=== PATIENT | male | born 2000 | race Caucasian/White ===

== ENCOUNTER 2024-07-23 20:25 | Emergency (ER) | payer OTHER, MEDICAID, SELFPAY ==
[2024-07-23 20:26] VITALS: BP 138/79; PULSE 88; RESP 16; TEMP 36.6; O2SAT 99; BMI 27.1
[2024-07-23 20:36] VITALS: BP 138/79; PULSE 88; RESP 16; TEMP 36.7; O2SAT 99
[2024-07-23] MEDS: Ibuprofen 400 MG Tablet 800 MG PO (21:10)
[2024-07-23 21:29] VITALS: BP 120/72; PULSE 63; RESP 16; TEMP 36.7; O2SAT 100
[2024-07-23 21:31] VITALS: BP 120/72; PULSE 71; RESP 16; TEMP 36.7; O2SAT 100
== END 2024-07-23 21:53 | disposition home or self-care (01) ==
LOC: ED 21:06
PROVIDERS: Emergency Provider Emergency Medicine; Visit Provider Emergency Medicine
DX: T22.251A Burn of second degree of right shoulder, initial encounter (principal); Y92.511 Restaurant or cafe as the place of occurrence of the external cause; Y99.0 Civilian activity done for income or pay; T22.211A Burn of second degree of right forearm, initial encounter
CPT/HCPCS: 99282

== ENCOUNTER 2025-04-23 15:21 | Emergency (ER) | payer OTHER, MEDICAID, SELFPAY ==
[2025-04-23 15:22] VITALS: BP 98/75; PULSE 112; RESP 18; TEMP 36; O2SAT 98
--- NOTE | 2025-04-23 15:25 | ED.RN ---
reports to triage nurse panic attacks, some thoughts of self harm but denies suicidal ideation or plan.
[2025-04-23] MEDS: hydrOXYzine PAM 25 MG Capsule 50 MG PO (16:19)
[2025-04-23 16:20] VITALS: BMI 25.0
--- NOTE | 2025-04-23 16:21 | EX.ED.VIS.PS ---
HPI HPI - Psych History of Present Illness Chief Complaint: Anxiety Informant: patient and parent Narrative Narrative: Patient is a 24-year-old male with history of bipolar disorder presenting for evaluation of worsening anxiety. Patient states he is recently been bouncing around on his meds. He states for the past 6 weeks has had worsening anxiety and depression. He had been put on Seroquel 100 mg nightly but went off of it recently because he felt like all he wanted to do his sleep and did not have control of his body. He was switched to lurasidone 60 mg. He states is not been effective and over the past 3 days he has had insomnia and worsening anxiety and panic attacks. Said he had 2 panic attacks today and 3 yesterday over the course of 4 hours. He states he started to have thoughts of self-harm does not have a plan. He just is feeling like he is not around anymore. Denies any auditory visual hallucinations. Denies any history of suicide attempts. Does have a history of suicidal ideations. Denies any HI. Notes that he follows with staff and psychiatrist through [facility]. He has appointment to see him this week. He is also supposed to start an IOP on Friday. He does note that he has constant chest pain associated with his anxiety. He feels that he can sometimes feel his heartbeat in his ears and feels that his chest is going to explode. Does attribute his last job which she recently quit did worsen his anxiety. He lives at home with his parents. States he feels safe there. Does at the bedside who confirms they feel that safe taking him home. There is a gun in the house but is locked up and there is no animal in the house. I did discussed with father making sure that the patient does not know where the hewitt/combination is. No other complaints or concerns at this time [facility] Medical History Burn Anxiety Home Medications ?Medication ?Instructions ?Recorded ?Last Taken ?Type ibuprofen 200 mg tablet (Advil) 200 mg PO DAILY 07/23/24 Unknown History buspirone 10 mg tablet 10 mg PO TID 04/23/25 Unknown History hydroxyzine pamoate 25 mg capsule 25 mg PO TID PRN anxiety #20 caps 04/23/25 Unknown Rx (Vistaril) quetiapine 100 mg tablet 100 mg PO QHS 04/23/25 Unknown History quetiapine 100 mg tablet (Seroquel) 100 mg PO QHS #7 tabs 04/23/25 Unknown Rx Allergy/AdvReac Type Severity Reaction Status Date / Time Penicillins (PCN) Allergy Intermediate Hives Verified 04/23/25 15:22 bacitracin Allergy Mild Rash Verified 04/23/25 15:22 neomycin (From Neosporin Allergy Mild Rash Verified 04/23/25 15:22 ([id number])) polymyxin B (From Neosporin Allergy Mild Rash Verified 04/23/25 15:22 ([id number])) Surgical History History of knee surgery Social History Smoking Status: Never smoker ROS ROS ED Constitutional Constitutional ED: Denies chills or fever(s) Cardiovascular Cardiovascular: Reports chest pain, palpitations and racing heartbeat Respiratory/Chest Respiratory/Chest: Denies cough or dyspnea Gastrointestinal Gastrointestinal: Denies abdominal pain Musculoskeletal Musculoskeletal: Denies arthralgias or myalgias Neurologic Neurologic: Denies weakness Psychiatric Psychiatric: Reports anxiety, depression, suicidal ideation and other Details: Insomnia ; Denies suicidal thoughts EXAM Physical Exam Const Vital Signs: 04/23/25 15:22 Temperature 96.8 F L Temperature Source Temporal Pulse Rate 112 H Respiratory Rate 18 Blood Pressure 98/75 Blood Pressure Mean 82 Pulse Ox 98 Oxygen Delivery Method Room Air Positive well nourished and well developed General Appearance ED: well developed and NAD HEENT Reports moist mucous membranes Neck supple Resp normal respiratory effort and clear to auscultation bilaterally Cardio no murmurs Rate: regular rate Rhythm: regular rhythm GI non-distended Neuro oriented x3 Sensorium / Orientation: alert Motor Exam: muscle tone normal throughout Psych mental status grossly normal, thought process normal, cooperative, affect normal, speech normal, denies hallucinations and denies homicidal ideation Psych Narrative: Does report some thoughts of feel that he be better off but has no plan or intent for suicidal ideation Mood & Affect: depressed Insight: insight good Judgement: judgement good Skin Lesions: no lesions Rashes: no rashes MDM MDM MDM Narrative Medical decision making narrative: Patient evaluated for worsening depression and anxiety. Does report chest discomfort with it however thinks it is from his anxiety. Will obtain screening EKG to ensure he does not have an arrhythmia or conduction abnormality/ischemic changes however I do not think he would require further cardiac workup if this is normal. Patient's med list/fill history was reviewed and it is consistent with his report. Will have patient's stop taking the lurasidone, continue his buspirone and restart him on quetiapine. At this time I do not think patient requires emergent inpatient psychiatric evaluation. Patient is evaluated by social work as well. Patient and father counseled that if this does not help or worsens he will need to return to emergency room at that time might require inpatient psychiatric services. Is given a dose of hydroxyzine and a as needed prescription hydroxyzine as well for symptoms. Given return precautions. Discharged home in stable condition. Patient is quite agreeable with plan of care. EKG shows normal sinus rhythm with no conduction abnormalities. I suspect his chest discomfort is somatic in nature Rhythm Strip Rhythm Strip: Sinus Rhythm Rate: 93 Ectopy: None EKG Initial EKG: Attestation: I personally reviewed and interpreted this EKG as follows: Interpretation: Sinus Rhythm Comments: Normal sinus rhythm rate 93 bpm Normal axis Normal intervals Normal ST segments Management Discussion w/another healthcare provider: workers' compensation claims supervisor/Case management Discharge Plan Triage Chief Complaint: Anxiety ED Provider: Gretchen Galvan Dx/Rx/DC Orders Clinical Impression: Anxiety, Panic attack, Insomnia Instructions: ED Anxiety Reaction, ED Insomnia, ED Panic Attack Prescriptions: New quetiapine [Seroquel] 100 mg tablet 100 mg PO QHS Qty: 7 0RF hydroxyzine pamoate [Vistaril] 25 mg capsule 25 mg PO TID PRN (Reason: anxiety) Qty: 20 0RF Discontinued lurasidone 40 mg tablet 40 mg PO QPM No Action ibuprofen [Advil] 200 mg tablet 200 mg PO DAILY quetiapine 100 mg tablet 100 mg PO QHS buspirone 10 mg tablet 10 mg PO TID Primary Care Provider: Care Physician,No Primary Referrals: Care Physician,No Primary [Primary Care Provider] - Activity Restrictions/Additional Instructions: Please follow-up with psychiatry next week as scheduled. Follow-up with your IOP. If you feel like your symptoms are worsening despite his medication changes please return to the emergency room. If you have worsening suicidal thoughts. Start to think about a plan please immediately return to the emergency room. Do not take the lurasidone tonight and instead take the Seroquel. The hydroxyzine is for as needed for acute anxiety/panic attacks Print Language: Macanese Disposition Disposition: Home, Self Care
--- OUTSIDE RECORDS SUMMARY | 2025-04-23 16:32 | XMS RPT_ITS | CCD ---
Author Organization [facility] Care Team Providers Care Slot Operations Director Name Role Phone Marcy Lugo MD Primary Care Provider STEPHEN SKY Admitting Unavailable SALSTEPHEN MCGEE Attending Unavailable TIFFANYL, MARCY Adame Primary Care Unavailable Marcy Lugo MD Primary Care Provider JENNIFER, MARCY Adame Primary Care Unavailable LISA RANGEL Attending Unavailable SALSTEPHEN MCGEE Referring Unavailable TELLING, REJI Referring Unavailable PLAYL, MARCY M Primary Care Unavailable LISA RANGEL Attending Unavailable PLAYL, MARCY M Primary Care Unavailable JUAN ZAMORA Attending Unavailable SALUANSTEPHEN Referring Unavailable PLAYL, MARCY Deep Primary Care Unavailable JUAN ZAMORA Attending Unavailable SALSTEPHEN MCGEE Referring Unavailable O'JOHNSONALISON Attending Unavailable PLAYL, MARCY M Primary Care Unavailable SALUANSTEPHEN Referring Unavailable O'JOHNSONALISON Attending Unavailable PLAYL, MARCY M Primary Care Unavailable SALUAN, STEPHEN Adame Referring Unavailable PLAYL, MARCY Deep Primary Care Unavailable SALUANSTEPHEN Referring Unavailable PLAYL, MARCY Deep Primary Care Unavailable SALSTEPHEN MCGEE Referring Unavailable JUAN ZAMORA Attending Unavailable PLAYL, MARCY Deep Primary Care Unavailable SALUANSTEPHEN Referring Unavailable JUAN ZAMORA Attending Unavailable PLAYL, MARCY M Primary Care Unavailable SALSTEPHEN MCGEE Referring Unavailable TELLING, REJI Attending Unavailable PLAYL, MARCY M Primary Care Unavailable PLAYL, MARCY M Primary Care Unavailable TELLING, REJI Referring Unavailable PLAYL, MARCY M Primary Care Unavailable JUAN ZAMORA Attending Unavailable STEPHEN SKY Referring Unavailable PLAYL, MARCY M Primary Care Unavailable JUAN ZAMORA Attending Unavailable SALUANSTEPHEN Referring Unavailable SALUANSTEPHEN Referring Unavailable PLAYL, MARCY M Primary Care Unavailable JUAN ZAMORA Attending Unavailable PLAYL, MARCY M Primary Care Unavailable NOAH, JUAN Attending Unavailable STEPHEN SKY Referring Unavailable PLAYL, MARCY M Primary Care Unavailable NOAH, JUAN Attending Unavailable SALSTEPHEN MCGEE Referring Unavailable PLAYL, MARCY M Primary Care Unavailable NOAH, JUAN Attending Unavailable SALUANSTEPHEN Referring Unavailable SALUANSTEPHEN Referring Unavailable PLAYL, MARCY M Primary Care Unavailable NOAH, JUAN Attending Unavailable SALSTEPHEN MCGEE Referring Unavailable PLAYL, MARCY M Primary Care Unavailable NOAH, JUAN Attending Unavailable SALUANSTEPHEN Referring Unavailable PLAYL, MARCY M Primary Care Unavailable NOAH, JUAN Attending Unavailable SALUANSTEPHEN Referring Unavailable PLAYL, MARCY M Primary Care Unavailable NOAH, JUAN Attending Unavailable STEPHEN SKY Referring Unavailable PLAYL, MARCY M Primary Care Unavailable NOAH, JUAN Attending Unavailable O'JOHNSONALISON Attending Unavailable PLAYL, MARCY M Primary Care Unavailable SALSTEPHEN MCGEE Referring Unavailable O'JOHNSONALISON Attending Unavailable PLAYL, MARCY M Primary Care Unavailable STEPHEN SKY Referring Unavailable PLAYL, MARCY M Primary Care Unavailable NOAH, JUAN Attending Unavailable SALUANSTEPHEN Referring Unavailable SALUANSTEPHEN Referring Unavailable PLAYL, MARCY M Primary Care Unavailable NOAH, JUAN Attending Unavailable STEPHEN SKY Referring Unavailable PLAYL, MARCY M Primary Care Unavailable NOAH, JUAN Attending Unavailable PLAYL, MARCY M Primary Care Unavailable NOAH, JUAN Attending Unavailable STEPHEN SKY Referring Unavailable PLAYL, MARCY M Primary Care Unavailable NOAH, JUAN Attending Unavailable STEPHEN SKY Referring Unavailable SALSTEPHEN MCGEE Referring Unavailable PLAYL, MARCY M Primary Care Unavailable NOAH, JUAN Attending Unavailable SURESH DOMINGUEZ Attending Unavailable PLAYL, MARCY M Primary Care Unavailable SALUANSTEPHEN Referring Unavailable PLAYL, MARCY M Primary Care Unavailable REJI VERGARA Referring Unavailable PLAYL, MARCY M Primary Care Unavailable SALSTEPHEN MCGEE Attending Unavailable PLAYL, MARCY M Primary Care Unavailable SALSTEPHEN MCGEE Attending Unavailable PLAYL, MARCY M Primary Care Unavailable CINDY TILLMAN Referring Unavailable DWAIN MENDEZ Attending Unavailable PLAYL, MARCY M Primary Care Unavailable SALSTEPHEN MCGEE Attending Unavailable PLAYL, MARCY M Primary Care Unavailable STEPHEN SKY Referring Unavailable JUAN ZAMORA Attending Unavailable PLAYL, MARCY M Primary Care Unavailable NOAH, JUAN Attending Unavailable STEPHEN SKY Referring Unavailable PLAYL, MARCY M Primary Care Unavailable NOAH, JUAN Attending Unavailable STEPHEN SKY Referring Unavailable PLAYL, MARCY M Primary Care Unavailable NOAH, JUAN Attending Unavailable SALSTEPHEN MCGEE Referring Unavailable PLAYL, MARCY M Primary Care Unavailable NOAH, JUAN Attending Unavailable STEPHEN SKY Referring Unavailable PLAYL, MARCY M Primary Care Unavailable NOAH, JUAN Attending Unavailable SALSTEPHEN MCGEE Referring Unavailable PLAYL, MACRY M Primary Care Unavailable NOAH, JUAN Attending Unavailable SALSTEPHEN MCGEE Referring Unavailable PLAYL, MARCY M Primary Care Unavailable SALEVERARDO, STEPHEN Adame Referring Unavailable NOAH, JUAN Attending Unavailable PLAYL, MARCY M Primary Care Unavailable SALSTEPHEN MCGEE Referring Unavailable NOAH, JUAN Attending Unavailable PLAYL, MARCY M Primary Care Unavailable NOAH, JUAN Attending Unavailable TELLING, REJI Referring Unavailable PLAYL, MARCY M Primary Care Unavailable NOAH, JUAN Attending Unavailable STEPHEN SKY Referring Unavailable PLAYL, MARCY M Primary Care Unavailable LISA RANGEL Attending Unavailable STEPHEN SKY Referring Unavailable O'JOHNSONALISON Attending Unavailable PLAYL, MARCY M Primary Care Unavailable STEPHEN SKY Referring Unavailable PLAYL, MARCY M Primary Care Unavailable TELLING, REJI Referring Unavailable PLAYL, MARCY M Primary Care Unavailable STEPHEN SKY Attending Unavailable PLAYL, MARCY M Primary Care Unavailable NICHOLE, STEPHEN Adame Attending Unavailable STEPHEN SKY Referring Unavailable PLAYL, MARCY M Primary Care Unavailable NOAH, JUAN Attending Unavailable PLAYL, MARCY M Primary Care Unavailable NOAH, JUAN Attending Unavailable STEPHEN SKY Referring Unavailable PLAYL, MARCY M Primary Care Unavailable NOAH, JUAN Attending Unavailable STEPHEN SKY Referring Unavailable O'JOHNSONALISON Attending Unavailable PLAYL, MARCY M Primary Care Unavailable STEPHEN SKY Referring Unavailable SALSTEPHEN MCGEE Referring Unavailable PLAYL, MARCY M Primary Care Unavailable NOAH, JUAN Attending Unavailable STEPHEN SKY Referring Unavailable PLAYL, MARCY M Primary Care Unavailable NOAH, JUAN Attending Unavailable PLAYL, MARCY M Primary Care Unavailable PLAYL, MARCY M Primary Care Unavailable STEPHEN SKY Attending Unavailable PLAYL, MARCY M Primary Care Unavailable NOAH, JUAN Attending Unavailable STEPHEN SKY Referring Unavailable PLAYL, MARCY M Primary Care Unavailable JUAN ZAMORA Attending Unavailable STEPHEN SKY Referring Unavailable JENNIFER MARCY M Primary Care Unavailable JUAN ZAMORA Attending Unavailable STEPHEN SKY Referring Unavailable JENNIFER, MARCY Adame Primary Care Unavailable JUAN ZAMORA Attending Unavailable STEPHEN SKY Referring Unavailable JENNIFER MARCY M Primary Care Unavailable STEPHEN SKY Referring Unavailable JENNIFER, MARCY Deep Primary Care Unavailable STEPHEN SKY Attending Unavailable Marcy Lugo MD Primary Care Provider Care Physician, No Primary Primary Care Unava ilable Jameson Enriquez Attending Unavailable Care Physician, No Primary Referring Unava ilable Care Physician, No Primary Primary Care Unava ilable Jameson Enriquez Attending Unavailable Care Physician, No Primary Referring Unava ilable Care Physician, No Primary Primary Care Unava ilable Davidson Sullivan Attending Unavailable Allergies Allergy Classification Reported Allergen(s) Allergy Type Date of Onset Reaction(s) Facility (7 sources) Penicillins; Translations: [PENICILLINS] Drug Allergy 5 [facility] Work Phone: (20 sources) environmental [Other] Propensity to adverse reactions 9 [facility] (20 sources) Penicillins Drug Allergy 5 [facility] Work Phone: (2 sources) OTHER; Translations: [OTHER] Propensity to adverse reactions (disorder) 9 [facility] Other [facility] (1 source) Bacitracin Drug Allergy 4 [facility] Repository (1 source) Neomycin Drug Allergy 4 [facility] Repository (1 source) Penicillins Drug allergy (disorder) 4 [facility] Repository (1 source) polymyxin B Drug allergy (disorder) 4 [facility] Repository (1 source) Penicillins Drug Allergy 5 [facility] Work Phone: Medications Current Medications Medication Drug Class(es) Dates Sig (Normalized) Sig (Original) finasteride 1 mg oral tablet (20 sources) 5-alpha Reductase Inhibitor take 1 tablet by mouth once daily finasteride (PROPECIA,PROSCAR) 1 mg tablet Take 1 mg by mouth once daily. Active Comment on above: Take 1 mg by mouth o nce daily. Ibuprofen (20 sources) Nonsteroidal Anti-inflammatory Drug ibuprofen (MOTRIN ORAL) Take by mouth. Active ibuprofen (MOTRI N ORAL) Take by mouth. 0 Active Comment on above: Take by mouth. ondansetron 4 mg oral tablet (1 source) Serotonin-3 Receptor Antagonist Start: 2 End: 2 take 1 tablet by mouth every eight hours as needed ondansetron (ZOFRAN) 4 mg tablet Take 1 tablet by mouth every 8 hours as needed for up to 3 days. 9 tablet 0 08/13/2022 08/16/2022 Active Comment on above: Take 1 tablet by swapnil th every 8 hours as needed for up to 3 days. oxyCODONE hydrochloride 5 mg oral tablet (1 source) Opioid Agonist Start: 2 End: 2 take 1 tablet by mouth every six hours as needed for pain oxyCODONE IR (ROXICODONE) 5 mg immediate release tablet Indications: Acute post-operative pain Take 1 tablet by mouth every 6 hours as needed for pain for up to 4 days. for pain. 16 tablet 0 08/13/2022 08/17/2022 Active Comment on above: Take 1 tablet by swapnil th every 6 hours as needed for pain for up to 4 days. for pain. Problems Active Problems Problem Classification Problem Date Documented Date Episodic/Chronic Anxiety disorders (20 sources) Anxiety; Translations: [Anxiety disorder, unspecified] Onset: 10-01-2019 10-01-2019 Chronic Monique (1 source) Burn of second degree of right shoulder, initial encounter; Translations: [Burn of second degree of right shoulder, initial encounter] Onset: 08-30-2024 Episodic Mood disorders (20 sources) Depressive disorder; Translations: [Depression] Onset: 10-01-2019 10-01-2019 Chronic Other bone disease and musculoskeletal deformities (1 source) Osteochondritis dissecans of right knee; Translations: [Osteochondritis dissecans, right knee] Chronic Other bone disease and musculoskeletal deformities (1 source) Osteochondritis dissecans of left knee; Translations: [Osteochondritis dissecans, left knee] Chronic Other bone disease and musculoskeletal deformities (20 sources) Osteochondritis dissecans; Translations: [Osteochondritis dissecans, unspecified knee] Onset: 05-07-2022 Chronic Other bone disease and musculoskeletal deformities (7 sources) Osteochondritis dissecans, unspecified knee; Translations: [Osteochondritis dissecans] Onset: 05-07-2022 05-07-2022 Chronic Other congenital anomalies (20 sources) Congenital pes planus; Translations: [Congenital pes planus, unspecified foot] Onset: 04-27-2009 04-27-2009 Chronic Other nervous system disorders (1 source) Other chronic pain; Translations: [Chronic pain of both knees] Onset: 04-04-2022 Chronic Other nervous system disorders (1 source) Acute postoperative pain; Translations: [Other acute postprocedural pain] Episodic Past or Other Problems Problem Classification Problem Date Documented Date Episodic/Chronic Other acquired deformities (20 sources) Arthropathy of knee joint; Translations: [Other specified acquired deformities of musculoskeletal system] Onset: 09-03-2022 Episodic Other acquired deformities (2 sources) Other specified acquired deformities of musculoskeletal system; Translations: [Osteochondral defect of condyle of femur] Onset: 08-13-2022 Episodic Other aftercare (20 sources) Surgical follow-up; Translations: [Encounter for follow-up examination after completed treatment for conditions other than malignant neoplasm] Onset: 09-03-2022 Episodic Other aftercare (1 source) Encounter for follow-up examination after completed treatment for conditions other than malignant neoplasm; Translations: [S/P orthopedic surgery, follow-up exam] Onset: 09-03-2022 Episodic Other connective tissue disease (6 sources) Pain in limb; Translations: [Pain in unspecified limb] Onset: 04-27-2009 Resolved: 03-13-2018 03-13-2018 Episodic Other non-traumatic joint disorders (6 sources) Pain in right knee; Translations: [Pain in joint, lower leg] Onset: 04-04-2022 Episodic Other non-traumatic joint disorders (1 source) Pain in left knee; Translations: [Chronic pain of both knees] Onset: 04-04-2022 Episodic Other skin disorders (20 sources) Acne; Translations: [Acne, unspecified] Onset: 03-13-2018 03-13-2018 Episodic Residual codes; unclassified (20 sources) Influenza vaccination declined; Translations: [Immunization not carried out because of patient refusal] Onset: 10-01-2019 10-01-2019 Episodic Results Test Name Value Interpretation Reference Range Facility Urgent Care Visit Reporton 1 10-11-2023 Urgent Care Visit Report [facility] [address], [address] [place] [address] OFFICE VISIT Date of Service: 08/10/24 MR#: [id number] Acct: [id number] Name: TUCKER ZAMBRANO Rep #: [id number] : 2000 Provider: BRANDON Sharpe Age/Sex: 24/M Location: [facility] Status: Signed Intake Vital Signs 08/03/24 15:12 08/10/24 14:57 Height 5 ft 10 in Weight: 186 lb BMI 26.6 BP 124/80 H 120/58 L Blood Pressure Location Lt brachial Lt brachial Position Sitting Sitting Respiration 18 16 Pulse 110 H 75 Pulse Source Monitor NIBP Temp 98.5 F 98.4 F Temp Source Oral Oral Pulse Oximetry (%) 98 99 Oxygen Delivery Method room air room air Intake Visit Reasons: 1 W FU/[place] REST Chief Complaint: WC f/u right forearm burn Junior Mechanical Engineer Required: No Allergies Penicillins (PCN) Allergy (Intermediate, Verified 08/10/24 14:58) Hives bacitracin Allergy (Mild, Verified 08/10/24 14:58) Rash neomycin (From Neosporin ([id number])) Allergy (Mild, Verified 08/10/24 14:58) Rash polymyxin B (From Neosporin ([id number])) Allergy (Mild, Verified 08/10/24 14:58) Rash Have you fallen in the past year?: No PFSH Medical History (Updated 08/03/24 @ 15:18 by Kasie Salcido) Burn Anxiety Surgical History (Updated 08/03/24 @ 15:19 by Kasie Salcido) History of knee surgery Social History Smoking Status: Never smoker HPI HPI Chief Complaint: WC f/u right forearm burn Details: TUCKER ZAMBRANO, is a 24 M who presents to the office today for follow-up status post work-related injury suffered on 07/23/2024 patient so states. 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 Today he notes he has yet to return to work as he told his employer because the amount of discomfort he had and he did not want to return to work, though he notes today the symptoms have improved remarkably with blister sites all with appropriate healing without further discharge over last 24 hours and trace to absent discomfort throughout the whole burn site. No complaints of fever, chills, sweats, lightheadedness/dizzin ess. He has been compliant with wound care, applying Silvadene cream as prescribed. No [id number] products taken to assist. No other associated symptoms and no other alleviating/aggravatin g factors. ROS Const Constitutional: No other (As above) Exam Const General: cooperative, healthy appearing and no acute distress Nutritional Appearance: average body habitus Orientation: alert and awake Resp Effort Inspection: normal respiratory effort and able to speak in complete sentences Cardio Rate: tachycardic Pulses: radial pulses present Skin Other: Approximately 20 cm by approximately 10 cm trace erythematous with scaling and resolved blisters Neuro General: patient alert and patient awake Cognition: normal cognition Speech: speech normal Motor: muscle tone normal throughout Sensory Exam: no sensory deficits noted Extrem General: normal to inspection Psych Appearance: grossly normal Mental Status: mental status grossly normal Mood: congruent mood Affect: normal affect Speech and Movement: speech and movement normal Attitude: cooperative Diagnoses Burn of second degree of right forearm, initial encounter T22.211A Assessment and Plan Assessment and Plan (1) Burn of second degree of right forearm, initial encounter: Status: Acute Comment: Right Forearm Plan: Return to work without restrictions as noted on today's [employer], though recommend keeping site covered for additional week. Silvadene cream as prescribed to discontinue. [facility] with [facility] on an as-needed basis only. Patient states acknowledging understanding all the above. Coding Level of Care Code Off vis,est,level 2 Clinical Quality Measures Falls Risk Screening/Assistive Devices Have you fallen in the past year?: No 08/10/24 1533 Date Jameson Yates Signature: Date (if applicable) CC: Normal [facility] Urgent Care Visit Reporton 1 10-03-2023 Urgent Care Visit Report [facility] [address], [address] [place] [address] OFFICE VISIT Date of Service: 08/03/24 MR#: [id number] Acct: [id number] Name: TUCKER ZAMBRANO Rep #: [id number] : 2000 Provider: BRANDON Sharpe Age/Sex: 24/M Location: [facility] Status: Signed Intake Vital Signs 07/23/24 20:26 08/03/24 15:12 Height 5 ft 10 in 5 ft 10 in Weight: 186 lb BMI 26.6 BP 124/80 H Blood Pressure Location Lt brachial Position Sitting Respiration 18 Pulse 110 H Pulse Source Monitor Temp 98.5 F Temp Source Oral Pulse Oximetry (%) 98 Oxygen Delivery Method room air Intake Visit Reasons: ER F/U BURN R FOREARM/ [place] Chief Complaint: ER F/U burn Right Forearm/[place] Junior Mechanical Engineer Required: No Accompanied by: Mother Is patient in pain?: No Allergies Penicillins (PCN) Allergy (Intermediate, Verified 08/03/24 15:14) Hives Medications ???Medication ???Instructions ???Recorded ???Confirmed ???Type finasteride 1 mg tablet 1 mg PO DAILY 07/23/24 08/03/24 History ibuprofen 200 mg tablet (Advil) 200 mg PO DAILY 07/23/24 08/03/24 History doxycycline monohydrate 100 mg 100 mg PO BID #20 caps 08/03/24 08/03/24 Rx capsule silver sulfadiazine 1 % topical 1 applic topical BID #50 grams 08/03/24 08/03/24 Rx cream Nurse's Note: ER F/U burn Right forearm,. WC [place]. 07/23/24 C/O small blister formations accompanied with itchiness on proximal area of burn after using neosporin. Switched to Bacitracin and same reaction occurred. [facility] Medical History (Updated 08/03/24 @ 15:18 by Kasie Salcido) Burn Anxiety Surgical History (Updated 08/03/24 @ 15:19 by Kasie Salcido) History of knee surgery Social History Smoking Status: Never smoker HPI HPI Chief Complaint: ER F/U burn Right Forearm/[place] Details: TUCKER ZAMBRANO, is a 24 M who presents to the office today for follow-up status post work-related injury suffered on 07/23/2024 patient so states. 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 He notes no loss of sensation or strength or function distal to the injury site. Topical Neosporin as well as bacitracin have both been trying to the wound, with him stating his symptoms only worsen causing blistering to the wound site and increased erythema and as a result has stopped using both. He notes no complaints of fever, chills, sweats, constricted/pruritic airway or chest pain/shortness of breath/dyspnea on exertion. No other complaints at this time. ROS Const Constitutional: No other (As above) Exam Const General: cooperative, healthy appearing and no acute distress Nutritional Appearance: average body habitus Orientation: alert and awake Resp Effort Inspection: normal respiratory effort and able to speak in complete sentences Cardio Rate: tachycardic Pulses: radial pulses present Skin Other: Approximately 20 cm by approximately 10 cm erythematous raised open wound with clustered closed blisters to the borders of the same after site examined nonadherent dressing and Coban was applied thereafter which patient tolerated well. Neuro General: patient alert and patient awake Cognition: normal cognition Speech: speech normal Motor: muscle tone normal throughout Sensory Exam: no sensory deficits noted Extrem General: normal to inspection Psych Appearance: grossly normal Mental Status: mental status grossly normal Mood: congruent mood Affect: normal affect Speech and Movement: speech and movement normal Attitude: cooperative Coding Level of Care Code Off vis,new,level 3 Diagnoses Burn of second degree of right forearm, initial encounter T22.211A Assessment and Plan Assessment and Plan (1) Burn of second degree of right forearm, initial encounter: Status: Acute Comment: Right Forearm Plan: Return to work with restrictions as noted on today's [employer]. Silvadene cream as prescribed today. Doxycycline as prescribed today. Supportive measures as instructed today. Follow-up with the [facility] approximately 1 week for reevaluation, sooner should symptoms only worsen or any other concerns develop. Patient and mother both state acknowledging understanding all the above. This note was generated with [employer] dictation software. It may contain incorrect words, spelling, and punctuation that were not noted in checking the note before signing. Medications: New s (more content not included)... Normal [facility] Emergency Department Summary on 07-23-2024 Emergency Department Summary [facility] Medical Records Department [address] [place] [address] Emergency Department Summary 07/23/24 MR#: [id number] Acct: [id number] Name: TUCKER ZAMBRANO Rep #: [id number] : 2000 24 From: Davidson Sullivan MD PCP: Care Physician,No Primary Status:REG ER Location: ED HPI History of Present Illness Chief Complaint: Burn Informant: patient Onset/Context/Timing Onset: Today Mechanism/Context: Burn Location of pain/injuries: Right forearm Current Severity: Moderate Maximum Severity: Moderate Associated Symptoms Associated Symptoms: Negative for Parasthesias, Weakness, Loss of function, Inability to ambulate, Loss of consciousness or Amnesia Narrative Narrative: 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 He was changing the cooking oil when it spilled on his shoulder and radial side of his forearm causing first and second-degree monique. This occurred just prior to arrival. He is right-hand dominant. No other complaints. Prior similar symptoms: No Recent Illness/Hospitalizatio n: No PFSH PFS Medical History Anxiety Home Medications ???Medication ???Instructions ???Recorded ???Last Taken ???Type finasteride 1 mg tablet 1 mg PO DAILY 07/23/24 Unknown History ibuprofen 200 mg tablet (Advil) 200 mg PO DAILY 07/23/24 Unknown History Allergy/AdvReac Type Severity Reaction Status Date / Time Penicillins (PCN) Allergy Intermediate Hives Verified 07/23/24 20:26 Social History Smoking Status: Never smoker ROS ROS ED ROS Narrative Denies recent illness. Constitutional Constitutional ED: Denies chills or fever(s) Eyes Eyes: Denies blurry vision ENT ENT ED: Denies ear pain Cardiovascular Cardiovascular: Denies chest pain Respiratory/Chest Respiratory/Chest: Denies cough or dyspnea Gastrointestinal Gastrointestinal: Denies abdominal pain Genitourinary Genitourinary ED: Denies dysuria or hematuria Musculoskeletal Musculoskeletal: Denies arthralgias Integumentary Denies abscess Neurologic Neurologic: Denies headache(s) Psychiatric Psychiatric: Denies anxiety or depression Endocrine Endocrinology: Denies cold intolerance Hematologic/Lymphatic Hematologic/Lymphatic: Denies easy bleeding or easy bruising Allergic/Immunologic Allergic/Immunologic ED: Denies mouth swelling, tongue swelling or urticaria EXAM Physical Exam Narrative Exam Narrative: 25-year-old male no acute distress vital signs stable afebrile. H EENT exam unremarkable. Neck nontender. Lungs clear to auscultation bilateral. Heart regular rate rhythm rate about 85 no murmur. Chest wall and ribs nontender. Abdomen soft nontender. Moving all 4 extremities. Neurovascularly intact. 5 out of 5 high rigger strength. Normal sensation. Dorsi plantarflexion intact. Right forearm circumferentially from the wrist to the proximal forearm patient has first and second- degree monique with sloughing of skin. Normal radial and ulnar pulse. Normal high rigger strength. Normal sensation. He has normal flexion extension of his wrist and elbow. Const Vital Signs: 07/23/24 20:26 07/23/24 20:36 07/23/24 20:36 Temperature 98 F 98.0 F Temperature Source Oral Oral Pulse Rate 88 88 Respiratory Rate 16 16 Respiratory Effort Normal Non-Labored Respiratory Depth Normal Respiratory Pattern Normal Blood Pressure 138/79 H 138/79 H Blood Pressure Mean 98 98 Pulse Ox 99 99 Oxygen Delivery Method Room Air Room Air Positive well nourished and well developed; Negative for obese, cachectic, contractures or unkempt General Appearance ED: well developed and NAD; Negative for unkempt, cachectic or contractures Nutritional Appearance: Negative for cachectic or obese HEENT atraumatic; Negative for trauma or tenderness Eyes PERRL and EOMs intact bilaterally Neck full ROM General: Negative for tenderness Chest Wall inspection of chest normal and palpation of chest normal Breast/Axilla Inspection: Negative for other Resp normal respiratory effort and clear to auscultation bilaterally Effort and Inspection: Negative for pain with movement Auscultation: Negative for rales, rhonchi, wheezes or diminished lung sounds Cardio regular rhythm, S1 normal heart sound, S2 normal heart sound and no murmurs Palpation: Negative for palpable S3 or palpable S4 Rate: regular rate; Negative for bradycardia or tachycardic Rhythm: Negative for abnormal rhythm GI normal to inspection, nondistended, normoactive bowel sounds, non-distended and no masses Inspection: Negative for abdominal distention Palpation: soft; Negative for tender, guarding or rebound tenderness present Back/Spine normal to inspection and no thoracic nor lumbar ten (more content not included)... [facility] TUCKER ZAMBRANO ([id number]) 1 M Date Time Provider Department 03/31/23 11:00 AM STEPHEN SKY SPPEST During your visit today, we recorded the following information about you: Stephen Sky MD 03/31/2023 12:12 PM Signed March 31, 2023 HPI: Tucker Zambrano is a 22 year old male with the presenting complaint of Post Op of the Left Knee. He was last seen in orthopaedic clinic for his knee on 12/30/2022 with Stephen Sky. Most recent knee imaging was completed on 03/31/2023 (XR KNEE GENERAL 4V AP BOTH/PA BOTH/LAT/MERC LEFT) . Attached is imaging for the order.The last knee-related PT visit was completed on 03/25/2023 (Knee - Left;Knee - Right). Tucker had knee surgery on 08/13/2022 with Stephen Sky. In the past (based on all medication history on file), Tucker has tried the following anti-inflammatory medications (not necessarily for this reason for visit): dexamethasone sodium phosphate, ketorolac tromethamine. Last XR Knee - Impression Only XR KNEE GENERAL 4V AP BOTH/PA BOTH/LAT/MERC LEFT Exam End: 03/31/2023 11:09 AM (In process) Last MRI Knee - Impression Only MRI KNEE WO IVCON RT Exam End: 03/01/2022 2:09 PM (Final result) Impression: IMPRESSION: RIGHT KNEE: LARGE MEDIAL AND LATERAL FEMORAL CONDYLE OSTEOCHONDRAL LESIONS. MULTIPLE IN SITU FRAGMENTS. NO FLUID UNDERMINING OR DISPLACED FRAGMENT. ... PT Visits (up to last 5) Some values may be hidden. Unless noted otherwise, only the newest values recorded on each date are displayed. PT Visits 02/07/23 02/14/23 02/21/23 03/10/23 03/25/23 Pain location Knee - Left Knee - Left Knee - Left Knee - Right Knee - Left;Knee - Right Pain level 0 0 0 3 0 Description Aching;Sore Aching;Sore Aching Frequency Intermittent Intermittent Intermittent Intermittent Intermittent Recent Surgeries this specialty 08/13/2022 (7mo) ALLOGRAFT OSTEOCHONDRAL KNEE OPEN (Left) Stephen Sky MD; Jayson Vega, DO - Posted Doing well in regard to left knee. PAIN EVALUATION No data found in the last 1 encounters. Past Medical History: PAST MEDICAL HISTORY Diagnosis Date Allergic rhinitis, cause unspecified Allergic rhinitis Pain in limb 2008 Family History: FAMILY HISTORY Problem Relation Age of Onset Hypertension Father Social History: Social History Tobacco Use Smoking status: Never Smokeless tobacco: Never Vaping Use Vaping Use: Never used Substance Use Topics Alcohol use: Never Drug use: Never Medications: ibuprofen (MOTRIN ORAL) Take by mouth. finasteride (PROPECIA,PROSCAR) 1 mg tablet Take 1 mg by mouth once daily. Allergies: ALLERGIES Allergen Reactions Penicillins Rash Environmental [Othe* Physical Exam: improved rom of left knee. No p[ain. No effusion. Imaging: Images were reviewed in the office today. Interpretation of the performed imaging is Xrays show good interval placement of grafts. No new issues in regard to left Assessment/Plan: continue with PT progression. Will see in the fututre when he is ready. Diagnosis: Osteochondral defect of condyle of femur (primary encounter diagnosis) Stephen Sky MD Allergies As of Date: 03/31/2023 Noted Allergy Reaction PENICILLINS 06/05/2005 2 - Rash environmental [Other] 04/27/2009 Date Reviewed: 03/31/2023 Reviewed by: Sophia Phoenix MA - Fully Assessed Reason for Visit: Post Op [174] Primary Visit Diagnosis:Osteochondra l defect of condyle of femur [M95.8] Prescriptions as of 03/31/2023 - ibuprofen (MOTRIN ORAL) Take by mouth. - finasteride (PROPECIA,PROSCAR) 1 mg tablet Take 1 mg by mouth once daily. 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 XR KNEE 4V AP/PA BOTH+LAT/ME R LTon 03-31-2023 XR KNEE 4V AP/PA BOTH+LAT/AMARIS LT * * *Final Report* * * DATE OF EXAM: Mar 31 2023 11:09AM STX 5202 - XR KNEE 4V AP/PA BOTH+LAT/AMARIS LT / PROCEDURE REASON: S/P orthopedic surgery, follow-up exam * * * * Physician Interpretation * * * * Left knee radiographs HISTORY: Status post orthopedic surgery TECHNIQUE: 4 views of the left knee COMPARISON: 12/30/2022 FINDINGS: Osteochondral graft surgery at the medial femoral condyle. Slight increased sclerosis with probable healing and bone fusion. No significant displacement or fragmentation. The lateral osteochondral lesion with no bone fusion and no significant fragmentation evident with no displacement. The remainder the osseous structures at the left knee appear intact. No joint effusion. Osteochondral lesions at the contralateral right knee relatively unchanged. IMPRESSION: 1. Healing left medial femoral condyle osteochondral graft 2. Left lateral femoral condyle osteochondral lesion with no bone fusion or interval displacement Remote Medical Coder: [facility] Transcribe Date/Time: Mar 31 2023 1:28P Dictated by : CEDRICK ELLIS MD This examination was interpreted and the report reviewed and electronically signed by: CEDRICK ELLIS MD on Mar 31 2023 1:34PM EST [id number] Normal [facility] XR Knee - left 4 Viewson IMPRESSION: 1. Healing left medial femoral condyle osteochondral graft 2. Left lateral femoral condyle osteochondral lesion with no bone fusion or interval displacement Remote Medical Coder: [facility] Transcribe Date/Time: Mar 31 2023 1:28P Dictated by : CEDRICK ELLIS MD This examination was interpreted and the report reviewed and electronically signed by: CEDRICK ELLIS MD on Mar 31 2023 1:34PM [facility] DIVISION OF RADIOLOGY * * *Final Report* * * DATE OF EXAM: Mar 31 2023 11:09AM STX 5202 - XR KNEE 4V AP/PA BOTH+LAT/AMARIS LT / PROCEDURE REASON: S/P orthopedic surgery, follow-up exam * * * * Physician Interpretation * * * * Left knee radiographs HISTORY: Status post orthopedic surgery TECHNIQUE: 4 views of the left knee COMPARISON: 12/30/2022 FINDINGS: Osteochondral graft surgery at the medial femoral condyle. Slight increased sclerosis with probable healing and bone fusion. No significant displacement or fragmentation. The lateral osteochondral lesion with no bone fusion and no significant fragmentation evident with no displacement. The remainder the osseous structures at the left knee appear intact. No joint effusion. Osteochondral lesions at the contralateral right knee relatively unchanged. DIVISION OF RADIOLOGY Provider, [facility] - 03/31/2023 * * *Final Report* * * DATE OF EXAM: Mar 31 2023 11:09AM STX 5202 - XR KNEE 4V AP/PA BOTH+LAT/AMARIS LT / PROCEDURE REASON: S/P orthopedic surgery, follow-up exam * * * * Physician Interpretation * * * * Left knee radiographs HISTORY: Status post orthopedic surgery TECHNIQUE: 4 views of the left knee COMPARISON: 12/30/2022 FINDINGS: Osteochondral graft surgery at the medial femoral condyle. Slight increased sclerosis with probable healing and bone fusion. No significant displacement or fragmentation. The lateral osteochondral lesion with no bone fusion and no significant fragmentation evident with no displacement. The remainder the osseous structures at the left knee appear intact. No joint effusion. Osteochondral lesions at the contralateral right knee relatively unchanged. IMPRESSION IMPRESSION: 1. Healing left medial femoral condyle osteochondral graft 2. Left lateral femoral condyle osteochondral lesion with no bone fusion or interval displacement Remote Medical Coder: [facility] Transcribe Date/Time: Mar 31 2023 1:28P Dictated by : CEDRICK ELLIS MD This examination was interpreted and the report reviewed and electronically signed by: CEDRICK ELLIS MD on Mar 31 2023 1:34PM [facility] Radiology Study observation (narrative) [facility] XR Knee - left 4 ViewsOrdere d By: [facility] Provider on 03-31-2023 [facility] CNTHERAPYon 03-25-2023 CNTHERAPY OT/PT/Speech Visit (PTWS) TUCKER ZAMBRANO ([id number]) [birth year] M Date Time Provider Department 03/25/23 12:30 PM JUAN ZAMORA PTRYDER Date Time Provider Department Center 03/25/2023 12:30 PM [id number], SEAN PTRYDER Mathur Reason for Visit: PT Discharge [752] Primary Visit Diagnosis:S/P orthopedic surgery, follow-up exam [Z09] Other Visit Diagnosis:Osteochondra l defect of condyle of femur [M95.8] Allergies As of Date: 03/25/2023 Noted Allergy Reaction PENICILLINS 06/05/2005 2 - Rash environmental [Other] 04/27/2009 Date Reviewed: 12/30/2022 Reviewed by: Sophia Phoenix MA - Fully Assessed Prescriptions as of 03/25/2023 - ibuprofen (MOTRIN ORAL) Take by mouth. - finasteride (PROPECIA,PROSCAR) 1 mg tablet Take 1 mg by mouth once daily. Normal [facility] CNTHERAPYon 03-07-2023 CNTHERAPY OT/PT/Speech Visit (PTWS) TUCKER ZAMBRANO ([id number]) 1025/00 M Date Time Provider Department 03/07/23 1:45 PM JUAN ZAMORA Date Time Provider Department [place] 03/07/2023 1:45 PM [id number], SEAN PTRYDER Mathur Reason for Visit: Physical Therapy [503] Primary Visit Diagnosis:S/P orthopedic surgery, follow-up exam [Z09] Other Visit Diagnosis:Osteochondra l defect of condyle of femur [M95.8] Allergies As of Date: 03/07/2023 Noted Allergy Reaction PENICILLINS 06/05/2005 2 - Rash environmental [Other] 04/27/2009 Date Reviewed: 12/30/2022 Reviewed by: Sophia Phoenix MA - Fully Assessed Prescriptions as of 03/10/2023 - ibuprofen (MOTRIN ORAL) Take by mouth. - finasteride (PROPECIA,PROSCAR) 1 mg tablet Take 1 mg by mouth once daily. Normal [facility] CNTHERAPYon 02-21-2023 CNTHERAPY OT/PT/Speech Visit (PTWS) TUCKER ZAMBRANO ([id number]) 00 M Date Time Provider Department 02/21/23 1:00 PM JUAN ZAMORA Date Time Provider Department [place] 02/21/2023 1:00 PM [id number] ZAMORA Reason for Visit: Physical Therapy [503] Primary Visit Diagnosis:S/P orthopedic surgery, follow-up exam [Z09] Other Visit Diagnosis:Osteochondra l defect of condyle of femur [M95.8] Allergies As of Date: 02/21/2023 Noted Allergy Reaction PENICILLINS 06/05/2005 2 - Rash environmental [Other] 04/27/2009 Date Reviewed: 12/30/2022 Reviewed by: Sophia Pohenix MA - Fully Assessed Prescriptions as of 02/21/2023 - ibuprofen (MOTRIN ORAL) Take by mouth. - finasteride (PROPECIA,PROSCAR) 1 mg tablet Take 1 mg by mouth once daily. Normal [facility] CNTHERAPYon 02-14-2023 CNTHERAPY OT/PT/Speech Visit (PTWS) TUCKER ZAMBRANO ([id number]) 00 M Date Time Provider Department 02/14/23 1:00 PM JUAN ZAMORA Date Time Provider Department [place] 02/14/2023 1:00 PM [id number] ZAMORA Topher Kevan Reason for Visit: Physical Therapy [503] Primary Visit Diagnosis:S/P orthopedic surgery, follow-up exam [Z09] Other Visit Diagnosis:Osteochondra l defect of condyle of femur [M95.8] Allergies As of Date: 02/14/2023 Noted Allergy Reaction PENICILLINS 06/05/2005 2 - Rash environmental [Other] 04/27/2009 Date Reviewed: 12/30/2022 Reviewed by: Sophia Phoenix MA - Fully Assessed Prescriptions as of 02/14/2023 - ibuprofen (MOTRIN ORAL) Take by mouth. - finasteride (PROPECIA,PROSCAR) 1 mg tablet Take 1 mg by mouth once daily. Normal [facility] CNTHERAPYon 02-07-2023 CNTHERAPY OT/PT/Speech Visit (PTWS) TUCKER ZAMBRANO ([id number]) 00 M Date Time Provider Department 02/07/23 2:30 PM JUAN ZAMORA Date Time Provider Department Center 02/07/2023 2:30 PM [id number] EGAN Reason for Visit: Physical Therapy [503] Primary Visit Diagnosis:S/P orthopedic surgery, follow-up exam [Z09] Other Visit Diagnosis:Osteochondra l defect of condyle of femur [M95.8] Allergies As of Date: 02/07/2023 Noted Allergy Reaction PENICILLINS 06/05/2005 2 - Rash environmental [Other] 04/27/2009 Date Reviewed: 12/30/2022 Reviewed by: Sophia Phoenix MA - Fully Assessed Prescriptions as of 02/10/2023 - ibuprofen (MOTRIN ORAL) Take by mouth. - finasteride (PROPECIA,PROSCAR) 1 mg tablet Take 1 mg by mouth once daily. Normal [facility] CNTHERAPYon 01-31-2023 CNTHERAPY OT/PT/Speech Visit (PTWS) TUCKER ZAMBRANO ([id number]) 00 M Date Time Provider Department 01/31/23 1:00 PM JUAN ZAMORA Date Time Provider Department Center 01/31/2023 1:00 PM [id number] MAN Reason for Visit: Physical Therapy [503] Primary Visit Diagnosis:S/P orthopedic surgery, follow-up exam [Z09] Other Visit Diagnosis:Osteochondra l defect of condyle of femur [M95.8] Allergies As of Date: 01/31/2023 Noted Allergy Reaction PENICILLINS 06/05/2005 2 - Rash environmental [Other] 04/27/2009 Date Reviewed: 12/30/2022 Reviewed by: Sophia Phoenix MA - Fully Assessed Prescriptions as of 01/31/2023 - ibuprofen (MOTRIN ORAL) Take by mouth. - finasteride (PROPECIA,PROSCAR) 1 mg tablet Take 1 mg by mouth once daily. Normal [facility] CNTHERAPYon 01-22-2023 CNTHERAPY OT/PT/Speech Visit (PTWS) TUCKER ZAMBRANO ([id number]) [birth year]/ M Date Time Provider Department 01/22/23 1:00 PM JUAN ZAMORA Date Time Provider Department [place] 01/22/2023 1:00 PM [id number], SEAN PTRYDER Mathur Reason for Visit: PT Progress Note [1596] Primary Visit Diagnosis:S/P orthopedic surgery, follow-up exam [Z09] Other Visit Diagnosis:Osteochondra l defect of condyle of femur [M95.8] Allergies As of Date: 01/22/2023 Noted Allergy Reaction PENICILLINS 06/05/2005 2 - Rash environmental [Other] 04/27/2009 Date Reviewed: 12/30/2022 Reviewed by: Sophia Phoenix MA - Fully Assessed Prescriptions as of 01/22/2023 - ibuprofen (MOTRIN ORAL) Take by mouth. - finasteride (PROPECIA,PROSCAR) 1 mg tablet Take 1 mg by mouth once daily. Normal [facility] CNTHERAPYon 01-20-2023 CNTHERAPY OT/PT/Speech Visit (PTWS) TUCKER ZAMBRANO ([id number]) 00 M Date Time Provider Department 01/20/23 12:15 PM JUAN ZAMORA PTRYDER Date Time Provider Department Center 01/20/2023 12:15 PM [id number], SEAN PTRYDER [employer] Reason for Visit: Physical Therapy [503] Primary Visit Diagnosis:S/P orthopedic surgery, follow-up exam [Z09] Other Visit Diagnosis:Osteochondra l defect of condyle of femur [M95.8] Allergies As of Date: 01/20/2023 Noted Allergy Reaction PENICILLINS 06/05/2005 2 - Rash environmental [Other] 04/27/2009 Date Reviewed: 12/30/2022 Reviewed by: Sophia Phoenix MA - Fully Assessed Prescriptions as of 01/20/2023 - ibuprofen (MOTRIN ORAL) Take by mouth. - finasteride (PROPECIA,PROSCAR) 1 mg tablet Take 1 mg by mouth once daily. Normal [facility] CNTHERAPYon 01-16-2023 CNTHERAPY OT/PT/Speech Visit (PTWS) VICKYJEROMETUCKER M ([id number]) 00 M Date Time Provider Department 01/16/23 12:30 PM JUAN ZAMORA Date Time Provider Department Center 01/16/2023 12:30 PM [id number] ZAMORA Reason for Visit: Physical Therapy [503] Primary Visit Diagnosis:S/P orthopedic surgery, follow-up exam [Z09] Other Visit Diagnosis:Osteochondra l defect of condyle of femur [M95.8] Allergies As of Date: 01/16/2023 Noted Allergy Reaction PENICILLINS 06/05/2005 2 - Rash environmental [Other] 04/27/2009 Date Reviewed: 12/30/2022 Reviewed by: Sophia Phoenix MA - Fully Assessed Prescriptions as of 01/16/2023 - ibuprofen (MOTRIN ORAL) Take by mouth. - finasteride (PROPECIA,PROSCAR) 1 mg tablet Take 1 mg by mouth once daily. Normal [facility] CNTHERAPYon 01-14-2023 CNTHERAPY OT/PT/Speech Visit (PTWS) TUCKER ZAMBRANO ([id number]) 00 M Date Time Provider Department 01/14/23 12:30 PM JUAN ZAMORA Date Time Provider Department Center 01/14/2023 12:30 PM [id number] MAN Reason for Visit: Physical Therapy [503] Primary Visit Diagnosis:S/P orthopedic surgery, follow-up exam [Z09] Other Visit Diagnosis:Osteochondra l defect of condyle of femur [M95.8] Allergies As of Date: 01/14/2023 Noted Allergy Reaction PENICILLINS 06/05/2005 2 - Rash environmental [Other] 04/27/2009 Date Reviewed: 12/30/2022 Reviewed by: Sophia Phoenix MA - Fully Assessed Prescriptions as of 01/14/2023 - ibuprofen (MOTRIN ORAL) Take by mouth. - finasteride (PROPECIA,PROSCAR) 1 mg tablet Take 1 mg by mouth once daily. Normal [facility] CNTHERAPYon 01-08-2023 CNTHERAPY OT/PT/Speech Visit (PTWS) TUCKER ZAMBRANO ([id number]) 00 M Date Time Provider Department 01/08/23 1:00 PM JUAN ZAMORA Date Time Provider Department Center 01/08/2023 1:00 PM [id number] MAN Reason for Visit: Physical Therapy [503] Primary Visit Diagnosis:S/P orthopedic surgery, follow-up exam [Z09] Other Visit Diagnosis:Osteochondra l defect of condyle of femur [M95.8] Allergies As of Date: 01/08/2023 Noted Allergy Reaction PENICILLINS 06/05/2005 2 - Rash environmental [Other] 04/27/2009 Date Reviewed: 12/30/2022 Reviewed by: Sophia Phoenix MA - Fully Assessed Prescriptions as of 01/08/2023 - ibuprofen (MOTRIN ORAL) Take by mouth. - finasteride (PROPECIA,PROSCAR) 1 mg tablet Take 1 mg by mouth once daily. Normal [facility] CNTHERAPYon 01-06-2023 CNTHERAPY OT/PT/Speech Visit (PTWS) TUCKER ZAMBRANO ([id number]) 10/ M Date Time Provider Department 01/06/23 10:45 AM JUAN ZAMORA Date Time Provider Department Center 01/06/2023 10:45 AM [id number] ZAMORA Reason for Visit: Physical Therapy [503] Primary Visit Diagnosis:S/P orthopedic surgery, follow-up exam [Z09] Other Visit Diagnosis:Osteochondra l defect of condyle of femur [M95.8] Allergies As of Date: 01/06/2023 Noted Allergy Reaction PENICILLINS 06/05/2005 2 - Rash environmental [Other] 04/27/2009 Date Reviewed: 12/30/2022 Reviewed by: Sophia Phoenix MA - Fully Assessed Prescriptions as of 01/06/2023 - ibuprofen (MOTRIN ORAL) Take by mouth. - finasteride (PROPECIA,PROSCAR) 1 mg tablet Take 1 mg by mouth once daily. Normal [facility] CNTHERAPYon 01-02-2023 CNTHERAPY OT/PT/Speech Visit (PTWS) TUCKER ZAMBRANO ([id number]) 00 M Date Time Provider Department 01/02/23 10:45 AM JUAN ZAMORA Date Time Provider Department [place] 01/02/2023 10:45 AM [id number] ZAMORA Reason for Visit: Physical Therapy [503] Primary Visit Diagnosis:S/P orthopedic surgery, follow-up exam [Z09] Other Visit Diagnosis:Osteochondra l defect of condyle of femur [M95.8] Allergies As of Date: 01/02/2023 Noted Allergy Reaction PENICILLINS 06/05/2005 2 - Rash environmental [Other] 04/27/2009 Date Reviewed: 12/30/2022 Reviewed by: Sophia Phoenix MA - Fully Assessed Prescriptions as of 01/02/2023 - ibuprofen (MOTRIN ORAL) Take by mouth. - finasteride (PROPECIA,PROSCAR) 1 mg tablet Take 1 mg by mouth once daily. Normal [facility] CNTHERAPYon 12-31-2022 CNTHERAPY OT/PT/Speech Visit (PTWS) TUCKER ZAMBRANO ([id number]) 00 M Date Time Provider Department 12/31/22 10:45 AM JUAN ZAMORA Date Time Provider Department Center 12/31/2022 10:45 AM [id number] ZAMORA Reason for Visit: Physical Therapy [503] Primary Visit Diagnosis:S/P orthopedic surgery, follow-up exam [Z09] Other Visit Diagnosis:Osteochondra l defect of condyle of femur [M95.8] Allergies As of Date: 12/31/2022 Noted Allergy Reaction PENICILLINS 06/05/2005 2 - Rash environmental [Other] 04/27/2009 Date Reviewed: 12/30/2022 Reviewed by: Sophia Phoenix MA - Fully Assessed Prescriptions as of 12/31/2022 - ibuprofen (MOTRIN ORAL) Take by mouth. - finasteride (PROPECIA,PROSCAR) 1 mg tablet Take 1 mg by mouth once daily. Normal [facility] CNOVon 12-30-2022 CNOV Office Visit (SPPEST ) TUCKER ZAMBRANO ([id number]) 00 M Date Time Provider Department 12/30/22 11:00 AM STEPHEN SKY During your visit today, we recorded the following information about you: Reji Vergara PA-C 12/30/2022 1:00 PM Signed December 30, 2022 12:55 PM HPI: Tucker Zambrano is a 22 year old male who presents today 4 months status post left knee medial femoral condyle bio Uni 25 mm allograft osteochondral transplant. Also underwent 6 mm allograft transplant to osteochondral plugs to lateral femoral condyle. Patient states overall he is doing well. He denies pain and reports significant improvements in his quality of life, and tolerance of activities following surgery. He admits intermittent effusions associated with prolonged activity, and standing. He states overall though he is doing well. Denies take medications for pain. Has been compliant with activity modifications, restrictions and home exercise program as guided by physical therapy. Otherwise well. Has been icing intermittently as needed. Denies falls or trauma since surgery. Diagnosis: S/p orthopedic surgery, follow-up exam (primary encounter diagnosis) Assessment/Plan: At this time we recommend continued activity modifications to avoid deep squat, pivoting and twisting but otherwise patient may slowly progress his activities as able. We would have him follow-up in 3 months in office with repeat x-ray. Possible progression of his activities at that time. Continue to avoid pounding activities to include jogging until cleared. Remain out of work given this requires frequent standing -patient reports he is able to remain out of work at this time. 4V XR at follow up in 3 months in office with Dr. Sky PAIN EVALUATION 12/30/2022 1127 Pain Level: 1 Pain Location: Knee-Right Description: -- stinging Duration Units: Weeks Frequency: Continuous Past Medical History: PAST MEDICAL HISTORY Diagnosis Date Allergic rhinitis, cause unspecified Allergic rhinitis Pain in limb 2009 Family History: FAMILY HISTORY Problem Relation Age of Onset Hypertension Father Social History: Social History Tobacco Use Smoking status: Never Smokeless tobacco: Never Vaping Use Vaping Use: Never used Substance Use Topics Alcohol use: Never Drug use: Never Medications: finasteride (PROPECIA,PROSCAR) 1 mg tablet Take 1 mg by mouth once daily. ibuprofen (MOTRIN ORAL) Take by mouth. Allergies: ALLERGIES Allergen Reactions Penicillins Rash Environmental [Othe* Physical Exam: Examination of the left knee: ROM: full range of motion noted No signs of trauma, erythema, or ecchymoses. Non TTP throughout the knee LFC or MFC. Medial Joint Line: no tenderness to palpation Lateral Joint Line: no tenderness to palpation Barry/Anterior Drawer: no ligamentous laxity noted with firm endpoint Posterior Drawer: no ligamentous laxity noted Valgus Stress Test: no ligamentous laxity noted Varus Stress Test: no ligamentous laxity noted Patellofemoral Examination: normal bilateral patellar examination with no tenderness to palpation. No patellar tethering. HIP Exam: normal Grossly NVI along L4, L5, and S1 Imaging: I personally reviewed and interpreted the most recent imaging of the left knee. Plain Radiographs of the left knee were reviewed and discussed with patient. Review of Systems: Constitutional: Any recent fevers? No Cardiovascular: Any chest pain? No Respiratory: Any shortness or breath? No Gastrointestinal: Any abdominal discomfort? No Integumentary: Any recent skin changes or rashes? No Neurologic: Any numbness or tingling? See Above Endocrine: Any diagnosis of diabetes? No Hematologic: Any recent bleeding episodes? No I spent a total of 30 minutes on the date of the service which included preparing to see the patient, [id number] patient care, completing clinical documentation, obtaining and/or reviewing separately obtained history, performing a medically appropriate examination, counseling and educating the patient/family/caregiv er, ordering medications, tests, or procedures, independently interpreting results (not separately reported), communicating results to the patient/family/caregiv er and care coordination (not separately reported). Reji Vergara PA-C Date: December 30, 2022 Time: 12:55 PM Allergies As of Date: 12/30/2022 Noted Allergy Reaction PENICILLINS 06/05/2005 2 - Rash environmental [Other] 04/27/2009 Date Reviewed: 12/30/2022 Reviewed by: Sophia Phoenix MA - Fully Assessed Reason for Visit: Post Op [174] Primary Visit Diagnosis:S/P orthopedic surgery, follow-up exam [Z09] Order(s):XR KNEE GENERAL 4V AP BOTH/PA BOTH/LAT/MERC LEFT [[id number]] Order #: [id number] FUTURE XR KNEE GENERAL 4V AP BOTH/PA BOTH/LAT/MERC LEFT [[id number]] Order #: [id number] FUTURE (more content not included)... Normal [facility] XR KNEE 4V AP/PA BOTH+LAT/ME R LTon 12-30-2022 XR KNEE 4V AP/PA BOTH+LAT/AMARIS LT * * *Final Report* * * DATE OF EXAM: Dec 30 2022 10:47AM STX 5202 - XR KNEE 4V AP/PA BOTH+LAT/AMARIS LT / PROCEDURE REASON: S/P orthopedic surgery, follow-up exam * * * * Physician Interpretation * * * * Left knee radiographs HISTORY: Status post orthopedic surgery TECHNIQUE: 4 views of the left knee COMPARISON: 11/04/2022 FINDINGS: Medial femoral condyle osteochondral graft surgery. No bone fusion at this time and no displacement. Lateral femoral condyle osteochondral lesion with no displacement. Knee joint spaces are preserved. The patella is in normal position. No joint effusion. Soft tissue swelling anterior to the knee. IMPRESSION: 1. Medial femoral condyle osteochondral graft surgery with no bone fusion at this time. No displacement Remote Medical Coder: PSC[facility] Transcribe Date/Time: Dec 30 2022 1:01P Dictated by : CEDRICK ELLIS MD This examination was interpreted and the report reviewed and electronically signed by: CEDRICK ELLIS MD on Dec 30 2022 1:07PM EST [id number] Normal [facility] XR KNEE GENERAL 4V AP BOTH/P A BOTH/LAT/MERC LEFTon 12-30-2022 [facility] XR Knee - left 4 Viewson IMPRESSION: 1. Medial femoral condyle osteochondral graft surgery with no bone fusion at this time. No displacement Remote Medical Coder: PSCB Transcribe Date/Time: Dec 30 2022 1:01P Dictated by : CEDRICK ELLIS MD This examination was interpreted and the report reviewed and electronically signed by: CEDRICK ELLIS MD on Dec 30 2022 1:07PM EST DIVISION OF RADIOLOGY * * *Final Report* * * DATE OF EXAM: Dec 30 2022 10:47AM STX 5202 - XR KNEE 4V AP/PA BOTH+LAT/AMARIS LT / PROCEDURE REASON: S/P orthopedic surgery, follow-up exam * * * * Physician Interpretation * * * * Left knee radiographs HISTORY: Status post orthopedic surgery TECHNIQUE: 4 views of the left knee COMPARISON: 11/04/2022 FINDINGS: Medial femoral condyle osteochondral graft surgery. No bone fusion at this time and no displacement. Lateral femoral condyle osteochondral lesion with no displacement. Knee joint spaces are preserved. The patella is in normal position. No joint effusion. Soft tissue swelling anterior to the knee. DIVISION OF RADIOLOGY Provider, [facility] - 12/30/2022 * * *Final Report* * * DATE OF EXAM: Dec 30 2022 10:47AM STX 5202 - XR KNEE 4V AP/PA BOTH+LAT/AMARIS LT / PROCEDURE REASON: S/P orthopedic surgery, follow-up exam * * * * Physician Interpretation * * * * Left knee radiographs HISTORY: Status post orthopedic surgery TECHNIQUE: 4 views of the left knee COMPARISON: 11/04/2022 FINDINGS: Medial femoral condyle osteochondral graft surgery. No bone fusion at this time and no displacement. Lateral femoral condyle osteochondral lesion with no displacement. Knee joint spaces are preserved. The patella is in normal position. No joint effusion. Soft tissue swelling anterior to the knee. IMPRESSION IMPRESSION: 1. Medial femoral condyle osteochondral graft surgery with no bone fusion at this time. No displacement Remote Medical Coder: [facility] Transcribe Date/Time: Dec 30 2022 1:01P Dictated by : CEDRICK ELLIS MD This examination was interpreted and the report reviewed and electronically signed by: CEDRICK ELLIS MD on Dec 30 2022 1:07PM EST [facility] Radiology Study observation (narrative) [facility] XR Knee - left 4 ViewsOrdere d By: [facility] Provider on 12-30-2022 [facility] CNTHERAPYon 12-25-2022 CNTHERAPY OT/PT/Speech Visit (PTWS) TUCKER ZAMBRANO ([id number]) 00 M Date Time Provider Department 12/25/22 1:45 PM JUAN ZAMORA Date Time Provider Department Center 12/25/2022 1:45 PM [id number] MAN Reason for Visit: PT Progress Note [1596] Primary Visit Diagnosis:S/P orthopedic surgery, follow-up exam [Z09] Other Visit Diagnosis: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 - finasteride (PROPECIA,PROSCAR) 1 mg tablet Take 1 mg by mouth once daily. Normal 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 - finasteride (PROPECIA,PROSCAR) 1 mg tablet Take 1 mg by mouth once daily. Normal 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 - finasteride (PROPECIA,PROSCAR) 1 mg tablet Take 1 mg by mouth once daily. Normal 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 - finasteride (PROPECIA,PROSCAR) 1 mg tablet Take 1 mg by mouth once daily. Normal 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 - finasteride (PROPECIA,PROSCAR) 1 mg tablet Take 1 mg by mouth once daily. Normal 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 - finasteride (PROPECIA,PROSCAR) 1 mg tablet Take 1 mg by mouth once daily. Normal 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 - finasteride (PROPECIA,PROSCAR) 1 mg tablet Take 1 mg by mouth once daily. Normal 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 - finasteride (PROPECIA,PROSCAR) 1 mg tablet Take 1 mg by mouth once daily. Normal 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 - finasteride (PROPECIA,PROSCAR) 1 mg tablet Take 1 mg by mouth once daily. Normal 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 - finasteride (PROPECIA,PROSCAR) 1 mg tablet Take 1 mg by mouth once daily. Normal 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 - finasteride (PROPECIA,PROSCAR) 1 mg tablet Take 1 mg by mouth once daily. Normal 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 - finasteride (PROPECIA,PROSCAR) 1 mg tablet Take 1 mg by mouth once daily. Normal 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 - finasteride (PROPECIA,PROSCAR) 1 mg tablet Take 1 mg by mouth once daily. Normal 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 - finasteride (PROPECIA,PROSCAR) 1 mg tablet Take 1 mg by mouth once daily. Normal 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 - finasteride (PROPECIA,PROSCAR) 1 mg tablet Take 1 mg by mouth once daily. Normal [facility] CNOVon 11-04-2022 CNOV Office Visit (SPPEST ) TUCKER ZAMBRANO ([id number]) 00 M Date Time Provider Department 11/04/22 11:00 AM STEPHEN SKY During your visit today, we recorded the following information about you: Reji Vergara PA-C 11/04/2022 2:55 PM Signed November 04, 2022 1:10 PM HPI: Tucker Zambrano is a 22 year old male who presents 3 months s/p Left knee arthroscopy, and open BIOUNI 25mm osteochondral allograft reconstruction medial femoral condyle, and allograft transplant 2x 6mm plugs to the lateral femoral condyle. Patient states significantly improved range of motion over the last few weeks. Remains on crutches PWBAT. Denies new acute falls or traumas - had one fall acutely post op but doing well since. Denies mechanical symptoms or instability. Admits continued post operative effusion. Denies numbness or tingling distally. Otherwise well. Diagnosis: S/p orthopedic surgery, follow-up exam (primary encounter diagnosis) Assessment/Plan: Continue PT - progress off crutches to FWB in the next 1-2 weeks. Straight midline motions only. Progress strengthening as able over the next 3 months. No pivoting or twisting until cleared. Radiographs reviewed with interval healing MFC 25mm OC biouni allograft transplant. Follow up in 3 months in person with repeat XR. PAIN EVALUATION No data found in the last 1 encounters. Past Medical History: PAST MEDICAL HISTORY Diagnosis Date Allergic rhinitis, cause unspecified Allergic rhinitis Pain in limb 2008 Family History: FAMILY HISTORY Problem Relation Age of Onset Hypertension Father Social History: Social History Tobacco Use Smoking status: Never Smokeless tobacco: Never Vaping Use Vaping Use: Never used Substance Use Topics Alcohol use: Never Drug use: Never Medications: ibuprofen (MOTRIN ORAL) Take by mouth. finasteride (PROPECIA,PROSCAR) 1 mg tablet Take 1 mg by mouth once daily. Allergies: ALLERGIES Allergen Reactions Penicillins Rash Environmental [Othe* Physical Exam: Examination of the left knee: ROM: full range of motion noted No signs of trauma, erythema, or ecchymoses. Non TTP throughout the knee Medial Joint Line: no tenderness to palpation Lateral Joint Line: no tenderness to palpation Barry/Anterior Drawer: no ligamentous laxity noted with firm endpoint Posterior Drawer: no ligamentous laxity noted Valgus Stress Test: no ligamentous laxity noted Varus Stress Test: no ligamentous laxity noted Patellofemoral Examination: normal bilateral patellar examination with no tenderness to palpation. No patellar tethering. HIP Exam: normal Grossly NVI along L4, L5, and S1 Imaging: I personally reviewed and interpreted the most recent imaging of the left knee. Plain Radiographs of the left knee were reviewed and discussed with patient. Per Radiologist Report - IMPRESSION: 1. Stable appearance of postsurgical changes of the medial femoral condyle and lateral femoral condyle osteochondral lesion Remote Medical Coder: IAM Transcribe Date/Time: Nov 04 2022 2:03P Dictated by : CEDRICK ELLIS MD Review of Systems: Constitutional: Any recent fevers? No Cardiovascular: Any chest pain? No Respiratory: Any shortness or breath? No Gastrointestinal: Any abdominal discomfort? No Integumentary: Any recent skin changes or rashes? No Neurologic: Any numbness or tingling? See Above Endocrine: Any diagnosis of diabetes? No Hematologic: Any recent bleeding episodes? No I spent a total of 30 minutes on the date of the service which included preparing to see the patient, [id number] patient care, completing clinical documentation, obtaining and/or reviewing separately obtained history, performing a medically appropriate examination, counseling and educating the patient/family/caregiv er, ordering medications, tests, or procedures, independently interpreting results (not separately reported), communicating results to the patient/family/caregiv er and care coordination (not separately reported). Reji Vergara PA-C Date: November 04, 2022 Time: 1:10 PM Allergies As of Date: 11/04/2022 Noted Allergy Reaction PENICILLINS 06/05/2005 2 - Rash environmental [Other] 04/27/2009 Date Reviewed: 11/04/2022 Reviewed by: Asia Alanis MA - Fully Assessed Reason for Visit: Established Patient [175] Post Op [174] Primary Visit Diagnosis:S/P orthopedic surgery, follow-up exam [Z09] Order(s):XR KNEE GENERAL 4V AP BOTH/PA BOTH/LAT/MERC LEFT [[id number]] Order #: [id number] FUTURE Prescriptions as of 11/04/2022 - ibuprofen (MOTRIN ORAL) Take by mouth. - finasteride (PROPECIA,PROSCAR) 1 mg tablet Take 1 mg by mouth once daily. Problem List As Of Date 11/04/2022 Noted Resolved Congenital Pes Planus [Q66.50] 04/27/2009 Pain in limb [M79.609] 04/27/2009 03/13/2018 Acne [L70.9] 03/13/2018 Depressio (more content not included)... Normal [facility] XR KNEE 4V AP/PA BOTH+LAT/ME R LTon 11-04-2022 XR KNEE 4V AP/PA BOTH+LAT/AMARIS LT * * *Final Report* * * DATE OF EXAM: Nov 04 2022 12:34PM STX 5202 - XR KNEE 4V AP/PA BOTH+LAT/AMARIS LT / PROCEDURE REASON: S/P orthopedic surgery, follow-up exam * * * * Physician Interpretation * * * * Left knee radiographs HISTORY: Status post orthopedic surgery TECHNIQUE: 4 views of the left knee COMPARISON: 08/26/2022 FINDINGS: Osteochondral lesions of the medial and lateral femoral condyle and orthopedic implant at the medial femoral condyle relatively unchanged since the prior exam. No fragmentation or resorption evident. No complete bone fusion evident. Joint spaces are preserved. Swelling anterior to the knee. IMPRESSION: 1. Stable appearance of postsurgical changes of the medial femoral condyle and lateral femoral condyle osteochondral lesion Remote Medical Coder: [employer] Transcribe Date/Time: Nov 04 2022 2:03P Dictated by : CEDRICK ELLIS MD This examination was interpreted and the report reviewed and electronically signed by: CEDRICK ELLIS MD on Nov 04 2022 2:06PM EST [id number] Normal [facility] XR KNEE GENERAL 4V AP BOTH/P A BOTH/LAT/MERC LEFTon 11-04-2022 [facility] XR Knee - left 4 Viewson IMPRESSION: 1. Stable appearance of postsurgical changes of the medial femoral condyle and lateral femoral condyle osteochondral lesion Remote Medical Coder: [employer] Transcribe Date/Time: Nov 04 2022 2:03P Dictated by : CEDRICK ELLIS MD This examination was interpreted and the report reviewed and electronically signed by: CEDRICK ELLIS MD on Nov 04 2022 2:06PM [facility] DIVISION OF RADIOLOGY * * *Final Report* * * DATE OF EXAM: Nov 04 2022 12:34PM STX 5202 - XR KNEE 4V AP/PA BOTH+LAT/AMARIS LT / PROCEDURE REASON: S/P orthopedic surgery, follow-up exam * * * * Physician Interpretation * * * * Left knee radiographs HISTORY: Status post orthopedic surgery TECHNIQUE: 4 views of the left knee COMPARISON: 08/26/2022 FINDINGS: Osteochondral lesions of the medial and lateral femoral condyle and orthopedic implant at the medial femoral condyle relatively unchanged since the prior exam. No fragmentation or resorption evident. No complete bone fusion evident. Joint spaces are preserved. Swelling anterior to the knee. DIVISION OF RADIOLOGY Provider, [facility] - 11/04/2022 * * *Final Report* * * DATE OF EXAM: Nov 04 2022 12:34PM STX 5202 - XR KNEE 4V AP/PA BOTH+LAT/AMARIS LT / PROCEDURE REASON: S/P orthopedic surgery, follow-up exam * * * * Physician Interpretation * * * * Left knee radiographs HISTORY: Status post orthopedic surgery TECHNIQUE: 4 views of the left knee COMPARISON: 08/26/2022 FINDINGS: Osteochondral lesions of the medial and lateral femoral condyle and orthopedic implant at the medial femoral condyle relatively unchanged since the prior exam. No fragmentation or resorption evident. No complete bone fusion evident. Joint spaces are preserved. Swelling anterior to the knee. IMPRESSION IMPRESSION: 1. Stable appearance of postsurgical changes of the medial femoral condyle and lateral femoral condyle osteochondral lesion Remote Medical Coder: PSCB Transcribe Date/Time: Nov 04 2022 2:03P Dictated by : CEDRICK ELLIS MD This examination was interpreted and the report reviewed and electronically signed by: CEDRICK ELLIS MD on Nov 04 2022 2:06PM [facility] Radiology Study observation (narrative) [facility] XR Knee - left 4 ViewsOrdere d By: Ccf Provider on 11-04-2022 [facility] CNTHERAPYon 10-30-2022 CNTHERAPY OT/PT/Speech Visit (PTWS) TUCKER ZAMBRANO ([id number]) 1 M Date Time Provider Department 10/30/22 1:45 PM JUAN ZAMORA PTRYDER Date Time Provider Department Center 10/30/2022 1:45 PM [id number], SEAN PTRYDER Mathur Reason for Visit: PT Progress Note [1596] Primary Visit Diagnosis:S/P orthopedic surgery, follow-up exam [Z09] Other Visit Diagnosis: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 - finasteride (PROPECIA,PROSCAR) 1 mg tablet Take 1 mg by mouth once daily. Normal 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 - finasteride (PROPECIA,PROSCAR) 1 mg tablet Take 1 mg by mouth once daily. Normal 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 - finasteride (PROPECIA,PROSCAR) 1 mg tablet Take 1 mg by mouth once daily. Normal 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 - finasteride (PROPECIA,PROSCAR) 1 mg tablet Take 1 mg by mouth once daily. Normal 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 - finasteride (PROPECIA,PROSCAR) 1 mg tablet Take 1 mg by mouth once daily. Normal 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 - finasteride (PROPECIA,PROSCAR) 1 mg tablet Take 1 mg by mouth once daily. Normal 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 - finasteride (PROPECIA,PROSCAR) 1 mg tablet Take 1 mg by mouth once daily. Normal 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 - finasteride (PROPECIA,PROSCAR) 1 mg tablet Take 1 mg by mouth once daily. Normal 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 - finasteride (PROPECIA,PROSCAR) 1 mg tablet Take 1 mg by mouth once daily. Normal 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 - finasteride (PROPECIA,PROSCAR) 1 mg tablet Take 1 mg by mouth once daily. Normal 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 - finasteride (PROPECIA,PROSCAR) 1 mg tablet Take 1 mg by mouth once daily. Normal 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 - finasteride (PROPECIA,PROSCAR) 1 mg tablet Take 1 mg by mouth once daily. Normal [facility] [place] 09-23-2022 CNOV Office Visit (SPPEST ) TUCKER ZAMBRANO ([id number]) 00 M Date Time Provider Department 09/23/22 10:20 AM STEPHEN SKY SPPHAJA During your visit today, we recorded the following information about you: Reji Vergara PA-C 09/23/2022 2:13 PM Signed September 23, 2022 10:52 AM HPI: Tucker Zambrano is a 22 year old male who presents for Left knee arthroscopy, and open BIOUNI 25mm osteochondral allograft reconstruction medial femoral condyle, and allograft transplant 2x 6mm plugs to the lateral femoral condyle. Patient states overall he is doing well. He admits compliance with nonweightbearing on bilateral crutches. He admits compliance in his hinged T ROM brace 0-90. Has been undergoing formal physical therapy services and denies any difficulty with this. He admits significant improvements in his ability perform a straight leg raise of the last week. Able to bend his knee 0-70 and improving with time. Otherwise well. Denies acute falls or traumas. Denies mechanical symptoms. Diagnosis: S/p orthopedic surgery, follow-up exam (primary encounter diagnosis) Assessment/Plan: At this time we will have patient progress his weightbearing over the next 2 weeks with physical therapy pending continued improvements in his quad strengthening. Follow-up in 8 weeks with radiographs at that time approximately 3 months postop. Continue focusing on strengthening, and straight midline walking only. No running, jogging, cutting or pivoting until cleared. All questions answered. Patient verbalizes clear standing of all instructions and would like to proceed in this fashion. Discontinue hinged TROM brace in 2 weeks once full weightbearing. PAIN EVALUATION No data found in the last 1 encounters. Past Medical History: PAST MEDICAL HISTORY Diagnosis Date Allergic rhinitis, cause unspecified Allergic rhinitis Pain in limb 2008 Family History: FAMILY HISTORY Problem Relation Age of Onset Hypertension Father Social History: Social History Tobacco Use Smoking status: Never Smokeless tobacco: Never Vaping Use Vaping Use: Never used Substance Use Topics Alcohol use: Never Drug use: Never Medications: ibuprofen (MOTRIN ORAL) Take by mouth. finasteride (PROPECIA,PROSCAR) 1 mg tablet Take 1 mg by mouth once daily. Allergies: ALLERGIES Allergen Reactions Penicillins Rash Environmental [Othe* Physical Exam: Examination of the left knee: ROM: 0-70 Midline incision well-healed and well approximated. C/D/I. Steri-Strips removed today. No clinical signs of infection. No signs of trauma, erythema, or ecchymoses. Non TTP throughout the knee Medial Joint Line: no tenderness to palpation Lateral Joint Line: no tenderness to palpation Barry/Anterior Drawer: no ligamentous laxity noted Posterior Drawer: no ligamentous laxity noted Valgus Stress Test: no ligamentous laxity noted Varus Stress Test: no ligamentous laxity noted Thessaly's test/Radha's: no pain elicited medially or laterally Squat Test: Negative. Patellofemoral Examination: normal bilateral patellar examination with no tenderness to palpation. No patellar tethering. HIP Exam: normal Grossly NVI along L4, L5, and S1 Review of Systems: Constitutional: Any recent fevers? No Cardiovascular: Any chest pain? No Respiratory: Any shortness or breath? No Gastrointestinal: Any abdominal discomfort? No Integumentary: Any recent skin changes or rashes? No Neurologic: Any numbness or tingling? See Above Endocrine: Any diagnosis of diabetes? No Hematologic: Any recent bleeding episodes? No I spent a total of 25 minutes on the date of the service which included preparing to see the patient, [id number] patient care, completing clinical documentation, obtaining and/or reviewing separately obtained history, performing a medically appropriate examination, counseling and educating the patient/family/caregiv er, ordering medications, tests, or procedures, independently interpreting results (not separately reported), communicating results to the patient/family/caregiv er and care coordination (not separately reported). Reji Vergara PA-C Date: September 23, 2022 Time: 10:52 AM Allergies As of Date: 09/23/2022 Noted Allergy Reaction PENICILLINS 06/05/2005 2 - Rash environmental [Other] 04/27/2009 Date Reviewed: 09/23/2022 Reviewed by: Asia Alanis MA - Fully Assessed Reason for Visit: Established Patient [175] Post Op [174] Primary Visit Diagnosis:S/P orthopedic surgery, follow-up exam [Z09] Prescriptions as of 09/23/2022 - ibuprofen (MOTRIN ORAL) Take by mouth. - finasteride (PROPECIA,PROSCAR) 1 mg tablet Take 1 mg by mouth once daily. Problem List As Of Date 09/23/2022 Noted Resolved Congenital Pes Planus [Q66.50] 04/27/2009 Pain in limb [M79.609] 04/27/2009 03/13/2018 Acne [L70.9] (more content not included)... Normal 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 - finasteride (PROPECIA,PROSCAR) 1 mg tablet Take 1 mg by mouth once daily. Normal 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 - finasteride (PROPECIA,PROSCAR) 1 mg tablet Take 1 mg by mouth once daily. Normal 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 - finasteride (PROPECIA,PROSCAR) 1 mg tablet Take 1 mg by mouth once daily. Normal 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 - finasteride (PROPECIA,PROSCAR) 1 mg tablet Take 1 mg by mouth once daily. Normal 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 - finasteride (PROPECIA,PROSCAR) 1 mg tablet Take 1 mg by mouth once daily. Normal [facility] XR Knee - left AP and [facility] 08-27-2022 IMPRESSION: 1. Osteochondral lesions of the medial and lateral femoral condyle with post surgical osteochondral graft at the medial femoral condyle. No displaced osteochondral fragments. Remote Medical Coder: [facility] Transcribe Date/Time: Aug 27 2022 2:44P Dictated by : CEDRICK ELLIS MD This examination was interpreted and the report reviewed and electronically signed by: CEDRICK ELLIS MD on Aug 27 2022 2:49PM [facility] DIVISION OF RADIOLOGY * * *Final Report* * * DATE OF EXAM: Aug 26 2022 11:59AM STX 5206 - XR KNEE 2V AP/LAT LT / PROCEDURE REASON: S/P orthopedic surgery, follow-up exam * * * * Physician Interpretation * * * * Left knee radiographs HISTORY: Status post orthopedic surgery TECHNIQUE: AP and lateral views of the left knee COMPARISON: 02/15/2022 FINDINGS: Osteochondral lesions of the medial and lateral femoral condyle with superimposed osteochondral surgery and implant measuring 2.8 x 2.8 cm at the medial femoral condyle. Knee joint spaces are preserved. No significant joint effusion. Soft tissue swelling anterior to the knee. DIVISION OF RADIOLOGY [facility] * * *Final Report* * * DATE OF EXAM: Aug 26 2022 11:59AM STX 5206 - XR KNEE 2V AP/LAT LT / PROCEDURE REASON: S/P orthopedic surgery, follow-up exam * * * * Physician Interpretation * * * * Left knee radiographs HISTORY: Status post orthopedic surgery TECHNIQUE: AP and lateral views of the left knee COMPARISON: 02/15/2022 FINDINGS: Osteochondral lesions of the medial and lateral femoral condyle with superimposed osteochondral surgery and implant measuring 2.8 x 2.8 cm at the medial femoral condyle. Knee joint spaces are preserved. No significant joint effusion. Soft tissue swelling anterior to the knee. IMPRESSION IMPRESSION: 1. Osteochondral lesions of the medial and lateral femoral condyle with post surgical osteochondral graft at the medial femoral condyle. No displaced osteochondral fragments. Remote Medical Coder: PSCB Transcribe Date/Time: Aug 27 2022 2:44P Dictated by : CEDRICK ELLIS MD This examination was interpreted and the report reviewed and electronically signed by: CEDRICK ELLIS MD on Aug 27 2022 2:49PM EST [facility] XR Knee - left AP and Latera lOrdered By: Ccf Provider on 08-27-2022 [facility] CNOVon 08-26-2022 CNOV Office Visit (SPPEST ) KENYATUCKER Adame ([id number]) 1 M Date Time Provider Department 08/26/22 10:20 AM REJI VERGARA SPPEST During your visit today, we recorded the following information about you: Reji Vergara PA-C 08/26/2022 11:30 AM Signed Tucker Adame Kenya is a 22 year old male who presents to the office today ~10 days s/p Left knee arthroscopy, and open BIOUNI osteochondral allograft reconstruction medial femoral condyle, and allograft transplant 6mm plugs to the lateral femoral condyle. Pain currently mild ache, and patient denies taking anything regularly for pain. Pain is overall well controlled and no longer takes narcotics. Recommended Motrin or tylenol PRN for pain. Continues to do HEP at home. Physical Therapy has been scheduled to start 3 weeks post op. Patient admits WB status as NWB., Admits mild continued swelling of the left knee. Admits compliance in hinged TROM brace and with HEP. Denies fevers chills rashes or lesions at this time. Denies calf pain or tenderness. Denies acute falls or traumas. Denies numbness or tingling distally of the operative LE. Otherwise doing well. Musculoskeletal Exam: Patient is alert comfortable, cooperative, no acute distress, oriented x 3. Sitting comfortably. On exam today the left knee dressings have been removed. Incisions are clean, dry, closed and no clinical signs of infection. No drainage, surrounding erythema, or rashes. There is minimal ecchymosis surrounding incisions. Steri strips remain in place. Monocryl tails clipped at the skin as needed. New steris applied and covered with a 6 HANS. Mild post operative effusion. Calf is soft, non-tender. Ankle with mild edema. Grossly NVI in L4, L5, and S1. Patient ambulates out of office well with crutches or other assistive device Extensor mechanisms are weak but intact. The patient can perform a weak assisted straight leg raise. ROM Flexion: 45 degrees Extension: near full extension Distal Motor and sensory and all intact. All elements of the patient's history gathered for this current visit have been reviewed. Impression: Doing well ~ 10 days s/p Left knee arthroscopy, and open BIOUNI osteochondral allograft reconstruction medial femoral condyle, and allograft transplant 6mm plugs to the lateral femoral condyle Plan: TROM brace set at 0-60 degrees - may advance 10 degrees per week as able starting next Friday. Continue with Hep and continue to work with ROM and quad strengthening at the direction of physical therapy. HEP reviewed with patient and all questions answered. Remain non weight bearing with crutches and brace until cleared. Tylenol and Motrin as needed for pain with plenty of food and water. Continue to Ice and elevate pre and post therapy. As needed otherwise. Operative report and post operative expectations have been reviewed. Follow up in [address] Sky. No new XR at that visit. 2V XR on the way out today Patient will contact the office at [phone] if any problems arise. Reji Vergara PA-C Allergies As of Date: 08/26/2022 Noted Allergy Reaction PENICILLINS 06/05/2005 2 - Rash environmental [Other] 04/27/2009 Date Reviewed: 08/26/2022 Reviewed by: Reji Vergara PA-C - Fully Assessed Reason for Visit: Established Patient [175] Post Op [174] Primary Visit Diagnosis:S/P orthopedic surgery, follow-up exam [Z09] Order(s):XR KNEE LIMITED 2V AP/LAT LEFT [[id number]] Order #: [id number] FUTURE Prescriptions as of 08/26/2022 - ibuprofen (MOTRIN ORAL) Take by mouth. - finasteride (PROPECIA,PROSCAR) 1 mg tablet Take 1 mg by mouth once daily. 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 Follow-up and Disposition History for Encounter Date Provider Department Center 08/26/2022 [id number], TRE[facility] Encounter Status:Closed by REJI VERGARA on 08/26/[address] [facility] XR KNEE 2V AP/LAT LTon 08-26 XR KNEE 2V AP/LAT LT * * *Final Report* * * DATE OF EXAM: Aug 26 2022 11:59AM STX 5206 - XR KNEE 2V AP/LAT LT / PROCEDURE REASON: S/P orthopedic surgery, follow-up exam * * * * Physician Interpretation * * * * Left knee radiographs HISTORY: Status post orthopedic surgery TECHNIQUE: AP and lateral views of the left knee COMPARISON: 02/15/2022 FINDINGS: Osteochondral lesions of the medial and lateral femoral condyle with superimposed osteochondral surgery and implant measuring 2.8 x 2.8 cm at the medial femoral condyle. Knee joint spaces are preserved. No significant joint effusion. Soft tissue swelling anterior to the knee. IMPRESSION: 1. Osteochondral lesions of the medial and lateral femoral condyle with post surgical osteochondral graft at the medial femoral condyle. No displaced osteochondral fragments. Remote Medical Coder: PSCB Transcribe Date/Time: Aug 27 2022 2:44P Dictated by : CEDRICK ELLIS MD This examination was interpreted and the report reviewed and electronically signed by: CEDRICK ELLIS MD on Aug 27 2022 2:49PM EST [id number] Normal [facility] XR Knee - left AP and Latera sarkis 08-26-2022 Radiology Study observation (narrative) [facility] OPERATIVE NOon 08-19-2022 OPERATIVE NO HNO ID: [id number] Author: Stephen Sky MD Service: Orthopaedic Pediatrics Author Type: Physician Type: Operative Report Filed: 08/20/2022 7:39 AM Note Text: [facility] - Operative Report TUCKER ZAMBRANO : 2000 AGE: 22. SEX: M PATIENT TYPE: A HOSP SVC: OROR LOCATION: [facility] ATTENDING PHYSICIAN: Stephen Sky MD CSN NUMBER: [id number] DATE OF SURGERY/PROCEDURE: 08/13/2022 INCISION/PROCEDURE START TIME: 11:59 a.m. INCISION CLOSE/PROCEDURE END TIME: 2:14 PM PREOPERATIVE DIAGNOSIS: Left knee osteoarticular defects, medial femoral condyle, and lateral femoral condyle. POSTOPERATIVE DIAGNOSIS: Left knee osteoarticular defects, medial femoral condyle, and lateral femoral condyle. SURGEON: Stephen Sky MD SCOURING MACHINE TENDER: Reji Vergara PA-C and Ronald Connell MD. The assistants helped with portions of the closure while I was present for the entire critical portions of the case. SURGERY/PROCEDURE: Left knee diagnostic arthroscopy, open medial femoral condyle osteoarticular allograft transplant 25 mm, lateral femoral condyle osteoarticular transplant x2 6 mm plugs each. PRP and DBX applied to both medial femoral condyle and lateral femoral condyle. ANESTHESIA: General DESCRIPTION OF PROCEDURE: Patient was taken to the operating room. After adequate anesthesia was obtained, the left knee was prepped and draped in normal sterile fashion. Standard arthroscopy portals were then made. The knee was sequentially evaluated. It was found to have a significant condylar defect medial femoral condyle 20 mm in length in diameter. Also found to have intact articular cartilage laterally, however, did have some softening of the region throughout the area of the osteoarticular deficiency. Therefore, it was determined at that point we should proceed with open osteoarticular transplant to both areas. The medial femoral condyle was prepared at best fit of a 25 mm round osteoarticular transplant from a size matched cadaver femur. The graft was prepared. The recipient site was prepared. This was 25 mm with a depth of 10 mm. The base of the recipient site was then drilled with multiple small fine needle perforations as well as DBX placed in the base. The osteoarticular transplant was prepared using pulsatile lavage and then subsequently PRP was then applied to the graft in order to allow for better osseous integration. The graft was then press-fit into the medial femoral condyle appropriately and found to be in excellent position. Attention was directed towards the lateral femoral. Once again, the cartilaginous surface of the lateral femoral condyle was found to be intact. Therefore, two 6 mm allograft osteoarticular transplant plugs were prepared in the same fashion with previous plug that was placed medially. These 2 were then placed into the lateral femoral condyle and found to be in excellent position. No further abnormalities were noted. The area was then copiously irrigated and then closed in multiple layers finally with sutures on the skin. INTRAVENOUS FLUIDS: LR. ESTIMATED BLOOD LOSS: Negligible. COMPLICATIONS: No complications. DRAINS: No drains. Stephen Sky MD PS:[id number] /[id number] [facility] ANES POSTPROC EVALon 022 ANES POSTPROC EVAL HNO ID: [id number] Author: Erick Sargent MD Service: Anesthesiology Author Type: Anesthesiologist Type: Anesthesia Postprocedure Evaluation Filed: 08/13/2022 2:34 PM Note Text: POST ANESTHESIA EVALUATION NOTE : 2000 Procedure Summary Date: 08/13/22 Room / Location: [place] [address] / [facility] Anesthesia Start: 1123 Anesthesia Stop: 1421 Procedure: ALLOGRAFT OSTEOCHONDRAL KNEE OPEN (Left: Knee) Diagnosis: Osteochondral defect of condyle of femur (Osteochondral defect of condyle of femur [M95.8]) Surgeons: Stephen Sky MD Responsible Provider: Erick Sargent MD Anesthesia Type: general, regional ASA Status: 1 Anesthesia Type: general, regional Airway Type: LMA Last Vitals Vitals Value Taken Time BP 113/60 08/13/22 1430 Temp 36.7 ?C (98 ?F) 08/13/22 1423 Pulse 104 08/13/22 1434 Resp 23 08/13/22 1434 SpO2 100 % 08/13/22 1434 Vitals shown include unvalidated device data. Post Anesthesia Patient Status Patient Evaluation: PACU. PACU/ICU Patient Condition: stable. Anticipated Disposition: phase 2 then home. Neurological Status: aware and responsive. Pulmonary Status: breathing comfortably on room air Airway Control: returned to baseline unsupported. Cardiovascular Status: stable. Pain Management: clinically adequate - multimodal analgesia pain management approach Postoperative Hydration: acceptable. Intraoperative Events: no significant anesthesia events Recommendation: continue current plan of care. Anesthesia Observations No Documentation SIGNATURE: Erick Sargent MD PATIENT NAME: Tucker Zambrano DATE: August 13, 2022 TIME: 2:34 PM CSN: [id number] [facility] ANES PRE-OPon 08-13-2022 ANES PRE-OP HNO ID: [id number] Author: Erick Sargent MD Service: Anesthesiology Author Type: Anesthesiologist Type: Anesthesia Preprocedure Evaluation Filed: 08/13/2022 10:21 AM Note Text: ANESTHESIOLOGY DAY OF SURGERY NOTE : 2000 Procedure Information Date/Time: 08/13/22 1145 Procedure: ALLOGRAFT OSTEOCHONDRAL KNEE OPEN (Left: Knee) - ROUTED FOR APPROVAL PURPOSES ONLY PENDING GRAFT AVAILABILITY. TENTATIVE DATE *Block LEFT KNEE OPEN OSTEOCHONDRAL ALLOGRAFT TRANSPLANTATION/BIOUNI TO MEDIAL AND LATERAL CONDYLES. POSSIBLE FIXATION OF GRAFT/BIOUNI. Location: [facility] / [facility] Surgeons: Stephen Sky MD Estimated body mass index is 24.49 kg/m? as calculated from the following: Height as of this encounter: 180.3 cm (5' 11). Weight as of this encounter: 79.7 kg (175 lb 9.6 oz). Most recent hematocrit and potassium results: Hematocrit 45.8 10/01/2019 Potassium 4.0 10/01/2019 Relevant Problems No relevant active problems I - PHYSICAL EVALUATION AIRWAY Patient intubated: No. Tracheostomy tube not present Mallampati: I. TM distance: >3 FB. Neck ROM: full ROM without neurological symptoms. Mouth opening: adequate. Short neck: no. Thick neck: no Medley present: no DENTAL Dental findings: teeth intact. Additional exam findings: no II - ANESTHESIA PLAN ASA Score: 1 Anesthetic Plan: general and regional Airway type: LMA NPO Status: adequate Beta Fracisco Monitoring Plan Monitoring plan: Standard ASA. Post Procedure Analgesic Plan Postoperative analgesic plan: parenteral or oral opioids, peripheral nerve block and multimodal analgesia. Patient / Surrogate agrees to blood products: yes DNR status not reviewed with patient and/or family prior to surgery. Significant changes in the patient condition since the History and Physical, not otherwise documented in primary service progress note: no. Potential Anesthesia issues that may suggest increased risk of complications or contraindication to planned procedure: none. Vitals Value Taken Time BP 127/74 08/13/22 1011 Pulse 97 08/13/22 1011 Resp 16 08/13/22 1011 Temp 36.2 ?C (97.2 ?F) 08/13/22 1011 SpO2 100 % 08/13/22 1011 Facility-Administered Medications as of 08/13/2022 Medication Dose Route Frequency - lidocaine 10 mg/mL (1 %) 1-2 mg injection (XYLOCAINE) 0.1-0.2 mL INTRADERMAL PRN - lactated ringers iv infusion 5-30 mL/hr INTRAVENOUS CONTINUOUS - NaCl 0.9% iv flush bag 20 mL INTRAVENOUS PRN - clindamycin iv piggyback 900 mg in D5W 50 mL (CLEOCIN) 900 mg INTRAVENOUS q 8 H Outpatient Medications as of 08/13/2022 Medication Sig - finasteride (PROPECIA,PROSCAR) 1 mg tablet Take 1 mg by mouth once daily. - ibuprofen (MOTRIN ORAL) Take by mouth. I have interviewed and examined the patient. I have reviewed the medical record and/or the pre-anesthesia evaluation, pertinent labs, and test results. This contains updated information obtained within 48 hours of Surgery/Procedure. SIGNATURE: Erick Sargent MD PATIENT NAME: Tucker Zambrano DATE: August 13, 2022 TIME: 10:21 AM CSN: [id number] [facility] NURSING PROGon 08-13-2022 NURSING PROG HNO ID: [id number] Author: Destini Ashton RN Service: Nursing Author Type: Registered Nurse Type: Nursing Progress Note Filed: 08/13/2022 10:12 AM Note Text: PRE OP LEARNING ASSESSMENT PROCEDURE/SURGERY: SURGERY: Left knee READINESS TO LEARN COGNITIVE ABILITY: Alert and oriented MOTIVATION TO LEARN: Interested FAMILY SUPPORT: High - Very involved in pt care PATIENT LEARNS BEST BY: Individual Instruction Verbal Instruction FACTORS AFFECTING LEARNING: None PHYSICAL LIMITATIONS AFFECTING LEARNING: None Electronically Signed By: Destini Ashton RN In Department: [facility] AMBULATORY SURGERY - [facility] Normal [facility] HISTORY PHYSICALon HISTORY PHYSICAL HNO ID: [id number] Author: Tina Oshea APRN.LTAASHA Service: ? Author Type: Nurse Practitioner Type: HANDP Filed: 08/06/2022 11:54 AM Note Text: PREANESTHESIA CONSULT CLINIC This is a virtual visit. It required patient-provider interaction for the medical decision making as documented below. 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 Pt. reports the pain as intermittent ache that becomes sharp with activity and relieved with rest. Pt. has attempted physical therapy.Pt. is recommended for surgery. PAST MEDICAL HISTORY Diagnosis Date Allergic rhinitis, cause unspecified Allergic rhinitis Pain in limb 2009 PAST SURGICAL HISTORY Procedure Laterality Date NONE PAST SURGICAL HISTORY OF wisdom teeth FAMILY HISTORY Problem Relation Age of Onset Hypertension Father Social History: Social History Tobacco Use Smoking status: Never Smokeless tobacco: Never Vaping Use Vaping Use: Never used Substance Use Topics Alcohol use: Never Drug use: Never MEDICATIONS: Current Inpatient Medications Current Outpatient Medications Medication Sig ibuprofen (MOTRIN ORAL) Take by mouth. finasteride (PROPECIA,PROSCAR) 1 mg tablet Take 1 mg by mouth once daily. No current facility-administered medications for this visit. ALLERGIES: ALLERGIES Allergen Reactions Penicillins Rash Environmental [Othe* REVIEW OF SYSTEMS: PAIN ASSESSMENT: Pain Pain Level: 5 Pain Location: (left knee) Description: Aching;Sharp Frequency: Intermittent Intervention/Comfort measure: Other: See comment;Medication Comments: surgery General: No weight loss, malaise or fevers. Neuro: No history of TIA's, stroke, [employer] OFFICER tumor, impaired sensorium, hemiplegia, paraplegia or quadraplegia. No neurological symptoms or problems. Respiratory: No history of current cough or dyspnea, or pneumonia in the past 6 weeks. No history of respiratory/pulmonary symptoms or problems. Cardiovascular: No history of HTN requiring medication, no history of angina, CHF, [place], cardiac surgery or stents. Denies rest pain, gangrene or revascularization/ampu tation for PVD. No history of cardiovascular symptoms or problems. GI: No history of GI symptoms or problems. No history of esophageal varices, recent ascites, or ETOH greater than 2 drinks per day. : No history of dysuria, frequency or incontinence,, stones or chronic kidney disease Endocrine: No history of diabetes. Has not taken steroids within the past 30 days. No history of endocrinological symptoms or problems. Hematology: No history of bleeding or clotting disorder. Pt is not taking anti-coagulation or platelet medications. No history of hematological symptoms or problems. Oncology: No history of CA metastasis, chemo within 30 days, or radiotherapy within 90 days. Has not lost 10% of body wt in 6 months. No history of oncological symptoms or problems. Psych: Anxiety, Depression Musculoskeletal: See HPI Skin: Negative for lesions, rash and itching.finasteride for hair loss prevention PHYSICAL EXAM: VITAL SIGNS: Ht 5' 10[pt. reported[ (1.78m) Wt 180 lb (81.6kg) BMI 25.83 kg/(m2). GENERAL: alert and appropriate, in no distress, well-hydrated, well nourished, and happy, smiling, interactive SKIN: no rash noted HEAD: normocephalic, no abnormality or lesion noted EYES: no injection and visual acuity is grossly normal OROPHARYNX: moist mucus membranes NECK: full ROM, no cervical LNs noted per Pt. palpation RESPIRATORY: breathing non-labored CHEST: equal chest rise with normal respiratory effort HEART: Pt. unable to palpate pulse ABDOMEN: soft and non-tender per Pt. palpation EXTREMITIES: TURNER, left knee detailed deferred to surgeon NEUROLOGIC: no obvious deficit Diagnostic tests reviewed for today's visit: Hemoglobin (g/dL) Date Value 10/01/2019 15.0 Hematocrit (%) Date Value 10/01/2019 45.8 WBC (k/uL) Date Value 10/01/2019 9.88 Lab Value Units Date High Low HB No results within date range. HCT No results within date range. WBC No results within date range. PLT No results within date range. NA No results within date range. K No results within date range. GLUC No results within date range. BUN No results within date range. CREAT No results within date range. PTSEC No results within date range. INR No results within date range. APTT No results within date range. ALT No results within date range. AST No results within date range. TBILI No results wit (more content not included)... Normal [facility] CNOVon 07-15-2022 CNOV Office Visit (SPPEST ) TUCKER ZAMBRANO ([id number]) 1 M Date Time Provider Department 07/15/22 11:00 AM STEPHEN SKY SPPEST During your visit today, we recorded the following information about you: Jayson Vega, 08/14/2022 12:51 PM Signed July 15, 2022 HPI: Tucker Zambrano is a 22 year old male with the presenting complaint of Established Patient and Knee Pain of the Left Knee and Established Patient and Knee Pain of the Right Knee. Tucker reports a current pain level of 2 . He describes the pain as Stabbing. The pain is Intermittent . Interventions tried include Medication, Exercise. He was last seen in orthopaedic clinic for his knee on 05/06/2022 with Stephen Sky. Most recent knee imaging was completed on 03/01/2022 (MRI KNEE WO IVCON RT) . Attached is imaging for the order.The last knee-related PT visit was completed on 06/12/2022 (Knee - Right). 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 Remote Medical Coder: IAM Transcribe Date/Time: Feb 15 2022 12:26P... Last MRI Knee - Impression Only MRI KNEE WO IVCON RT Exam End: 03/01/2022 2:09 PM (Final result) Impression: IMPRESSION: RIGHT KNEE: LARGE MEDIAL AND LATERAL FEMORAL CONDYLE OSTEOCHONDRAL LESIONS. MULTIPLE IN SITU FRAGMENTS. NO FLUID UNDERMINING OR DISPLACED FRAGMENT. ... PT Visits (up to last 5) Some values may be hidden. Unless noted otherwise, only the newest values recorded on each date are displayed. PT Visits 05/16/22 05/22/22 05/28/22 06/05/22 06/12/22 Pain location Knee - Left;Knee - Right Knee - Left;Knee - Right Knee - Left;Knee - Right Knee - Right denies L knee pain today Knee - Right denies L knee pain today Pain level 2 1 2 1 2 Description Aching Aching Aching Unstable, could become more than an ache Aching Patient states that he participated in physical therapy and did see some substantial improvement in his symptoms and he was able to do a full squat and he was able to do some running. He states that unfortunately got COVID and was unable to continue his physical therapy and notes that some of his pain has returned. He works as a yard truck driver and he states that when he does work he has some severe knee pain. He is unsure whether or not he wants to continue nonoperative treatments or if he wants to go entertain surgical interventions. PAIN EVALUATION 07/15/2022 1159 Pain Level: 2 Pain Location: -- bilateral knee Description: Stabbing Duration Units: Months Frequency: Intermittent Intervention/Comfort measure: Medication;Exercise Past Medical History: PAST MEDICAL HISTORY Diagnosis Date Allergic rhinitis, cause unspecified Allergic rhinitis Pain in limb 2009 Family History: FAMILY HISTORY Problem Relation Age of Onset Hypertension Father Social History: Social History Tobacco Use Smoking status: Never Smokeless tobacco: Never Vaping Use Vaping Use: Never used Substance Use Topics Alcohol use: Never Drug use: Never Medications: ibuprofen (MOTRIN ORAL) Take by mouth. finasteride (PROPECIA,PROSCAR) 1 mg tablet Take 1 mg by mouth once daily. Allergies: ALLERGIES Allergen Reactions Penicillins Rash Environmental [Othe* Physical Exam: Right knee with trace joint effusion. Tender to palpation along the medial tibial plateau, medial joint line, medial femoral condyle. No tenderness laterally. Range of motion 0 to 135. Negative Barry, posterior drawer. No pain or laxity with varus/valgus stress. Negative Radha. Diffuse knee pain with single leg squat. Neurovascularly intact in the right foot. Left knee with trace joint effusion. Tender to palpation along the medial tibial plateau, medial joint line, medial femoral condyle. No tenderness laterally. Range of motion 0 to 135. Negative Barry, posterior drawer. No pain or laxity with varus/valgus stress. Negative Radha. Diffuse knee pain with single leg squat. Neurovascularly intact in the left foot. Imaging: Images were reviewed in the office today. Interpretation of the performed imaging is bilateral medial femoral condyle OCD lesions on radiographs. His MRI demonstrates the same as his last visit involving the medial and lateral femoral condyles bilaterally with no loose bodies and no fluid signal. 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 Patient states that he is really only 20% better from the last time we saw him. We discussed operative intervention with him. He states that the left one is little bit more symptomatic and this is a good place to start. We discussed operative intervention which would be a left knee arthroscopy d (more content not included)... Normal [facility] CNTHERAPYon 06-12-2022 CNTHERAPY OT/PT/Speech Visit (PTWS) TUCKER ZAMBRANO ([id number]) 10/ M Date Time Provider Department 06/12/22 12:15 PM ALISON POWELL PTRYDER Date Time Provider Department Center 06/12/2022 12:15 PM [id number]-SALISON POWELL PTRYDER Math[facility] Reason for Visit: PT Discharge [752] Primary Visit Diagnosis:OCD (osteochondritis dissecans) of knee [M93.269] Allergies As of Date: 06/12/2022 Noted Allergy Reaction PENICILLINS 06/05/2005 2 - Rash environmental [Other] 04/27/2009 Date Reviewed: 05/06/2022 Reviewed by: Elizabeth Gallardo MA - Fully Assessed Prescriptions as of 07/23/2022 - ibuprofen (MOTRIN ORAL) Take by mouth. - finasteride (PROPECIA,PROSCAR) 1 mg tablet Take 1 mg by mouth once daily. Normal [facility] CNTHERAPYon 06-05-2022 CNTHERAPY OT/PT/Speech Visit (PTWS) TUCKER ZAMBRANO ([id number]) 1 M Date Time Provider Department 06/05/22 12:15 PM ALISON POWELL Date Time Provider Department [place] 06/05/2022 12:15 PM [id number] POWELL Reason for Visit: Physical Therapy [503] Primary Visit Diagnosis:OCD (osteochondritis dissecans) of knee [M93.269] Allergies As of Date: 06/05/2022 Noted Allergy Reaction PENICILLINS 06/05/2005 2 - Rash environmental [Other] 04/27/2009 Date Reviewed: 05/06/2022 Reviewed by: Elizabeth Gallardo MA - Fully Assessed Prescriptions as of 06/05/2022 - ibuprofen (MOTRIN ORAL) Take by mouth. - finasteride (PROPECIA,PROSCAR) 1 mg tablet Take 1 mg by mouth once daily. Normal [facility] CNTHERAPYon 05-28-2022 CNTHERAPY OT/PT/Speech Visit (PTWS) TUCKER ZAMBRANO ([id number]) 1 M Date Time Provider Department 05/28/22 11:00 AM MANJU WERNER Date Time Provider Department Center 05/28/2022 11:00 AM [id number] WERNER Reason for Visit: Physical Therapy [503] Primary Visit Diagnosis:OCD (osteochondritis dissecans) of knee [M93.269] Allergies As of Date: 05/28/2022 Noted Allergy Reaction PENICILLINS 06/05/2005 2 - Rash environmental [Other] 04/27/2009 Date Reviewed: 05/06/2022 Reviewed by: Elizabeth Gallardo MA - Fully Assessed Prescriptions as of 05/28/2022 - ibuprofen (MOTRIN ORAL) Take by mouth. - finasteride (PROPECIA,PROSCAR) 1 mg tablet Take 1 mg by mouth once daily. Normal 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 - finasteride (PROPECIA,PROSCAR) 1 mg tablet Take 1 mg by mouth once daily. Normal 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 - finasteride (PROPECIA,PROSCAR) 1 mg tablet Take 1 mg by mouth once daily. Normal 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 - finasteride (PROPECIA,PROSCAR) 1 mg tablet Take 1 mg by mouth once daily. Letter Text Normal [facility] CNOVon 05-06-2022 CNOV Office Visit (SPPEST ) TUCKER ZAMBRANO ([id number]) [birth year] M Date Time Provider Department 05/06/22 10:20 AM STEPHEN SKY During your visit today, we recorded the following information about you: Cedrick Naylor MD 06/06/2022 11:41 AM Signed May 06, 2022 HPI: Tucker Zambrano is a 21 year old male with no significant past medical history who presents today for evaluation of chronic left knee pain. Pain started roughly 10+ years ago. No inciting trauma. Has had pain intermittently ever since. Has progressed over the past few years to the point of becoming rather severe. Knees ache constantly. Worse with activity, improve with rest and NSAIDs. Has had virtually no treatment at this point - no injections, no therapy, no surgery. He works in a warehouse operating a fork lift. Outside of work he is rather sedentary due to his knee problems. No history of blood clots in him or immediate family members. Past Medical History: PAST MEDICAL HISTORY Diagnosis Date Allergic rhinitis, cause unspecified Allergic rhinitis Pain in limb 2008 Family History: FAMILY HISTORY Problem Relation Age of Onset Hypertension Father Social History: Social History Tobacco Use Smoking status: Never Smokeless tobacco: Never Vaping Use Vaping Use: Never used Substance Use Topics Alcohol use: Never Drug use: Never Medications: ibuprofen (MOTRIN ORAL) Take by mouth. finasteride (PROPECIA,PROSCAR) 1 mg tablet Take 1 mg by mouth once daily. Allergies: ALLERGIES Allergen Reactions Penicillins Rash Environmental [Othe* Physical Exam: On exam, Ralph stands in neutral alignment. His knees were normal in appearance without swelling or obvious deformity. Right knee with trace joint effusion. Tender to palpation along the medial tibial plateau, medial joint line, medial femoral condyle. No tenderness laterally. Range of motion 0 to 135. Negative Barry, posterior drawer. No pain or laxity with varus/valgus stress. Negative Radha. Diffuse knee pain with single leg squat. Neurovascularly intact in the right foot. Left knee with trace joint effusion. Tender to palpation along the medial tibial plateau, medial joint line, medial femoral condyle. No tenderness laterally. Range of motion 0 to 135. Negative Barry, posterior drawer. No pain or laxity with varus/valgus stress. Negative Radha. Diffuse knee pain with single leg squat. Neurovascularly intact in the left foot. Imaging: Images were reviewed in the office today. Interpretation of the performed imaging is bilateral medial femoral condyle OCD lesions on plain films. MRI of bilateral knees reveals OCD lesions involving medial and lateral femoral condyles bilaterally. No loose bodies. No fluid signal to suggest unstable OCD lesions. Assessment/Plan: Bilateral medial and lateral femoral condyle OCD lesions Long discussion had today with Ralph and his mother regarding the possible etiology for his chronic bilateral knee pain. He has had pain for many years but no formal treatment to this point. He has a complex problem that lacks simple solutions. The size of his OCD lesions makes chondroplasty and microfracture nonviable options. Similarly, his chondral surfaces don't appear healthy which makes retroarticular drilling less attractive. The size alone likely merits bulk osteochondral allograft transplant but having both condyles involved, in both knees, creates a very challenging conundrum. Nonetheless, since he has had no treatment of any kind yet, we will start with physical therapy to improve his strength and range of motion. We will follow him closely with another visit after about 2-3 months of therapy. If he is not improved, we will discuss surgical intervention. Diagnosis: Ocd (osteochondritis dissecans) of knee (primary encounter diagnosis) Cedrick Naylor MD TEACHING PHYSICIAN STATEMENT: I saw and evaluated the patient. I personally obtained the hewitt and critical portions of the history and physical exam. I reviewed the resident's documentation and discussed the patient with the resident physician. I agree with the resident's medical decision-making as documented. I have also personally reviewed the patient's PMHx, PSHx, FHx, SHx, Meds, and Allergies. Dr. 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 Normal [facility] XR LEG FRONTAL HIP TO ANKLE MECHANICAL AXISon 05-06-2022 [facility] X[facility] AX[facility] 05-06-2022 XR LEG FRONTL HIP-ANK[facility] AXIS * * *Final Report* * * DATE OF EXAM: May 06 2022 12:56PM STX 5216 - XR LEG FRONTL HIP-ANKL [facility] AXIS / PROCEDURE REASON: OCD (osteochondritis dissecans) of knee * * * * Physician Interpretation * * * * AP lower extremity radiographs TECHNIQUE: Osteochondritis dissecans of the knee TECHNIQUE: AP view of the lower extremities COMPARISON: None available Results 8mm osteochondral lesions are noted at the medial femoral condyle bilaterally about the knee. The remainder the visualized osseous structures and soft tissues are unremarkable. No length discrepancy evident IMPRESSION: 1. Bilateral medial femoral condyle osteochondral lesions Remote Medical Coder: PSCB Transcribe Date/Time: May 06 2022 1:41P Dictated by : CEDRICK ELLIS MD This examination was interpreted and the report reviewed and electronically signed by: CEDRICK ELLIS MD on May 06 2022 1:42PM EST [id number] Normal [facility] XR Lower extremity - bilater al AP W standingon 05-06-2022 IMPRESSION: 1. Bilateral medial femoral condyle osteochondral lesions Remote Medical Coder: [facility] Transcribe Date/Time: May 06 2022 1:41P Dictated by : CEDRICK ELLIS MD This examination was interpreted and the report reviewed and electronically signed by: CEDRICK ELLIS MD on May 06 2022 1:42PM [facility] DIVISION OF RADIOLOGY * * *Final Report* * * DATE OF EXAM: May 06 2022 12:56PM STX 5216 - XR LEG FRONTL HIP-ANKL [facility] AXIS / PROCEDURE REASON: OCD (osteochondritis dissecans) of knee * * * * Physician Interpretation * * * * AP lower extremity radiographs TECHNIQUE: Osteochondritis dissecans of the knee TECHNIQUE: AP view of the lower extremities COMPARISON: None available Results 8mm osteochondral lesions are noted at the medial femoral condyle bilaterally about the knee. The remainder the visualized osseous structures and soft tissues are unremarkable. No length discrepancy evident DIVISION OF RADIOLOGY Provider, [facility] - 05/06/2022 * * *Final Report* * * DATE OF EXAM: May 06 2022 12:56PM STX 5216 - XR LEG FRONTL HIP-ANKL [facility] AXIS / PROCEDURE REASON: OCD (osteochondritis dissecans) of knee * * * * Physician Interpretation * * * * AP lower extremity radiographs TECHNIQUE: Osteochondritis dissecans of the knee TECHNIQUE: AP view of the lower extremities COMPARISON: None available Results 8mm osteochondral lesions are noted at the medial femoral condyle bilaterally about the knee. The remainder the visualized osseous structures and soft tissues are unremarkable. No length discrepancy evident IMPRESSION IMPRESSION: 1. Bilateral medial femoral condyle osteochondral lesions Remote Medical Coder: IAM Transcribe Date/Time: May 06 2022 1:41P Dictated by : CEDRICK ELLIS MD This examination was interpreted and the report reviewed and electronically signed by: CEDRICK ELLIS MD on May 06 2022 1:42PM EST [facility] Radiology Study observation (narrative) [facility] XR Lower extremity - bilater al AP W standingOrdered By: Ccf Provider on 05-06-2022 [facility] CNOVon 04-04-2022 CNOV Office Visit (ORTHWS ) TUCKER ZAMBRANO ([id number]) 1 M Date Time Provider Department 04/04/22 1:30 PM DWAIN MENDEZ During your visit today, we recorded the following information about you: Dwain Mendez MD 04/04/2022 5:42 PM Signed Patient presents with: Left Knee - New, Pain Right Knee - New, Pain Dwain Mendez MD Department of Orthopaedics Orthopaedics [address] [facility] [address] Dept: [phone] Dept April 04, [address] Quan for an opinion regarding bilateral knee OCD. My final recommendations will be communicated back to the requesting physician by way of shared Medical record or letter to requesting physician via [place] mail. CHIEF COMPLAINT: New and Pain of the Left Knee and New and Pain of the Right Knee HPI This is something has been bothering both knees for many years now. He has constant trouble with both of the knees he also feels locking up of the knees at times and swelling at different stages. Pain can sometimes be only 2 out of 10 but other times 8 out of 10, bilaterally. He denies any specific injury nor trauma. AMB ROOMING INTAKE FLOWSHEET DATA Risk Screening Do you have concerns about personal safety or safety in the home?: No Pt with bilateral knee pain. Pt currently doesn't have any pain but complains of them feeling weak. ASSESSMENT: M93.269 OCD (osteochondritis dissecans) of knee (primary encounter diagnosis) M25.561, M25.562, G89.29 Chronic pain of both knees PLAN: We will get him in with one of our sports surgeons to further evaluate and determine treatment options. FOLLOW UP INSTRUCTIONS: I will reach out to some of my colleagues and we will see if we can facilitate an appointment. Mr. Tucker Zambrano was advised as to contrast therapies and/or to take analgesics/anti-inflam matories as needed and all contraindications were reviewed. OBJECTIVE: Mr. Tucker Zambrano is a pleasant 21 year old in no apparent distress. Gen:There were no vitals taken for this visit. nl development, non obese, no deformities ENT: Normocephalic, normal hearing, moist mucosa CV: Pulses:DP/PT= 2+ and symmetric, capillary refill < 2 secs, no peripheral edema/varicosities Skin: no rash, bruising or lesions. Good turgor. Psych: cooperative and appropriate, alert and oriented x 3, good mood and affect. Musculoskeletal: Scant effusions of both knees. Good range of motion from full extension to 130 degrees or so. He has distal femoral condyle tenderness both medial laterally but greater on the medial sided each knee. IMAGING: IMPRESSION: RIGHT KNEE: LARGE MEDIAL AND LATERAL FEMORAL CONDYLE OSTEOCHONDRAL LESIONS. ?MULTIPLE IN SITU FRAGMENTS. ?NO FLUID UNDERMINING OR DISPLACED FRAGMENT. Remote Medical Coder: IAM ? Transcribe Date/Time: Mar 01 2022 ?3:15P Dictated by : WAN MAURO MD This examination was interpreted and the report reviewed and electronically signed by: CAROLYNN WORKMAN MD on Mar 01 2022 ?4:42PM ?EST Results-Findings * * *Final Report* * * DATE OF EXAM: Mar 01 2022 ?2:09PM ? WRM ? 0213 ?- ?MRI KNEE WO IVCON RT ?/ PROCEDURE REASON: Osteochondral defect of condyle of femur ?? ? * * * * Physician Interpretation * * * * ?EXAMINATION: ?MRI RIGHT KNEE WITHOUT CONTRAST CLINICAL HISTORY: ?Bone lesion Loose body, knee TECHNIQUE: Routine non-contrast MRI of the knee MQ: ?[id number] COMPARISON: ?Radiographs dated 02/15/2022. RESULT: MENISCI: Medial Meniscus: ?Intact. Lateral Meniscus: ?Intact. LIGAMENTS: ACL: ?Intact PCL: ?Intact MCL: ?Intact LCL Complex: ?Intact CARTILAGE: Medial Femoral Condyle: ?Large osteochondral lesion measuring 21 x 19 mm with multiple in situ fragments and cystlike changes at the margins, but no discrete fluid undermining or displaced fragment. ?Mild edema throughout the condyle. Medial Tibial Plateau: ?Normal Lateral Femoral Condyle: ?Large osteochondral lesion measuring 20 x 20 mm with multiple in situ fragments and cystlike changes along the margins but no fluid undermining or displaced fragment. Lateral Tibial Plateau: Normal Patella: Normal Trochlea: Single full-thickness fissure laterally TENDONS: ?The distal quadriceps and patellar tendons are intact. ?The popliteus tendon is intact. BONES AND MARROW: ?No evidence of fracture or bone marrow replacing process. Cystlike changes along the posteromedial tibial plateau adjacent to the PCL and medial meniscal root insertion likely reactive. ?Adjacent small 9 x 3 mm fluid lesion along the posterior joint likely small ganglion. MUSCLES: ?Muscle bulk and signal intensity are normal. JOINT FLUID AND SYNOVIUM: ?No joint effusion. ?No synovitis. No Greco's cyst. OTHER: ?No other significant abnormality identified. Localizer images: No additional findin (more content not included)... Normal [facility] MRI KNEE WO IVCON LTon 03-01 [facility] XR KNEE GENERAL 4V AP BOTH/P A BOTH/LAT/MERC BILATERALon 02-15-2022 [facility] Vital Signs Date Time Vital Sign Value Performing Clinician Faci lity 08-13-2022 16:15-0500 Diastolic blood pressure 72 mm[Hg] Stephen Sky MD Work Phone: [facility] 08-13-2022 16:15-0500 Heart rate 100 /min Stephen Sky MD Work Phone: [facility] 08-13-2022 16:15-0500 Respiratory rate 16 /min Stephen Sky MD Work Phone: [facility] 08-13-2022 16:15-0500 SaO2% (BldA) [Mass fraction] 100 % Stephen Sky MD Work Phone: [facility] 08-13-2022 16:15-0500 Systolic blood pressure 133 mm[Hg] Stephen Sky MD Work Phone: [facility] 08-13-2022 15:30-0500 Body temperature 97.81 [degF] Stephen Sky MD Work Phone: [facility] 08-13-2022 10:11-0500 Body height 180.3 cm Stephen Sky MD Work Phone: [facility] 08-13-2022 10:11-0500 Body weight 79.65 kg Stephen Sky MD Work Phone: [facility] 08-06-2022 11:41-0500 Body height 177.8 cm Pacc 2 Work Phone: [facility] 08-06-2022 11:41-0500 Body weight 81.65 kg Pacc 2 Work Phone: [facility] 02-02-2022 14:18-0400 Body temperature 97.39 [degF] Cindy Tillman [employer]ED OPERATOR[employer]MANAGER [employer] Work Phone: [facility] 02-02-2022 14:18-0400 Body weight 83.73 kg Cindy Primo M[employer]I SKILLED OPERATOR[employer]MANAGER [employer]ANK Work Phone: [facility] 02-02-2022 14:18-0400 Diastolic blood pressure 70 mm[Hg] Cindy Primo MULTI SKILLED OPERATOR.MANAGER [employer]ANK Work Phone: [facility] 02-02-2022 14:18-0400 Heart rate 71 /min Cindy Primo M[employer]I SKILLED OPERATOR[employer]MANAGER [employer]ANK Work Phone: [facility] 02-02-2022 14:18-0400 Respiratory rate 18 /min Cindy Primo M[employer]I SKILLED OPERATOR[employer]MANAGER [employer]ANK Work Phone: [facility] 02-02-2022 14:18-0400 SaO2% (BldA) [Mass fraction] 100 % Cindy Tillman MULTI SKILLED OPERATOR.MANAGER [employer]ANK Work Phone: [facility] 02-02-2022 14:18-0400 Systolic blood pressure 114 mm[Hg] Cindy Tillman MULTI SKILLED OPERATOR.MANAGER [employer]ANK Work Phone: [facility] Encounters Encounter Date Encounter Type Care Provider Facility Start: 04-23-2025 End: 04-23-2025 ambulatory Mallory Butler RN NURSE [employer] Comment on above: Anxiety Start: 08-10-2024 End: 08-10-2024 ambulatory No Primary Care Physician Facility:[facility] Start: 08-03-2024 End: 08-03-2024 ambulatory No Primary Care Physician Facility:[facility] Start: 07-23-2024 End: 07-23-2024 Emergency department patient visit No Primary Care Physician Facility:[facility] Start: 03-31-2023 End: 03-31-2023 ambulatory MARCY M PLAYL Facility:[facility] Start: 03-31-2023 End: 03-31-2023 Subsequent hospital visit by physician Ariel [facility] Work Phone: Radiology Comment on above: S/P orthopedic surge ry, follow-up exam [Z09] Start: 03-25-2023 End: 03-25-2023 ambulatory MARCY M PLAYL Facility:[facility] Start: 03-25-2023 End: 03-25-2023 ambulatory Juan Zamora PT [facility] Start: 03-25-2023 End: 03-25-2023 Follow-up encounter Juan Zamora PT [facility] Physical Therapy Comment on above: S/P orthopedic surge ry, follow-up exam (Primary Dx); Osteochondral defect of condyle of femur Start: 03-07-2023 End: 03-07-2023 ambulatory MARCY M PLAYL Facility:[facility] Start: 03-07-2023 End: 03-07-2023 ambulatory Juan Zamora PT [facility] Start: 03-07-2023 End: 03-07-2023 Follow-up encounter Juan Zamora PT [facility] Physical Therapy Comment on above: S/P orthopedic surge ry, follow-up exam (Primary Dx); Osteochondral defect of condyle of femur Start: 02-21-2023 End: 02-21-2023 ambulatory MARCY M PLAYL Facility:[facility] Start: 02-14-2023 End: 02-14-2023 ambulatory MARCY M PLAYL Facility:[facility] Start: 02-07-2023 End: 02-08-2023 ambulatory MARCY M PLAYL Facility:[facility] Start: 02-07-2023 End: 02-07-2023 ambulatory Juan Zamora PT [facility] Start: 02-07-2023 End: 02-07-2023 Follow-up encounter Juan Zamora PT [facility] Physical Therapy Comment on above: S/P orthopedic surge ry, follow-up exam (Primary Dx); Osteochondral defect of condyle of femur Start: 01-31-2023 End: 01-31-2023 ambulatory MARCY M PLAYL Facility:[facility] Start: 01-22-2023 End: 01-22-2023 ambulatory MARCY M PLAYL Facility:[facility] Start: 01-20-2023 End: 01-20-2023 ambulatory MARCY M PLAYL Facility:[facility] Start: 01-20-2023 End: 01-20-2023 ambulatory Juan Noah SALAZAR [facility] Start: 01-20-2023 End: 01-20-2023 Follow-up encounter Juan Zamora PT [facility] Physical Therapy Comment on above: S/P orthopedic surge ry, follow-up exam (Primary Dx); Osteochondral defect of condyle of femur Start: 01-16-2023 End: 01-16-2023 ambulatory MARCY ALLENL Facility:[facility] Start: 01-16-2023 End: 01-16-2023 ambulatory Juan Noah MARIE [facility] Start: 01-16-2023 End: 01-16-2023 Follow-up encounter Juan Zamora PT [facility] Physical Therapy Comment on above: S/P orthopedic surge ry, follow-up exam (Primary Dx); Osteochondral defect of condyle of femur Start: 01-14-2023 End: 01-14-2023 ambulatory MARCY ALLENL Facility:[facility] Start: 01-14-2023 End: 01-14-2023 ambulatory Juan Noah MARIE [facility] Start: 01-14-2023 End: 01-14-2023 Follow-up encounter Juan Zamora PT [facility] Physical Therapy Comment on above: S/P orthopedic surge ry, follow-up exam (Primary Dx); Osteochondral defect of condyle of femur Start: 01-08-2023 End: 01-08-2023 ambulatory Juan Noah PT [facility] Start: 01-08-2023 End: 01-08-2023 Follow-up encounter Juan Zamora PT [facility] Physical Therapy Comment on above: S/P orthopedic surge ry, follow-up exam (Primary Dx); Osteochondral defect of condyle of femur Start: 01-06-2023 End: 01-06-2023 ambulatory MARCY M TIFFANYL Facility:[facility] Start: 01-06-2023 End: 01-06-2023 ambulatory Juan Zamora PT [facility] Start: 01-06-2023 End: 01-06-2023 Follow-up encounter Juan Zamora MARIE [facility] Physical Therapy Comment on above: S/P orthopedic surge ry, follow-up exam (Primary Dx); Osteochondral defect of condyle of femur Start: 01-02-2023 End: 01-02-2023 [facility] Start: 01-02-2023 End: 01-02-2023 ambulatory Juan Zamora PT [facility] Start: 01-02-2023 End: 01-02-2023 Follow-up encounter Juan Zamora PT [facility] Comment on above: S/P orthopedic surge ry, follow-up exam (Primary Dx); Osteochondral defect of condyle of femur Start: 12-31-2022 End: 12-31-2022 ambulatory MARCY M TIFFANYL Facility:[facility] Start: 12-31-2022 End: 12-31-2022 ambulatory Juan Zamora PT [facility] Start: 12-31-2022 End: 12-31-2022 Follow-up encounter Juan Zaomra PT [facility] Comment on above: S/P orthopedic surge ry, follow-up exam (Primary Dx); Osteochondral defect of condyle of femur Start: 12-30-2022 End: 12-30-2022 ambulatory MARCY M PLAYL Facility:[facility] Start: 12-30-2022 End: 12-30-2022 Patient encounter procedure Stephen Sky MD Work Phone: [facility] Comment on above: S/P orthopedic surge ry, follow-up exam (Primary Dx) Start: 12-30-2022 End: 12-30-2022 Subsequent hospital visit by physician Ariel [facility] Work Phone: Radiology Comment on above: S/P orthopedic surge ry, follow-up exam [Z09] Start: 12-25-2022 End: 12-25-2022 ambulatory MARCY M TIFFANYL Facility:[facility] Start: 12-25-2022 End: 12-25-2022 ambulatory Juan Zamora PT [facility] Start: 12-25-2022 End: 12-25-2022 Follow-up encounter Juan Noah MARIE [facility] Comment on above: S/P orthopedic surge ry, follow-up exam (Primary Dx); Osteochondral defect of condyle of femur Start: 12-23-2022 End: 12-23-2022 ambulatory MARCY ALLENMary Facility:[facility] Start: 12-23-2022 End: 12-23-2022 [facility] Start: 12-23-2022 End: 12-23-2022 Follow-up encounter Juan Noah MARIE [facility] Comment on above: S/P orthopedic surge ry, follow-up exam (Primary Dx); Osteochondral defect of condyle of femur Start: 12-18-2022 End: 12-18-2022 ambulatory Juan MEEK [facility] Start: 12-18-2022 End: 12-18-2022 Follow-up encounter Juan Zamora PT [facility] Comment on above: S/P orthopedic surge ry, follow-up exam (Primary Dx); Osteochondral defect of condyle of femur Start: 12-16-2022 End: 12-16-2022 ambulatory STEPHEN Deep NICHOLE Facility:[facility] Start: 12-16-2022 End: 12-16-2022 [facility] Start: 12-16-2022 End: 12-16-2022 Follow-up encounter Juan Noah MARIE [facility] Comment on above: S/P orthopedic surge ry, follow-up exam (Primary Dx); Osteochondral defect of condyle of femur Start: 12-12-2022 End: 12-12-2022 ambulatory STEPHEN Deep NICHOLE Facility:[facility] Start: 12-12-2022 End: 12-12-2022 [facility] Start: 12-12-2022 End: 12-12-2022 Follow-up encounter Juan Noah MARIE [facility] Comment on above: S/P orthopedic surge ry, follow-up exam (Primary Dx); Osteochondral defect of condyle of femur Start: 12-09-2022 End: 12-09-2022 ambulatory STEPHEN Deep NICHOLE Facility:[facility] Start: 12-09-2022 End: 12-09-2022 ambulatory Juan Zamora PT [facility] Start: 12-09-2022 End: 12-09-2022 [facility] Comment on above: S/P orthopedic surge ry, follow-up exam (Primary Dx); Osteochondral defect of condyle of femur Start: 12-06-2022 End: 12-06-2022 ambulatory [facility] Facility:[facility] Start: 12-06-2022 End: 12-06-2022 ambulatory Juan MEEK [facility] Start: 12-06-2022 End: 12-06-2022 Follow-up encounter Juan Zamora PT [facility] Comment on above: S/P orthopedic surge ry, follow-up exam (Primary Dx); Osteochondral defect of condyle of femur Start: 11-29-2022 End: 11-29-2022 [facility] Deep NICHOLE Facility:[facility] Start: 11-25-2022 End: 11-25-2022 [facility] Facility:[facility] Start: 11-25-2022 End: 11-25-2022 ambulatory Juan Zamora PT [facility] Start: 11-25-2022 End: 11-25-2022 [facility] Comment on above: S/P orthopedic surge ry, follow-up exam (Primary Dx); Osteochondral defect of condyle of femur Start: 11-20-2022 End: 11-20-2022 [facility] Start: 11-20-2022 End: 11-20-2022 Follow-up encounter Juan Zamora PT [facility] Comment on above: S/P orthopedic surge ry, follow-up exam (Primary Dx); Osteochondral defect of condyle of femur Start: 11-18-2022 End: 11-19-2022 [facility] STEPHEN Deep NICHOLE Facility:[facility] Start: 11-15-2022 End: 11-15-2022 [facility] Facility:[facility] Start: 11-15-2022 End: 11-15-2022 [facility] Start: 11-15-2022 End: 11-15-2022 Follow-up encounter Juan Zamora MARIE [facility] Comment on above: S/P orthopedic surge ry, follow-up exam (Primary Dx); Osteochondral defect of condyle of femur Start: 11-11-2022 End: 11-11-2022 ambulatory [facility] Facility:[facility] Start: 11-11-2022 End: 11-11-2022 [facility]ulatory [facility] Start: 11-11-2022 End: 11-11-2022 Follow-up encounter Juan Zamora PT [facility] Comment on above: S/P orthopedic surge ry, follow-up exam (Primary Dx); Osteochondral defect of condyle of femur Start: 11-08-2022 End: 11-08-2022 ambulatory STEPHEN Deep NICHOLE Facility:[facility] Start: 11-08-2022 End: 11-08-2022 ambulatory Juan Zamora PT [facility] Start: 11-08-2022 End: 11-08-2022 Follow-up encounter Juan Zamora PT [facility] Comment on above: S/P orthopedic surge ry, follow-up exam (Primary Dx); Osteochondral defect of condyle of femur Start: 11-06-2022 End: 11-06-2022 ambulatory [facility] Facility:[facility] Start: 11-06-2022 End: 11-06-2022 ambulatory Juan Zamora PT [facility] Start: 11-06-2022 End: 11-06-2022 Follow-up encounter Juan Zamora PT [facility] Comment on above: S/P orthopedic surge ry, follow-up exam (Primary Dx); Osteochondral defect of condyle of femur Start: 11-04-2022 End: 11-04-2022 ambulatory MARCY LUGO Facility:[facility] Start: 11-04-2022 End: 11-04-2022 Subsequent hospital visit by physician Ariel [facility] Work Phone: Radiology Comment on above: S/P orthopedic surge ry, follow-up exam [Z09] Start: 11-04-2022 End: 11-04-2022 Patient encounter procedure Stephen Sky MD Work Phone: [facility] Comment on above: S/P orthopedic surge ry, follow-up exam (Primary Dx) Start: 10-30-2022 End: 10-30-2022 ambulatory MARCY Deep apiOmat Facility:[facility] Start: 10-30-2022 End: 10-30-2022 ambulatory [facility] Start: 10-30-2022 End: 10-30-2022 Follow-up encounter Juan Zamora PT [facility] Comment on above: S/P orthopedic surge ry, follow-up exam (Primary Dx); Osteochondral defect of condyle of femur Start: 10-28-2022 End: 10-28-2022 ambulatory MARCY M apiOmat Facility:[facility] Start: 10-28-2022 End: 10-28-2022 ambulatory Juan Noah [facility]IE [facility] Start: 10-28-2022 End: 10-28-2022 Follow-up encounter Juan Zamora PT [facility] Comment on above: S/P orthopedic surge ry, follow-up exam (Primary Dx); Osteochondral defect of condyle of femur Start: 10-23-2022 End: 10-23-2022 ambulatory MARCY M apiOmat Facility:[facility] Start: 10-23-2022 End: 10-23-2022 ambulatory Juan Noah [facility]IE [facility] Start: 10-23-2022 End: 10-23-2022 Follow-up encounter Juan Zamora PT [facility] Comment on above: S/P orthopedic surge ry, follow-up exam (Primary Dx); Osteochondral defect of condyle of femur Start: 10-21-2022 End: 10-21-2022 ambulatory MARCY M apiOmat Facility:[facility] Start: 10-16-2022 End: 10-16-2022 ambulatory [facility] Start: 10-16-2022 End: 10-16-2022 Follow-up encounter Juan Zamora PT [facility] Comment on above: S/P orthopedic surge ry, follow-up exam (Primary Dx); Osteochondral defect of condyle of femur Start: 10-14-2022 End: 10-14-2022 ambulatory SURESH DOMINGUEZ Facility:[facility] Start: 10-11-2022 End: 10-11-2022 ambulatory MARCY ALLENL Facility:[facility] Start: 10-11-2022 End: 10-11-2022 ambulatory Juan Noah PT [facility] Start: 10-11-2022 End: 10-11-2022 Follow-up encounter Juan Noah MARIE [facility] Comment on above: S/P orthopedic surge ry, follow-up exam (Primary Dx); Osteochondral defect of condyle of femur Start: 10-07-2022 End: 10-07-2022 ambulatory MARCY ALLENL Facility:[facility] Start: 10-07-2022 End: 10-07-2022 ambulatory Juan Zamora PT [facility] Start: 10-07-2022 End: 10-07-2022 Follow-up encounter Juan Noah MARIE [facility] Comment on above: S/P orthopedic surge ry, follow-up exam (Primary Dx); Osteochondral defect of condyle of femur Start: 10-04-2022 End: 10-04-2022 ambulatory [facility] Start: 10-04-2022 End: 10-04-2022 Follow-up encounter Juan Noah MARIE [facility] Comment on above: S/P orthopedic surge ry, follow-up exam (Primary Dx); Osteochondral defect of condyle of femur Start: 10-02-2022 End: 10-02-2022 ambulatory ALISON POWELL Facility:[facility] Start: 10-02-2022 End: 10-02-2022 ambulatory Alison [facility] Start: 10-02-2022 End: 10-02-2022 Follow-up encounter Alison O'Johnson PT [facility] Comment on above: S/P orthopedic surge ry, follow-up exam (Primary Dx); Osteochondral defect of condyle of femur Start: 09-27-2022 End: 09-27-2022 ambulatory MARCY M PLAYL Facility:[facility] Start: 09-27-2022 End: 09-27-2022 ambulatory Juan Zamora PT [facility] Start: 09-27-2022 End: 09-27-2022 Follow-up encounter Juan Zamora PT [facility] Comment on above: S/P orthopedic surge ry, follow-up exam (Primary Dx); Osteochondral defect of condyle of femur Start: 09-24-2022 End: 09-24-2022 ambulatory MARCY ALLENL Facility:[facility] Start: 09-24-2022 End: 09-24-2022 ambulatory Juan Zamora PT [facility] Start: 09-24-2022 End: 09-24-2022 Follow-up encounter Juan Zamora PT [facility] Comment on above: S/P orthopedic surge ry, follow-up exam (Primary Dx); Osteochondral defect of condyle of femur Start: 09-23-2022 End: 09-23-2022 ambulatory MARCY M PLAYL Facility:[facility] Start: 09-20-2022 End: 09-21-2022 ambulatory MARCY M PLAYL Facility:[facility] Start: 09-18-2022 End: 09-18-2022 ambulatory MARCY M PLAYL Facility:[facility] Start: 09-18-2022 End: 09-18-2022 ambulatory Juan Zamora PT [facility] Start: 09-18-2022 End: 09-18-2022 Follow-up encounter Juan Zamora PT [facility] Comment on above: S/P orthopedic surge ry, follow-up exam (Primary Dx); Osteochondral defect of condyle of femur Start: 09-13-2022 End: 09-13-2022 ambulatory REJI WHITEING Facility:[facility] Start: 09-04-2022 End: 09-04-2022 ambulatory Lisa Rangel PT Work Phone: [facility] Start: 09-04-2022 End: 09-04-2022 Follow-up encounter Lisa Rangel PT Work Phone: [facility] Comment on above: S/P orthopedic surge ry, follow-up exam (Primary Dx); Osteochondral defect of condyle of femur Start: 09-03-2022 End: 09-03-2022 ambulatory MARCY LUGO Facility:[facility] Start: 09-03-2022 End: 09-03-2022 ambulatory Juan Carlos PT Work Phone: [facility] Start: 09-03-2022 End: 09-03-2022 Follow-up encounter Lisa Rangel PT Work Phone: [facility] Comment on above: Osteochondral defect of condyle of femur; S/P orthopedic surgery, follow-up exam Start: 08-26-2022 End: 08-26-2022 ambulatory MARCY LUGO Facility:[facility] Start: 08-26-2022 End: 08-26-2022 ambulatory REJI TELLING Facility:[facility] Start: 08-26-2022 End: 08-26-2022 Subsequent hospital visit by physician Ariel [facility] Work Phone: Radiology Comment on above: S/P orthopedic surge ry, follow-up exam [Z09] Start: 08-26-2022 End: 08-26-2022 Patient encounter procedure Reji Tellrajani PA-C Work Phone: [facility] Comment on above: S/P orthopedic surge ry, follow-up exam (Primary Dx) Start: 08-13-2022 ambulatory STEPHEN SKY Facility: [facility] Start: 08-13-2022 End: 08-13-2022 Subsequent hospital visit by physician Stephen Sky MD Work Phone: [facility] Comment on above: Osteochondral defect of condyle of femur [M95.8] Start: 08-06-2022 End: 08-06-2022 ambulatory Tina Oshea APRN.[employer] Work Phone: Pre Anesthesia Comment on above: Preop examination (P rimary Dx) Start: 08-06-2022 E-mail encounter fro m caregiver Tina Oshea APRN.[employer]GER [employer] Work Phone: [place] Start: 08-06-2022 Encounter for other preprocedural examination MARCYGRANT ALLENMary [facility] Start: 08-06-2022 End: 08-06-2022 Admission to establishment [facility] 2 Work Phone: [place] Start: 08-06-2022 End: 08-06-2022 Preprocedural examination done [facility] 2 Work Phone: Pre Anesthesia Start: 08-05-2022 ambulatory Katarina Anthony RN Work Phone: [facility] Comment on above: Preoperative Informa tion Start: 08-05-2022 E-mail encounter fro m caregiver Katarina Anthony RN Work Phone: [facility] [address] Start: 07-20-2022 ambulatory Katarina Anthony RN Work Phone: Orthopedics Start: 07-15-2022 End: 07-15-2022 ambulatory MARCY LUGO Facility:[facility] Start: 07-15-2022 End: 07-15-2022 Patient encounter procedure Stephen Sky MD Work Phone: [facility] Comment on above: OCD (osteochondritis dissecans) of knee (Primary Dx); Chronic pain of both knees Start: 07-08-2022 ambulatory MARCY LUGO Facilit y:[facility] Start: 06-12-2022 End: 06-12-2022 ambulatory ALISON O'JOHNSON Facility:[facility] Start: 06-12-2022 End: 06-12-2022 ambulatory Alison O'Johnson PT [facility] Comment on above: OCD (osteochondritis dissecans) of knee (Primary Dx) Start: 06-05-2022 End: 06-05-2022 ambulatory ALISON O'JOHNSON Facility:[facility] Start: 06-05-2022 End: 06-05-2022 ambulatory Alison O'Johnson PT [facility] Comment on above: OCD (osteochondritis dissecans) of knee (Primary Dx) Start: 05-28-2022 End: 05-28-2022 ambulatory MARCY M PLAYL Facility:[facility] Start: 05-22-2022 End: 05-22-2022 ambulatory Alison O'Johnson PT [facility] Comment on above: OCD (osteochondritis dissecans) of knee (Primary Dx) Start: 05-16-2022 End: 05-16-2022 ambulatory Alison O'Johnson PT [facility] Comment on above: OCD (osteochondritis dissecans) of knee (Primary Dx) Start: 05-07-2022 End: 05-07-2022 ambulatory ALISON O'JOHNSON Facility:[facility] Start: 05-07-2022 End: 05-07-2022 ambulatory Alison O'Johnson PT [facility] Comment on above: OCD (osteochondritis dissecans) of knee (Primary Dx) Start: 05-06-2022 End: 05-06-2022 ambulatory MARCY ALLENL Facility:[facility] Start: 05-06-2022 End: 05-06-2022 Subsequent hospital visit by physician Xr [facility] [place] Work Phone: Radiology Comment on above: OCD (osteochondritis dissecans) of knee [M93.269] Start: 05-06-2022 End: 05-06-2022 ambulatory MARCY ALLENL Facility:[facility] Start: 05-06-2022 End: 05-06-2022 Patient encounter procedure Stephen Sky MD Work Phone: [facility] Comment on above: OCD (osteochondritis dissecans) of knee (Primary Dx) Start: 04-21-2022 ambulatory Dwain Mendez MD Work Phone: [facility] Start: 04-21-2022 Patient encounter procedure Dwain Mendez MD Work Phone: Orthopaedics Comment on above: Knee appointment Start: 04-04-2022 End: 04-04-2022 ambulatory MARCY ALLENL Facility:[facility] Start: 04-04-2022 End: 04-04-2022 Patient encounter procedure Dwain Mendez MD Work Phone: Orthopaedics Comment on above: OCD (osteochondritis dissecans) of knee (Primary Dx); Chronic pain of both knees Start: 03-02-2022 ambulatory Dony Alfaro O Work Phone: [facility] [place] Comment on above: Knee pain getting wo rse. Start: 03-01-2022 End: 03-01-2022 Subsequent hospital visit by physician Mri Radio [facility] (I-Stat/1.5t) Work Phone: Radiology Comment on above: Osteochondral defect of condyle of femur [M95.8] Start: 02-15-2022 End: 02-15-2022 Patient encounter procedure Dony Quan DO Work Phone: [facility] Comment on above: Osteochondral defect of condyle of femur (Primary Dx); Osteochondritis dissecans of right knee; Osteochondritis dissecans of left knee Start: 02-15-2022 End: 02-15-2022 Subsequent hospital visit by physician Xr [facility] Work Phone: Radiology Comment on above: Pain in both knees, unspecified chronicity [M25.561, M25.562] Start: 02-07-2022 Orders Only Dony Alfaro O Work Phone: Orthopaedics Comment on above: Pain in both knees, unspecified chronicity (Primary Dx) Start: 02-02-2022 End: 02-02-2022 Patient encounter procedure Cindy Tillman APRN.CNP Work Phone: [facility] Comment on above: Chronic pain of both knees (Primary Dx) Procedures Date Procedure Procedure Detail Performing Clinician Start: 03-31-2023 Radiologic exam knee complete 4/more views Reji Telling PA-C Work Phone: Start: 12-30-2022 Radiologic exam knee complete 4/more views Reji Telling PA-C Work Phone: Start: 11-04-2022 Radiologic exam knee complete 4/more views Reji Telling PA-C Work Phone: Start: 08-26-2022 Radiologic examinati on knee 1/2 views Reji Telling PA-C Work Phone: Start: 05-06-2022 Bone length studies Prakash Naylor MD Work Phone: Start: 03-01-2022 Mri any jt lower ext rem w/o contrast matrl Dony Kadeem DO Work Phone: Start: 02-15-2022 Radiologic exam knee complete 4/more views Dony Quan DO Work Phone: Start: 10-01-2019 Vaccine refused by patient Vaccine refused by patient Cindy Tillman APRN.CNP Work Phone: Start: 10-01-2019 Adult depression screening assessment Cindy Tillman APRN.CNP Work Phone: Plan of Treatment Date Care Activity Detail Author Start: 05-09-2025 Influenza vaccination Influenza Vacc ine (#1) [facility] Start: 05-09-2024 Covid-19 Vaccine ( season) Covid-19 Vaccine ( season) [facility] Start: 05-09-2024 Covid-19 Vaccine ( season) Covid-19 Vaccine ( season) [facility] Start: 05-09-2024 Influenza vaccination Influenza Vacc ine (#1) [facility] Start: 05-09-2023 Influenza vaccination [facility] Start: 04-22-2023 Urine microalbumin profile [facility] Start: 05-09-2022 Influenza vaccination [facility] Start: 04-12-2022 COVID-19 VACCINE (3 - Booster for Moderna series) COVID-19 VACCINE (3 - Booster for Moderna series) [facility] Start: 01-05-2022 COVID-19 VACCINE (3 - Booster for Moderna series) COVID-19 VACCINE (3 - Booster for Moderna series) [facility] Start: 01-05-2022 COVID-19 VACCINE (3 - Moderna series) COVID-19 VACCINE (3 - Moderna series) [facility] Start: 10-01-2020 Adult depression screening assessment DEPRESSION SCREENING [facility] Start: 2018 HEPATITIS C SCREENING HEPATITIS C [facility] Start: 2018 Hepatitis C screening Hepatitis C [facility] Start: 2018 HIV SCREENING HIV SCREENING [facility] Start: 2018 HIV screening HIV Screening [facility] Start: 2016 Meningococcal B Vacc ine: Consider Based On Risk (1 of 2 - Patient Seeks Protection) Meningococcal B Vaccine: Consider Based On Risk (1 of 2 - Patient Seeks Protection) [facility] Start: 2016 MENINGOCOCCAL B: Consider based on risk (1 of 2 - Patient Seeks Protection) MENINGOCOCCAL B: Consider based on risk (1 of 2 - Patient Seeks Protection) [facility] Start: 2015 HPV Vaccine (1 - Mal e 3-dose series) HPV Vaccine (1 - Male 3-dose series) [facility] Start: 2014 PEDS TO ADULT TRANSI TION ANNUAL ASSESSMENT PEDS TO ADULT TRANSITION ANNUAL ASSESSMENT [facility] Start: 2012 PEDS TO ADULT TRANSI TION INITIAL DISCUSSION PEDS TO ADULT TRANSITION INITIAL DISCUSSION [facility] Start: 2011 HPV VACCINE (1 - Mal e 2-dose series) HPV VACCINE (1 - Male 2-dose series) [facility] Start: 2010 MENINGOCOCCAL B: Consider based on risk (1 of 2 - Risk Bexsero 2-dose series) MENINGOCOCCAL B: Consider based on risk (1 of 2 - Risk Bexsero 2-dose series) [facility] Start: 2009 HPV VACCINE (1 - Mal e 2-dose series) HPV VACCINE (1 - Male 2-dose series) [facility] End: 03-17-2023 Mri any jt lower extrem w/o contrast matrl [facility] Work Phone: Comment on above: 1 Occurrences starti ng 02/15/2022 until 03/17/2023 PT PLAN OF CARE CERTIFICATION PT PLAN OF CARE CERTIFICATION Procedures Routine OCD (osteochondritis dissecans) of knee Ordered: 06/12/2022 [facility] Comment on above: Ordered: 06/12/2022 End: 03-09-2023 XR KNEE GENERAL 4V AP BOTH/PA BOTH/LAT/MERC BILATERAL XR KNEE GENERAL 4V AP BOTH/PA BOTH/LAT/MERC BILATERAL Radiology Routine Pain in both knees, unspecified chronicity 1 Occurrences starting 02/07/2022 until 03/09/2023 [facility] Work Phone: Comment on above: 1 Occurrences starti ng 02/07/2022 until 03/09/2023 End: 01-29-2024 XR KNEE GENERAL 4V AP BOTH/PA BOTH/LAT/MERC LEFT XR KNEE GENERAL 4V AP BOTH/PA BOTH/LAT/MERC LEFT Radiology Routine S/P orthopedic surgery, follow-up exam 1 Occurrences starting 12/30/2022 until 01/29/2024 [facility] Work Phone: Comment on above: 1 Occurrences starti ng 12/30/2022 until 01/29/2024 End: 09-25-2023 XR KNEE LIMITED 2V AP/LAT LEFT XR KNEE LIMITED 2V AP/LAT LEFT Radiology Routine S/P orthopedic surgery, follow-up exam 1 Occurrences starting 08/26/2022 until 09/25/2023 [facility] Work Phone: Comment on above: 1 Occurrences starti ng 08/26/2022 until 09/25/2023 XR KNEE LIMITED 2V AP/LAT LEFT XR KNEE LIMITED 2V AP/LAT LEFT Radiology Routine S/P orthopedic surgery, follow-up exam 08/26/2022 11:59 AM EST [facility] Work Phone: [facility] Immunizations Immunization Date Immunization Notes Care Provider Lourdes michelle 04-19-2017 meningococcal polysaccharide (groups A, C, Y and W-135) diphtheria toxoid conjugate vaccine (MCV4P) Cindy Tillman APRN.CNP Work Phone: [facility] Work Phone: 04-22-2013 Meningococcal, MCV4, unspecified conjugate formulation(groups A, C, Y and W-135) Cindybrayden Tillman APRN.[facility] Work Phone: [facility] Work Phone: 04-22-2013 tetanus toxoid, redu ranold diphtheria toxoid, and acellular pertussis vaccine, adsorbed Cindy King OTN.[facility] Work Phone: [facility] Work Phone: 04-14-2006 diphtheria, tetanus toxoids and acellular pertussis vaccine Cindy King TON.[facility] Work Phone: [facility] Work Phone: 04-14-2006 measles, mumps and rubella virus vaccine Cindy King TON.[facility] Work Phone: [facility] Work Phone: 04-14-2006 poliovirus vaccine, inactivated Cindy Tillman APRN.[facility] Work Phone: [facility] Work Phone: 10-27-2001 diphtheria, tetanus toxoids and acellular pertussis vaccine Cindy King TON.[facility] Work Phone: [facility] Work Phone: 10-27-2001 haemophilus influenz ae type b vaccine, HbOC conjugate Cindy King TON.[facility] Work Phone: [facility] Work Phone: 10-27-2001 hepatitis B vaccine, pediatric or pediatric/adolescent dosage Cindy Tillman APRN.[employer] Work Phone: [facility] Work Phone: 10-27-2001 measles, mumps and rubella virus vaccine Cindy Tillman APRN.[facility] Work Phone: [facility] Work Phone: 03-08-2001 Chicken Pox (disease) Ean Tillman APRN.[employer] Work Phone: [facility] Work Phone: 01-01-2001 diphtheria, tetanus toxoids and acellular pertussis vaccine Cindy Primo MULTI SKILLED OPERATOR.[employer] Work Phone: [facility] Work Phone: 01-01-2001 haemophilus influenz ae type b vaccine, HbOC conjugate Cindy Primo MULTI SKILLED OPERATOR.[employer] Work Phone: [facility] Work Phone: 01-01-2001 poliovirus vaccine, inactivated Cindy Primo MULTI SKILLED OPERATOR.[employer] Work Phone: [facility] Work Phone: 2000 diphtheria, tetanus toxoids and acellular pertussis vaccine Cindy Primo MULTI SKILLED OPERATOR.[employer] Work Phone: [facility] Work Phone: 2000 haemophilus influenz ae type b vaccine, HbOC conjugate Cindy Primo MULTI SKILLED OPERATOR.[employer] Work Phone: [facility] Work Phone: 2000 poliovirus vaccine, inactivated Cindy Primo MULTI SKILLED OPERATOR.[employer] Work Phone: [facility] Work Phone: 2000 diphtheria, tetanus toxoids and acellular pertussis vaccine Cindy Primo MULTI SKILLED OPERATOR.[employer] Work Phone: [facility] Work Phone: 2000 haemophilus influenz ae type b vaccine, HbOC conjugate Cindy Primo MULTI SKILLED OPERATOR.[employer] Work Phone: [facility] Work Phone: 2000 poliovirus vaccine, inactivated Cindy Primo MULTI SKILLED OPERATOR.[employer] Work Phone: [facility] Work Phone: 2000 hepatitis B vaccine, pediatric or pediatric/adolescent dosage Cindy Primo MULTI SKILLED OPERATOR.[employer] Work Phone: [facility] Work Phone: 2000 hepatitis B vaccine, pediatric or pediatric/adolescent dosage Cindy Primo MULTI SKILLED OPERATOR.[employer] Work Phone: [facility] Work Phone: Payers Date Payer Category Payer Unknown [id number] 2024 Self-pay 2024 Unknown [id number] 2021 Unknown [employer]ON CARRINGTON PPO [id number] 2021-Present [phone] [address] [place] [address] PPO [id number] 2021 Unknown [id number] 2021 Unknown [id number] Unknown [id number] Unknown [id number] Unknown [id number] Social History Date Type Detail Facility Start: 03-13-2018 End: 08-06-2022 Tobacco smoking status NHIS Never smoked tobacco [facility] Start: 02-02-2022 End: 08-06-2022 Alcohol intake Lifetime non-drinker (finding) [facility] Start: 02-02-2022 History SDOH Alcohol Frequency 1 [facility] Start: 2000 Sex Assigned At Not on file C [facility] Start: 01-23-2022 End: 08-06-2022 Exposure to SARS-CoV-2 (event) Not sure [facility] Work Phone: Start: 2000 Sex Assigned At Male C [facility] Start: 02-22-2022 End: 03-04-2022 Exposure to SARS-CoV-2 (event) Unable to assess [facility] Work Phone: Start: 03-13-2018 End: 08-06-2022 Tobacco use and exposure Smokeless tobacco non-user [facility] Work Phone: Start: 08-06-2022 End: 01-08-2023 History of Social function [facility] Start: 08-06-2022 End: 01-08-2023 Tobacco use panel [facility] Start: 08-09-2012 National Score (1-10 0), lower number is lower risk 36 [facility] Start: 02-27-2022 Gender identity Identifies as male gender (finding) [facility] Start: 02-27-2022 Sexual orientation Bisexual (finding ) [facility] Medical Equipment Procedure Code Equipment Code Equipment Origin al Text Equipment Identifier Dates Osteosparx C Demineralized Bone Matrix Paste [id number] Start: 08-13-2022 Asc-Gb-B-Kind Im plant - [id number] Start: 08-13-2022 Comment on above: Description: Whole F emoral Condyle Left [id number] Clinical Notes 04-27-2009 to 04-23-2025 Telephone Encounter - Mallory Butler RN - 04/23/2025 12:09 PM EDTTelephone Encounter - Mallory Butler RN - 04/23/2025 12:[address] - 03/31/2023 10:30 AM EDTPatient Instructions Note Date & Type Note Facility 04-23-2025 Telephone encounter Note Reason for Conversation: Anxiety Background Patient complains of worsening anxiety, difficulty sleeping, difficulty breathing and shortness of breath described as severe a few minutes ago, moderate now, and he is struggling to take a deep breath. Outcome: patient confirmed he will call 911 now. Disposition Call EMS 911 Now Reason for Disposition SEVERE difficulty breathing (e.g., struggling for each breath, speaks in single words) No Initial Assessment on file. No Additional Information on file. Protocols Used Anxiety and Panic Fivfco-[id number]-TQ [facility] 04-23-2025 Miscellaneous Notes Reason for Conversation: Anxiety Background Patient complains of worsening anxiety, difficulty sleeping, difficulty breathing and shortness of breath described as severe a few minutes ago, moderate now, and he is struggling to take a deep breath. Outcome: patient confirmed he will call 911 now. Disposition Call EMS 911 Now Reason for Disposition SEVERE difficulty breathing (e.g., struggling for each breath, speaks in single words) No Initial Assessment on file. No Additional Information on file. Protocols Used Anxiety and Panic [id number] documented in this encounter [facility] 03-31-2023 Note HNO ID: [id number] Author: Stephen Sky MD Service: ? Author Type: Physician Type: Progress Notes Filed: 03/31/2023 12:12 PM Note Text: March 31, 2023 HPI: Tucker Zambrano is a 22 year old male with the presenting complaint of Post Op of the Left Knee. He was last seen in orthopaedic clinic for his knee on 12/30/2022 with Stephen Sky. Most recent knee imaging was completed on 03/31/2023 (XR KNEE GENERAL 4V AP BOTH/PA BOTH/LAT/MERC LEFT) . Attached is imaging for the order.The last knee-related PT visit was completed on 03/25/2023 (Knee - Left;Knee - Right). Tucker had knee surgery on 08/13/2022 with Stephen Sky. In the past (based on all medication history on file), Tucker has tried the following anti-inflammatory medications (not necessarily for this reason for visit): dexamethasone sodium phosphate, ketorolac tromethamine. Last XR Knee - Impression Only XR KNEE GENERAL 4V AP BOTH/PA BOTH/LAT/MERC LEFT Exam End: 03/31/2023 11:09 AM (In process) Last MRI Knee - Impression Only MRI KNEE WO IVCON RT Exam End: 03/01/2022 2:09 PM (Final result) Impression: IMPRESSION: RIGHT KNEE: LARGE MEDIAL AND LATERAL FEMORAL CONDYLE OSTEOCHONDRAL LESIONS. MULTIPLE IN SITU FRAGMENTS. NO FLUID UNDERMINING OR DISPLACED FRAGMENT. ... PT Visits (up to last 5) Some values may be hidden. Unless noted otherwise, only the newest values recorded on each date are displayed. PT Visits 02/07/23 02/14/23 02/21/23 03/10/23 03/25/23 Pain location Knee - Left Knee - Left Knee - Left Knee - Right Knee - Left;Knee - Right Pain level 0 0 0 3 0 Description Aching;Sore Aching;Sore Aching Frequency Intermittent Intermittent Intermittent Intermittent Intermittent Recent Surgeries this specialty 08/13/2022 (7mo) ALLOGRAFT OSTEOCHONDRAL KNEE OPEN (Left) Stephen Sky MD; Jayson eVga, DO - Posted Doing well in regard to left knee. PAIN EVALUATION No data found in the last 1 encounters. Past Medical History: PAST MEDICAL HISTORY Diagnosis Date Allergic rhinitis, cause unspecified Allergic rhinitis Pain in limb 2009 Family History: FAMILY HISTORY Problem Relation Age of Onset Hypertension Father Social History: Social History Tobacco Use Smoking status: Never Smokeless tobacco: Never Vaping Use Vaping Use: Never used Substance Use Topics Alcohol use: Never Drug use: Never Medications: ibuprofen (MOTRIN ORAL) Take by mouth. finasteride (PROPECIA,PROSCAR) 1 mg tablet Take 1 mg by mouth once daily. Allergies: ALLERGIES Allergen Reactions Penicillins Rash Environmental [Othe* Physical Exam: improved rom of left knee. No p[ain. No effusion. Imaging: Images were reviewed in the office today. Interpretation of the performed imaging is Xrays show good interval placement of grafts. No new issues in regard to left Assessment/Plan: continue with PT progression. Will see in the fututre when he is ready. Diagnosis: Osteochondral defect of condyle of femur (primary encounter diagnosis) Stephen Sky MD [facility] 03-31-2023 Note HNO ID: [id number] Author: Billie Drew CT Service: Radiology Author Type: Technologist Type: Progress Notes Filed: 03/31/2023 11:10 AM Note Text: Radiology Service Progress Note PATIENT NAME: Tucker Zambrano DATE OF SERVICE: March 31, 2023 TIME: 11:10 AM PATIENT IDENTITY VERIFICATION COMPLETED USING TWO (2) IDENTIFIERS: Name and Date of confirmed by patient verbally. FALL SCREENING: Has the patient had 2 falls in the last year or 1 fall with injury or currently using an Ambulatory Assistive Device (Walker, Cane, Wheelchair, Crutches, etc.)? No PATIENT GENDER DATA: Male PATIENT RELEVANT IMPLANT DATA REVIEWED: Not Applicable RADIOLOGY DEPARTMENT: General X-ray: Exam(s) Completed: Lower Extremity X-Ray(s): Knee, AP / Lat / Tunne / Merchant Left and Wt. Bearing PERIPHERAL IV DATA: Not applicable SIGNED BY: MURIEL Munroe March 31, 2023 11:[address] [facility] 03-31-2023 History of Presen t illness Narrative Radiology Service Progress Note PATIENT NAME: Tucker Zambrano DATE OF SERVICE: March 31, 2023 TIME: 11:10 AM PATIENT IDENTITY VERIFICATION COMPLETED USING TWO (2) IDENTIFIERS: Name and Date of confirmed by patient verbally. FALL SCREENING: Has the patient had 2 falls in the last year or 1 fall with injury or currently using an Ambulatory Assistive Device (Walker, Cane, Wheelchair, Crutches, etc.)? No PATIENT GENDER DATA: Male PATIENT RELEVANT IMPLANT DATA REVIEWED: Not Applicable RADIOLOGY DEPARTMENT: General X-ray: Exam(s) Completed: Lower Extremity X-Ray(s): Knee, AP / Lat / Tunne / Merchant Left and Wt. Bearing PERIPHERAL IV DATA: Not applicable SIGNED BY: MURIEL Munroe March 31, 2023 11:10 AM documented in this encounter [facility] 03-25-2023 Note HNO ID: [id number] Author: Juan Zamora PT Service: ? Author Type: Physical Therapist Type: Progress Notes Filed: 03/25/2023 2:10 PM Note Text: Episode Visit Count: 46 Therapist That Will Accept/Oversee The Plan Of Care: Juan Zamora Start of Care Date: 09/03/22 Onset Date: 08/13/22 Plan of Care Certification Date: 06/12/22 Next Certification Due Date: 07/17/22 REHABIL[facility]ATION AND SPORTS THERAPY PHYSICAL THERAPY DISCONTINUANCE OF CARE PLAN OF CARE UPDATE: Assessment: Tucker Zambrano is discontinued from Physical Therapy services due to goal achievement.. Patient was seen for 46 visits from Start of Care Date: 09/03/22 to 03/25/2023 and treatment included: Therapeutic exercise, Manual therapy, Self-residential management, and Gait training. Pt has seen strength, range of motion,a nd functional normalize since starting therapy. Due to meeting all goals, pt is appropriate to discharge and continue exercises on his own. Pt encouraged to contact me with any questions, concerns, or regression in pain or function. Goals updated on 03/25/2023. Goals for Episode of Care: created on 09/03/22 through 04/03/23 [place] in home exercise program. Met Patient will increase active ROM of left knee to 0-140 degrees to allow pt to to improve performance of ADLs. Met Patient will demonstrate increase in quad strength to 5/5 during manual muscle testing in order to improve function for prior functional tasks. Met Perform exercise program without pain. Met Normal gait. Met Reciprocal stair negotiation. Met Patient Goals: Return to full function SUBJECTIVE: Patient Reason for Visit: Pt with no resitrictions or limitations. L knee feels a little swollen at times but not bad or limiting, Sleeping is much better, even sleeping on the L side now. R knee has started to calm as well. Functional Limitations: nothing Pain: Pain Pain Level: 0 Pain Location: Knee - Left, Knee - Right Frequency: Intermittent PROMIS Scales Higher is Better 02/13/2023 01/17/2023 12/22/2022 Phys Func - Score 42 (mild dysfunction) 42 (mild dysfunction) 41 (mild dysfunction) Phys Func - Percentile 21 % 21 % 18 % Self-Eff Symptom - Score 51 (Average) 55 (Average) 57 (Average) Self-Eff Symptom - Percentile 54 % 69 % 76 % T-scores: mean of general population = 50. 5 points is clinically meaningfully difference Percentiles provide an indication of how the patient's score ranks in relation to the general population. Higher percentile rankings indicate better function/quality of life. 50th percentile is the average of the general population and indicates half of respondents had a worse score. OBJECTIVE MEASURES WITH LEVEL OF FUNCTION: LE AROM L Knee Extension: 2 Degrees L Knee Flexion: 141 Degrees Dynamometer Strength Right Quadriceps Strength (lbs): 61.1 Left Quadriceps Strength (lbs): 81.3 Quad Strength Limb Symmetry Index (%): 133.06 Right Hamstring Strength (lbs): 82.4 Left Hamstring Strength (lbs): 78.5 Hamstring Strength Limb Symmetry Index(%): 95.27 TREATMENT: Therapeutic Exercise: 2: Recumbent bike setting 0 working on knee flexion ROM x5 min 3: Squatting to tolerated depth x12 4: Objective measures obtained 5: Answered all pt questions about exercises and overall function Skilled Intervention: Patient was educated in proper exercise technique and purpose for exercises. Skilled judgment was provided in selection of appropriate interventions. Patient education as noted. Billing Therapeutic Exercise Treatment Minutes: 25 Total Treatment Time Minutes (timed/untimed): 25 Juan Zamora, PT [facility] 03-25-2023 History of Presen t illness Narrative Episode Visit Count: 46 Therapist That Will Accept/Oversee The Plan Of Care: Juan Zamora Start of Care Date: 09/03/22 Onset Date: 08/13/22 Plan of Care Certification Date: 06/12/22 Next Certification Due Date: 07/17/22 REHABILITATION AND SPORTS THERAPY PHYSICAL THERAPY DISCONTINUANCE OF CARE PLAN OF CARE UPDATE: Assessment: Tucker Jeffersonjerome is discontinued from Physical Therapy services due to goal achievement.. Patient was seen for 46 visits from Start of Care Date: 09/03/22 to 03/25/2023 and treatment included: Therapeutic exercise, Manual therapy, Self-residential management, and Gait training. Pt has seen strength, range of motion,a nd functional normalize since starting therapy. Due to meeting all goals, pt is appropriate to discharge and continue exercises on his own. Pt encouraged to contact me with any questions, concerns, or regression in pain or function. Goals updated on 03/25/2023. Goals for Episode of Care: created on 09/03/22 through 04/03/23 [place] in home exercise program. Met Patient will increase active ROM of left knee to 0-140 degrees to allow pt to to improve performance of ADLs. Met Patient will demonstrate increase in quad strength to 5/5 during manual muscle testing in order to improve function for prior functional tasks. Met Perform exercise program without pain. Met Normal gait. Met Reciprocal stair negotiation. Met Patient Goals: Return to full function SUBJECTIVE: Patient Reason for Visit: Pt with no resitrictions or limitations. L knee feels a little swollen at times but not bad or limiting, Sleeping is much better, even sleeping on the L side now. R knee has started to calm as well. Functional Limitations: nothing Pain: Pain Pain Level: 0 Pain Location: Knee - Left, Knee - Right Frequency: Intermittent PROMIS Scales Higher is Better 02/13/2023 01/17/2023 12/22/2022 Phys Func - Score 42 (mild dysfunction) 42 (mild dysfunction) 41 (mild dysfunction) Phys Func - Percentile 21 % 21 % 18 % Self-Eff Symptom - Score 51 (Average) 55 (Average) 57 (Average) Self-Eff Symptom - Percentile 54 % 69 % 76 % T-scores: mean of general population = 50. 5 points is clinically meaningfully difference Percentiles provide an indication of how the patient's score ranks in relation to the general population. Higher percentile rankings indicate better function/quality of life. 50th percentile is the average of the general population and indicates half of respondents had a worse score. OBJECTIVE MEASURES WITH LEVEL OF FUNCTION: LE AROM L Knee Extension: 2 Degrees L Knee Flexion: 141 Degrees Dynamometer Strength Right Quadriceps Strength (lbs): 61.1 Left Quadriceps Strength (lbs): 81.3 Quad Strength Limb Symmetry Index (%): 133.06 Right Hamstring Strength (lbs): 82.4 Left Hamstring Strength (lbs): 78.5 Hamstring Strength Limb Symmetry Index(%): 95.27 TREATMENT: Therapeutic Exercise: 2: Recumbent bike setting 0 working on knee flexion ROM x5 min 3: Squatting to tolerated depth x12 4: Objective measures obtained 5: Answered all pt questions about exercises and overall function Skilled Intervention: Patient was educated in proper exercise technique and purpose for exercises. Skilled judgment was provided in selection of appropriate interventions. Patient education as noted. Billing Therapeutic Exercise Treatment Minutes: 25 Total Treatment Time Minutes (timed/untimed): 25 Juan Zamora PT documented in this encounter [facility] 03-10-2023 Note HNO ID: [id number] Author: Juan Zamora PT Service: ? Author Type: Physical Therapist Type: Progress Notes Filed: 03/10/2023 9:39 AM Note Text: Episode Visit Count: 45 Therapist That Will Accept/Oversee The Plan Of Care: Juan Zamora Start of Care Date: 09/03/22 Onset Date: 08/13/22 Plan of Care Certification Date: 06/12/22 Next Certification Due Date: 07/17/22 REHABILITATION AND SPORTS THERAPY PHYSICAL THERAPY TREATMENT NOTE ASSESSMENT: Tucker Zambrano tolerated the session with fatigue and no issues. He demonstrated improvements in LLE strength and function, as well as tolerance for deeper squatting. The patient will continue to benefit from ongoing skilled physical therapy to progress toward set goals, for reassessment by supervising therapist, and to continue with post-operative protocol. PLAN FOR NEXT VISIT: [place] SUBJECTIVE: Patient Reason for Visit: Pt's right leg continues to feel worse. Left doing great and is able to compensate for the right now Pain: Pain Pain Level: 3 Pain Location: Knee - Right Description: Aching Frequency: Intermittent OBJECTIVE MEASURES WITH LEVEL OF FUNCTION: TREATMENT: Therapeutic Exercise: 2: Recumbent bike setting 0 working on knee flexion ROM x5 min (reviewed HEP and pt's current function the last 2 weeks) 3: Multihip abduction 90# 3x10/side 4: Multihip extension 150# 3x10 5: HS curls 100# 3x10 6: Leg press 112# 3x10 7: Squatting to tolerated depth x10 Skilled Intervention: Patient was educated in proper exercise technique and purpose for exercises. Skilled judgment was provided in selection of appropriate interventions. Provided written instruction for home exercise program to facilitate proper performance and compliance. Correct performance of therapeutic exercises was facilitated with verbal, visual, and tactile cuing. Billing Therapeutic Exercise Treatment Minutes: 40 Total Treatment Time Minutes (timed/untimed): 40 Juan Zamora, PT [facility] 03-10-2023 History of Presen t illness Narrative Episode Visit Count: 45 Therapist That Will Accept/Oversee The Plan Of Care: Juan Zamora Start of Care Date: 09/03/22 Onset Date: 08/13/22 Plan of Care Certification Date: 06/12/22 Next Certification Due Date: 07/17/22 REHABILITATION AND SPORTS THERAPY PHYSICAL THERAPY TREATMENT NOTE ASSESSMENT: Tucker Jeffersonjerome tolerated the session with fatigue and no issues. He demonstrated improvements in LLE strength and function, as well as tolerance for deeper squatting. The patient will continue to benefit from ongoing skilled physical therapy to progress toward set goals, for reassessment by supervising therapist, and to continue with post-operative protocol. PLAN FOR NEXT VISIT: [place] SUBJECTIVE: Patient Reason for Visit: Pt's right leg continues to feel worse. Left doing great and is able to compensate for the right now Pain: Pain Pain Level: 3 Pain Location: Knee - Right Description: Aching Frequency: Intermittent OBJECTIVE MEASURES WITH LEVEL OF FUNCTION: TREATMENT: Therapeutic Exercise: 2: Recumbent bike setting 0 working on knee flexion ROM x5 min (reviewed HEP and pt's current function the last 2 weeks) 3: Multihip abduction 90# 3x10/side 4: Multihip extension 150# 3x10 5: HS curls 100# 3x10 6: Leg press 112# 3x10 7: Squatting to tolerated depth x10 Skilled Intervention: Patient was educated in proper exercise technique and purpose for exercises. Skilled judgment was provided in selection of appropriate interventions. Provided written instruction for home exercise program to facilitate proper performance and compliance. Correct performance of therapeutic exercises was facilitated with verbal, visual, and tactile cuing. Billing Therapeutic Exercise Treatment Minutes: 40 Total Treatment Time Minutes (timed/untimed): 40 Juan Zamora PT documented in this encounter [facility] 02-21-2023 Note HNO ID: [id number] Author: Juan Zamora PT Service: ? Author Type: Physical Therapist Type: Progress Notes Filed: 02/21/2023 2:27 PM Note Text: Episode Visit Count: 44 Therapist That Will Accept/Oversee The Plan Of Care: Juan Zamora Start of Care Date: 09/03/22 Onset Date: 08/13/22 Plan of Care Certification Date: 06/12/22 Next Certification Due Date: 07/17/22 REHABILITATION AND SPORTS THERAPY PHYSICAL THERAPY PROGRESS REPORT PLAN OF CARE UPDATE: Assessment: Tucker Zambrano demonstrates significant improvement in rising from a chair, standing, walking, stair negotiation, bending, heavy exertion, and sleeping . He has progressed toward goals. Patient continues to present with impairments in overall function and strength that interfere with heavy exertion, recreational activities, running, jumping, squatting . Current prognosis is Excellent due to: current objective clinical presentation, good overall health status, positive past response to therapy, within-session changes, good support system/ coping skills . He will benefit from continued skilled therapy services to meet the updated goals for this plan of care as noted below. Goals updated on 02/21/2023. Goals for Episode of Care: created on 09/03/22 through 04/03/23 [place] in home exercise program. Met Patient will increase active ROM of left knee to 0-140 degrees to allow pt to to improve performance of ADLs. Met, goal to maintain Patient will demonstrate increase in quad strength to 5/5 during manual muscle testing in order to improve function for prior functional tasks. Partially met Perform exercise program without pain. Met Normal gait. Met Reciprocal stair negotiation. Met Patient Goals: Return to full function Planned Interventions, Frequency, and Duration: 1x every other week, 4 weeks Total Number of Visits Planned: 2 Patient to be seen for Therapeutic exercise (60571), Neuromuscular re-education (99315), Manual therapy (54420), Therapeutic activities (44708), Self-residential management (77024), Patient/Family/Caregiver Education, Body Mechanics Training PLAN FOR NEXT VISIT: Continue strengthening and progressing HEP SUBJECTIVE: Patient Reason for Visit: Pt doing well today. L leg is now stronger and less painful than the right. Stairs are better and no issues. A little tightness in the L from time to time, but pain is gone. Functional Limitations: heavy exertion, recreational activities, running, jumping, squatting Pain: Pain Pain Level: 0 Pain Location: Knee - Left Description: Aching, Sore Frequency: Intermittent PROMIS Scales Higher is Better 02/13/2023 01/17/2023 12/22/2022 Phys Func - Score 42 (mild dysfunction) 42 (mild dysfunction) 41 (mild dysfunction) Phys Func - Percentile 21 % 21 % 18 % Self-Eff Symptom - Score 51 (Average) 55 (Average) 57 (Average) Self-Eff Symptom - Percentile 54 % 69 % 76 % T-scores: mean of general population = 50. 5 points is clinically meaningfully difference Percentiles provide an indication of how the patient's score ranks in relation to the general population. Higher percentile rankings indicate better function/quality of life. 50th percentile is the average of the general population and indicates half of respondents had a worse score. OBJECTIVE MEASURES WITH LEVEL OF FUNCTION: LE AROM L Knee Extension: 2 Degrees L Knee Flexion: 138 Degrees Dynamometer Strength Right Quadriceps Strength (lbs): 60.6 Left Quadriceps Strength (lbs): 72.2 Quad Strength Limb Symmetry Index (%): 119.14 Right Hamstring Strength (lbs): 81 Left Hamstring Strength (lbs): 64.5 Hamstring Strength Limb Symmetry Index(%): 79.63 TREATMENT: Therapeutic Exercise: 2: Recumbent bike setting 0 working on knee flexion ROM x5 min (subjective taken at this time and addressed goals for therapy) 3: Multihip abduction 90# 3x10/side 4: Multihip extension 140# 3x10 5: HS curls 100# 3x10 6: Leg press 112# 3x10 7: Objective measures obtained Skilled Intervention: Patient was educated in proper exercise technique and purpose for exercises. Skilled judgment was provided in selection of appropriate interventions. Provided written instruction for home exercise program to facilitate proper performance and compliance. Correct performance of therapeutic exercises was facilitated with verbal, visual, and tactile cuing. Billing Therapeutic Exercise Treatment Minutes: 42 Total Treatment Time Minutes (timed/untimed): 42 Juna Zamora PT [facility] 02-14-2023 Note HNO ID: [id number] Author: Juan Zamora PT Service: ? Author Type: Physical Therapist Type: Progress Notes Filed: 02/14/2023 3:11 PM Note Text: Episode Visit Count: 43 Therapist That Will Accept/Oversee The Plan Of Care: Juan Zamora Start of Care Date: 09/03/22 Onset Date: 08/13/22 Plan of Care Certification Date: 06/12/22 Next Certification Due Date: 07/17/22 [facility] PHYSICAL THERAPY TREATMENT NOTE ASSESSMENT: Tucker Zambrano tolerated the session with fatigue and no issues. He demonstrated improvements in stairs and overall function. The patient will continue to benefit from ongoing skilled physical therapy to progress toward set goals. PLAN FOR NEXT VISIT: [place] SUBJECTIVE: Patient Reason for Visit: Pt states no pain with descending stairs now. Pain: Pain Pain Level: 0 Pain Location: Knee - Left Frequency: Intermittent OBJECTIVE MEASURES WITH LEVEL OF FUNCTION: Form observed throughout TREATMENT: Therapeutic Exercise: 2: Recumbent bike setting 0 working on knee flexion ROM x5 min 3: Multihip abduction 90# 3x10/side 4: Multihip extension 140# 3x10 5: HS curls 100# 3x10 6: Leg press 112# 3x10 Skilled Intervention: Patient was educated in proper exercise technique and purpose for exercises. Skilled judgment was provided in selection of appropriate interventions. Correct performance of therapeutic exercises was facilitated with verbal cuing. Billing Therapeutic Exercise Treatment Minutes: 39 Total Treatment Time Minutes (timed/untimed): 39 Juan Zamora PT [facility] 02-10-2023 Note HNO ID: [id number] Author: Juan Zamora PT Service: ? Author Type: Physical Therapist Type: Progress Notes Filed: 02/10/2023 1:22 PM Note Text: Episode Visit Count: 42 Therapist That Will Accept/Oversee The Plan Of Care: Juan Zamora Start of Care Date: 09/03/22 Onset Date: 08/13/22 Plan of Care Certification Date: 06/12/22 Next Certification Due Date: 07/17/22 REHABILITATION AND SPORTS THERAPY PHYSICAL THERAPY TREATMENT NOTE ASSESSMENT: Tucker Zambrano tolerated the session with fatigue and no issues. He demonstrated improvements in exercise tolerance, taking less breaks today. The patient will continue to benefit from ongoing skilled physical therapy to progress toward set goals. PLAN FOR NEXT VISIT: Continue strengthening per tolerance SUBJECTIVE: Patient Reason for Visit: Descending stairs has gotten better lately with rarely any pain, but does still shake Pain: Pain Pain Level: 0 Pain Location: Knee - Left Description: Aching, Sore Frequency: Intermittent OBJECTIVE MEASURES WITH LEVEL OF FUNCTION: May try heel taps TREATMENT: Therapeutic Exercise: 2: Recumbent bike setting 0 working on knee flexion ROM x5 min 3: Multihip abduction 80# 3x10/side 4: Multihip extension 130# 3x10 5: HS curls 100# 3x10 6: Leg press 112# 3x10 Skilled Intervention: Patient was educated in proper exercise technique and purpose for exercises. Skilled judgment was provided in selection of appropriate interventions. Correct performance of therapeutic exercises was facilitated with verbal and visual cuing. Billing Therapeutic Exercise Treatment Minutes: 32 Total Treatment Time Minutes (timed/untimed): 32 Juan Zamora, PT [facility] 02-10-2023 History of Presen t illness Narrative Episode Visit Count: 42 Therapist That Will Accept/Oversee The Plan Of Care: Juan Zamora Start of Care Date: 09/03/22 Onset Date: 08/13/22 Plan of Care Certification Date: 06/12/22 Next Certification Due Date: 07/17/22 REHABILITATION AND SPORTS THERAPY PHYSICAL THERAPY TREATMENT NOTE ASSESSMENT: Tucker Zambrano tolerated the session with fatigue and no issues. He demonstrated improvements in exercise tolerance, taking less breaks today. The patient will continue to benefit from ongoing skilled physical therapy to progress toward set goals. PLAN FOR NEXT VISIT: Continue strengthening per tolerance SUBJECTIVE: Patient Reason for Visit: Descending stairs has gotten better lately with rarely any pain, but does still shake Pain: Pain Pain Level: 0 Pain Location: Knee - Left Description: Aching, Sore Frequency: Intermittent OBJECTIVE MEASURES WITH LEVEL OF FUNCTION: May try heel taps TREATMENT: Therapeutic Exercise: 2: Recumbent bike setting 0 working on knee flexion ROM x5 min 3: Multihip abduction 80# 3x10/side 4: Multihip extension 130# 3x10 5: HS curls 100# 3x10 6: Leg press 112# 3x10 Skilled Intervention: Patient was educated in proper exercise technique and purpose for exercises. Skilled judgment was provided in selection of appropriate interventions. Correct performance of therapeutic exercises was facilitated with verbal and visual cuing. Billing Therapeutic Exercise Treatment Minutes: 32 Total Treatment Time Minutes (timed/untimed): 32 Juan Zamora PT documented in this encounter [facility] 01-31-2023 Note HNO ID: [id number] Author: Juan Zamora PT Service: ? Author Type: Physical Therapist Type: Progress Notes Filed: 01/31/2023 2:23 PM Note Text: Episode Visit Count: 41 Therapist That Will Accept/Oversee The Plan Of Care: Juan Zamora Start of Care Date: 09/03/22 Onset Date: 08/13/22 Plan of Care Certification Date: 06/12/22 Next Certification Due Date: 07/17/22 REHABILITATION AND SPORTS THERAPY PHYSICAL THERAPY TREATMENT NOTE ASSESSMENT: Tucker Zambrano tolerated the session with fatigue and no issues. He demonstrated difficulty with stairs. The patient will continue to benefit from ongoing skilled physical therapy to progress toward set goals. PLAN FOR NEXT VISIT: Continue strength progression SUBJECTIVE: Patient Reason for Visit: Pt had some issues with L sided medial knee pain with stairs. Pain: Pain Pain Level: 2 Pain Location: Knee - Left Description: Aching, Sore Frequency: Intermittent OBJECTIVE MEASURES WITH LEVEL OF FUNCTION: TREATMENT: Therapeutic Exercise: 2: Recumbent bike setting 0 working on knee flexion ROM x5 min (subjective taken at this time) 3: Multihip abduction 80# 3x10/side 4: Multihip extension 130# 3x10 5: HS curls 90# 3x10 6: Leg press 112# 3x10 Skilled Intervention: Patient was educated in proper exercise technique and purpose for exercises. Skilled judgment was provided in selection of appropriate interventions. Correct performance of therapeutic exercises was facilitated with verbal, visual, and tactile cuing. Billing Therapeutic Exercise Treatment Minutes: 39 Total Treatment Time Minutes (timed/untimed): 39 Juan Zamora PT [facility] 01-22-2023 Note HNO ID: [id number] Author: Juan Zamora PT Service: ? Author Type: Physical Therapist Type: Progress Notes Filed: 01/22/2023 1:41 PM Note Text: Episode Visit Count: 40 Therapist That Will Accept/Oversee The Plan Of Care: Juan Zamora Start of Care Date: 09/03/22 Onset Date: 08/13/22 Plan of Care Certification Date: 06/12/22 Next Certification Due Date: 07/17/22 REHABILITATION AND SPORTS THERAPY PHYSICAL THERAPY PROGRESS REPORT PLAN OF CARE UPDATE: Assessment: Tucker Zambrano demonstrates significant improvement in walking, stair negotiation, bending, lifting, and physical activities . He has progressed toward goals. Patient continues to present with impairments in overall function, range of motion, and strength that interfere with stair negotiation, heavy exertion, lifting, recreational activities, physical activities, squatting . Current prognosis is Excellent due to: current objective clinical presentation, good overall health status, positive past response to therapy, within-session changes, good support system/ coping skills . He will benefit from continued skilled therapy services to meet the updated goals for this plan of care as noted below. Goals updated on 01/22/2023. Goals for Episode of Care: created on 09/03/22 through 01/02/23 [place] in home exercise program. Met Patient will increase active ROM of left knee to 0-140 degrees to allow pt to to improve performance of ADLs. Met Patient will demonstrate increase in quad strength to 5/5 during manual muscle testing in order to improve function for prior functional tasks. Progressing towards Perform exercise program without pain. Met Normal gait. Mostly met Reciprocal stair negotiation. Met ascending, not met descending Patient Goals: Return to full function Planned Interventions, Frequency, and Duration: 1x/week, 8 weeks Total Number of Visits Planned: 8 Patient to be seen for Therapeutic exercise (27514), Neuromuscular re-education (56519), Manual therapy (37621), Therapeutic activities (13339), Self-residential management (98169), Patient/Family/Caregiver Education, Body Mechanics Training PLAN FOR NEXT VISIT: Done with BFR, continue strengthening SUBJECTIVE: Patient Reason for Visit: Pt doing MUCH better today. No pain, tightness, or other symptoms in either leg. Walking, standing, stairs all getting better.. Functional Limitations: stair negotiation, heavy exertion, lifting, recreational activities, physical activities, squatting Pain: Pain Pain Level: 0 Pain Location: Knee - Left, Knee - Right Description: Tightness Frequency: Intermittent PROMIS Scales Higher is Better 01/17/2023 12/22/2022 11/22/2022 Phys Func - Score 42 (mild dysfunction) 41 (mild dysfunction) 34 (moderate dysfunction) Phys Func - Percentile 21 % 18 % 5 % Self-Eff Symptom - Score 55 (Average) 57 (Average) 51 (Average) Self-Eff Symptom - Percentile 69 % 76 % 54 % T-scores: mean of general population = 50. 5 points is clinically meaningfully difference Percentiles provide an indication of how the patient's score ranks in relation to the general population. Higher percentile rankings indicate better function/quality of life. 50th percentile is the average of the general population and indicates half of respondents had a worse score. OBJECTIVE MEASURES WITH LEVEL OF FUNCTION: LE AROM L Knee Extension: 3 Degrees L Knee Flexion: 141 Degrees LE PROM L Knee Flexion: 145 Degrees Dynamometer Strength Right Quadriceps Strength (lbs): 70 Left Quadriceps Strength (lbs): 69 Quad Strength Limb Symmetry Index (%): 98.57 Right Hamstring Strength (lbs): 75.5 Left Hamstring Strength (lbs): 57.9 Hamstring Strength Limb Symmetry Index(%): 76.69 TREATMENT: Therapeutic Exercise: 2: Recumbent bike setting 0 working on knee flexion ROM x5 min 3: *BTB HS curls in prone 3x10 4: *HS curls on Green PB 5: *Step ups 3x12/side 6: *Squats in tolerable range 3x8 7: *Hip thrusts or SL hip thrusts 3x10 8: BFR HS curls 60# x30, 15, 15, 15 (Large cuff, 144 mmHg, 30 sec rest between sets, 1 min between exercises) 9: BFR leg press 88# x30, 15, 15, 15 (Large cuff, 144 mmHg, 30 sec rest between sets, 1 min between exercises) Skilled Intervention: Patient was educated in proper exercise technique and purpose for exercises. Skilled judgment was provided in selection of appropriate interventions. Provided written instruction for home exercise program to facilitate proper performance and compliance. Correct performance of therapeutic exercises was facilitated with verbal, visual, and tactile cuing. Billing Therapeutic Exercise Treatment Minutes: 40 Total Treatment Time Minutes (timed/untimed): 40 Juan Zamora PT [facility] 01-20-2023 Note HNO ID: [id number] Author: Juan Zamora PT Service: ? Author Type: Physical Therapist Type: Progress Notes Filed: 01/20/2023 1:51 PM Note Text: Episode Visit Count: 39 Therapist That Will Accept/Oversee The Plan Of Care: Juan Zamora Start of Care Date: 09/03/22 Onset Date: 08/13/22 Plan of Care Certification Date: 06/12/22 Next Certification Due Date: 07/17/22 REHABILITATION AND SPORTS THERAPY PHYSICAL THERAPY TREATMENT NOTE ASSESSMENT: Tucker Zambrano tolerated the session with fatigue, expected muscle soreness, and no issues. He demonstrated increased fatigue today from a busy weekend. The patient will continue to benefit from ongoing skilled physical therapy to progress toward set goals and for reassessment by supervising therapist. PLAN FOR NEXT VISIT: [place] SUBJECTIVE: Patient Reason for Visit: Pt had a lot of heavy lifting over the weekend, much harder work than he has done so far. Feeling ok today, but he did have some flashes of pain carrying heavy things down stairs and all the driving he had to do Pain: Pain Pain Level: 1 Pain Location: Knee - Left Description: Tightness Frequency: Intermittent OBJECTIVE MEASURES WITH LEVEL OF FUNCTION: Lowered weight today on 2 exercises due to fagitue TREATMENT: Therapeutic Exercise: 2: Recumbent bike setting 0 working on knee flexion ROM x5 min 4: BFR hip thrusts with 20# x30, 15, 15, 15 (144 mmHg, B large cuff, 30 sec rest between sets, 1 min between exercises. 15# for last 2 sets of 15) 5: BFR leg press 64# x30, 15, 15, 15 (144 mmHg, B large cuff, 30 sec rest between sets, 1 min between exercises) 6: BFR HS curls 60# x30, 15, 15, 15 (144 mmHg, B large cuff, 30 sec rest between sets, 1 min between exercises) Skilled Intervention: Patient was educated in proper exercise technique and purpose for exercises. Skilled judgment was provided in selection of appropriate interventions. Correct performance of therapeutic exercises was facilitated with verbal, visual, and tactile cuing. Billing Therapeutic Exercise Treatment Minutes: 39 Total Treatment Time Minutes (timed/untimed): 39 Juan Zamora, PT [facility] 01-20-2023 History of Presen t illness Narrative Episode Visit Count: 39 Therapist That Will Accept/Oversee The Plan Of Care: Juan Zamora Start of Care Date: 09/03/22 Onset Date: 08/13/22 Plan of Care Certification Date: 06/12/22 Next Certification Due Date: 07/17/22 REHABILITATION AND SPORTS THERAPY PHYSICAL THERAPY TREATMENT NOTE ASSESSMENT: Tucker Zambrano tolerated the session with fatigue, expected muscle soreness, and no issues. He demonstrated increased fatigue today from a busy weekend. The patient will continue to benefit from ongoing skilled physical therapy to progress toward set goals and for reassessment by supervising therapist. PLAN FOR NEXT VISIT: [place] SUBJECTIVE: Patient Reason for Visit: Pt had a lot of heavy lifting over the weekend, much harder work than he has done so far. Feeling ok today, but he did have some flashes of pain carrying heavy things down stairs and all the driving he had to do Pain: Pain Pain Level: 1 Pain Location: Knee - Left Description: Tightness Frequency: Intermittent OBJECTIVE MEASURES WITH LEVEL OF FUNCTION: Lowered weight today on 2 exercises due to fagitue TREATMENT: Therapeutic Exercise: 2: Recumbent bike setting 0 working on knee flexion ROM x5 min 4: BFR hip thrusts with 20# x30, 15, 15, 15 (144 mmHg, B large cuff, 30 sec rest between sets, 1 min between exercises. 15# for last 2 sets of 15) 5: BFR leg press 64# x30, 15, 15, 15 (144 mmHg, B large cuff, 30 sec rest between sets, 1 min between exercises) 6: BFR HS curls 60# x30, 15, 15, 15 (144 mmHg, B large cuff, 30 sec rest between sets, 1 min between exercises) Skilled Intervention: Patient was educated in proper exercise technique and purpose for exercises. Skilled judgment was provided in selection of appropriate interventions. Correct performance of therapeutic exercises was facilitated with verbal, visual, and tactile cuing. Billing Therapeutic Exercise Treatment Minutes: 39 Total Treatment Time Minutes (timed/untimed): 39 Juan Zamora PT documented in this encounter [facility] 01-16-2023 Note HNO ID: [id number] Author: Juan Zamora PT Service: ? Author Type: Physical Therapist Type: Progress Notes Filed: 01/16/2023 1:17 PM Note Text: Episode Visit Count: 38 Therapist That Will Accept/Oversee The Plan Of Care: Juan Zamora Start of Care Date: 09/03/22 Onset Date: 08/13/22 Plan of Care Certification Date: 06/12/22 Next Certification Due Date: 07/17/22 REHABILITATION AND SPORTS THERAPY PHYSICAL THERAPY TREATMENT NOTE ASSESSMENT: Tucker Zambrano tolerated the session with fatigue, expected muscle soreness, and no issues. He demonstrated good tolerance to BFR today. The patient will continue to benefit from ongoing skilled physical therapy to progress toward set goals and for reassessment by supervising therapist. PLAN FOR NEXT VISIT: [place] SUBJECTIVE: Patient Reason for Visit: Pt doing well today. No issues, wants to do BFR with both legs today as the right is having no joint pain Pain: Pain Pain Level: 1 Pain Location: Knee - Left Description: Tightness Frequency: Intermittent OBJECTIVE MEASURES WITH LEVEL OF FUNCTION: 144 mmHg BFR TREATMENT: Therapeutic Exercise: 2: Recumbent bike setting 0 working on knee flexion ROM x5 min 3: Heel slides x10 each with and without strap 4: BFR hip thrusts with 20# x30, 15, 15, 15 (Large cuffs, 144 mmHg, 30 sec rest between sets, 1 min between exercises) 5: BFR leg press 88# x30, 15, 15, 15 (Large cuffs, 144 mmHg, 30 sec rest between sets, 1 min between exercises) 6: BFR HS curls 60# x30, 15, 15, 15 (Large cuffs, 144 mmHg, 30 sec rest between sets, 1 min between exercises) Skilled Intervention: Patient was educated in proper exercise technique and purpose for exercises. Skilled judgment was provided in selection of appropriate interventions. Correct performance of therapeutic exercises was facilitated with verbal, visual, and tactile cuing. Billing Therapeutic Exercise Treatment Minutes: 40 Total Treatment Time Minutes (timed/untimed): 40 Juan Zamora PT [facility] 01-16-2023 History of Presen t illness Narrative Episode Visit Count: 38 Therapist That Will Accept/Oversee The Plan Of Care: Juan Zamora Start of Care Date: 09/03/22 Onset Date: 08/13/22 Plan of Care Certification Date: 06/12/22 Next Certification Due Date: 07/17/22 REHABILITATION AND SPORTS THERAPY PHYSICAL THERAPY TREATMENT NOTE ASSESSMENT: Tucker Zambrano tolerated the session with fatigue, expected muscle soreness, and no issues. He demonstrated good tolerance to BFR today. The patient will continue to benefit from ongoing skilled physical therapy to progress toward set goals and for reassessment by supervising therapist. PLAN FOR NEXT VISIT: [place] SUBJECTIVE: Patient Reason for Visit: Pt doing well today. No issues, wants to do BFR with both legs today as the right is having no joint pain Pain: Pain Pain Level: 1 Pain Location: Knee - Left Description: Tightness Frequency: Intermittent OBJECTIVE MEASURES WITH LEVEL OF FUNCTION: 144 mmHg BFR TREATMENT: Therapeutic Exercise: 2: Recumbent bike setting 0 working on knee flexion ROM x5 min 3: Heel slides x10 each with and without strap 4: BFR hip thrusts with 20# x30, 15, 15, 15 (Large cuffs, 144 mmHg, 30 sec rest between sets, 1 min between exercises) 5: BFR leg press 88# x30, 15, 15, 15 (Large cuffs, 144 mmHg, 30 sec rest between sets, 1 min between exercises) 6: BFR HS curls 60# x30, 15, 15, 15 (Large cuffs, 144 mmHg, 30 sec rest between sets, 1 min between exercises) Skilled Intervention: Patient was educated in proper exercise technique and purpose for exercises. Skilled judgment was provided in selection of appropriate interventions. Correct performance of therapeutic exercises was facilitated with verbal, visual, and tactile cuing. Billing Therapeutic Exercise Treatment Minutes: 40 Total Treatment Time Minutes (timed/untimed): 40 Juan Zamora PT documented in this encounter [facility] 01-14-2023 Note HNO ID: [id number] Author: Juan Zamora PT Service: ? Author Type: Physical Therapist Type: Progress Notes Filed: 01/14/2023 3:00 PM Note Text: Episode Visit Count: 37 Therapist That Will Accept/Oversee The Plan Of Care: Juan Zamora Start of Care Date: 09/03/22 Onset Date: 08/13/22 Plan of Care Certification Date: 06/12/22 Next Certification Due Date: 07/17/22 REHABILITATION AND SPORTS THERAPY PHYSICAL THERAPY TREATMENT NOTE ASSESSMENT: Tucker Zambrano tolerated the session with fatigue and no issues. He demonstrated improvements in tolerance for exercises. The patient will continue to benefit from ongoing skilled physical therapy to progress toward set goals and to continue with post-operative protocol. PLAN FOR NEXT VISIT: Continue strengthening per tolerance SUBJECTIVE: Patient Reason for Visit: Pt just got out of the car after driving for an hour and a half. A little stiff but not bad. Notes he has been walking more and started doing some light yard work at home picking up sticks but not squatting to do so. Pain: Pain Pain Level: 1 Pain Location: Knee - Left Description: Tightness Frequency: Intermittent OBJECTIVE MEASURES WITH LEVEL OF FUNCTION: LE AROM L Knee Flexion: 137 Degrees LE PROM L Knee Flexion: 141 Degrees TREATMENT: Therapeutic Exercise: 2: Recumbent bike setting 0 working on knee flexion ROM x5 min 3: Heel slides x10 each with and without strap 4: BFR hip thrusts with 20# x30, 15, 15, 15 (Large cuff, 144 mmHg, 30 sec rest between sets, 1 min between BFR exercises) 5: BFR leg press 88# x30, 15, 15, 15 (Large cuff, 144 mmHg, 30 sec rest between sets, 1 min between BFR exercises) 6: BFR HS curls 60# x30, 15, 15, 15 (Large cuff, 144 mmHg, 30 sec rest between sets, 1 min between BFR exercises) Skilled Intervention: Patient was educated in proper exercise technique and purpose for exercises. Skilled judgment was provided in selection of appropriate interventions. Correct performance of therapeutic exercises was facilitated with verbal and visual cuing. Billing Therapeutic Exercise Treatment Minutes: 39 Total Treatment Time Minutes (timed/untimed): 39 Juan Zamora, PT [facility] 01-14-2023 History of Presen t illness Narrative Episode Visit Count: 37 Therapist That Will Accept/Oversee The Plan Of Care: Juan Zamora Start of Care Date: 09/03/22 Onset Date: 08/13/22 Plan of Care Certification Date: 06/12/22 Next Certification Due Date: 07/17/22 REHABILITATION AND SPORTS THERAPY PHYSICAL THERAPY TREATMENT NOTE ASSESSMENT: Tucker Zambrano tolerated the session with fatigue and no issues. He demonstrated improvements in tolerance for exercises. The patient will continue to benefit from ongoing skilled physical therapy to progress toward set goals and to continue with post-operative protocol. PLAN FOR NEXT VISIT: Continue strengthening per tolerance SUBJECTIVE: Patient Reason for Visit: Pt just got out of the car after driving for an hour and a half. A little stiff but not bad. Notes he has been walking more and started doing some light yard work at home picking up sticks but not squatting to do so. Pain: Pain Pain Level: 1 Pain Location: Knee - Left Description: Tightness Frequency: Intermittent OBJECTIVE MEASURES WITH LEVEL OF FUNCTION: LE AROM L Knee Flexion: 137 Degrees LE PROM L Knee Flexion: 141 Degrees TREATMENT: Therapeutic Exercise: 2: Recumbent bike setting 0 working on knee flexion ROM x5 min 3: Heel slides x10 each with and without strap 4: BFR hip thrusts with 20# x30, 15, 15, 15 (Large cuff, 144 mmHg, 30 sec rest between sets, 1 min between BFR exercises) 5: BFR leg press 88# x30, 15, 15, 15 (Large cuff, 144 mmHg, 30 sec rest between sets, 1 min between BFR exercises) 6: BFR HS curls 60# x30, 15, 15, 15 (Large cuff, 144 mmHg, 30 sec rest between sets, 1 min between BFR exercises) Skilled Intervention: Patient was educated in proper exercise technique and purpose for exercises. Skilled judgment was provided in selection of appropriate interventions. Correct performance of therapeutic exercises was facilitated with verbal and visual cuing. Billing Therapeutic Exercise Treatment Minutes: 39 Total Treatment Time Minutes (timed/untimed): 39 Juan Zamora PT documented in this encounter [facility] 01-08-2023 Note HNO ID: [id number] Author: Juan Zamora PT Service: ? Author Type: Physical Therapist Type: Progress Notes Filed: 01/08/2023 1:56 PM Note Text: Episode Visit Count: 36 Therapist That Will Accept/Oversee The Plan Of Care: Juan Zamora Start of Care Date: 09/03/22 Onset Date: 08/13/22 Plan of Care Certification Date: 06/12/22 Next Certification Due Date: 07/17/22 REHABILITATION AND SPORTS THERAPY PHYSICAL THERAPY TREATMENT NOTE ASSESSMENT: Tucker Zambrano tolerated the session with fatigue and expected muscle soreness. He demonstrated improvements in exercise tolerance. The patient will continue to benefit from ongoing skilled physical therapy to progress toward set goals. PLAN FOR NEXT VISIT: Continue LLE BFR, add in RLE strengthening per tolerance SUBJECTIVE: Patient Reason for Visit: L knee felt warm at night again. No other s/s to note. Denies redness, physical warmth to touch, or swelling. Goes away once he stretches out some Pain: Pain Pain Level: 1 Pain Location: Knee - Left Description: Burning Frequency: Intermittent OBJECTIVE MEASURES WITH LEVEL OF FUNCTION: LE AROM L Knee Flexion: 136 Degrees LE PROM L Knee Flexion: 140 Degrees TREATMENT: Therapeutic Exercise: 2: Recumbent bike setting 0 working on knee flexion ROM x5 min 3: Heel slides x10 each with and without strap 4: BFR hip thrusts with 20# x30, 15, 15, 15 (large cuff, 144 mmHg, 30 sec rest between sets, 1 min between exercises) 5: Multihip hip extension 80# x30, 15, 15, 15 (large cuff, 144 mmHg, 30 sec rest between sets, 1 min between exercises) 6: BFR SL leg press 40# x30, 15, 15, 15 (large cuff, 144 mmHg, 30 sec rest between sets, 1 min between exercises) 7: Air squats x10 Skilled Intervention: Patient was educated in proper exercise technique and purpose for exercises. Skilled judgment was provided in selection of appropriate interventions. Correct performance of therapeutic exercises was facilitated with verbal, visual, and tactile cuing. Billing Therapeutic Exercise Treatment Minutes: 42 Total Treatment Time Minutes (timed/untimed): 42 Juan Zamora, PT [facility] 01-08-2023 History of Presen t illness Narrative Episode Visit Count: 36 Therapist That Will Accept/Oversee The Plan Of Care: Juan Zamora Start of Care Date: 09/03/22 Onset Date: 08/13/22 Plan of Care Certification Date: 06/12/22 Next Certification Due Date: 07/17/22 REHABILITATION AND SPORTS THERAPY PHYSICAL THERAPY TREATMENT NOTE ASSESSMENT: Tucker Zambrano tolerated the session with fatigue and expected muscle soreness. He demonstrated improvements in exercise tolerance. The patient will continue to benefit from ongoing skilled physical therapy to progress toward set goals. PLAN FOR NEXT VISIT: Continue LLE BFR, add in RLE strengthening per tolerance SUBJECTIVE: Patient Reason for Visit: L knee felt warm at night again. No other s/s to note. Denies redness, physical warmth to touch, or swelling. Goes away once he stretches out some Pain: Pain Pain Level: 1 Pain Location: Knee - Left Description: Burning Frequency: Intermittent OBJECTIVE MEASURES WITH LEVEL OF FUNCTION: LE AROM L Knee Flexion: 136 Degrees LE PROM L Knee Flexion: 140 Degrees TREATMENT: Therapeutic Exercise: 2: Recumbent bike setting 0 working on knee flexion ROM x5 min 3: Heel slides x10 each with and without strap 4: BFR hip thrusts with 20# x30, 15, 15, 15 (large cuff, 144 mmHg, 30 sec rest between sets, 1 min between exercises) 5: Multihip hip extension 80# x30, 15, 15, 15 (large cuff, 144 mmHg, 30 sec rest between sets, 1 min between exercises) 6: BFR SL leg press 40# x30, 15, 15, 15 (large cuff, 144 mmHg, 30 sec rest between sets, 1 min between exercises) 7: Air squats x10 Skilled Intervention: Patient was educated in proper exercise technique and purpose for exercises. Skilled judgment was provided in selection of appropriate interventions. Correct performance of therapeutic exercises was facilitated with verbal, visual, and tactile cuing. Billing Therapeutic Exercise Treatment Minutes: 42 Total Treatment Time Minutes (timed/untimed): 42 Juan Zamora PT documented in this encounter [facility] 01-06-2023 Note HNO ID: [id number] Author: Juan Zamora PT Service: ? Author Type: Physical Therapist Type: Progress Notes Filed: 01/06/2023 11:45 AM Note Text: Episode Visit Count: 35 Therapist That Will Accept/Oversee The Plan Of Care: Juan Zamora Start of Care Date: 09/03/22 Onset Date: 08/13/22 Plan of Care Certification Date: 06/12/22 Next Certification Due Date: 07/17/22 REHABILITATION AND SPORTS THERAPY PHYSICAL THERAPY TREATMENT NOTE ASSESSMENT: Tucker Zambrano tolerated the session with decreased symptoms and no issues. He demonstrated improvements in exercise tolerance today swapping seated HS curls for hip extensions. The patient will continue to benefit from ongoing skilled physical therapy to progress toward set goals. PLAN FOR NEXT VISIT: Continue exercise progression per tolerance SUBJECTIVE: Patient Reason for Visit: L knee felt warm falling asleep the other night, pt was concerned. No other symptoms to report along with that and it did not last Pain: Pain Pain Level: 1 Pain Location: Knee - Left Description: Stiffness Frequency: Intermittent OBJECTIVE MEASURES WITH LEVEL OF FUNCTION: Form observed throughout session TREATMENT: Therapeutic Exercise: 2: Recumbent bike setting 0 working on knee flexion ROM x5 min 3: BFR hip thrusts with 20# x30, 15, 15, 15 (144 mmHg, large cuff, 30 sec rest between sets, 1 min between exercises) 4: Multihip hip extension 80# x30, 15, 15, 15 (144 mmHg, large cuff, 30 sec rest between sets, 1 min between exercises) 5: BFR SL leg press 40# x30, 15, 15, 15 (144 mmHg, large cuff, 30 sec rest between sets, 1 min between exercises) Skilled Intervention: Patient was educated in proper exercise technique and purpose for exercises. Skilled judgment was provided in selection of appropriate interventions. Correct performance of therapeutic exercises was facilitated with verbal and visual cuing. Billing Therapeutic Exercise Treatment Minutes: 41 Total Treatment Time Minutes (timed/untimed): 41 Juan Zamora, PT [facility] 01-06-2023 History of Presen t illness Narrative Episode Visit Count: 35 Therapist That Will Accept/Oversee The Plan Of Care: Juan Zamora Start of Care Date: 09/03/22 Onset Date: 08/13/22 Plan of Care Certification Date: 06/12/22 Next Certification Due Date: 07/17/22 REHABILITATION AND SPORTS THERAPY PHYSICAL THERAPY TREATMENT NOTE ASSESSMENT: Tucker Zambrano tolerated the session with decreased symptoms and no issues. He demonstrated improvements in exercise tolerance today swapping seated HS curls for hip extensions. The patient will continue to benefit from ongoing skilled physical therapy to progress toward set goals. PLAN FOR NEXT VISIT: Continue exercise progression per tolerance SUBJECTIVE: Patient Reason for Visit: L knee felt warm falling asleep the other night, pt was concerned. No other symptoms to report along with that and it did not last Pain: Pain Pain Level: 1 Pain Location: Knee - Left Description: Stiffness Frequency: Intermittent OBJECTIVE MEASURES WITH LEVEL OF FUNCTION: Form observed throughout session TREATMENT: Therapeutic Exercise: 2: Recumbent bike setting 0 working on knee flexion ROM x5 min 3: BFR hip thrusts with 20# x30, 15, 15, 15 (144 mmHg, large cuff, 30 sec rest between sets, 1 min between exercises) 4: Multihip hip extension 80# x30, 15, 15, 15 (144 mmHg, large cuff, 30 sec rest between sets, 1 min between exercises) 5: BFR SL leg press 40# x30, 15, 15, 15 (144 mmHg, large cuff, 30 sec rest between sets, 1 min between exercises) Skilled Intervention: Patient was educated in proper exercise technique and purpose for exercises. Skilled judgment was provided in selection of appropriate interventions. Correct performance of therapeutic exercises was facilitated with verbal and visual cuing. Billing Therapeutic Exercise Treatment Minutes: 41 Total Treatment Time Minutes (timed/untimed): 41 Juan Zamora PT documented in this encounter [facility] 01-02-2023 Note HNO ID: [id number] Author: Juan Zamora PT Service: ? Author Type: Physical Therapist Type: Progress Notes Filed: 01/02/2023 12:23 PM Note Text: Episode Visit Count: 34 Therapist That Will Accept/Oversee The Plan Of Care: Juan Zamora Start of Care Date: 09/03/22 Onset Date: 08/13/22 Plan of Care Certification Date: 06/12/22 Next Certification Due Date: 07/17/22 REHABILITATION AND SPORTS THERAPY PHYSICAL THERAPY TREATMENT NOTE ASSESSMENT: Tucker Zambrano tolerated the session with fatigue, expected muscle soreness, and no issues. He demonstrated good tolerance to LLE strengthening. The patient will continue to benefit from ongoing skilled physical therapy to progress toward set goals. PLAN FOR NEXT VISIT: Continue BFR SUBJECTIVE: Patient Reason for Visit: R knee is hurting today, but L is feeling good Pain: Pain Pain Level: 1 Pain Location: Knee - Left Description: Dull, Stiffness Frequency: Intermittent OBJECTIVE MEASURES WITH LEVEL OF FUNCTION: TREATMENT: Therapeutic Exercise: 2: Recumbent bike setting 0 working on knee flexion ROM x5 min 3: BFR hip thrusts with 20# x30, 15, 15, 15 (Large cuff, 144 mmHg, 30 sec rest between sets, 1 min between exercises) 4: BFR seated HS curls 60# x30, 15, 15, 15 (Large cuff, 144 mmHg, 30 sec rest between sets, 1 min between exercises) 5: BFR step ups x30, 15, 15, 15 (144 mmHg, large cuff, 30 sec rest between sets) Skilled Intervention: Patient was educated in proper exercise technique and purpose for exercises. Skilled judgment was provided in selection of appropriate interventions. Correct performance of therapeutic exercises was facilitated with verbal and visual cuing. Billing Therapeutic Exercise Treatment Minutes: 39 Total Treatment Time Minutes (timed/untimed): 39 Juan Zamora, PT [facility] 01-02-2023 History of Presen t illness Narrative Episode Visit Count: 34 Therapist That Will Accept/Oversee The Plan Of Care: Juan Zamora Start of Care Date: 09/03/22 Onset Date: 08/13/22 Plan of Care Certification Date: 06/12/22 Next Certification Due Date: 07/17/22 REHABILITATION AND SPORTS THERAPY PHYSICAL THERAPY TREATMENT NOTE ASSESSMENT: Tucker Zambrano tolerated the session with fatigue, expected muscle soreness, and no issues. He demonstrated good tolerance to LLE strengthening. The patient will continue to benefit from ongoing skilled physical therapy to progress toward set goals. PLAN FOR NEXT VISIT: Continue BFR SUBJECTIVE: Patient Reason for Visit: R knee is hurting today, but L is feeling good Pain: Pain Pain Level: 1 Pain Location: Knee - Left Description: Dull, Stiffness Frequency: Intermittent OBJECTIVE MEASURES WITH LEVEL OF FUNCTION: TREATMENT: Therapeutic Exercise: 2: Recumbent bike setting 0 working on knee flexion ROM x5 min 3: BFR hip thrusts with 20# x30, 15, 15, 15 (Large cuff, 144 mmHg, 30 sec rest between sets, 1 min between exercises) 4: BFR seated HS curls 60# x30, 15, 15, 15 (Large cuff, 144 mmHg, 30 sec rest between sets, 1 min between exercises) 5: BFR step ups x30, 15, 15, 15 (144 mmHg, large cuff, 30 sec rest between sets) Skilled Intervention: Patient was educated in proper exercise technique and purpose for exercises. Skilled judgment was provided in selection of appropriate interventions. Correct performance of therapeutic exercises was facilitated with verbal and visual cuing. Billing Therapeutic Exercise Treatment Minutes: 39 Total Treatment Time Minutes (timed/untimed): 39 Juan Zamora PT documented in this encounter [facility] 01-01-2023 Note HNO ID: [id number] Author: Juan Zamora PT Service: ? Author Type: Physical Therapist Type: Progress Notes Filed: 12/31/2022 11:04 PM Note Text: Episode Visit Count: 33 Therapist That Will Accept/Oversee The Plan Of Care: Juan Zamora Start of Care Date: 09/03/22 Onset Date: 08/13/22 Plan of Care Certification Date: 06/12/22 Next Certification Due Date: 07/17/22 REHABILITATION AND SPORTS THERAPY PHYSICAL THERAPY TREATMENT NOTE ASSESSMENT: Tucker Zambrano tolerated the session with fatigue, expected muscle soreness, and no issues. He demonstrated difficulty with addition of RLE with BFR. The patient will continue to benefit from ongoing skilled physical therapy to progress toward set goals and to continue with post-operative protocol. PLAN FOR NEXT VISIT: Assess addition of BFR to RLE SUBJECTIVE: Patient Reason for Visit: Pt doing well today. Off work for 3 more months per the surgeon Pain: Pain Pain Level: 1 Pain Location: Knee - Left Description: Stiffness Frequency: Intermittent OBJECTIVE MEASURES WITH LEVEL OF FUNCTION: 144 mmHg BFR for BLE TREATMENT: Therapeutic Exercise: 2: Recumbent bike setting 0 working on knee flexion ROM x5 min 3: BFR hip thrusts with 20# x30, 15, 15, 15 (Large cuff on both legs, 144 mmHg, 30 sec rest between sets, 1 min between exercises) 4: BFR leg press x30, 15, 15, 15 (Large cuff B, 144 mmHg, 30 sec rest between sets, 1 min between exercises) 5: BFR seated HS curls 60# x30, 15, 15, 15 Skilled Intervention: Patient was educated in proper exercise technique and purpose for exercises. Skilled judgment was provided in selection of appropriate interventions. Correct performance of therapeutic exercises was facilitated with verbal and visual cuing. Billing Therapeutic Exercise Treatment Minutes: 43 Total Treatment Time Minutes (timed/untimed): 43 Juan Zamora PT [facility] 12-31-2022 History of Presen t illness Narrative Episode Visit Count: 33 Therapist That Will Accept/Oversee The Plan Of Care: Juan Zamora Start of Care Date: 09/03/22 Onset Date: 08/13/22 Plan of Care Certification Date: 06/12/22 Next Certification Due Date: 07/17/22 REHABILITATION AND SPORTS THERAPY PHYSICAL THERAPY TREATMENT NOTE ASSESSMENT: Tucker Zambrano tolerated the session with fatigue, expected muscle soreness, and no issues. He demonstrated difficulty with addition of RLE with BFR. The patient will continue to benefit from ongoing skilled physical therapy to progress toward set goals and to continue with post-operative protocol. PLAN FOR NEXT VISIT: Assess addition of BFR to RLE SUBJECTIVE: Patient Reason for Visit: Pt doing well today. Off work for 3 more months per the surgeon Pain: Pain Pain Level: 1 Pain Location: Knee - Left Description: Stiffness Frequency: Intermittent OBJECTIVE MEASURES WITH LEVEL OF FUNCTION: 144 mmHg BFR for BLE TREATMENT: Therapeutic Exercise: 2: Recumbent bike setting 0 working on knee flexion ROM x5 min 3: BFR hip thrusts with 20# x30, 15, 15, 15 (Large cuff on both legs, 144 mmHg, 30 sec rest between sets, 1 min between exercises) 4: BFR leg press x30, 15, 15, 15 (Large cuff B, 144 mmHg, 30 sec rest between sets, 1 min between exercises) 5: BFR seated HS curls 60# x30, 15, 15, 15 Skilled Intervention: Patient was educated in proper exercise technique and purpose for exercises. Skilled judgment was provided in selection of appropriate interventions. Correct performance of therapeutic exercises was facilitated with verbal and visual cuing. Billing Therapeutic Exercise Treatment Minutes: 43 Total Treatment Time Minutes (timed/untimed): 43 Juan Zamora PT documented in this encounter [facility] 12-30-2022 Note HNO ID: [id number] Author: Reji Telling, PA-C Service: ? 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 Also underwent 6 mm allograft transplant to osteochondral plugs to lateral femoral condyle. Patient states overall he is doing well. He denies pain and reports significant improvements in his quality of life, and tolerance of activities following surgery. He admits intermittent effusions associated with prolonged activity, and standing. He states overall though he is doing well. Denies take medications for pain. Has been compliant with activity modifications, restrictions and home exercise program as guided by physical therapy. Otherwise well. Has been icing intermittently as needed. Denies falls or trauma since surgery. Diagnosis: S/p orthopedic surgery, follow-up exam (primary encounter diagnosis) Assessment/Plan: At this time we recommend continued activity modifications to avoid deep squat, pivoting and twisting but otherwise patient may slowly progress his activities as able. We would have him follow-up in 3 months in office with repeat x-ray. Possible progression of his activities at that time. Continue to avoid pounding activities to include jogging until cleared. Remain out of work given this requires frequent standing -patient reports he is able to remain out of work at this time. 4V XR at follow up in 3 months in office with Dr. Sky PAIN EVALUATION 12/30/2022 1127 Pain Level: 1 Pain Location: Knee-Right Description: -- stinging Duration Units: Weeks Frequency: Continuous Past Medical History: PAST MEDICAL HISTORY Diagnosis Date Allergic rhinitis, cause unspecified Allergic rhinitis Pain in limb 2008 Family History: FAMILY HISTORY Problem Relation Age of Onset Hypertension Father Social History: Social History Tobacco Use Smoking status: Never Smokeless tobacco: Never Vaping Use Vaping Use: Never used Substance Use Topics Alcohol use: Never Drug use: Never Medications: finasteride (PROPECIA,PROSCAR) 1 mg tablet Take 1 mg by mouth once daily. ibuprofen (MOTRIN ORAL) Take by mouth. Allergies: ALLERGIES Allergen Reactions Penicillins Rash Environmental [Othe* Physical Exam: Examination of the left knee: ROM: full range of motion noted No signs of trauma, erythema, or ecchymoses. Non TTP throughout the knee LFC or MFC. Medial Joint Line: no tenderness to palpation Lateral Joint Line: no tenderness to palpation Barry/Anterior Drawer: no ligamentous laxity noted with firm endpoint Posterior Drawer: no ligamentous laxity noted Valgus Stress Test: no ligamentous laxity noted Varus Stress Test: no ligamentous laxity noted Patellofemoral Examination: normal bilateral patellar examination with no tenderness to palpation. No patellar tethering. HIP Exam: normal Grossly NVI along L4, L5, and S1 Imaging: I personally reviewed and interpreted the most recent imaging of the left knee. Plain Radiographs of the left knee were reviewed and discussed with patient. Review of Systems: Constitutional: Any recent fevers? No Cardiovascular: Any chest pain? No Respiratory: Any shortness or breath? No Gastrointestinal: Any abdominal discomfort? No Integumentary: Any recent skin changes or rashes? No Neurologic: Any numbness or tingling? See Above Endocrine: Any diagnosis of diabetes? No Hematologic: Any recent bleeding episodes? No I spent a total of 30 minutes on the date of the service which included preparing to see the patient, [id number] patient care, completing clinical documentation, obtaining and/or reviewing separately obtained history, performing a medically appropriate examination, counseling and educating the patient/family/caregiver, ordering medications, tests, or procedures, independently interpreting results (not separately reported), communicating results to the patient/family/caregiver and care coordination (not separately reported). Reji Vergara PA-C Date: December 30, 2022 Time: 12:[address] [facility] 12-30-2022 History of Presen t illness Narrative Images from the original note were not included. 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 Also underwent 6 mm allograft transplant to osteochondral plugs to lateral femoral condyle. Patient states overall he is doing well. He denies pain and reports significant improvements in his quality of life, and tolerance of activities following surgery. He admits intermittent effusions associated with prolonged activity, and standing. He states overall though he is doing well. Denies take medications for pain. Has been compliant with activity modifications, restrictions and home exercise program as guided by physical therapy. Otherwise well. Has been icing intermittently as needed. Denies falls or trauma since surgery. Diagnosis: S/p orthopedic surgery, follow-up exam (primary encounter diagnosis) Assessment/Plan: At this time we recommend continued activity modifications to avoid deep squat, pivoting and twisting but otherwise patient may slowly progress his activities as able. We would have him follow-up in 3 months in office with repeat x-ray. Possible progression of his activities at that time. Continue to avoid pounding activities to include jogging until cleared. Remain out of work given this requires frequent standing -patient reports he is able to remain out of work at this time. 4V XR at follow up in 3 months in office with Dr. Sky PAIN EVALUATION 12/30/2022 1127 Pain Level: 1 Pain Location: Knee-Right Description: -- stinging Duration Units: Weeks Frequency: Continuous Past Medical History: PAST MEDICAL HISTORY Diagnosis Date Allergic rhinitis, cause unspecified Allergic rhinitis Pain in limb 2009 Family History: FAMILY HISTORY Problem Relation Age of Onset Hypertension Father Social History: Social History Tobacco Use Smoking status: Never Smokeless tobacco: Never Vaping Use Vaping Use: Never used Substance Use Topics Alcohol use: Never Drug use: Never Medications: finasteride (PROPECIA,PROSCAR) 1 mg tablet Take 1 mg by mouth once daily. ibuprofen (MOTRIN ORAL) Take by mouth. Allergies: ALLERGIES Allergen Reactions Penicillins Rash Environmental [Othe* Physical Exam: Examination of the left knee: ROM: full range of motion noted No signs of trauma, erythema, or ecchymoses. Non TTP throughout the knee LFC or MFC. Medial Joint Line: no tenderness to palpation Lateral Joint Line: no tenderness to palpation Barry/Anterior Drawer: no ligamentous laxity noted with firm endpoint Posterior Drawer: no ligamentous laxity noted Valgus Stress Test: no ligamentous laxity noted Varus Stress Test: no ligamentous laxity noted Patellofemoral Examination: normal bilateral patellar examination with no tenderness to palpation. No patellar tethering. HIP Exam: normal Grossly NVI along L4, L5, and S1 Imaging: I personally reviewed and interpreted the most recent imaging of the left knee. Plain Radiographs of the left knee were reviewed and discussed with patient. Review of Systems: Constitutional: Any recent fevers? No Cardiovascular: Any chest pain? No Respiratory: Any shortness or breath? No Gastrointestinal: Any abdominal discomfort? No Integumentary: Any recent skin changes or rashes? No Neurologic: Any numbness or tingling? See Above Endocrine: Any diagnosis of diabetes? No Hematologic: Any recent bleeding episodes? No I spent a total of 30 minutes on the date of the service which included preparing to see the patient, [id number] patient care, completing clinical documentation, obtaining and/or reviewing separately obtained history, performing a medically appropriate examination, counseling and educating the patient/family/caregiver, ordering medications, tests, or procedures, independently interpreting results (not separately reported), communicating results to the patient/family/caregiver and care coordination (not separately reported). Reji Vergara PA-C Date: December 30, 2022 Time: 12:55 PM documented in this encounter [facility] 12-30-2022 Note HNO ID: [id number] Author: Juan Zamora PT Service: ? Author Type: Physical Therapist Type: Progress Notes Filed: 12/30/2022 10:24 PM Note Text: Episode Visit Count: 32 Therapist That Will Accept/Oversee The Plan Of Care: Juan Zamora Start of Care Date: 09/03/22 Onset Date: 08/13/22 Plan of Care Certification Date: 06/12/22 Next Certification Due Date: 07/17/22 REHABILITATION AND SPORTS THERAPY PHYSICAL THERAPY PROGRESS REPORT PLAN OF CARE UPDATE: Assessment: Tucker Zambrano demonstrates significant improvement in standing, walking, stair negotiation, bending, physical activities, and squatting . He has progressed toward goals. Patient continues to present with impairments in overall function, range of motion, strength, and symptom management that interfere with bending, heavy exertion, lifting, physical activities, recreational activities, kneeling, squatting, working . Current prognosis is Excellent due to: current objective clinical presentation, good overall health status, positive past response to therapy, within-session changes, good support system/ coping skills . He will benefit from continued skilled therapy services to meet the updated goals for this plan of care as noted below. Goals updated on 12/25/2022. Goals for Episode of Care: created on 09/03/22 through 01/02/23 [place] in home exercise program. Met Patient will increase active ROM of left knee to 0-140 degrees to allow pt to to improve performance of ADLs. Progressing towards Patient will demonstrate increase in quad strength to 5/5 during manual muscle testing in order to improve function for prior functional tasks. Progressing towards Perform exercise program without pain. Met Normal gait. Progressing towards Reciprocal stair negotiation. Met ascending, not met descending Patient Goals: Return to full function Planned Interventions, Frequency, and Duration: 2x/week, 4 weeks Total Number of Visits Planned: 8 Patient to be seen for Therapeutic exercise (72945), Neuromuscular re-education (61368), Manual therapy (69648), Therapeutic activities (82039), Self-residential management (49112), Gait Training (42417), Patient/Family/Caregiver Education, Body Mechanics Training PLAN FOR NEXT VISIT: Continue BFR, strengthening per tolerance SUBJECTIVE: Patient Reason for Visit: Overall pt very much improved, but still held back in some ways. Ascending stairs is good, descending is still weak and shaky. Mini squatting motions are good, butto 90 or deeper is painful and weak. Standing, walking, being active for long periods still bothersome and limited. Walking more normalized, but still gets peg leg once in awhile when swollen and painful. The right leg is starting to hurt worse, and has been gradually building over the last month. 1-1.5 hours of straight standing causes increased swelling and pain/weakness to the point where he is out of commission for at least 30 minutes to recoup. Functional Limitations: bending, heavy exertion, lifting, physical activities, recreational activities, kneeling, squatting, working Pain: Pain Pain Level: 1 Pain Location: Knee - Left Description: Stiffness Frequency: Intermittent PROMIS Scales Higher is Better 12/22/2022 11/22/2022 10/28/2022 Phys Func - Score 41 (mild dysfunction) 34 (moderate dysfunction) 32 (moderate dysfunction) Phys Func - Percentile 18 % 5 % 4 % Self-Eff Symptom - Score 57 (Average) 51 (Average) 46 (Average) Self-Eff Symptom - Percentile 76 % 54 % 34 % T-scores: mean of general population = 50. 5 points is clinically meaningfully difference Percentiles provide an indication of how the patient's score ranks in relation to the general population. Higher percentile rankings indicate better function/quality of life. 50th percentile is the average of the general population and indicates half of respondents had a worse score. OBJECTIVE MEASURES WITH LEVEL OF FUNCTION: LE AROM R Knee Extension: 2 Degrees R Knee Flexion: 147 Degrees L Knee Extension: 2 Degrees L Knee Flexion: 132 Degrees LE PROM L Knee Flexion: 138 Degrees Dynamometer Strength Right Quadriceps Strength (lbs): 69.6 Left Quadriceps Strength (lbs): 68.9 Quad Strength Limb Symmetry Index (%): 98.99 Right Hamstring Strength (lbs): 74.5 Left Hamstring Strength (lbs): 54.7 Hamstring Strength Limb Symmetry Index(%): 73.42 TREATMENT: Therapeutic Exercise: 2: Recumbent bike setting 0 working on knee flexion ROM x5 min 3: Heel slides x10 with and without strap assist 4: BFR hip thrusts with 20# x30, 15, 15, 15 (Large cuff, 144 mmHg, 30 sec rest between sets, 1 kin between exercises) 6: BFR seated HS curls 40# x30, 15, 15, 15 (Large cuff, 144 mmHg, 3 sec rest between sets) Skilled Intervention: Patient was educated in proper exercise technique and purpose for exercises. Skilled judgment was provided in selection of appropriate interventions (more content not included)... [facility] 12-30-2022 Note HNO ID: [id number] Author: RT Milagros([place]) Service: Radiology Author Type: Technologist Type: Progress Notes Filed: 12/30/2022 10:48 AM Note Text: Radiology Service Progress Note PATIENT NAME: Tucker Zambrano DATE OF SERVICE: December 30, 2022 TIME: 10:48 AM PATIENT IDENTITY VERIFICATION COMPLETED USING TWO (2) IDENTIFIERS: Name and Date of confirmed by patient verbally. FALL SCREENING: Has the patient had 2 falls in the last year or 1 fall with injury or currently using an Ambulatory Assistive Device (Walker, Cane, Wheelchair, Crutches, etc.)? No PATIENT GENDER DATA: Male PATIENT RELEVANT IMPLANT DATA REVIEWED: Not Applicable RADIOLOGY DEPARTMENT: General X-ray: Exam(s) Completed: Lower Extremity X-Ray(s): Knee, AP / Lat / Tunne / Merchant Left and Wt. Bearing PERIPHERAL IV DATA: Not applicable SIGNED BY: RT Milagros(R) December 30, 2022 10:[address] [facility] 12-30-2022 History of Presen t illness Narrative Episode Visit Count: 32 Therapist That Will Accept/Oversee The Plan Of Care: Juan Zamora Start of Care Date: 09/03/22 Onset Date: 08/13/22 Plan of Care Certification Date: 06/12/22 Next Certification Due Date: 07/17/22 REHABILITATION AND SPORTS THERAPY PHYSICAL THERAPY PROGRESS REPORT PLAN OF CARE UPDATE: Assessment: Tucker Zambrano demonstrates significant improvement in standing, walking, stair negotiation, bending, physical activities, and squatting . He has progressed toward goals. Patient continues to present with impairments in overall function, range of motion, strength, and symptom management that interfere with bending, heavy exertion, lifting, physical activities, recreational activities, kneeling, squatting, working . Current prognosis is Excellent due to: current objective clinical presentation, good overall health status, positive past response to therapy, within-session changes, good support system/ coping skills . He will benefit from continued skilled therapy services to meet the updated goals for this plan of care as noted below. Goals updated on 12/25/2022. Goals for Episode of Care: created on 09/03/22 through 01/02/23 [place] in home exercise program. Met Patient will increase active ROM of left knee to 0-140 degrees to allow pt to to improve performance of ADLs. Progressing towards Patient will demonstrate increase in quad strength to 5/5 during manual muscle testing in order to improve function for prior functional tasks. Progressing towards Perform exercise program without pain. Met Normal gait. Progressing towards Reciprocal stair negotiation. Met ascending, not met descending Patient Goals: Return to full function Planned Interventions, Frequency, and Duration: 2x/week, 4 weeks Total Number of Visits Planned: 8 Patient to be seen for Therapeutic exercise (61409), Neuromuscular re-education (63079), Manual therapy (35695), Therapeutic activities (42682), Self-residential management (05099), Gait Training (27531), Patient/Family/Caregiver Education, Body Mechanics Training PLAN FOR NEXT VISIT: Continue BFR, strengthening per tolerance SUBJECTIVE: Patient Reason for Visit: Overall pt very much improved, but still held back in some ways. Ascending stairs is good, descending is still weak and shaky. Mini squatting motions are good, butto 90 or deeper is painful and weak. Standing, walking, being active for long periods still bothersome and limited. Walking more normalized, but still gets peg leg once in awhile when swollen and painful. The right leg is starting to hurt worse, and has been gradually building over the last month. 1-1.5 hours of straight standing causes increased swelling and pain/weakness to the point where he is out of commission for at least 30 minutes to recoup. Functional Limitations: bending, heavy exertion, lifting, physical activities, recreational activities, kneeling, squatting, working Pain: Pain Pain Level: 1 Pain Location: Knee - Left Description: Stiffness Frequency: Intermittent PROMIS Scales Higher is Better 12/22/2022 11/22/2022 10/28/2022 Phys Func - Score 41 (mild dysfunction) 34 (moderate dysfunction) 32 (moderate dysfunction) Phys Func - Percentile 18 % 5 % 4 % Self-Eff Symptom - Score 57 (Average) 51 (Average) 46 (Average) Self-Eff Symptom - Percentile 76 % 54 % 34 % T-scores: mean of general population = 50. 5 points is clinically meaningfully difference Percentiles provide an indication of how the patient's score ranks in relation to the general population. Higher percentile rankings indicate better function/quality of life. 50th percentile is the average of the general population and indicates half of respondents had a worse score. OBJECTIVE MEASURES WITH LEVEL OF FUNCTION: LE AROM R Knee Extension: 2 Degrees R Knee Flexion: 147 Degrees L Knee Extension: 2 Degrees L Knee Flexion: 132 Degrees LE PROM L Knee Flexion: 138 Degrees Dynamometer Strength Right Quadriceps Strength (lbs): 69.6 Left Quadriceps Strength (lbs): 68.9 Quad Strength Limb Symmetry Index (%): 98.99 Right Hamstring Strength (lbs): 74.5 Left Hamstring Strength (lbs): 54.7 Hamstring Strength Limb Symmetry Index(%): 73.42 TREATMENT: Therapeutic Exercise: 2: Recumbent bike setting 0 working on knee flexion ROM x5 min 3: Heel slides x10 with and without strap assist 4: BFR hip thrusts with 20# x30, 15, 15, 15 (Large cuff, 144 mmHg, 30 sec rest between sets, 1 kin between exercises) 6: BFR seated HS curls 40# x30, 15, 15, 15 (Large cuff, 144 mmHg, 3 sec rest between sets) Skilled Intervention: Patient was educated in proper exercise technique and purpose for exercises. Skilled judgment was provided in selection of appropriate interventions. Correct performance of therapeutic exercises was facilitated with verbal and visual cuing. Billing Therapeutic Exercise Treatment Minutes: 42 Total Treatment Time Minutes (timed/untimed): 42 Juan Zamora PT documented in this encounter [facility] 12-30-2022 History of Presen t illness Narrative Radiology Service Progress Note PATIENT NAME: Tucker Zambrano DATE OF SERVICE: December 30, 2022 TIME: 10:48 AM PATIENT IDENTITY VERIFICATION COMPLETED USING TWO (2) IDENTIFIERS: Name and Date of confirmed by patient verbally. FALL SCREENING: Has the patient had 2 falls in the last year or 1 fall with injury or currently using an Ambulatory Assistive Device (Walker, Cane, Wheelchair, Crutches, etc.)? No PATIENT GENDER DATA: Male PATIENT RELEVANT IMPLANT DATA REVIEWED: Not Applicable RADIOLOGY DEPARTMENT: General X-ray: Exam(s) Completed: Lower Extremity X-Ray(s): Knee, AP / Lat / Tunne / Merchant Left and Wt. Bearing PERIPHERAL IV DATA: Not applicable SIGNED BY: RT Milagros(R) December 30, 2022 10:48 AM documented in this encounter [facility] 12-23-2022 Note HNO ID: [id number] Author: Juan Zamora PT Service: ? Author Type: Physical Therapist Type: Progress Notes Filed: 12/23/2022 1:47 PM Note Text: Episode Visit Count: 31 Therapist That Will Accept/Oversee The Plan Of Care: Juan Zamora Start of Care Date: 09/03/22 Onset Date: 08/13/22 Plan of Care Certification Date: 06/12/22 Next Certification Due Date: 07/17/22 REHABILITATION AND SPORTS THERAPY PHYSICAL THERAPY TREATMENT NOTE ASSESSMENT: Tucker Zambrano tolerated the session with fatigue and expected muscle soreness. He demonstrated improvements in stairs and exercise tolerance. The patient will continue to benefit from ongoing skilled physical therapy for reassessment by supervising therapist. PLAN FOR NEXT VISIT: [place] SUBJECTIVE: Patient Reason for Visit: Pt had a good weekend with no issues. Has started going up and down stairs much better lately with less difficulty Pain: Pain Pain Level: 1 Pain Location: Knee - Left Description: Stiffness Frequency: Intermittent OBJECTIVE MEASURES WITH LEVEL OF FUNCTION: LE AROM L Knee Flexion: 131 Degrees LE PROM L Knee Flexion: 135 Degrees TREATMENT: Therapeutic Exercise: 2: Recumbent bike setting 0 working on knee flexion ROM x5 min 3: Heel slides x10 with and without strap assist 4: BFR hip thrusts with 20# x30, 15, 15, 15 (Large cuff, 144 mmHg, 30 sec rest between sets, 1 min between all exercises) 5: BFR step ups x30, 15, 15, 15 (Large cuff, 186 mmHg) 6: BFR seated HS curls 40# x30, 15, 15, 15 (large cuff, 144 mmHg) Skilled Intervention: Patient was educated in proper exercise technique and purpose for exercises. Skilled judgment was provided in selection of appropriate interventions. Correct performance of therapeutic exercises was facilitated with verbal, visual, and tactile cuing. Billing Therapeutic Exercise Treatment Minutes: 44 Total Treatment Time Minutes (timed/untimed): 44 Juan Zamora, PT [facility] 12-23-2022 History of Presen t illness Narrative Episode Visit Count: 31 Therapist That Will Accept/Oversee The Plan Of Care: Juan Zamora Start of Care Date: 09/03/22 Onset Date: 08/13/22 Plan of Care Certification Date: 06/12/22 Next Certification Due Date: 07/17/22 REHABILITATION AND SPORTS THERAPY PHYSICAL THERAPY TREATMENT NOTE ASSESSMENT: Tucker Zambrano tolerated the session with fatigue and expected muscle soreness. He demonstrated improvements in stairs and exercise tolerance. The patient will continue to benefit from ongoing skilled physical therapy for reassessment by supervising therapist. PLAN FOR NEXT VISIT: [place] SUBJECTIVE: Patient Reason for Visit: Pt had a good weekend with no issues. Has started going up and down stairs much better lately with less difficulty Pain: Pain Pain Level: 1 Pain Location: Knee - Left Description: Stiffness Frequency: Intermittent OBJECTIVE MEASURES WITH LEVEL OF FUNCTION: LE AROM L Knee Flexion: 131 Degrees LE PROM L Knee Flexion: 135 Degrees TREATMENT: Therapeutic Exercise: 2: Recumbent bike setting 0 working on knee flexion ROM x5 min 3: Heel slides x10 with and without strap assist 4: BFR hip thrusts with 20# x30, 15, 15, 15 (Large cuff, 144 mmHg, 30 sec rest between sets, 1 min between all exercises) 5: BFR step ups x30, 15, 15, 15 (Large cuff, 186 mmHg) 6: BFR seated HS curls 40# x30, 15, 15, 15 (large cuff, 144 mmHg) Skilled Intervention: Patient was educated in proper exercise technique and purpose for exercises. Skilled judgment was provided in selection of appropriate interventions. Correct performance of therapeutic exercises was facilitated with verbal, visual, and tactile cuing. Billing Therapeutic Exercise Treatment Minutes: 44 Total Treatment Time Minutes (timed/untimed): 44 Juan Zamora PT documented in this encounter [facility] 12-18-2022 Note HNO ID: [id number] Author: Juan Zamora PT Service: ? Author Type: Physical Therapist Type: Progress Notes Filed: 12/18/2022 1:41 PM Note Text: Episode Visit Count: 30 Therapist That Will Accept/Oversee The Plan Of Care: Juan Zamora Start of Care Date: 09/03/22 Onset Date: 08/13/22 Plan of Care Certification Date: 06/12/22 Next Certification Due Date: 07/17/22 REHABILITATION AND SPORTS THERAPY PHYSICAL THERAPY TREATMENT NOTE ASSESSMENT: Tucker Zambrano tolerated the session with fatigue and expected muscle soreness. He demonstrated difficulty with HS strengthening today. The patient will continue to benefit from ongoing skilled physical therapy to progress toward set goals and to continue with post-operative protocol. PLAN FOR NEXT VISIT: Continue with BFR next week SUBJECTIVE: Patient Reason for Visit: Knee doing better, feels the swelling has gone down some Pain: Pain Pain Level: 1 Pain Location: Knee - Left Description: Stiffness Frequency: Intermittent OBJECTIVE MEASURES WITH LEVEL OF FUNCTION: LE AROM L Knee Flexion: 128.5 Degrees LE PROM L Knee Flexion: 131 Degrees TREATMENT: Therapeutic Exercise: 2: Recumbent bike setting 0 working on knee flexion ROM x5 min 3: Heel slides x10 with and without strap assist 4: Hip thrusts with 20# 3x15 5: Multihip abduction 80# 3x15 6: Multihip extension 130# 3x15 7: Step ups onto 1 blue step 2x15 on L Skilled Intervention: Patient was educated in proper exercise technique and purpose for exercises. Skilled judgment was provided in selection of appropriate interventions. Provided written instruction for home exercise program to facilitate proper performance and compliance. Correct performance of therapeutic exercises was facilitated with verbal, visual, and tactile cuing. Billing Therapeutic Exercise Treatment Minutes: 39 Total Treatment Time Minutes (timed/untimed): 39 Juan Zamora PT [facility] 12-18-2022 History of Presen t illness Narrative Episode Visit Count: 30 Therapist That Will Accept/Oversee The Plan Of Care: Juan Zamora Start of Care Date: 09/03/22 Onset Date: 08/13/22 Plan of Care Certification Date: 06/12/22 Next Certification Due Date: 07/17/22 REHABILITATION AND SPORTS THERAPY PHYSICAL THERAPY TREATMENT NOTE ASSESSMENT: Tucker Zambrano tolerated the session with fatigue and expected muscle soreness. He demonstrated difficulty with HS strengthening today. The patient will continue to benefit from ongoing skilled physical therapy to progress toward set goals and to continue with post-operative protocol. PLAN FOR NEXT VISIT: Continue with BFR next week SUBJECTIVE: Patient Reason for Visit: Knee doing better, feels the swelling has gone down some Pain: Pain Pain Level: 1 Pain Location: Knee - Left Description: Stiffness Frequency: Intermittent OBJECTIVE MEASURES WITH LEVEL OF FUNCTION: LE AROM L Knee Flexion: 128.5 Degrees LE PROM L Knee Flexion: 131 Degrees TREATMENT: Therapeutic Exercise: 2: Recumbent bike setting 0 working on knee flexion ROM x5 min 3: Heel slides x10 with and without strap assist 4: Hip thrusts with 20# 3x15 5: Multihip abduction 80# 3x15 6: Multihip extension 130# 3x15 7: Step ups onto 1 blue step 2x15 on L Skilled Intervention: Patient was educated in proper exercise technique and purpose for exercises. Skilled judgment was provided in selection of appropriate interventions. Provided written instruction for home exercise program to facilitate proper performance and compliance. Correct performance of therapeutic exercises was facilitated with verbal, visual, and tactile cuing. Billing Therapeutic Exercise Treatment Minutes: 39 Total Treatment Time Minutes (timed/untimed): 39 Juan Zamora PT documented in this encounter [facility] 12-17-2022 Note HNO ID: [id number] Author: Juan Zamora PT Service: ? Author Type: Physical Therapist Type: Progress Notes Filed: 12/17/2022 3:01 PM Note Text: Episode Visit Count: 29 Therapist That Will Accept/Oversee The Plan Of Care: Juan Zamora Start of Care Date: 09/03/22 Onset Date: 08/13/22 Plan of Care Certification Date: 06/12/22 Next Certification Due Date: 07/17/22 REHABILITATION AND SPORTS THERAPY PHYSICAL THERAPY TREATMENT NOTE ASSESSMENT: Tucker Zambrano tolerated the session with fatigue, expected muscle soreness, and no issues. He demonstrated improvements in exercise tolerance and knee range of motion. The patient will continue to benefit from ongoing skilled physical therapy to progress toward set goals and to continue with post-operative protocol. PLAN FOR NEXT VISIT: Continue strengthening per tolerance, may return to BFR as swelling improves SUBJECTIVE: Patient Reason for Visit: Pt has bene driving a lot, feels stiff after doing this. Besides that feeling pretty good overall. Walking better, getting used to doing more on his feet Pain: Pain Pain Level: 2 Pain Location: Knee - Left Description: Stiffness Frequency: Intermittent OBJECTIVE MEASURES WITH LEVEL OF FUNCTION: LE AROM L Knee Extension: 2 Degrees L Knee Flexion: 128 Degrees LE PROM L Knee Flexion: 130 Degrees TREATMENT: Therapeutic Exercise: 2: Recumbent bike setting 2 to 0 working on knee flexion ROM x5 min 3: Heel slides x10 with and without strap assist 4: Single leg hip thrusts 3x10/side 5: Seated HS curls 50# 3x15 6: Multihip abduction 80# 3x15 7: Multihip extension 130# 3x15 9: Step ups onto 1 blue step 2x10 on L 10: Step downs from 1 green step 2x10 Skilled Intervention: Patient was educated in proper exercise technique and purpose for exercises. Skilled judgment was provided in selection of appropriate interventions. Provided written instruction for home exercise program to facilitate proper performance and compliance. Correct performance of therapeutic exercises was facilitated with verbal, visual, and tactile cuing. Billing Therapeutic Exercise Treatment Minutes: 40 Total Treatment Time Minutes (timed/untimed): 40 Juan Zamora PT [facility] 12-17-2022 History of Presen t illness Narrative Episode Visit Count: 29 Therapist That Will Accept/Oversee The Plan Of Care: Juan Zamora Start of Care Date: 09/03/22 Onset Date: 08/13/22 Plan of Care Certification Date: 06/12/22 Next Certification Due Date: 07/17/22 REHABILITATION AND SPORTS THERAPY PHYSICAL THERAPY TREATMENT NOTE ASSESSMENT: Tucker Zambrano tolerated the session with fatigue, expected muscle soreness, and no issues. He demonstrated improvements in exercise tolerance and knee range of motion. The patient will continue to benefit from ongoing skilled physical therapy to progress toward set goals and to continue with post-operative protocol. PLAN FOR NEXT VISIT: Continue strengthening per tolerance, may return to BFR as swelling improves SUBJECTIVE: Patient Reason for Visit: Pt has bene driving a lot, feels stiff after doing this. Besides that feeling pretty good overall. Walking better, getting used to doing more on his feet Pain: Pain Pain Level: 2 Pain Location: Knee - Left Description: Stiffness Frequency: Intermittent OBJECTIVE MEASURES WITH LEVEL OF FUNCTION: LE AROM L Knee Extension: 2 Degrees L Knee Flexion: 128 Degrees LE PROM L Knee Flexion: 130 Degrees TREATMENT: Therapeutic Exercise: 2: Recumbent bike setting 2 to 0 working on knee flexion ROM x5 min 3: Heel slides x10 with and without strap assist 4: Single leg hip thrusts 3x10/side 5: Seated HS curls 50# 3x15 6: Multihip abduction 80# 3x15 7: Multihip extension 130# 3x15 9: Step ups onto 1 blue step 2x10 on L 10: Step downs from 1 green step 2x10 Skilled Intervention: Patient was educated in proper exercise technique and purpose for exercises. Skilled judgment was provided in selection of appropriate interventions. Provided written instruction for home exercise program to facilitate proper performance and compliance. Correct performance of therapeutic exercises was facilitated with verbal, visual, and tactile cuing. Billing Therapeutic Exercise Treatment Minutes: 40 Total Treatment Time Minutes (timed/untimed): 40 Juan Zamora PT documented in this encounter [facility] 12-12-2022 Note HNO ID: [id number] Author: Juan Zamora PT Service: ? Author Type: Physical Therapist Type: Progress Notes Filed: 12/12/2022 2:21 PM Note Text: Episode Visit Count: 28 Therapist That Will Accept/Oversee The Plan Of Care: Juan Zamora Start of Care Date: 09/03/22 Onset Date: 08/13/22 Plan of Care Certification Date: 06/12/22 Next Certification Due Date: 07/17/22 REHABILITATION AND SPORTS THERAPY PHYSICAL THERAPY TREATMENT NOTE ASSESSMENT: Tucker Zambrano tolerated the session with fatigue. He demonstrated improvements in knee range of motion. The patient will continue to benefit from ongoing skilled physical therapy to progress toward set goals. PLAN FOR NEXT VISIT: May return to [facility] depending on patient's symptoms SUBJECTIVE: Patient Reason for Visit: Pt doing better today, swelling is down and knee feeling much looser Pain: Pain Pain Level: 1 Pain Location: Knee - Left Description: Tightness Frequency: Intermittent OBJECTIVE MEASURES WITH LEVEL OF FUNCTION: LE AROM L Knee Flexion: 126 Degrees LE PROM L Knee Flexion: 129 Degrees TREATMENT: Therapeutic Exercise: 2: Recumbent bike setting 2 to 0 working on knee flexion ROM x5 min (used to improve knee flexion ROM today) 3: Heel slides x10 with and without strap assist 4: Hip thrusts 3x15 5: Seated HS curls 50# 3x15 6: Multihip abduction 80# 3x15 7: Multihip extension 130# 3x15 8: Seated calf raises with body weight leaning on knees 3x20 9: Step ups onto 1 blue step 2x10 on L 10: Step downs from 1 green step 2x10 Skilled Intervention: Patient was educated in proper exercise technique and purpose for exercises. Skilled judgment was provided in selection of appropriate interventions. Correct performance of therapeutic exercises was facilitated with verbal and visual cuing. Gait Trainin: Pt cued for knee flexion at toe off and swing phase of gait vs circumduction Skilled Intervention: Facilitated proper gait cycle with the use of verbal and visual cues for correction of gait deviations identified in the objective section above. Billing Therapeutic Exercise Treatment Minutes: 41 Gait Training Treatment Minutes: 3 Total Treatment Time Minutes (timed/untimed): 44 Juan Zamora, PT [facility] 12-12-2022 History of Presen t illness Narrative Episode Visit Count: 28 Therapist That Will Accept/Oversee The Plan Of Care: Juan Zamora Start of Care Date: 09/03/22 Onset Date: 08/13/22 Plan of Care Certification Date: 06/12/22 Next Certification Due Date: 07/17/22 REHABILITATION AND SPORTS THERAPY PHYSICAL THERAPY TREATMENT NOTE ASSESSMENT: Tucker Zambrano tolerated the session with fatigue. He demonstrated improvements in knee range of motion. The patient will continue to benefit from ongoing skilled physical therapy to progress toward set goals. PLAN FOR NEXT VISIT: May return to [facility] depending on patient's symptoms SUBJECTIVE: Patient Reason for Visit: Pt doing better today, swelling is down and knee feeling much looser Pain: Pain Pain Level: 1 Pain Location: Knee - Left Description: Tightness Frequency: Intermittent OBJECTIVE MEASURES WITH LEVEL OF FUNCTION: LE AROM L Knee Flexion: 126 Degrees LE PROM L Knee Flexion: 129 Degrees TREATMENT: Therapeutic Exercise: 2: Recumbent bike setting 2 to 0 working on knee flexion ROM x5 min (used to improve knee flexion ROM today) 3: Heel slides x10 with and without strap assist 4: Hip thrusts 3x15 5: Seated HS curls 50# 3x15 6: Multihip abduction 80# 3x15 7: Multihip extension 130# 3x15 8: Seated calf raises with body weight leaning on knees 3x20 9: Step ups onto 1 blue step 2x10 on L 10: Step downs from 1 green step 2x10 Skilled Intervention: Patient was educated in proper exercise technique and purpose for exercises. Skilled judgment was provided in selection of appropriate interventions. Correct performance of therapeutic exercises was facilitated with verbal and visual cuing. Gait Trainin: Pt cued for knee flexion at toe off and swing phase of gait vs circumduction Skilled Intervention: Facilitated proper gait cycle with the use of verbal and visual cues for correction of gait deviations identified in the objective section above. Billing Therapeutic Exercise Treatment Minutes: 41 Gait Training Treatment Minutes: 3 Total Treatment Time Minutes (timed/untimed): 44 Juan Zamora PT documented in this encounter [facility] 12-09-2022 Note HNO ID: [id number] Author: Juan Zamora PT Service: ? Author Type: Physical Therapist Type: Progress Notes Filed: 12/09/2022 9:48 PM Note Text: Episode Visit Count: 27 Therapist That Will Accept/Oversee The Plan Of Care: Juan Zamora Start of Care Date: 09/03/22 Onset Date: 08/13/22 Plan of Care Certification Date: 06/12/22 Next Certification Due Date: 07/17/22 REHABILITATION AND SPORTS THERAPY PHYSICAL THERAPY TREATMENT NOTE ASSESSMENT: Tucker Zambrano tolerated the session with decreased symptoms and no issues. He demonstrated good tolerance to today's session with no increase in symptoms. The patient will continue to benefit from ongoing skilled physical therapy to progress toward set goals and to continue with post-operative protocol. PLAN FOR NEXT VISIT: SUBJECTIVE: Patient Reason for Visit: Pt a little more swollen today, not sure why. But he can feel the knee is tighter and a little pressure. Pain: Pain Pain Level: 2 Pain Location: Knee - Left Description: Tightness, Pressure Frequency: Continuous OBJECTIVE MEASURES WITH LEVEL OF FUNCTION: LE AROM L Knee Flexion: 120 Degrees LE PROM L Knee Flexion: 124 Degrees TREATMENT: Therapeutic Exercise: 2: Recumbent bike setting 2 to 0 working on knee flexion ROM x5 min 3: Hip thrusts 3x15 4: Multihip abduction 80# 3x15 5: Multihip extension 130# 3x15 6: Seated HS curls 40# 3x15 7: Seated calf raises with body weight leaning on knees 3x20 Skilled Intervention: Patient was educated in proper exercise technique and purpose for exercises. Skilled judgment was provided in selection of appropriate interventions. Correct performance of therapeutic exercises was facilitated with verbal and visual cuing. Billing Therapeutic Exercise Treatment Minutes: 42 Total Treatment Time Minutes (timed/untimed): 42 Juan Zamora, PT [facility] 12-09-2022 History of Presen t illness Narrative Episode Visit Count: 27 Therapist That Will Accept/Oversee The Plan Of Care: Juan Zamora Start of Care Date: 09/03/22 Onset Date: 08/13/22 Plan of Care Certification Date: 06/12/22 Next Certification Due Date: 07/17/22 REHABILITATION AND SPORTS THERAPY PHYSICAL THERAPY TREATMENT NOTE ASSESSMENT: Tucker Zambrano tolerated the session with decreased symptoms and no issues. He demonstrated good tolerance to today's session with no increase in symptoms. The patient will continue to benefit from ongoing skilled physical therapy to progress toward set goals and to continue with post-operative protocol. PLAN FOR NEXT VISIT: SUBJECTIVE: Patient Reason for Visit: Pt a little more swollen today, not sure why. But he can feel the knee is tighter and a little pressure. Pain: Pain Pain Level: 2 Pain Location: Knee - Left Description: Tightness, Pressure Frequency: Continuous OBJECTIVE MEASURES WITH LEVEL OF FUNCTION: LE AROM L Knee Flexion: 120 Degrees LE PROM L Knee Flexion: 124 Degrees TREATMENT: Therapeutic Exercise: 2: Recumbent bike setting 2 to 0 working on knee flexion ROM x5 min 3: Hip thrusts 3x15 4: Multihip abduction 80# 3x15 5: Multihip extension 130# 3x15 6: Seated HS curls 40# 3x15 7: Seated calf raises with body weight leaning on knees 3x20 Skilled Intervention: Patient was educated in proper exercise technique and purpose for exercises. Skilled judgment was provided in selection of appropriate interventions. Correct performance of therapeutic exercises was facilitated with verbal and visual cuing. Billing Therapeutic Exercise Treatment Minutes: 42 Total Treatment Time Minutes (timed/untimed): 42 Juan Zamora PT documented in this encounter [facility] 12-06-2022 Note HNO ID: [id number] Author: Juan Zamora PT Service: ? Author Type: Physical Therapist Type: Progress Notes Filed: 12/06/2022 3:03 PM Note Text: Episode Visit Count: 26 Therapist That Will Accept/Oversee The Plan Of Care: Juan Zamora Start of Care Date: 09/03/22 Onset Date: 08/13/22 Plan of Care Certification Date: 06/12/22 Next Certification Due Date: 07/17/22 REHABILITATION AND SPORTS THERAPY PHYSICAL THERAPY PROGRESS REPORT PLAN OF CARE UPDATE: Assessment: Tucker Zambrano demonstrates moderate improvement in standing, walking, stair negotiation, bending, heavy exertion, and squatting. He has progressed toward goals. Patient continues to present with impairments in ADL's, gait, range of motion, strength, and symptom management that interfere with walking in the community, stair negotiation, bending, heavy exertion, physical activities, lifting, squatting, working . Current prognosis is Good due to: current objective clinical presentation, good overall health status, positive past response to therapy, within-session changes, good support system/ coping skills . He will benefit from continued skilled therapy services to meet the updated goals for this plan of care as noted below. Goals updated on 12/06/2022. Goals for Episode of Care: created on 09/03/22 through 01/02/23 [place] in home exercise program. Met Patient will increase active ROM of left knee to 0-140 degrees to allow pt to to improve performance of ADLs. Progressing towards Patient will demonstrate increase in quad strength to 5/5 during manual muscle testing in order to improve function for prior functional tasks. Perform exercise program without pain. Met Normal gait. Progressing towards Reciprocal stair negotiation. Met ascending, not met descending Patient Goals: Return to full function Planned Interventions, Frequency, and Duration: 2x/week, 4 weeks Total Number of Visits Planned: 8 Patient to be seen for Therapeutic exercise (80378), Neuromuscular re-education (30654), Manual therapy (98989), Therapeutic activities (52662), Self-residential management (59126), Gait Training ([id number]), Patient/Family/Caregiver Education, Body Mechanics Training PLAN FOR NEXT VISIT: BFR, may add 15# weight to hip thrusts SUBJECTIVE: Patient Reason for Visit: Pt doing well today. Has officially ditched the crutch for good with no issues. Endurance is still not where he'd like it, but no functional deficits. Still has weakness descending stairs, but not ascending. Functional Limitations: walking in the community, stair negotiation, bending, heavy exertion, physical activities, lifting, squatting, working Pain: Pain Pain Level: 1 Pain Location: Knee - Left Description: Tightness Frequency: Continuous PROMIS Scales Higher is Better 11/22/2022 10/28/2022 10/02/2022 Phys Func - Score 34 (moderate dysfunction) 32 (moderate dysfunction) 27 (severe dysfunction) Phys Func - Percentile 5 % 4 % 1 % Self-Eff Symptom - Score 51 (Average) 46 (Average) 43 (Average) Self-Eff Symptom - Percentile 54 % 34 % 24 % T-scores: mean of general population = 50. 5 points is clinically meaningfully difference Percentiles provide an indication of how the patient's score ranks in relation to the general population. Higher percentile rankings indicate better function/quality of life. 50th percentile is the average of the general population and indicates half of respondents had a worse score. OBJECTIVE MEASURES WITH LEVEL OF FUNCTION: LE AROM L Knee Extension: 0 Degrees L Knee Flexion: 122 Degrees LE PROM L Knee Extension: 2 Degrees L Knee Flexion: 126 Degrees Dynamometer Strength Right Quadriceps Strength (lbs): 68.6 Left Quadriceps Strength (lbs): 53.6 Quad Strength Limb Symmetry Index (%): 78.13 Right Hamstring Strength (lbs): 72 Left Hamstring Strength (lbs): 44.5 Hamstring Strength Limb Symmetry Index(%): 61.81 TREATMENT: Therapeutic Exercise: 3: BFR acquisition (144 mmHg in supine, 184 mmHg in standing) 4: BFR Hip thrusts 10# DB in lap x30, 15, 15, 15 (LArge cuff, 144 mmHg, 30 sec rest between sets, 1 minute between exercises for all BFR today) 5: BFR seated HS curls 20# x30, 15, 15, 15 (large cuff, 144 mmHg) 6: BFR TRX squats x30, 15, 15, 15 (large cuff, 186 mmHg) 7: Objective measures Skilled Intervention: Patient was educated in proper exercise technique and purpose for exercises. Skilled judgment was provided in selection of appropriate interventions. Provided written instruction for home exercise program to facilitate proper performance and compliance. Correct performance of therapeutic exercises was facilitated with verbal, visual, and tactile cuing. Billing Therapeutic Exercise Treatment Minutes: 60 Total Treatment Time Minutes (timed/untimed): 60 Juan Zamora, PT [facility] 12-06-2022 History of Presen t illness Narrative Episode Visit Count: 26 Therapist That Will Accept/Oversee The Plan Of Care: Juan Zamora Start of Care Date: 09/03/22 Onset Date: 08/13/22 Plan of Care Certification Date: 06/12/22 Next Certification Due Date: 07/17/22 REHABILITATION AND SPORTS THERAPY PHYSICAL THERAPY PROGRESS REPORT PLAN OF CARE UPDATE: Assessment: Tucker Zambrano demonstrates moderate improvement in standing, walking, stair negotiation, bending, heavy exertion, and squatting. He has progressed toward goals. Patient continues to present with impairments in ADL's, gait, range of motion, strength, and symptom management that interfere with walking in the community, stair negotiation, bending, heavy exertion, physical activities, lifting, squatting, working . Current prognosis is Good due to: current objective clinical presentation, good overall health status, positive past response to therapy, within-session changes, good support system/ coping skills . He will benefit from continued skilled therapy services to meet the updated goals for this plan of care as noted below. Goals updated on 12/06/2022. Goals for Episode of Care: created on 09/03/22 through 01/02/23 [place] in home exercise program. Met Patient will increase active ROM of left knee to 0-140 degrees to allow pt to to improve performance of ADLs. Progressing towards Patient will demonstrate increase in quad strength to 5/5 during manual muscle testing in order to improve function for prior functional tasks. Perform exercise program without pain. Met Normal gait. Progressing towards Reciprocal stair negotiation. Met ascending, not met descending Patient Goals: Return to full function Planned Interventions, Frequency, and Duration: 2x/week, 4 weeks Total Number of Visits Planned: 8 Patient to be seen for Therapeutic exercise (79178), Neuromuscular re-education (30830), Manual therapy (11941), Therapeutic activities (17926), Self-residential management (89672), Gait Training (26432), Patient/Family/Caregiver Education, Body Mechanics Training PLAN FOR NEXT VISIT: BFR, may add 15# weight to hip thrusts SUBJECTIVE: Patient Reason for Visit: Pt doing well today. Has officially ditched the crutch for good with no issues. Endurance is still not where he'd like it, but no functional deficits. Still has weakness descending stairs, but not ascending. Functional Limitations: walking in the community, stair negotiation, bending, heavy exertion, physical activities, lifting, squatting, working Pain: Pain Pain Level: 1 Pain Location: Knee - Left Description: Tightness Frequency: Continuous PROMIS Scales Higher is Better 11/22/2022 10/28/2022 10/02/2022 Phys Func - Score 34 (moderate dysfunction) 32 (moderate dysfunction) 27 (severe dysfunction) Phys Func - Percentile 5 % 4 % 1 % Self-Eff Symptom - Score 51 (Average) 46 (Average) 43 (Average) Self-Eff Symptom - Percentile 54 % 34 % 24 % T-scores: mean of general population = 50. 5 points is clinically meaningfully difference Percentiles provide an indication of how the patient's score ranks in relation to the general population. Higher percentile rankings indicate better function/quality of life. 50th percentile is the average of the general population and indicates half of respondents had a worse score. OBJECTIVE MEASURES WITH LEVEL OF FUNCTION: LE AROM L Knee Extension: 0 Degrees L Knee Flexion: 122 Degrees LE PROM L Knee Extension: 2 Degrees L Knee Flexion: 126 Degrees Dynamometer Strength Right Quadriceps Strength (lbs): 68.6 Left Quadriceps Strength (lbs): 53.6 Quad Strength Limb Symmetry Index (%): 78.13 Right Hamstring Strength (lbs): 72 Left Hamstring Strength (lbs): 44.5 Hamstring Strength Limb Symmetry Index(%): 61.81 TREATMENT: Therapeutic Exercise: 3: BFR acquisition (144 mmHg in supine, 184 mmHg in standing) 4: BFR Hip thrusts 10# DB in lap x30, 15, 15, 15 (LArge cuff, 144 mmHg, 30 sec rest between sets, 1 minute between exercises for all BFR today) 5: BFR seated HS curls 20# x30, 15, 15, 15 (large cuff, 144 mmHg) 6: BFR TRX squats x30, 15, 15, 15 (large cuff, 186 mmHg) 7: Objective measures Skilled Intervention: Patient was educated in proper exercise technique and purpose for exercises. Skilled judgment was provided in selection of appropriate interventions. Provided written instruction for home exercise program to facilitate proper performance and compliance. Correct performance of therapeutic exercises was facilitated with verbal, visual, and tactile cuing. Billing Therapeutic Exercise Treatment Minutes: 60 Total Treatment Time Minutes (timed/untimed): 60 Juan Zamora PT documented in this encounter [facility] 12-02-2022 Note HNO ID: [id number] Author: Juan Zamora PT Service: ? Author Type: Physical Therapist Type: Progress Notes Filed: 12/02/2022 8:50 AM Note Text: Episode Visit Count: 25 Therapist That Will Accept/Oversee The Plan Of Care: Juan Zamora Start of Care Date: 09/03/22 Onset Date: 08/13/22 Plan of Care Certification Date: 06/12/22 Next Certification Due Date: 07/17/22 REHABILITATION AND SPORTS THERAPY PHYSICAL THERAPY TREATMENT NOTE ASSESSMENT: Tucker Zambrano tolerated the session with fatigue, expected muscle soreness, and no issues. He demonstrated improvements in exercise tolerance and continued to show knee flexion range of motion improvements. The patient will continue to benefit from ongoing skilled physical therapy to progress toward set goals and to continue with post-operative protocol. PLAN FOR NEXT VISIT: May try progressing to HS strengthening SUBJECTIVE: Patient Reason for Visit: Pt was sore for a few days after last session, but just mm soreness that is gone today. Pain: Pain Pain Level: 1 Pain Location: Knee - Left Description: Tightness Frequency: Continuous OBJECTIVE MEASURES WITH LEVEL OF FUNCTION: LE AROM L Knee Flexion: 118.5 Degrees LE PROM L Knee Flexion: 122 Degrees TREATMENT: Therapeutic Exercise: 1: Recumbent bike seat 4 down to 1, x8.5 min (subjective taken and seat lowered to improve knee flexion ROM) 2: Heel slides x10 with and without strap assist 3: Step ups onto 1 blue step x15 4: BFR Hip thruss 10# DB in lap x30, 15, 15, 15 (Medium cuff, 144 mmHg, 30 rest between sets, 1 min between exercises) 5: BFR calf raises x30, 15, 15, 15 6: BFR TRX squats x30, 15, 15, 15 Skilled Intervention: Patient was educated in proper exercise technique and purpose for exercises. Skilled judgment was provided in selection of appropriate interventions. Provided written instruction for home exercise program to facilitate proper performance and compliance. Correct performance of therapeutic exercises was facilitated with verbal, visual, and tactile cuing. Billing Therapeutic Exercise Treatment Minutes: 56 Total Treatment Time Minutes (timed/untimed): 56 Juan Zamora PT [facility] 11-25-2022 Note HNO ID: [id number] Author: Juan Zamora PT Service: ? Author Type: Physical Therapist Type: Progress Notes Filed: 11/25/2022 1:47 PM Note Text: Episode Visit Count: 24 Therapist That Will Accept/Oversee The Plan Of Care: Juan Zamora Start of Care Date: 09/03/22 Onset Date: 08/13/22 Plan of Care Certification Date: 06/12/22 Next Certification Due Date: 07/17/22 REHABILITATION AND SPORTS THERAPY PHYSICAL THERAPY TREATMENT NOTE ASSESSMENT: Tucker Zambrano tolerated the session with fatigue, expected muscle soreness, and no issues. He demonstrated improvements in knee range of motion and tolerance for strengthening exercises today. The patient will continue to benefit from ongoing skilled physical therapy to progress toward set goals. PLAN FOR NEXT VISIT: Assess addition of TRX BFR squats. May switch to step ups if too much muscle soreness noted SUBJECTIVE: Patient Reason for Visit: Pt doing well today. Has stretched quite a bit before coming and and feels pretty loose Pain: Pain Pain Level: 1 Pain Location: Knee - Left Description: Tightness Frequency: Continuous OBJECTIVE MEASURES WITH LEVEL OF FUNCTION: LE AROM L Knee Flexion: 114.5 Degrees LE PROM L Knee Flexion: 118 Degrees TREATMENT: Therapeutic Exercise: 1: Recumbent bike seat 6 down to 4, x8.5 min 2: Heel slides x10 with and without strap assist 3: Step ups onto 1 Green step 2x10 4: BFR Hip thrust x30, 15, 15, 15 (large cuff, 144 mmHg, 30 sec rest between sets, 1 min between exercises) 5: BFR calf raises x30, 15, 15, 15 (large cuff, 176 mmHg, 30 sec rest between sets, 1 min between exercises) 6: BFR TRX squats x30, 15, 15, 15 (large cuff, 176 mmHg, 30 sec rest between sets, 1 min between exercises) Skilled Intervention: Patient was educated in proper exercise technique and purpose for exercises. Skilled judgment was provided in selection of appropriate interventions. Correct performance of therapeutic exercises was facilitated with verbal, visual, and tactile cuing. Billing Therapeutic Exercise Treatment Minutes: 45 Total Treatment Time Minutes (timed/untimed): 45 Juan Zmaora, PT [facility] 11-25-2022 History of Presen t illness Narrative Episode Visit Count: 24 Therapist That Will Accept/Oversee The Plan Of Care: Juan Zamora Start of Care Date: 09/03/22 Onset Date: 08/13/22 Plan of Care Certification Date: 06/12/22 Next Certification Due Date: 07/17/22 REHABILITATION AND SPORTS THERAPY PHYSICAL THERAPY TREATMENT NOTE ASSESSMENT: Tucker Zambrano tolerated the session with fatigue, expected muscle soreness, and no issues. He demonstrated improvements in knee range of motion and tolerance for strengthening exercises today. The patient will continue to benefit from ongoing skilled physical therapy to progress toward set goals. PLAN FOR NEXT VISIT: Assess addition of TRX BFR squats. May switch to step ups if too much muscle soreness noted SUBJECTIVE: Patient Reason for Visit: Pt doing well today. Has stretched quite a bit before coming and and feels pretty loose Pain: Pain Pain Level: 1 Pain Location: Knee - Left Description: Tightness Frequency: Continuous OBJECTIVE MEASURES WITH LEVEL OF FUNCTION: LE AROM L Knee Flexion: 114.5 Degrees LE PROM L Knee Flexion: 118 Degrees TREATMENT: Therapeutic Exercise: 1: Recumbent bike seat 6 down to 4, x8.5 min 2: Heel slides x10 with and without strap assist 3: Step ups onto 1 Green step 2x10 4: BFR Hip thrust x30, 15, 15, 15 (large cuff, 144 mmHg, 30 sec rest between sets, 1 min between exercises) 5: BFR calf raises x30, 15, 15, 15 (large cuff, 176 mmHg, 30 sec rest between sets, 1 min between exercises) 6: BFR TRX squats x30, 15, 15, 15 (large cuff, 176 mmHg, 30 sec rest between sets, 1 min between exercises) Skilled Intervention: Patient was educated in proper exercise technique and purpose for exercises. Skilled judgment was provided in selection of appropriate interventions. Correct performance of therapeutic exercises was facilitated with verbal, visual, and tactile cuing. Billing Therapeutic Exercise Treatment Minutes: 45 Total Treatment Time Minutes (timed/untimed): 45 Juan Zamora PT documented in this encounter [facility] 11-20-2022 Note HNO ID: [id number] Author: Juan Zamora PT Service: ? Author Type: Physical Therapist Type: Progress Notes Filed: 11/20/2022 2:00 PM Note Text: Episode Visit Count: 23 Therapist That Will Accept/Oversee The Plan Of Care: Juan Zamora Start of Care Date: 09/03/22 Onset Date: 08/13/22 Plan of Care Certification Date: 06/12/22 Next Certification Due Date: 07/17/22 RE[facility]ATION [facility]TS [facility]ERAPY PHYSICAL THERAPY TREATMENT NOTE ASSESSMENT: Tucker Zambrano tolerated the session with fatigue, expected muscle soreness, and no issues. He demonstrated improvements in knee range of motion and tolerance for strengthening. The patient will continue to benefit from ongoing skilled physical therapy to progress toward set goals and to continue with post-operative protocol. PLAN FOR NEXT VISIT: Continue squat and step up progressions SUBJECTIVE: Patient Reason for Visit: Pt feeling good today, no issues. Did a lot of stretching the last 2 days Pain: Pain Pain Level: 1 Pain Location: Knee - Left Description: Tightness Frequency: Continuous OBJECTIVE MEASURES WITH LEVEL OF FUNCTION: LE AROM L Knee Flexion: 113 Degrees LE PROM L Knee Flexion: 116 Degrees TREATMENT: Therapeutic Exercise: 1: Recumbent bike seat 6 down to 4, x8.5 min 2: Heel slides x10 with and without strap assist 3: TRX squats to chair 3x10 4: Step ups onto 1 Green step 2x10 5: BFR Hip thrust x30, 15, 15, 15 (large cuff, 144 mmHg, 30 sec rest between sets, 1 min between exercises) 6: BFR calf raises x30, 15, 15, 15 (large cuff, 176 mmHg, 30 sec rest between sets, 1 min between exercises) 7: BFR SLR 3# x30, 15, 15, 15 (large cuff, 144 mmHg, 30 sec rest between sets, 1 min between exercises) Skilled Intervention: Patient was educated in proper exercise technique and purpose for exercises. Skilled judgment was provided in selection of appropriate interventions. Provided written instruction for home exercise program to facilitate proper performance and compliance. Correct performance of therapeutic exercises was facilitated with verbal, visual, and tactile cuing. Billing Therapeutic Exercise Treatment Minutes: 55 Total Treatment Time Minutes (timed/untimed): 55 Juan Zamora, PT [facility] 11-20-2022 History of Presen t illness Narrative Episode Visit Count: 23 Therapist That Will Accept/Oversee The Plan Of Care: Juan Zamora Start of Care Date: 09/03/22 Onset Date: 08/13/22 Plan of Care Certification Date: 06/12/22 Next Certification Due Date: 07/17/22 REHABILITATION AND SPORTS THERAPY PHYSICAL THERAPY TREATMENT NOTE ASSESSMENT: Tucker Zambrano tolerated the session with fatigue, expected muscle soreness, and no issues. He demonstrated improvements in knee range of motion and tolerance for strengthening. The patient will continue to benefit from ongoing skilled physical therapy to progress toward set goals and to continue with post-operative protocol. PLAN FOR NEXT VISIT: Continue squat and step up progressions SUBJECTIVE: Patient Reason for Visit: Pt feeling good today, no issues. Did a lot of stretching the last 2 days Pain: Pain Pain Level: 1 Pain Location: Knee - Left Description: Tightness Frequency: Continuous OBJECTIVE MEASURES WITH LEVEL OF FUNCTION: LE AROM L Knee Flexion: 113 Degrees LE PROM L Knee Flexion: 116 Degrees TREATMENT: Therapeutic Exercise: 1: Recumbent bike seat 6 down to 4, x8.5 min 2: Heel slides x10 with and without strap assist 3: TRX squats to chair 3x10 4: Step ups onto 1 Green step 2x10 5: BFR Hip thrust x30, 15, 15, 15 (large cuff, 144 mmHg, 30 sec rest between sets, 1 min between exercises) 6: BFR calf raises x30, 15, 15, 15 (large cuff, 176 mmHg, 30 sec rest between sets, 1 min between exercises) 7: BFR SLR 3# x30, 15, 15, 15 (large cuff, 144 mmHg, 30 sec rest between sets, 1 min between exercises) Skilled Intervention: Patient was educated in proper exercise technique and purpose for exercises. Skilled judgment was provided in selection of appropriate interventions. Provided written instruction for home exercise program to facilitate proper performance and compliance. Correct performance of therapeutic exercises was facilitated with verbal, visual, and tactile cuing. Billing Therapeutic Exercise Treatment Minutes: 55 Total Treatment Time Minutes (timed/untimed): 55 Juan Zamora PT documented in this encounter [facility] 11-19-2022 Note HNO ID: [id number] Author: Juan Zamora PT Service: ? Author Type: Physical Therapist Type: Progress Notes Filed: 11/19/2022 1:01 PM Note Text: Episode Visit Count: 22 Therapist That Will Accept/Oversee The Plan Of Care: Juan Zamora Start of Care Date: 09/03/22 Onset Date: 08/13/22 Plan of Care Certification Date: 06/12/22 Next Certification Due Date: 07/17/22 REHABILITATION AND SPORTS THERAPY PHYSICAL THERAPY TREATMENT NOTE ASSESSMENT: Tucker Zambrano tolerated the session with fatigue, expected muscle soreness, and no issues. He demonstrated improvements in exercise tolerance and knee range of motion with manual to L gastroc. The patient will continue to benefit from ongoing skilled physical therapy to progress toward set goals. PLAN FOR NEXT VISIT: May do some treadmill walking, progress exercises per tolerance SUBJECTIVE: Patient Reason for Visit: Pt a little stiff today, but no issues Pain: Pain Pain Level: 1 Pain Location: Knee - Left Description: Tightness Frequency: Continuous OBJECTIVE MEASURES WITH LEVEL OF FUNCTION: LE AROM L Knee Flexion: 112 Degrees LE PROM L Knee Flexion: 115 Degrees TREATMENT: Therapeutic Exercise: 1: Recumbent bike seat 6 down to 4, x8.5 min (used to improve knee flexion ROM) 2: Heel slides x10 with and without strap assist 3: TRX squats to chair 2x10 4: BFR Hip thrust x30, 15, 15, 15 5: BFR calf raises x30, 15, 15, 15 Skilled Intervention: Patient was educated in proper exercise technique and purpose for exercises. Skilled judgment was provided in selection of appropriate interventions. Provided written instruction for home exercise program to facilitate proper performance and compliance. Correct performance of therapeutic exercises was facilitated with verbal, visual, and tactile cuing. Manual Therapy: 1: IASTM to L gastroc with much to tolerance x10 min Skilled Intervention: Manual skills to improve joint mobility, ROM, and decrease pain. Utilized anatomy knowledge of the therapist, and assessment of patient's response to intervention. Billing Therapeutic Exercise Treatment Minutes: 44 Manual TherapyTreatment Minutes: 10 Total Treatment Time Minutes (timed/untimed): 54 Juan Zamora PT [facility] 11-15-2022 Note HNO ID: [id number] Author: Juan Zamora PT Service: ? Author Type: Physical Therapist Type: Progress Notes Filed: 11/15/2022 2:42 PM Note Text: Episode Visit Count: 21 Therapist That Will Accept/Oversee The Plan Of Care: Juan Zamora Start of Care Date: 09/03/22 Onset Date: 08/13/22 Plan of Care Certification Date: 06/12/22 Next Certification Due Date: 07/17/22 REHABILITATION AND SPORTS THERAPY PHYSICAL THERAPY TREATMENT NOTE ASSESSMENT: Tucker Zambrano tolerated the session with fatigue, expected muscle soreness, and no issues. He demonstrated improvements in knee range of motion and tolerance for strengthening exercises. The patient will continue to benefit from ongoing skilled physical therapy to progress toward set goals. PLAN FOR NEXT VISIT: May try step ups with or without BFR SUBJECTIVE: Patient Reason for Visit: Pt doing well today, really worked on loosening up his calf a lot before coming in today Pain: OBJECTIVE MEASURES WITH LEVEL OF FUNCTION: LE AROM L Knee Flexion: 109 Degrees LE PROM L Knee Flexion: 115 Degrees TREATMENT: Therapeutic Exercise: 1: Recumbent bike seat 6 down to 4, x10 min (used to increased L knee ROM today) 2: Heel slides x10 with and without strap assist 4: BFR SLR 3# x30, 15, 15, 15 (Large cuff, 144 mmHg, 30 sec rest between sets, 1 min between exercises) 5: BFR Hip thrust x30, 15, 15, 15 (Large cuff, 144 mmHg, 30 sec rest between sets, 1 min between exercises) 6: BFR calf raises x30, 15, 15, 15 (Large cuff, 176 mmHg, 30 sec rest between sets, 1 min between exercises) Skilled Intervention: Patient was educated in proper exercise technique and purpose for exercises. Skilled judgment was provided in selection of appropriate interventions. Correct performance of therapeutic exercises was facilitated with verbal and visual cuing. Billing Therapeutic Exercise Treatment Minutes: 54 Total Treatment Time Minutes (timed/untimed): 54 Juan Zamora, PT [facility] 11-15-2022 History of Presen t illness Narrative Episode Visit Count: 21 Therapist That Will Accept/Oversee The Plan Of Care: Juan Zamora Start of Care Date: 09/03/22 Onset Date: 08/13/22 Plan of Care Certification Date: 06/12/22 Next Certification Due Date: 07/17/22 REHABILITATION AND SPORTS THERAPY PHYSICAL THERAPY TREATMENT NOTE ASSESSMENT: Tucker Zambrano tolerated the session with fatigue, expected muscle soreness, and no issues. He demonstrated improvements in knee range of motion and tolerance for strengthening exercises. The patient will continue to benefit from ongoing skilled physical therapy to progress toward set goals. PLAN FOR NEXT VISIT: May try step ups with or without BFR SUBJECTIVE: Patient Reason for Visit: Pt doing well today, really worked on loosening up his calf a lot before coming in today Pain: OBJECTIVE MEASURES WITH LEVEL OF FUNCTION: LE AROM L Knee Flexion: 109 Degrees LE PROM L Knee Flexion: 115 Degrees TREATMENT: Therapeutic Exercise: 1: Recumbent bike seat 6 down to 4, x10 min (used to increased L knee ROM today) 2: Heel slides x10 with and without strap assist 4: BFR SLR 3# x30, 15, 15, 15 (Large cuff, 144 mmHg, 30 sec rest between sets, 1 min between exercises) 5: BFR Hip thrust x30, 15, 15, 15 (Large cuff, 144 mmHg, 30 sec rest between sets, 1 min between exercises) 6: BFR calf raises x30, 15, 15, 15 (Large cuff, 176 mmHg, 30 sec rest between sets, 1 min between exercises) Skilled Intervention: Patient was educated in proper exercise technique and purpose for exercises. Skilled judgment was provided in selection of appropriate interventions. Correct performance of therapeutic exercises was facilitated with verbal and visual cuing. Billing Therapeutic Exercise Treatment Minutes: 54 Total Treatment Time Minutes (timed/untimed): 54 Juan Zamora PT documented in this encounter [facility] 11-11-2022 Note HNO ID: [id number] Author: Juan Zamora PT Service: ? Author Type: Physical Therapist Type: Progress Notes Filed: 11/11/2022 3:09 PM Note Text: Episode Visit Count: 20 Therapist That Will Accept/Oversee The Plan Of Care: Juan Zamora Start of Care Date: 09/03/22 Onset Date: 08/13/22 Plan of Care Certification Date: 06/12/22 Next Certification Due Date: 07/17/22 REHABILITATION AND SPORTS THERAPY PHYSICAL THERAPY TREATMENT NOTE ASSESSMENT: Tucker Zambrano tolerated the session with fatigue, expected muscle soreness, and no issues. He demonstrated improvements in exercise tolerance and ambulation crutch free. The patient will continue to benefit from ongoing skilled physical therapy to progress toward set goals and to continue with post-operative protocol. PLAN FOR NEXT VISIT: Continue progressing strength, knee flexion ROM SUBJECTIVE: Patient Reason for Visit: Pt doing better today. Has been walking more without the crutches. The leg in general feels stronger, but the calf tightens up the more he walks. Pain: Pain Pain Level: 1 Pain Location: Knee - Left Description: Tightness Frequency: Continuous OBJECTIVE MEASURES WITH LEVEL OF FUNCTION: TREATMENT: Therapeutic Exercise: 1: [employer] StepOne recumbent stepper seat #7 to #5 in pain-free range x7.5 minutes 2: Recumbent bike seat 7, x3 min forward and back 3: Heel slides x10 with and without strap assist 4: BFR SLR 2# x30, 15, 15, 15 (Large cuff, 144 mmHg, 30 sec rest between sets, 1 min between exercises) 5: BFR Hip thrust x30, 15, 15, 15 (large cuff, 144 mmHg, 30 sec rest between sets, 1 min between exercises) 6: BFR calf raises x30, 15, 15, 15 (large cuff, 176 mmHg, 30 sec rest between sets) 7: BFR aquisition in sitting (180 mmHg LOP, 144 mmHg =80%) Skilled Intervention: Patient was educated in proper exercise technique and purpose for exercises. Skilled judgment was provided in selection of appropriate interventions. Provided written instruction for home exercise program to facilitate proper performance and compliance. Correct performance of therapeutic exercises was facilitated with verbal, visual, and tactile cuing. Billing Therapeutic Exercise Treatment Minutes: 40 Total Treatment Time Minutes (timed/untimed): 40 Juan Zamora, PT [facility] 11-11-2022 History of Presen t illness Narrative Episode Visit Count: 20 Therapist That Will Accept/Oversee The Plan Of Care: Juan Zamora Start of Care Date: 09/03/22 Onset Date: 08/13/22 Plan of Care Certification Date: 06/12/22 Next Certification Due Date: 07/17/22 REHABILITATION AND SPORTS THERAPY PHYSICAL THERAPY TREATMENT NOTE ASSESSMENT: Tucker Zambrano tolerated the session with fatigue, expected muscle soreness, and no issues. He demonstrated improvements in exercise tolerance and ambulation crutch free. The patient will continue to benefit from ongoing skilled physical therapy to progress toward set goals and to continue with post-operative protocol. PLAN FOR NEXT VISIT: Continue progressing strength, knee flexion ROM SUBJECTIVE: Patient Reason for Visit: Pt doing better today. Has been walking more without the crutches. The leg in general feels stronger, but the calf tightens up the more he walks. Pain: Pain Pain Level: 1 Pain Location: Knee - Left Description: Tightness Frequency: Continuous OBJECTIVE MEASURES WITH LEVEL OF FUNCTION: TREATMENT: Therapeutic Exercise: 1: SciFit StepOne recumbent stepper seat #7 to #5 in pain-free range x7.5 minutes 2: Recumbent bike seat 7, x3 min forward and back 3: Heel slides x10 with and without strap assist 4: BFR SLR 2# x30, 15, 15, 15 (Large cuff, 144 mmHg, 30 sec rest between sets, 1 min between exercises) 5: BFR Hip thrust x30, 15, 15, 15 (large cuff, 144 mmHg, 30 sec rest between sets, 1 min between exercises) 6: BFR calf raises x30, 15, 15, 15 (large cuff, 176 mmHg, 30 sec rest between sets) 7: BFR aquisition in sitting (180 mmHg LOP, 144 mmHg =80%) Skilled Intervention: Patient was educated in proper exercise technique and purpose for exercises. Skilled judgment was provided in selection of appropriate interventions. Provided written instruction for home exercise program to facilitate proper performance and compliance. Correct performance of therapeutic exercises was facilitated with verbal, visual, and tactile cuing. Billing Therapeutic Exercise Treatment Minutes: 40 Total Treatment Time Minutes (timed/untimed): 40 Juan Zamora PT documented in this encounter [facility] 11-11-2022 Note HNO ID: [id number] Author: Juan Zamora PT Service: ? Author Type: Physical Therapist Type: Progress Notes Filed: 11/11/2022 10:00 AM Note Text: Episode Visit Count: 19 Therapist That Will Accept/Oversee The Plan Of Care: Juan Zamora Start of Care Date: 09/03/22 Onset Date: 08/13/22 Plan of Care Certification Date: 06/12/22 Next Certification Due Date: 07/17/22 REHABILITATION AND SPORTS THERAPY PHYSICAL THERAPY TREATMENT NOTE ASSESSMENT: Tucker Zambrano tolerated the session with decreased symptoms. He demonstrated improvements in knee range of motion today as well as decreased pain with walking. The patient will continue to benefit from ongoing skilled physical therapy to progress toward set goals. PLAN FOR NEXT VISIT: Back to [facility], manual as needed SUBJECTIVE: Patient Reason for Visit: Pt a little stiff today. It was tough walking in his driveway with how muddy it was with all the rain today, and he feels the knee and calf tightened up bc of this Pain: Pain Pain Level: 2 Pain Location: Knee - Left Description: Tightness Frequency: Continuous OBJECTIVE MEASURES WITH LEVEL OF FUNCTION: LE PROM L Knee Flexion: 111 Degrees TREATMENT: Therapeutic Exercise: 1: SciFit StepOne recumbent stepper seat #8 to #6 in pain-free range x7.5 minutes (subjective taken at this time, and SciFit used to improve L knee flexion ROM) 2: Supine L heel slides with assist from strap 2x10 3: L gastroc and soleus stretch in long sitting 3x30 sec each Skilled Intervention: Patient was educated in proper exercise technique and purpose for exercises. Skilled judgment was provided in selection of appropriate interventions. Correct performance of therapeutic exercises was facilitated with verbal and visual cuing. Manual Therapy: 1: IASTM to L gastroc with push to tolerance 2: STM and CFM to L rectus femoris with push to tolerance Skilled Intervention: Manual skills to improve joint mobility, ROM, and decrease pain. Utilized anatomy knowledge of the therapist, and assessment of patient's response to intervention. Gait Trainin: Cued for proper heel to toe ambulation 3x around gym equipment today and verbal and visual cuing for proper form Skilled Intervention: Facilitated proper gait cycle with the use of verbal and visual cues for correction of gait deviations identified in the objective section above. Billing Therapeutic Exercise Treatment Minutes: 15 Manual TherapyTreatment Minutes: 25 Gait Training Treatment Minutes: 5 Total Treatment Time Minutes (timed/untimed): 45 Juan Zamora, PT [facility] 11-11-2022 History of Presen t illness Narrative Episode Visit Count: 19 Therapist That Will Accept/Oversee The Plan Of Care: Juan Zamora Start of Care Date: 09/03/22 Onset Date: 08/13/22 Plan of Care Certification Date: 06/12/22 Next Certification Due Date: 07/17/22 REHABILITATION AND SPORTS THERAPY PHYSICAL THERAPY TREATMENT NOTE ASSESSMENT: Tucker Zambrano tolerated the session with decreased symptoms. He demonstrated improvements in knee range of motion today as well as decreased pain with walking. The patient will continue to benefit from ongoing skilled physical therapy to progress toward set goals. PLAN FOR NEXT VISIT: Back to [facility], manual as needed SUBJECTIVE: Patient Reason for Visit: Pt a little stiff today. It was tough walking in his driveway with how muddy it was with all the rain today, and he feels the knee and calf tightened up bc of this Pain: Pain Pain Level: 2 Pain Location: Knee - Left Description: Tightness Frequency: Continuous OBJECTIVE MEASURES WITH LEVEL OF FUNCTION: LE PROM L Knee Flexion: 111 Degrees TREATMENT: Therapeutic Exercise: 1: SciFit StepOne recumbent stepper seat #8 to #6 in pain-free range x7.5 minutes (subjective taken at this time, and SciFit used to improve L knee flexion ROM) 2: Supine L heel slides with assist from strap 2x10 3: L gastroc and soleus stretch in long sitting 3x30 sec each Skilled Intervention: Patient was educated in proper exercise technique and purpose for exercises. Skilled judgment was provided in selection of appropriate interventions. Correct performance of therapeutic exercises was facilitated with verbal and visual cuing. Manual Therapy: 1: IASTM to L gastroc with push to tolerance 2: STM and CFM to L rectus femoris with push to tolerance Skilled Intervention: Manual skills to improve joint mobility, ROM, and decrease pain. Utilized anatomy knowledge of the therapist, and assessment of patient's response to intervention. Gait Trainin: Cued for proper heel to toe ambulation 3x around gym equipment today and verbal and visual cuing for proper form Skilled Intervention: Facilitated proper gait cycle with the use of verbal and visual cues for correction of gait deviations identified in the objective section above. Billing Therapeutic Exercise Treatment Minutes: 15 Manual TherapyTreatment Minutes: 25 Gait Training Treatment Minutes: 5 Total Treatment Time Minutes (timed/untimed): 45 Juan Zamora PT documented in this encounter [facility] 11-07-2022 Note HNO ID: [id number] Author: Juan Zamora PT Service: ? Author Type: Physical Therapist Type: Progress Notes Filed: 11/07/2022 10:40 AM Note Text: Episode Visit Count: 18 Therapist That Will Accept/Oversee The Plan Of Care: Juan Zamora Start of Care Date: 09/03/22 Onset Date: 08/13/22 Plan of Care Certification Date: 06/12/22 Next Certification Due Date: 07/17/22 REHABILITATION AND SPORTS THERAPY PHYSICAL THERAPY TREATMENT NOTE ASSESSMENT: Tucker Zambrano tolerated the session with fatigue and expected muscle soreness. He demonstrated improvements in exercise tolerance and gait today. The patient will continue to benefit from ongoing skilled physical therapy to progress toward set goals. PLAN FOR NEXT VISIT: Continue BFR, may work more manually on gastroc next session SUBJECTIVE: Patient Reason for Visit: Pt had good follow up with surgeon. To wean off crutches next 2 weeks. No pivoting or twisting on knee until cleared. Off work for 9 more weeks. Pain: Pain Pain Level: 0 Pain Location: Knee - Left Description: Tightness Frequency: Intermittent OBJECTIVE MEASURES WITH LEVEL OF FUNCTION: LE AROM L Knee Flexion: 105 Degrees LE PROM L Knee Flexion: 108 Degrees TREATMENT: Therapeutic Exercise: 1: SciFit StepOne recumbent stepper seat #9 to #7 in pain-free range x7.5 minutes 2: Supine L heel slides with assist from strap 2x10 3: BFR SLR x30, 15, 15, 15 (Large cuff, 144mmHg, 30 sec rest between sets, 1 min between exercises) 4: BFR glute bridging x30, 15, 15, 15 (Large cuff, 144mmHg, 30 sec rest between sets, 1 min between exercises) 5: BFR SL hip abduction x30, 15, 15, 15 (Large cuff, 144mmHg, 30 sec rest between sets, 1 min between exercises) 6: BFR calf raises x30, 15, 15, 15 (Large cuff, 176 mmHg, 30 sec rest between sets, 1 min between exercises) 7: BFR aquisition in standing, 80% pressure noted in calf raises Skilled Intervention: Patient was educated in proper exercise technique and purpose for exercises. Skilled judgment was provided in selection of appropriate interventions. Provided written instruction for home exercise program to facilitate proper performance and compliance. Correct performance of therapeutic exercises was facilitated with verbal, visual, and tactile cuing. Billing Therapeutic Exercise Treatment Minutes: 53 Total Treatment Time Minutes (timed/untimed): 53 Juan Zamora, PT [facility] 11-07-2022 History of Presen t illness Narrative Episode Visit Count: 18 Therapist That Will Accept/Oversee The Plan Of Care: Juan Zamora Start of Care Date: 09/03/22 Onset Date: 08/13/22 Plan of Care Certification Date: 06/12/22 Next Certification Due Date: 07/17/22 REHABILITATION AND SPORTS THERAPY PHYSICAL THERAPY TREATMENT NOTE ASSESSMENT: Tucker Zambrano tolerated the session with fatigue and expected muscle soreness. He demonstrated improvements in exercise tolerance and gait today. The patient will continue to benefit from ongoing skilled physical therapy to progress toward set goals. PLAN FOR NEXT VISIT: Continue BFR, may work more manually on gastroc next session SUBJECTIVE: Patient Reason for Visit: Pt had good follow up with surgeon. To wean off crutches next 2 weeks. No pivoting or twisting on knee until cleared. Off work for 9 more weeks. Pain: Pain Pain Level: 0 Pain Location: Knee - Left Description: Tightness Frequency: Intermittent OBJECTIVE MEASURES WITH LEVEL OF FUNCTION: LE AROM L Knee Flexion: 105 Degrees LE PROM L Knee Flexion: 108 Degrees TREATMENT: Therapeutic Exercise: 1: Exavio StepOne recumbent stepper seat #9 to #7 in pain-free range x7.5 minutes 2: Supine L heel slides with assist from strap 2x10 3: BFR SLR x30, 15, 15, 15 (Large cuff, 144mmHg, 30 sec rest between sets, 1 min between exercises) 4: BFR glute bridging x30, 15, 15, 15 (Large cuff, 144mmHg, 30 sec rest between sets, 1 min between exercises) 5: BFR SL hip abduction x30, 15, 15, 15 (Large cuff, 144mmHg, 30 sec rest between sets, 1 min between exercises) 6: BFR calf raises x30, 15, 15, 15 (Large cuff, 176 mmHg, 30 sec rest between sets, 1 min between exercises) 7: BFR aquisition in standing, 80% pressure noted in calf raises Skilled Intervention: Patient was educated in proper exercise technique and purpose for exercises. Skilled judgment was provided in selection of appropriate interventions. Provided written instruction for home exercise program to facilitate proper performance and compliance. Correct performance of therapeutic exercises was facilitated with verbal, visual, and tactile cuing. Billing Therapeutic Exercise Treatment Minutes: 53 Total Treatment Time Minutes (timed/untimed): 53 Juan Zamora PT documented in this encounter [facility] 11-04-2022 Note HNO ID: [id number] Author: Reji Vergara PA-C Service: ? Author Type: Physician Card Punching Machine Operator Type: Progress Notes Filed: 11/04/2022 2:55 PM Note Text: November 04, 2022 1:10 PM HPI: Tucker Zambrano is a 22 year old male who presents 3 months s/p Left knee arthroscopy, and open BIOUNI 25mm osteochondral allograft reconstruction medial femoral condyle, and allograft transplant 2x 6mm plugs to the lateral femoral condyle. Patient states significantly improved range of motion over the last few weeks. Remains on crutches PWBAT. Denies new acute falls or traumas - had one fall acutely post op but doing well since. Denies mechanical symptoms or instability. Admits continued post operative effusion. Denies numbness or tingling distally. Otherwise well. Diagnosis: S/p orthopedic surgery, follow-up exam (primary encounter diagnosis) Assessment/Plan: Continue PT - progress off crutches to FWB in the next 1-2 weeks. Straight midline motions only. Progress strengthening as able over the next 3 months. No pivoting or twisting until cleared. Radiographs reviewed with interval healing [facility] [place] 25mm OC biouni allograft transplant. Follow up in 3 months in person with repeat XR. PAIN EVALUATION No data found in the last 1 encounters. Past Medical History: PAST MEDICAL HISTORY Diagnosis Date Allergic rhinitis, cause unspecified Allergic rhinitis Pain in limb 2009 Family History: FAMILY HISTORY Problem Relation Age of Onset Hypertension Father Social History: Social History Tobacco Use Smoking status: Never Smokeless tobacco: Never Vaping Use Vaping Use: Never used Substance Use Topics Alcohol use: Never Drug use: Never Medications: ibuprofen (MOTRIN ORAL) Take by mouth. finasteride (PROPECIA,PROSCAR) 1 mg tablet Take 1 mg by mouth once daily. Allergies: ALLERGIES Allergen Reactions Penicillins Rash Environmental [Othe* Physical Exam: Examination of the left knee: ROM: full range of motion noted No signs of trauma, erythema, or ecchymoses. Non TTP throughout the knee Medial Joint Line: no tenderness to palpation Lateral Joint Line: no tenderness to palpation Barry/Anterior Drawer: no ligamentous laxity noted with firm endpoint Posterior Drawer: no ligamentous laxity noted Valgus Stress Test: no ligamentous laxity noted Varus Stress Test: no ligamentous laxity noted Patellofemoral Examination: normal bilateral patellar examination with no tenderness to palpation. No patellar tethering. HIP Exam: normal Grossly NVI along L4, L5, and S1 Imaging: I personally reviewed and interpreted the most recent imaging of the left knee. Plain Radiographs of the left knee were reviewed and discussed with patient. Per Radiologist Report - IMPRESSION: 1. Stable appearance of postsurgical changes of the medial femoral condyle and lateral femoral condyle osteochondral lesion Remote Medical Coder: IAM Transcribe Date/Time: Nov 04 2022 2:03P Dictated by : CEDRICK ELLIS MD Review of Systems: Constitutional: Any recent fevers? No Cardiovascular: Any chest pain? No Respiratory: Any shortness or breath? No Gastrointestinal: Any abdominal discomfort? No Integumentary: Any recent skin changes or rashes? No Neurologic: Any numbness or tingling? See Above Endocrine: Any diagnosis of diabetes? No Hematologic: Any recent bleeding episodes? No I spent a total of 30 minutes on the date of the service which included preparing to see the patient, [id number] patient care, completing clinical documentation, obtaining and/or reviewing separately obtained history, performing a medically appropriate examination, counseling and educating the patient/family/caregiver, ordering medications, tests, or procedures, independently interpreting results (not separately reported), communicating results to the patient/family/caregiver and care coordination (not separately reported). Reji Vergara PA-C Date: November 04, 2022 Time: 1:[address] [facility] 11-04-2022 Note HNO ID: [id number] Author: RT Mel(R) Service: ? Author Type: Jackscrew Worker Type: Progress Notes Filed: 11/04/2022 12:35 PM Note Text: Radiology Service Progress Note PATIENT NAME: Tucker Zambrano DATE OF SERVICE: November 04, 2022 TIME: 12:35 PM PATIENT IDENTITY VERIFICATION COMPLETED USING TWO (2) IDENTIFIERS: Name and Date of confirmed by patient verbally. FALL SCREENING: Has the patient had 2 falls in the last year or 1 fall with injury or currently using an Ambulatory Assistive Device (Walker, Cane, Wheelchair, Crutches, etc.)? No PATIENT GENDER DATA: Male PATIENT RELEVANT IMPLANT DATA REVIEWED: Not Applicable RADIOLOGY DEPARTMENT: General X-ray: Exam(s) Completed: Lower Extremity X-Ray(s): Knee, AP / Lat / Tunne / Merchant Left PERIPHERAL IV DATA: Not applicable SIGNED BY: RT MEL(R) November 04, 2022 12:[address] [facility] 11-04-2022 History of Presen t illness Narrative November 04, 2022 1:10 PM HPI: Tucker Zambrano is a 22 year old male who presents 3 months s/p Left knee arthroscopy, and open BIOUNI 25mm osteochondral allograft reconstruction medial femoral condyle, and allograft transplant 2x 6mm plugs to the lateral femoral condyle. Patient states significantly improved range of motion over the last few weeks. Remains on crutches PWBAT. Denies new acute falls or traumas - had one fall acutely post op but doing well since. Denies mechanical symptoms or instability. Admits continued post operative effusion. Denies numbness or tingling distally. Otherwise well. Diagnosis: S/p orthopedic surgery, follow-up exam (primary encounter diagnosis) Assessment/Plan: Continue PT - progress off crutches to FWB in the next 1-2 weeks. Straight midline motions only. Progress strengthening as able over the next 3 months. No pivoting or twisting until cleared. Radiographs reviewed with interval healing [facility] 25mm OC biouni allograft transplant. Follow up in 3 months in person with repeat XR. PAIN EVALUATION No data found in the last 1 encounters. Past Medical History: PAST MEDICAL HISTORY Diagnosis Date Allergic rhinitis, cause unspecified Allergic rhinitis Pain in limb 2009 Family History: FAMILY HISTORY Problem Relation Age of Onset Hypertension Father Social History: Social History Tobacco Use Smoking status: Never Smokeless tobacco: Never Vaping Use Vaping Use: Never used Substance Use Topics Alcohol use: Never Drug use: Never Medications: ibuprofen (MOTRIN ORAL) Take by mouth. finasteride (PROPECIA,PROSCAR) 1 mg tablet Take 1 mg by mouth once daily. Allergies: ALLERGIES Allergen Reactions Penicillins Rash Environmental [Othe* Physical Exam: Examination of the left knee: ROM: full range of motion noted No signs of trauma, erythema, or ecchymoses. Non TTP throughout the knee Medial Joint Line: no tenderness to palpation Lateral Joint Line: no tenderness to palpation Barry/Anterior Drawer: no ligamentous laxity noted with firm endpoint Posterior Drawer: no ligamentous laxity noted Valgus Stress Test: no ligamentous laxity noted Varus Stress Test: no ligamentous laxity noted Patellofemoral Examination: normal bilateral patellar examination with no tenderness to palpation. No patellar tethering. HIP Exam: normal Grossly NVI along L4, L5, and S1 Imaging: I personally reviewed and interpreted the most recent imaging of the left knee. Plain Radiographs of the left knee were reviewed and discussed with patient. Per Radiologist Report - IMPRESSION: 1. Stable appearance of postsurgical changes of the medial femoral condyle and lateral femoral condyle osteochondral lesion Remote Medical Coder: IAM Transcribe Date/Time: Nov 04 2022 2:03P Dictated by : CEDRICK ELLIS MD Review of Systems: Constitutional: Any recent fevers? No Cardiovascular: Any chest pain? No Respiratory: Any shortness or breath? No Gastrointestinal: Any abdominal discomfort? No Integumentary: Any recent skin changes or rashes? No Neurologic: Any numbness or tingling? See Above Endocrine: Any diagnosis of diabetes? No Hematologic: Any recent bleeding episodes? No I spent a total of 30 minutes on the date of the service which included preparing to see the patient, [id number] patient care, completing clinical documentation, obtaining and/or reviewing separately obtained history, performing a medically appropriate examination, counseling and educating the patient/family/caregiver, ordering medications, tests, or procedures, independently interpreting results (not separately reported), communicating results to the patient/family/caregiver and care coordination (not separately reported). Reji Vergara PA-C Date: November 04, 2022 Time: 1:10 PM documented in this encounter [facility] 11-04-2022 History of Presen t illness Narrative Radiology Service Progress Note PATIENT NAME: Tucker Zambrano DATE OF SERVICE: November 04, 2022 TIME: 12:35 PM PATIENT IDENTITY VERIFICATION COMPLETED USING TWO (2) IDENTIFIERS: Name and Date of confirmed by patient verbally. FALL SCREENING: Has the patient had 2 falls in the last year or 1 fall with injury or currently using an Ambulatory Assistive Device (Walker, Cane, Wheelchair, Crutches, etc.)? No PATIENT GENDER DATA: Male PATIENT RELEVANT IMPLANT DATA REVIEWED: Not Applicable RADIOLOGY DEPARTMENT: General X-ray: Exam(s) Completed: Lower Extremity X-Ray(s): Knee, AP / Lat / Tunne / Merchant Left PERIPHERAL IV DATA: Not applicable SIGNED BY: RT MEL(R) November 04, 2022 12:35 PM documented in this encounter [facility] 10-31-2022 Note HNO ID: [id number] Author: Juan Zamora PT Service: ? Author Type: Physical Therapist Type: Progress Notes Filed: 10/31/2022 10:45 AM Note Text: Episode Visit Count: 17 Therapist That Will Accept/Oversee The Plan Of Care: Juan Zamora Start of Care Date: 09/03/22 Onset Date: 08/13/22 Plan of Care Certification Date: 06/12/22 Next Certification Due Date: 07/17/22 REHABILITATION AND SPORTS THERAPY PHYSICAL THERAPY PROGRESS REPORT PLAN OF CARE UPDATE: Assessment: Tucker Zambrano demonstrates moderate improvement in rising from a chair, standing, walking, and bending. He has progressed toward goals. Patient continues to present with impairments in ADL's, gait, overall function, range of motion, strength, symptom management, and tissue tenderness that interfere with . Current prognosis is Good due to: current objective clinical presentation, good overall health status, positive past response to therapy, within-session changes, good support system/ coping skills . He will benefit from continued skilled therapy services to meet the updated goals for this plan of care as noted below. Goals updated on 10/30/2022. Goals for Episode of Care: created on 09/03/22 through 11/26/22 [place] in home exercise program. Met Patient will increase active ROM of left knee to 0-135-140 degrees to allow pt to to improve performance of ADLs. as allowed by physician Protocol. Partially met Patient will demonstrate increase in quad strength to 5/5 during manual muscle testing in order to improve function for prior functional tasks. Perform exercise program without pain. Not met Normal gait. Not met Reciprocal stair negotiation. Not met Patient Goals: Return to full function Planned Interventions, Frequency, and Duration: 2x/week, 8 weeks Total Number of Visits Planned: 16 Patient to be seen for Therapeutic exercise ([id number]), Neuromuscular re-education (62842), Manual therapy (35245), Therapeutic activities (39153), Self-residential management (12174), Gait Training ([id number]), Patient/Family/Caregiver Education, Body Mechanics Training PLAN FOR NEXT VISIT: Continue BFR and per protocol SUBJECTIVE: Patient Reason for Visit: Overall pt doing much better. Notes he is walking more without the crutches and notes less sensation of knee wanting to give out. Calf is feeling tighter with more walking, but not painful. Knee swelling seems to be subsiding. Pain: Pain Pain Level: 0 Pain Location: Knee - Left Description: Stiffness, Tightness Frequency: Intermittent PROMIS Scales Higher is Better 10/02/2022 10/25/2022 10/28/2022 Phys Func - Score 27 (severe dysfunction) - 32 (moderate dysfunction) Phys Func - Percentile 1 % - 4 % GH Physical - Score - 39.8 (Fair) - GH Physical - Percentile - 15 % - GH Mental - Score - 33.8 (Fair) - GH Mental - Percentile - 5 % - Self-Eff Symptom - Score 43 (Average) - 46 (Average) Self-Eff Symptom - Percentile 24 % - 34 % T-scores: mean of general population = 50. 5 points is clinically meaningfully difference Percentiles provide an indication of how the patient's score ranks in relation to the general population. Higher percentile rankings indicate better function/quality of life. 50th percentile is the average of the general population and indicates half of respondents had a worse score. T-scores: mean of general population = 50. 5 points is clinically meaningfully difference Percentiles provide an indication of how the patient's score ranks in relation to the general population. Higher percentile rankings indicate better function/quality of life. 50th percentile is the average of the general population and indicates half of respondents had a worse score. OBJECTIVE MEASURES WITH LEVEL OF FUNCTION: LE AROM L Knee Extension: 3 Degrees L Knee Flexion: 105 Degrees LE PROM L Knee Flexion: 109 Degrees LE Strength Lower Extremity Dynamometer Testing : Yes Dynamometer Strength Right Quadriceps Strength (lbs): 56.2 Left Quadriceps Strength (lbs): 32.9 Quad Strength Limb Symmetry Index (%): 58.54 Right Hamstring Strength (lbs): 63.8 Left Hamstring Strength (lbs): 26.4 Hamstring Strength Limb Symmetry Index(%): 41.38 Gait Weight Bearing Status: WBAT Gait Device: Crutches Gait Observation: Trendelenburg with no crutches and pt reluctant to flex knee, and toe off at push off- peg leg walking TREATMENT: Therapeutic Exercise: 1: SciFit StepOne recumbent stepper seat #9 to #7 in pain-free range x7.5 minutes (subjectice taken at this time and goals for therapy reviewed. Moved seat up to promote greater knee flexion) 2: Supine L heel slides with assist from strap 2x10 3: Prone quad stretch 3x30 sec 4: Quad sets x10 5: SLR x20 (no lag noted today) Skilled Intervention: Patient was educated in proper exercise technique and purpose for exercises. Skilled judgment was provided in selection of appropriate interventions. Prov (more content not included)... [facility] 10-31-2022 History of Presen t illness Narrative Episode Visit Count: 17 Therapist That Will Accept/Oversee The Plan Of Care: Juan Zamora Start of Care Date: 09/03/22 Onset Date: 08/13/22 Plan of Care Certification Date: 06/12/22 Next Certification Due Date: 07/17/22 REHABILITATION AND SPORTS THERAPY PHYSICAL THERAPY PROGRESS REPORT PLAN OF CARE UPDATE: Assessment: Tucker Zambrano demonstrates moderate improvement in rising from a chair, standing, walking, and bending. He has progressed toward goals. Patient continues to present with impairments in ADL's, gait, overall function, range of motion, strength, symptom management, and tissue tenderness that interfere with . Current prognosis is Good due to: current objective clinical presentation, good overall health status, positive past response to therapy, within-session changes, good support system/ coping skills . He will benefit from continued skilled therapy services to meet the updated goals for this plan of care as noted below. Goals updated on 10/30/2022. Goals for Episode of Care: created on 09/03/22 through 11/26/22 [place] in home exercise program. Met Patient will increase active ROM of left knee to 0-135-140 degrees to allow pt to to improve performance of ADLs. as allowed by physician Protocol. Partially met Patient will demonstrate increase in quad strength to 5/5 during manual muscle testing in order to improve function for prior functional tasks. Perform exercise program without pain. Not met Normal gait. Not met Reciprocal stair negotiation. Not met Patient Goals: Return to full function Planned Interventions, Frequency, and Duration: 2x/week, 8 weeks Total Number of Visits Planned: 16 Patient to be seen for Therapeutic exercise ([id number]), Neuromuscular re-education (96301), Manual therapy (15514), Therapeutic activities (61904), Self-residential management (63789), Gait Training (25625), Patient/Family/Caregiver Education, Body Mechanics Training PLAN FOR NEXT VISIT: Continue BFR and per protocol SUBJECTIVE: Patient Reason for Visit: Overall pt doing much better. Notes he is walking more without the crutches and notes less sensation of knee wanting to give out. Calf is feeling tighter with more walking, but not painful. Knee swelling seems to be subsiding. Pain: Pain Pain Level: 0 Pain Location: Knee - Left Description: Stiffness, Tightness Frequency: Intermittent PROMIS Scales Higher is Better 10/02/2022 10/25/2022 10/28/2022 Phys Func - Score 27 (severe dysfunction) - 32 (moderate dysfunction) Phys Func - Percentile 1 % - 4 % GH Physical - Score - 39.8 (Fair) - GH Physical - Percentile - 15 % - GH Mental - Score - 33.8 (Fair) - GH Mental - Percentile - 5 % - Self-Eff Symptom - Score 43 (Average) - 46 (Average) Self-Eff Symptom - Percentile 24 % - 34 % T-scores: mean of general population = 50. 5 points is clinically meaningfully difference Percentiles provide an indication of how the patient's score ranks in relation to the general population. Higher percentile rankings indicate better function/quality of life. 50th percentile is the average of the general population and indicates half of respondents had a worse score. T-scores: mean of general population = 50. 5 points is clinically meaningfully difference Percentiles provide an indication of how the patient's score ranks in relation to the general population. Higher percentile rankings indicate better function/quality of life. 50th percentile is the average of the general population and indicates half of respondents had a worse score. OBJECTIVE MEASURES WITH LEVEL OF FUNCTION: LE AROM L Knee Extension: 3 Degrees L Knee Flexion: 105 Degrees LE PROM L Knee Flexion: 109 Degrees LE Strength Lower Extremity Dynamometer Testing : Yes Dynamometer Strength Right Quadriceps Strength (lbs): 56.2 Left Quadriceps Strength (lbs): 32.9 Quad Strength Limb Symmetry Index (%): 58.54 Right Hamstring Strength (lbs): 63.8 Left Hamstring Strength (lbs): 26.4 Hamstring Strength Limb Symmetry Index(%): 41.38 Gait Weight Bearing Status: WBAT Gait Device: Crutches Gait Observation: Trendelenburg with no crutches and pt reluctant to flex knee, and toe off at push off- peg leg walking TREATMENT: Therapeutic Exercise: 1: SciFit StepOne recumbent stepper seat #9 to #7 in pain-free range x7.5 minutes (subjectice taken at this time and goals for therapy reviewed. Moved seat up to promote greater knee flexion) 2: Supine L heel slides with assist from strap 2x10 3: Prone quad stretch 3x30 sec 4: Quad sets x10 5: SLR x20 (no lag noted today) Skilled Intervention: Patient was educated in proper exercise technique and purpose for exercises. Skilled judgment was provided in selection of appropriate interventions. Provided written instruction for home exercise program to facilitate proper performance and compliance. Correct performance of therapeutic exercises was facilitated with verbal, visual, and tactile cuing. Manual Therapy: 1: STM and Active release of L gastroc with push to tolerance Skilled Intervention: Manual skills to improve joint mobility, ROM, and decrease pain. Utilized anatomy knowledge of the therapist, and assessment of patient's response to intervention. Billing Therapeutic Exercise Treatment Minutes: 25 Manual TherapyTreatment Minutes: 15 Total Treatment Time Minutes (timed/untimed): 40 Juan Zamora PT documented in this encounter [facility] 10-28-2022 Note HNO ID: [id number] Author: Juan Zamora PT Service: ? Author Type: Physical Therapist Type: Progress Notes Filed: 10/28/2022 4:22 PM Note Text: Episode Visit Count: 16 Therapist That Will Accept/Oversee The Plan Of Care: Juan Zamora PT Start of Care Date: 09/03/22 Onset Date: 08/13/22 Plan of Care Certification Date: 06/12/22 Next Certification Due Date: 07/17/22 REHABILITATION AND SPORTS THERAPY PHYSICAL THERAPY TREATMENT NOTE ASSESSMENT: Tucker Zambrano tolerated the session with fatigue, expected muscle soreness, and no issues. He demonstrated improvements in knee flexion range of motion and tolerance for strengthening. The patient will continue to benefit from ongoing skilled physical therapy to progress toward set goals. PLAN FOR NEXT VISIT: [place] SUBJECTIVE: Patient Reason for Visit: Pt a little stiff coming in today, no pain or issues though Pain: Pain Pain Level: 0 Pain Location: Knee - Left Description: Stiffness, Tightness Frequency: Intermittent OBJECTIVE MEASURES WITH LEVEL OF FUNCTION: LE AROM L Knee Flexion: 104 Degrees (After IASTM to gastroc) LE PROM L Knee Flexion: 104 Degrees TREATMENT: Therapeutic Exercise: 1: SciFit StepOne recumbent stepper seat #13 to #11 in pain-free range x7 minutes 2: Supine L heel slides with assist from strap 2x10 3: Prone quad stretch 3x30 sec 4: Quad sets x10 5: BFR SLR 1# x30, 15, 15, 15 (Large cuff, 144 mmHg, 30 sec rest between sets, 1 min between exercises) 6: BFR glute bridges x30, 15, 15, 15 (Large cuff, 144 mmHg, 30 sec rest between sets) Skilled Intervention: Patient was educated in proper exercise technique and purpose for exercises. Skilled judgment was provided in selection of appropriate interventions. Correct performance of therapeutic exercises was facilitated with verbal, visual, and tactile cuing. Manual Therapy: 1: IASTM to L gastroc with push to tolerance Skilled Intervention: Manual skills to improve joint mobility, ROM, and decrease pain. Utilized anatomy knowledge of the therapist, and assessment of patient's response to intervention. Billing Therapeutic Exercise Treatment Minutes: 33 Manual TherapyTreatment Minutes: 10 Total Treatment Time Minutes (timed/untimed): 43 Juan Zamora, PT [facility] 10-28-2022 History of Presen t illness Narrative Episode Visit Count: 16 Therapist That Will Accept/Oversee The Plan Of Care: Juan Zamora PT Start of Care Date: 09/03/22 Onset Date: 08/13/22 Plan of Care Certification Date: 06/12/22 Next Certification Due Date: 07/17/22 REHABILITATION AND SPORTS THERAPY PHYSICAL THERAPY TREATMENT NOTE ASSESSMENT: Tucker Zambrano tolerated the session with fatigue, expected muscle soreness, and no issues. He demonstrated improvements in knee flexion range of motion and tolerance for strengthening. The patient will continue to benefit from ongoing skilled physical therapy to progress toward set goals. PLAN FOR NEXT VISIT: [place] SUBJECTIVE: Patient Reason for Visit: Pt a little stiff coming in today, no pain or issues though Pain: Pain Pain Level: 0 Pain Location: Knee - Left Description: Stiffness, Tightness Frequency: Intermittent OBJECTIVE MEASURES WITH LEVEL OF FUNCTION: LE AROM L Knee Flexion: 104 Degrees (After IASTM to gastroc) LE PROM L Knee Flexion: 104 Degrees TREATMENT: Therapeutic Exercise: 1: SciFit StepOne recumbent stepper seat #13 to #11 in pain-free range x7 minutes 2: Supine L heel slides with assist from strap 2x10 3: Prone quad stretch 3x30 sec 4: Quad sets x10 5: BFR SLR 1# x30, 15, 15, 15 (Large cuff, 144 mmHg, 30 sec rest between sets, 1 min between exercises) 6: BFR glute bridges x30, 15, 15, 15 (Large cuff, 144 mmHg, 30 sec rest between sets) Skilled Intervention: Patient was educated in proper exercise technique and purpose for exercises. Skilled judgment was provided in selection of appropriate interventions. Correct performance of therapeutic exercises was facilitated with verbal, visual, and tactile cuing. Manual Therapy: 1: IASTM to L gastroc with push to tolerance Skilled Intervention: Manual skills to improve joint mobility, ROM, and decrease pain. Utilized anatomy knowledge of the therapist, and assessment of patient's response to intervention. Billing Therapeutic Exercise Treatment Minutes: 33 Manual TherapyTreatment Minutes: 10 Total Treatment Time Minutes (timed/untimed): 43 Juan Zamora PT documented in this encounter [facility] 10-24-2022 Note HNO ID: [id number] Author: Juan Zamora PT Service: ? Author Type: Physical Therapist Type: Progress Notes Filed: 10/24/2022 3:35 PM Note Text: Episode Visit Count: 15 Therapist That Will Accept/Oversee The Plan Of Care: Juan Zamora PT Start of Care Date: 09/03/22 Onset Date: 08/13/22 Plan of Care Certification Date: 06/12/22 Next Certification Due Date: 07/17/22 REHABILITATION AND SPORTS THERAPY PHYSICAL THERAPY TREATMENT NOTE ASSESSMENT: Tucker Zambrano tolerated the session with fatigue, expected muscle soreness, and no issues. He demonstrated improvements in exercise tolerance and slow, but continued improvements in knee flexion range of motion. The patient will continue to benefit from ongoing skilled physical therapy to progress toward set goals. PLAN FOR NEXT VISIT: Needling vs BFR SUBJECTIVE: Patient Reason for Visit: Pt doing well today, a little stiff but feels like he was able to loosen up well prior to therapy today Pain: Pain Pain Level: 0 Pain Location: Knee - Left Description: Stiffness, Tightness Frequency: Intermittent OBJECTIVE MEASURES WITH LEVEL OF FUNCTION: LE AROM L Knee Flexion: 95 Degrees LE PROM L Knee Flexion: 100 Degrees (with strap assist) TREATMENT: Therapeutic Exercise: 1: SciFit StepOne recumbent stepper seat #13 to #11 in pain-free range x7 minutes (Used for improved knee ROM- 98 degrees flexion today) 2: Supine L heel slides with assist from strap 2x10 3: Prone quad stretch 3x30 sec 4: Quad sets x10 5: BFR SAQ x30, 15, 15, 15 (Large cuff, 144 mmHg, 30 sec rest between sets and 1 min between exercises) 6: BFR SLR x30, 15, 15, 15 (Large cuff, 144 mmHg, 30 sec rest between sets and 1 min between exercises) 7: BFR glute bridges x30, 15, 15, 15 (Large cuff, 144 mmHg, 30 sec rest between sets and 1 min between exercises) Skilled Intervention: Patient was educated in proper exercise technique and purpose for exercises. Skilled judgment was provided in selection of appropriate interventions. Correct performance of therapeutic exercises was facilitated with verbal, visual, and tactile cuing. Billing Therapeutic Exercise Treatment Minutes: 44 Total Treatment Time Minutes (timed/untimed): 44 Juan Zamora, PT [facility] 10-24-2022 History of Presen t illness Narrative Episode Visit Count: 15 Therapist That Will Accept/Oversee The Plan Of Care: Juan Zamora PT Start of Care Date: 09/03/22 Onset Date: 08/13/22 Plan of Care Certification Date: 06/12/22 Next Certification Due Date: 07/17/22 REHABILITATION AND SPORTS THERAPY PHYSICAL THERAPY TREATMENT NOTE ASSESSMENT: Tucker Zambrano tolerated the session with fatigue, expected muscle soreness, and no issues. He demonstrated improvements in exercise tolerance and slow, but continued improvements in knee flexion range of motion. The patient will continue to benefit from ongoing skilled physical therapy to progress toward set goals. PLAN FOR NEXT VISIT: Needling vs BFR SUBJECTIVE: Patient Reason for Visit: Pt doing well today, a little stiff but feels like he was able to loosen up well prior to therapy today Pain: Pain Pain Level: 0 Pain Location: Knee - Left Description: Stiffness, Tightness Frequency: Intermittent OBJECTIVE MEASURES WITH LEVEL OF FUNCTION: LE AROM L Knee Flexion: 95 Degrees LE PROM L Knee Flexion: 100 Degrees (with strap assist) TREATMENT: Therapeutic Exercise: 1: SciFit StepOne recumbent stepper seat #13 to #11 in pain-free range x7 minutes (Used for improved knee ROM- 98 degrees flexion today) 2: Supine L heel slides with assist from strap 2x10 3: Prone quad stretch 3x30 sec 4: Quad sets x10 5: BFR SAQ x30, 15, 15, 15 (Large cuff, 144 mmHg, 30 sec rest between sets and 1 min between exercises) 6: BFR SLR x30, 15, 15, 15 (Large cuff, 144 mmHg, 30 sec rest between sets and 1 min between exercises) 7: BFR glute bridges x30, 15, 15, 15 (Large cuff, 144 mmHg, 30 sec rest between sets and 1 min between exercises) Skilled Intervention: Patient was educated in proper exercise technique and purpose for exercises. Skilled judgment was provided in selection of appropriate interventions. Correct performance of therapeutic exercises was facilitated with verbal, visual, and tactile cuing. Billing Therapeutic Exercise Treatment Minutes: 44 Total Treatment Time Minutes (timed/untimed): 44 Juan Zamora PT documented in this encounter [facility] 10-22-2022 Note HNO ID: [id number] Author: Juan Zamora PT Service: ? Author Type: Physical Therapist Type: Progress Notes Filed: 10/22/2022 12:21 PM Note Text: Episode Visit Count: 14 Therapist That Will Accept/Oversee The Plan Of Care: Juan Zamora PT Start of Care Date: 09/03/22 Onset Date: 08/13/22 Plan of Care Certification Date: 06/12/22 Next Certification Due Date: 07/17/22 REHABILITATION AND SPORTS THERAPY PHYSICAL THERAPY TREATMENT NOTE ASSESSMENT: Tucker Zambrano tolerated the session with no issues. He demonstrated difficulty with knee flexion, but did have best flexion range of motion today following manual techniques. The patient will continue to benefit from ongoing skilled physical therapy to progress toward set goals. PLAN FOR NEXT VISIT: Either BFR or continue focus on knee flexion range of motion SUBJECTIVE: Patient Reason for Visit: Pt a little stiff today but doing better he feels. Pain: Pain Pain Level: 0 Pain Location: Knee - Left Description: Stiffness, Tightness Frequency: Intermittent OBJECTIVE MEASURES WITH LEVEL OF FUNCTION: LE AROM L Knee Flexion: 91 Degrees LE PROM L Knee Flexion: 97 Degrees (strap assist) TREATMENT: Therapeutic Exercise: 1: SciFit StepOne recumbent stepper seat #13 to #11 in pain-free range x8 minutes (used for L knee flexion ROM improvements today) 2: supine L heel slides with assist from strap 2x10 3: Prone quad stretch 3x30 sec Skilled Intervention: Patient was educated in proper exercise technique and purpose for exercises. Skilled judgment was provided in selection of appropriate interventions. Correct performance of therapeutic exercises was facilitated with verbal and visual cuing. Manual Therapy: 1: STM and CFM to L rectus femoris with push to tolerance Dry Needling: (1) 50 mm needle to L rectus femoris with pistoning and fanning Skilled Intervention: Manual skills to improve joint mobility, ROM, and decrease pain. Utilized anatomy knowledge of the therapist, and assessment of patient's response to intervention. Billing Therapeutic Exercise Treatment Minutes: 14 Manual TherapyTreatment Minutes: 30 Total Treatment Time Minutes (timed/untimed): 44 Juan Zamora PT [facility] 10-17-2022 Note HNO ID: [id number] Author: Juan Zamora PT Service: ? Author Type: Physical Therapist Type: Progress Notes Filed: 10/17/2022 4:22 PM Note Text: Episode Visit Count: 13 Therapist That Will Accept/Oversee The Plan Of Care: Juan Zamora PT Start of Care Date: 09/03/22 Onset Date: 08/13/22 Plan of Care Certification Date: 06/12/22 Next Certification Due Date: 07/17/22 REHABILITATION AND SPORTS THERAPY PHYSICAL THERAPY TREATMENT NOTE ASSESSMENT: Tucker Zambrano tolerated the session with fatigue, expected muscle soreness, and no issues. He demonstrated improvements in quad firing and decreased extension lag. The patient will continue to benefit from ongoing skilled physical therapy to progress toward set goals. PLAN FOR NEXT VISIT: Continue BFR, needling as needed SUBJECTIVE: Patient Reason for Visit: Pt doing well today. Feels like he is walking a touch better. Notes less knee shaking as he ambulates now Pain: Pain Pain Level: 0 Pain Location: Knee - Left Description: Stiffness, Tightness Frequency: Intermittent OBJECTIVE MEASURES WITH LEVEL OF FUNCTION: LE PROM L Knee Flexion: 92 Degrees TREATMENT: Therapeutic Exercise: 1: NavidogFit StepOne recumbent stepper seat #14 to #12 in pain-free range x10 minutes (used to improve knee flexion ROM today) 2: supine L heel slides with assist from strap 2x10 3: BFR SAQ x30, 15, 15, 15 (large cuff, 144 mmHg for all exercises today; 30 sec between sets, 1 min between exercises) 4: BFR glute bridging x30, 15, 15, 15 5: BFR SLR x30, 15, 15, 15 Skilled Intervention: Patient was educated in proper exercise technique and purpose for exercises. Skilled judgment was provided in selection of appropriate interventions. Provided written instruction for home exercise program to facilitate proper performance and compliance. Correct performance of therapeutic exercises was facilitated with verbal, visual, and tactile cuing. Billing Therapeutic Exercise Treatment Minutes: 40 Total Treatment Time Minutes (timed/untimed): 40 Juan Zamora PT [facility] 10-17-2022 History of Presen t illness Narrative Episode Visit Count: 13 Therapist That Will Accept/Oversee The Plan Of Care: Juan Zamora PT Start of Care Date: 09/03/22 Onset Date: 08/13/22 Plan of Care Certification Date: 06/12/22 Next Certification Due Date: 07/17/22 REHABILITATION AND SPORTS THERAPY PHYSICAL THERAPY TREATMENT NOTE ASSESSMENT: Tucker Zambrano tolerated the session with fatigue, expected muscle soreness, and no issues. He demonstrated improvements in quad firing and decreased extension lag. The patient will continue to benefit from ongoing skilled physical therapy to progress toward set goals. PLAN FOR NEXT VISIT: Continue BFR, needling as needed SUBJECTIVE: Patient Reason for Visit: Pt doing well today. Feels like he is walking a touch better. Notes less knee shaking as he ambulates now Pain: Pain Pain Level: 0 Pain Location: Knee - Left Description: Stiffness, Tightness Frequency: Intermittent OBJECTIVE MEASURES WITH LEVEL OF FUNCTION: LE PROM L Knee Flexion: 92 Degrees TREATMENT: Therapeutic Exercise: 1: SciFit StepOne recumbent stepper seat #14 to #12 in pain-free range x10 minutes (used to improve knee flexion ROM today) 2: supine L heel slides with assist from strap 2x10 3: BFR SAQ x30, 15, 15, 15 (large cuff, 144 mmHg for all exercises today; 30 sec between sets, 1 min between exercises) 4: BFR glute bridging x30, 15, 15, 15 5: BFR SLR x30, 15, 15, 15 Skilled Intervention: Patient was educated in proper exercise technique and purpose for exercises. Skilled judgment was provided in selection of appropriate interventions. Provided written instruction for home exercise program to facilitate proper performance and compliance. Correct performance of therapeutic exercises was facilitated with verbal, visual, and tactile cuing. Billing Therapeutic Exercise Treatment Minutes: 40 Total Treatment Time Minutes (timed/untimed): 40 Juan Zamora PT documented in this encounter [facility] 10-14-2022 Note HNO ID: [id number] Author: Suresh Dominguez PT Service: ? Author Type: Physical Therapist Type: Progress Notes Filed: 10/14/2022 9:11 PM Note Text: Episode Visit Count: 12 Therapist That Will Accept/Oversee The Plan Of Care: Juan Zamora PT Start of Care Date: 09/03/22 Onset Date: 08/13/22 Plan of Care Certification Date: 06/12/22 Next Certification Due Date: 07/17/22 Patient Identified by Name and Date of : Yes REHABILITATION AND SPORTS THERAPY PHYSICAL THERAPY TREATMENT NOTE ASSESSMENT: Tucker Zambrano tolerated the session with fatigue, expected muscle soreness, and no issues. He demonstrated improvements in gait and exercise tolerance. The patient will continue to benefit from ongoing skilled physical therapy to progress toward set goals and to continue with post-operative protocol . PLAN FOR NEXT VISIT: Continue per plan from referring provider, progressing to tolerance. SUBJECTIVE: Patient Reason for Visit: Pt reports that overall he is doing well and making progress with strength and pain but that he is frustrated with the lack of flexion ROM. He reports improved ability to maneuver his L LE for bed mobility and transfers. He denies any pain at the start of session, just stiffness and tight feeling with bending. He reports compliance with HEP 3x day. Pain: Pain Pain Level: 0 Pain Location: Knee - Left Description: Stiffness, Tightness Frequency: Intermittent Post Treatment Pain Post Treatment Pain Level: No Change Post Treatment Symptoms: After session, pt reported fatigue but he denied any increase in pain. OBJECTIVE MEASURES WITH LEVEL OF FUNCTION: LE AROM L LE AROM: supine L Knee Flexion: 85 Degrees Gait Weight Bearing Status: PWB Gait: Modified Independent Gait Device: Crutches Gait Observation: Pt is reluctant to bear weight on L LE and relies heavily on crutches as well as lateral lean to right. He denied pain with gait but he was much more confident wtih two crutches. His crutches were several inches too short. Brace/Orthotics: none TREATMENT: Therapeutic Exercise: 1: SciFit StepOne recumbent stepper seat #14 in pain-free range x5 minutes (Pt provided an update on his condition) 2: supine L heel slides with assist from strap 2x10 3: supine heel slides x10 without strap assist. 4: BFR ankle pumps x30 reps, 15 reps x3 for four total sets. (144 mmHg = 80% LOP. LOP = 180 mmHg 30 second rest between sets and 1 minute rest between exercises) 5: BFR L SAQ x30 reps, 15 reps x3 for four total sets. (144 mmHg = 80% LOP. LOP = 180 mmHg 30 second rest between sets and 1 minute rest between exercises) 6: BFR bridging x30 reps, 15 reps x3 for four total sets. (144 mmHg = 80% LOP. LOP = 180 mmHg 30 second rest between sets and 1 minute rest between exercises) Skilled Intervention: Patient was educated in proper exercise technique and purpose for exercises. Skilled judgment was provided in selection of appropriate interventions. Correct performance of therapeutic exercises was facilitated with verbal, visual, and tactile cuing. Patient education as noted. Gait Trainin: Crutch heights adjusted up and handles adjusted. Pt was educated on proper use of both B crutches and R UE crutch only. He was encouraged to increase WBing on L LE to tolerance but to always use pain as his guide at all times. Mirror was used for visual feedback. Proper use explained and demonstrated. He practiced and therapist provided verbal cues. He was advised to practice increasing WBing on L LE with B crutches but that he should not attempt single crutch until his strength in L LE and confidence increases. Skilled Intervention: Facilitated proper gait cycle with the use of verbal and visual cues for correction of gait deviations identified in the objective section above. Skilled judgment used to assess proper sizing and proper use of assistive device. Billing Therapeutic Exercise Treatment Minutes: 30 Gait Training Treatment Minutes: 15 Total Treatment Time Minutes (timed/untimed): 45 Suresh Dominguez PT [facility] 10-11-2022 Note HNO ID: [id number] Author: Juan Zamora PT Service: ? Author Type: Physical Therapist Type: Progress Notes Filed: 10/11/2022 12:30 PM Note Text: Episode Visit Count: 11 Therapist That Will Accept/Oversee The Plan Of Care: Juan Zamora PT Start of Care Date: 09/03/22 Onset Date: 08/13/22 Plan of Care Certification Date: 06/12/22 Next Certification Due Date: 07/17/22 REHABILITATION AND SPORTS THERAPY PHYSICAL THERAPY TREATMENT NOTE ASSESSMENT: Tucker Zambrano tolerated the session with fatigue, decreased symptoms, and expected muscle soreness. He demonstrated improvements in knee range of motion and tolerance for exercises with manual today. The patient will continue to benefit from ongoing skilled physical therapy to progress toward set goals and to continue with post-operative protocol . PLAN FOR NEXT VISIT: Return to BFR. Perform stretching for flexion first (could even try SciFit), then do BFR ankle pumps, SAQ, Glute bridging if he can tolerate it. Rep scheme is as follows: 30 reps, 30 sec break 15 reps, 30 sec break 15 reps, 30 sec break 15 reps 1 min break Repeat for next exercise SUBJECTIVE: Patient Reason for Visit: Pt doing well today. feels like he is bending a little further now. Even though the needling was intense, he felt it was beneficial and open to more as needed. Pain: Pain Pain Level: 0 Pain Location: Knee - Left Description: Dull Frequency: Intermittent OBJECTIVE MEASURES WITH LEVEL OF FUNCTION: LE AROM L Knee Extension: 0 Degrees L Knee Flexion: 90 Degrees LE PROM L Knee Flexion: 95 Degrees (after dry needling and prolonged stretches today) TREATMENT: Therapeutic Exercise: 1: Strap assisted knee flexion HS 5x10, 5 sec holds 2: *Prone quad stretch 3x30 sec (also instructed in LLLD stretch at home. Starting at 1 min and increasing by 30 sec as tolerated) 3: SLR 2x20 4: *Glute bridges 3x10 5: Knee extension LLLD 10# x5 min (heel propped with half foam roller) Skilled Intervention: Patient was educated in proper exercise technique and purpose for exercises. Skilled judgment was provided in selection of appropriate interventions. Provided written instruction for home exercise program to facilitate proper performance and compliance. Correct performance of therapeutic exercises was facilitated with verbal, visual, and tactile cuing. Manual Therapy: 1: STM and CFM to L rectus femoris with push to tolerance using both foam roller and hands Dry Needling: (1) 50 mm needle to L distal rectus femoris with pistoning and fanning Skilled Intervention: Manual skills to improve joint mobility, ROM, and decrease pain. Utilized anatomy knowledge of the therapist, and assessment of patient's response to intervention. Gait Trainin: Ambulation x100 feet cuing heel to toe ambulation, WBAT 2: Instructed not to increase WB until giving out sensation subsides, never push through this sensation Skilled Intervention: Patient was provided independence during pre-gait/gait training to prevent falls and insure safety. Facilitated proper gait cycle with the use of verbal and visual cues for correction of gait deviations identified in the objective section above. Billing Therapeutic Exercise Treatment Minutes: 22 Manual TherapyTreatment Minutes: 30 Gait Training Treatment Minutes: 5 Total Treatment Time Minutes (timed/untimed): 57 Juan Zamora, PT [facility] 10-11-2022 History of Presen t illness Narrative Episode Visit Count: 11 Therapist That Will Accept/Oversee The Plan Of Care: Juan Zamora PT Start of Care Date: 09/03/22 Onset Date: 08/13/22 Plan of Care Certification Date: 06/12/22 Next Certification Due Date: 07/17/22 REHABILITATION AND SPORTS THERAPY PHYSICAL THERAPY TREATMENT NOTE ASSESSMENT: Tucker Zambrano tolerated the session with fatigue, decreased symptoms, and expected muscle soreness. He demonstrated improvements in knee range of motion and tolerance for exercises with manual today. The patient will continue to benefit from ongoing skilled physical therapy to progress toward set goals and to continue with post-operative protocol . PLAN FOR NEXT VISIT: Return to BFR. Perform stretching for flexion first (could even try SciFit), then do BFR ankle pumps, SAQ, Glute bridging if he can tolerate it. Rep scheme is as follows: 30 reps, 30 sec break 15 reps, 30 sec break 15 reps, 30 sec break 15 reps 1 min break Repeat for next exercise SUBJECTIVE: Patient Reason for Visit: Pt doing well today. feels like he is bending a little further now. Even though the needling was intense, he felt it was beneficial and open to more as needed. Pain: Pain Pain Level: 0 Pain Location: Knee - Left Description: Dull Frequency: Intermittent OBJECTIVE MEASURES WITH LEVEL OF FUNCTION: LE AROM L Knee Extension: 0 Degrees L Knee Flexion: 90 Degrees LE PROM L Knee Flexion: 95 Degrees (after dry needling and prolonged stretches today) TREATMENT: Therapeutic Exercise: 1: Strap assisted knee flexion HS 5x10, 5 sec holds 2: *Prone quad stretch 3x30 sec (also instructed in LLLD stretch at home. Starting at 1 min and increasing by 30 sec as tolerated) 3: SLR 2x20 4: *Glute bridges 3x10 5: Knee extension LLLD 10# x5 min (heel propped with half foam roller) Skilled Intervention: Patient was educated in proper exercise technique and purpose for exercises. Skilled judgment was provided in selection of appropriate interventions. Provided written instruction for home exercise program to facilitate proper performance and compliance. Correct performance of therapeutic exercises was facilitated with verbal, visual, and tactile cuing. Manual Therapy: 1: STM and CFM to L rectus femoris with push to tolerance using both foam roller and hands Dry Needling: (1) 50 mm needle to L distal rectus femoris with pistoning and fanning Skilled Intervention: Manual skills to improve joint mobility, ROM, and decrease pain. Utilized anatomy knowledge of the therapist, and assessment of patient's response to intervention. Gait Trainin: Ambulation x100 feet cuing heel to toe ambulation, WBAT 2: Instructed not to increase WB until giving out sensation subsides, never push through this sensation Skilled Intervention: Patient was provided independence during pre-gait/gait training to prevent falls and insure safety. Facilitated proper gait cycle with the use of verbal and visual cues for correction of gait deviations identified in the objective section above. Billing Therapeutic Exercise Treatment Minutes: 22 Manual TherapyTreatment Minutes: 30 Gait Training Treatment Minutes: 5 Total Treatment Time Minutes (timed/untimed): 57 Juan Zamora PT documented in this encounter [facility] 10-07-2022 Note HNO ID: [id number] Author: Juan Zamora PT Service: ? Author Type: Physical Therapist Type: Progress Notes Filed: 10/07/2022 2:28 PM Note Text: Episode Visit Count: 10 Therapist That Will Accept/Oversee The Plan Of Care: Juan Zamora PT Start of Care Date: 09/03/22 Onset Date: 08/13/22 Plan of Care Certification Date: 06/12/22 Next Certification Due Date: 07/17/22 REHABILITATION AND SPORTS THERAPY PHYSICAL THERAPY TREATMENT NOTE ASSESSMENT: Tucker Zambrano tolerated the session with decreased symptoms. He demonstrated improvements in knee range of motion following dry needling intervention. The patient will continue to benefit from ongoing skilled physical therapy to progress toward set goals. PLAN FOR NEXT VISIT: Needle distal quad SUBJECTIVE: Patient Reason for Visit: Pt interested in the dry needling today Pain: Pain Pain Level: 1 Pain Location: Knee - Left OBJECTIVE MEASURES WITH LEVEL OF FUNCTION: LE PROM L Knee Flexion: 88 Degrees (after stretching and dry needling) TREATMENT: Therapeutic Exercise: 1: Strap assisted knee flexion HS 5x10, 5 sec holds 2: *Prone quad stretching 3x30 sec 3: SLR 3x10 Skilled Intervention: Patient was educated in proper exercise technique and purpose for exercises. Skilled judgment was provided in selection of appropriate interventions. Provided written instruction for home exercise program to facilitate proper performance and compliance. Correct performance of therapeutic exercises was facilitated with verbal, visual, and tactile cuing. Manual Therapy: 1: STM and CFM to L rectus femoris with push to tolerance Dry Needling: (1) 60 mm needle to L rectus femoris with pistoning and fanning Skilled Intervention: Manual skills to improve joint mobility, ROM, and decrease pain. Utilized anatomy knowledge of the therapist, and assessment of patient's response to intervention. Dry needling to following Trigger points: L rectus femoris Needle length: 60mm 2.5 in. [place] used 1, needles removed 1. Dry needling technique used: Pistoning, Fanning, and Deep needling. Patient education on purpose, precautions, safety, risks, and other treatment options regarding dry needling. Verbal consent received. Billing Therapeutic Exercise Treatment Minutes: 10 Manual TherapyTreatment Minutes: 33 Total Treatment Time Minutes (timed/untimed): 43 Juan Zamora, PT [facility] 10-07-2022 History of Presen t illness Narrative Episode Visit Count: 10 Therapist That Will Accept/Oversee The Plan Of Care: Juan Zamora PT Start of Care Date: 09/03/22 Onset Date: 08/13/22 Plan of Care Certification Date: 06/12/22 Next Certification Due Date: 07/17/22 REHABILITATION AND SPORTS THERAPY PHYSICAL THERAPY TREATMENT NOTE ASSESSMENT: Tucker Jeffersonjerome tolerated the session with decreased symptoms. He demonstrated improvements in knee range of motion following dry needling intervention. The patient will continue to benefit from ongoing skilled physical therapy to progress toward set goals. PLAN FOR NEXT VISIT: Needle distal quad SUBJECTIVE: Patient Reason for Visit: Pt interested in the dry needling today Pain: Pain Pain Level: 1 Pain Location: Knee - Left OBJECTIVE MEASURES WITH LEVEL OF FUNCTION: LE PROM L Knee Flexion: 88 Degrees (after stretching and dry needling) TREATMENT: Therapeutic Exercise: 1: Strap assisted knee flexion HS 5x10, 5 sec holds 2: *Prone quad stretching 3x30 sec 3: SLR 3x10 Skilled Intervention: Patient was educated in proper exercise technique and purpose for exercises. Skilled judgment was provided in selection of appropriate interventions. Provided written instruction for home exercise program to facilitate proper performance and compliance. Correct performance of therapeutic exercises was facilitated with verbal, visual, and tactile cuing. Manual Therapy: 1: STM and CFM to L rectus femoris with push to tolerance Dry Needling: (1) 60 mm needle to L rectus femoris with pistoning and fanning Skilled Intervention: Manual skills to improve joint mobility, ROM, and decrease pain. Utilized anatomy knowledge of the therapist, and assessment of patient's response to intervention. Dry needling to following Trigger points: L rectus femoris Needle length: 60mm 2.5 in. [place] used 1, needles removed 1. Dry needling technique used: Pistoning, Fanning, and Deep needling. Patient education on purpose, precautions, safety, risks, and other treatment options regarding dry needling. Verbal consent received. Billing Therapeutic Exercise Treatment Minutes: 10 Manual TherapyTreatment Minutes: 33 Total Treatment Time Minutes (timed/untimed): 43 Juan Zamora PT documented in this encounter [facility] 10-05-2022 Note HNO ID: [id number] Author: Juan Zamora PT Service: ? Author Type: Physical Therapist Type: Progress Notes Filed: 10/04/2022 10:59 PM Note Text: Episode Visit Count: 9 Therapist That Will Accept/Oversee The Plan Of Care: Juan Zamora PT Start of Care Date: 09/03/22 Onset Date: 08/13/22 Plan of Care Certification Date: 06/12/22 Next Certification Due Date: 07/17/22 REHABILITATION AND SPORTS THERAPY PHYSICAL THERAPY TREATMENT NOTE ASSESSMENT: Tucker Zambrano tolerated the session with fatigue and no issues. He demonstrated improvements in gait PWB and knee/hip strengthening. The patient will continue to benefit from ongoing skilled physical therapy to progress toward set goals and to continue with post-operative protocol . PLAN FOR NEXT VISIT: May try SLR BFR SUBJECTIVE: Patient Reason for Visit: Pt doing well today, last session was challenging but not painful Pain: Pain Pain Level: 1 Pain Location: Knee - Left OBJECTIVE MEASURES WITH LEVEL OF FUNCTION: Gait observed throughout session TREATMENT: Therapeutic Exercise: 1: BFR ankle pumps x30, 15, 15, 15 (Large cuff 144 mmHg, 30 sec rest between sets, 1 min between all exercises today) 2: BFR SAQ x30, 15, 15, 15 3: BFR SL hip abduction x30, 15, 15, 15 4: Seated knee flexion off mat table with table elevated above hip height x10 Skilled Intervention: Patient was educated in proper exercise technique and purpose for exercises. Skilled judgment was provided in selection of appropriate interventions. Provided written instruction for home exercise program to facilitate proper performance and compliance. Correct performance of therapeutic exercises was facilitated with verbal, visual, and tactile cuing. Gait Trainin: *Weight shifting onto LLE per tolerance 3x20 2: Cued in ambulation with 25% WB with crutches per tolerance Skilled Intervention: Facilitated proper gait cycle with the use of verbal and visual cues for correction of gait deviations identified in the objective section above. Billing Therapeutic Exercise Treatment Minutes: 35 Gait Training Treatment Minutes: 10 Total Treatment Time Minutes (timed/untimed): 45 Juan Zamora, PT [facility] 10-04-2022 History of Presen t illness Narrative Episode Visit Count: 9 Therapist That Will Accept/Oversee The Plan Of Care: Juan Zamora PT Start of Care Date: 09/03/22 Onset Date: 08/13/22 Plan of Care Certification Date: 06/12/22 Next Certification Due Date: 07/17/22 REHABILITATION AND SPORTS THERAPY PHYSICAL THERAPY TREATMENT NOTE ASSESSMENT: Tucker Zambrano tolerated the session with fatigue and no issues. He demonstrated improvements in gait PWB and knee/hip strengthening. The patient will continue to benefit from ongoing skilled physical therapy to progress toward set goals and to continue with post-operative protocol . PLAN FOR NEXT VISIT: May try SLR BFR SUBJECTIVE: Patient Reason for Visit: Pt doing well today, last session was challenging but not painful Pain: Pain Pain Level: 1 Pain Location: Knee - Left OBJECTIVE MEASURES WITH LEVEL OF FUNCTION: Gait observed throughout session TREATMENT: Therapeutic Exercise: 1: BFR ankle pumps x30, 15, 15, 15 (Large cuff 144 mmHg, 30 sec rest between sets, 1 min between all exercises today) 2: BFR SAQ x30, 15, 15, 15 3: BFR SL hip abduction x30, 15, 15, 15 4: Seated knee flexion off mat table with table elevated above hip height x10 Skilled Intervention: Patient was educated in proper exercise technique and purpose for exercises. Skilled judgment was provided in selection of appropriate interventions. Provided written instruction for home exercise program to facilitate proper performance and compliance. Correct performance of therapeutic exercises was facilitated with verbal, visual, and tactile cuing. Gait Trainin: *Weight shifting onto LLE per tolerance 3x20 2: Cued in ambulation with 25% WB with crutches per tolerance Skilled Intervention: Facilitated proper gait cycle with the use of verbal and visual cues for correction of gait deviations identified in the objective section above. Billing Therapeutic Exercise Treatment Minutes: 35 Gait Training Treatment Minutes: 10 Total Treatment Time Minutes (timed/untimed): 45 Juan Zamora PT documented in this encounter [facility] 10-02-2022 Note HNO ID: [id number] Author: Alison Powell PT Service: ? Author Type: Physical Therapist Type: Progress Notes Filed: 10/02/2022 6:06 PM Note Text: Episode Visit Count: 8 Therapist That Will Accept/Oversee The Plan Of Care: Juan Zamora PT Start of Care Date: 09/03/22 Onset Date: 08/13/22 Plan of Care Certification Date: 06/12/22 Next Certification Due Date: 07/17/22 REHABILITATION AND SPORTS THERAPY PHYSICAL THERAPY TREATMENT NOTE ASSESSMENT: Tucker Zambrano tolerated the session with fatigue and expected muscle soreness. He demonstrated difficulty with BFR short arc quads exercise sets but was able to complete each rep without quad lag until the fourth set. The patient will continue to benefit from ongoing skilled physical therapy to progress toward set goals. PLAN FOR NEXT VISIT: SUBJECTIVE: Patient Reason for Visit: Denies knee pain. He has been elevating and applying ice to manage symptoms. Presents with B crutches. Pain: Pain Pain Level: 0 Pain Location: Knee - Left Post Treatment Pain Post Treatment Pain Level: 0 Post Treatment Pain Location: Knee - Left OBJECTIVE MEASURES WITH LEVEL OF FUNCTION: LE PROM L Knee Flexion: 80 Degrees (supine AAROM with strap assist) TREATMENT: Therapeutic Exercise: 1: BFR LLE cellular swell with isometric quad sets 10 sec on, 10 sec off (144 mmHg, 80% LOP 2 rounds of 5 min on, 3 min rest between sets. Large cuff) 2: L Heel slides AROM 2 x10 between 3 min rest period between 5 min BFR quad sets 3: L Heel slides with strap assist 2x10, 5 sec hold (measurement taken) 4: Quad sets x20 5: BFR LLE ankle pumps, long sitting with back support at wall 30/15/15/15 30 sec rest between each set (144 mmHg, 80% LOP) 6: 3 min rest between BFR ankle pumps and SAQ, cuff deflated 7: BFR LLE SAQ long sitting with back support at wall 30/15/15/15 30 sec rest between each set Skilled Intervention: Patient was educated in proper exercise technique and purpose for exercises. Reviewed and educated patient on additions/changes for home exercise program as above (*). Skilled judgment was provided in selection of appropriate interventions. Correct performance of therapeutic exercises was facilitated with verbal, visual, and tactile cuing. Educated patient on rationale for performing exercises in regards to decreasing fatigue , increase ease of ADL, and ROM and function . Billing Therapeutic Exercise Treatment Minutes: 40 Manual TherapyTreatment Minutes: 5 Total Treatment Time Minutes (timed/untimed): 45 Alison Powell, PT [facility] 10-02-2022 History of Presen t illness Narrative Episode Visit Count: 8 Therapist That Will Accept/Oversee The Plan Of Care: Juan Zamora PT Start of Care Date: 09/03/22 Onset Date: 08/13/22 Plan of Care Certification Date: 06/12/22 Next Certification Due Date: 07/17/22 REHABILITATION AND SPORTS THERAPY PHYSICAL THERAPY TREATMENT NOTE ASSESSMENT: Tucker Zambrano tolerated the session with fatigue and expected muscle soreness. He demonstrated difficulty with BFR short arc quads exercise sets but was able to complete each rep without quad lag until the fourth set. The patient will continue to benefit from ongoing skilled physical therapy to progress toward set goals. PLAN FOR NEXT VISIT: SUBJECTIVE: Patient Reason for Visit: Denies knee pain. He has been elevating and applying ice to manage symptoms. Presents with B crutches. Pain: Pain Pain Level: 0 Pain Location: Knee - Left Post Treatment Pain Post Treatment Pain Level: 0 Post Treatment Pain Location: Knee - Left OBJECTIVE MEASURES WITH LEVEL OF FUNCTION: LE PROM L Knee Flexion: 80 Degrees (supine AAROM with strap assist) TREATMENT: Therapeutic Exercise: 1: BFR LLE cellular swell with isometric quad sets 10 sec on, 10 sec off (144 mmHg, 80% LOP 2 rounds of 5 min on, 3 min rest between sets. Large cuff) 2: L Heel slides AROM 2 x10 between 3 min rest period between 5 min BFR quad sets 3: L Heel slides with strap assist 2x10, 5 sec hold (measurement taken) 4: Quad sets x20 5: BFR LLE ankle pumps, long sitting with back support at wall 30/15/15/15 30 sec rest between each set (144 mmHg, 80% LOP) 6: 3 min rest between BFR ankle pumps and SAQ, cuff deflated 7: BFR LLE SAQ long sitting with back support at wall 30/15/15/15 30 sec rest between each set Skilled Intervention: Patient was educated in proper exercise technique and purpose for exercises. Reviewed and educated patient on additions/changes for home exercise program as above (*). Skilled judgment was provided in selection of appropriate interventions. Correct performance of therapeutic exercises was facilitated with verbal, visual, and tactile cuing. Educated patient on rationale for performing exercises in regards to decreasing fatigue , increase ease of ADL, and ROM and function . Billing Therapeutic Exercise Treatment Minutes: 40 Manual TherapyTreatment Minutes: 5 Total Treatment Time Minutes (timed/untimed): 45 Alison Powell PT documented in this encounter [facility] 09-27-2022 Note HNO ID: [id number] Author: Juan Zamora PT Service: ? Author Type: Physical Therapist Type: Progress Notes Filed: 09/27/2022 1:00 PM Note Text: Episode Visit Count: 7 Therapist That Will Accept/Oversee The Plan Of Care: Juan Zamora PT Start of Care Date: 09/03/22 Onset Date: 08/13/22 Plan of Care Certification Date: 06/12/22 Next Certification Due Date: 07/17/22 REHABILITATION AND SPORTS THERAPY PHYSICAL THERAPY TREATMENT NOTE ASSESSMENT: Tucker Zambrano tolerated the session with decreased symptoms and no issues. He demonstrated improvements in knee range of motion and tolerance for strengthening. The patient will continue to benefit from ongoing skilled physical therapy to progress toward set goals and to continue with post-operative protocol . PLAN FOR NEXT VISIT: Manual prn, exercises per tolerance SUBJECTIVE: Patient Reason for Visit: Pt a little swollen today, felt a few zingers in the knee as well Pain: Pain Pain Level: 0 Pain Location: Knee - Left Description: Aching Frequency: Intermittent OBJECTIVE MEASURES WITH LEVEL OF FUNCTION: LE AROM L Knee Extension: 0 Degrees L Knee Flexion: 75 Degrees TREATMENT: Therapeutic Exercise: 1: SLR x20 2: *SL hip abduction 3x10 3: *SL hip abduction progression x10 4: Quad sets x20 5: Heel slides x10 6: Heel slides with strap assist 3x10 Skilled Intervention: Patient was educated in proper exercise technique and purpose for exercises. Skilled judgment was provided in selection of appropriate interventions. Provided written instruction for home exercise program to facilitate proper performance and compliance. Correct performance of therapeutic exercises was facilitated with verbal, visual, and tactile cuing. Manual Therapy: 1: Superficial effleurage with legs elevated on 2 bolsters x10 min 2: STM with foam roller to L rectus femoris Skilled Intervention: Manual skills to improve joint mobility, ROM, and decrease pain. Utilized anatomy knowledge of the therapist, and assessment of patient's response to intervention. Billing Therapeutic Exercise Treatment Minutes: 23 Manual TherapyTreatment Minutes: 20 Total Treatment Time Minutes (timed/untimed): 43 Juan Zamora, PT [facility] 09-27-2022 History of Presen t illness Narrative Episode Visit Count: 7 Therapist That Will Accept/Oversee The Plan Of Care: Juan Zamora PT Start of Care Date: 09/03/22 Onset Date: 08/13/22 Plan of Care Certification Date: 06/12/22 Next Certification Due Date: 07/17/22 REHABILITATION AND SPORTS THERAPY PHYSICAL THERAPY TREATMENT NOTE ASSESSMENT: Tucker Zambrano tolerated the session with decreased symptoms and no issues. He demonstrated improvements in knee range of motion and tolerance for strengthening. The patient will continue to benefit from ongoing skilled physical therapy to progress toward set goals and to continue with post-operative protocol . PLAN FOR NEXT VISIT: Manual prn, exercises per tolerance SUBJECTIVE: Patient Reason for Visit: Pt a little swollen today, felt a few zingers in the knee as well Pain: Pain Pain Level: 0 Pain Location: Knee - Left Description: Aching Frequency: Intermittent OBJECTIVE MEASURES WITH LEVEL OF FUNCTION: LE AROM L Knee Extension: 0 Degrees L Knee Flexion: 75 Degrees TREATMENT: Therapeutic Exercise: 1: SLR x20 2: *SL hip abduction 3x10 3: *SL hip abduction progression x10 4: Quad sets x20 5: Heel slides x10 6: Heel slides with strap assist 3x10 Skilled Intervention: Patient was educated in proper exercise technique and purpose for exercises. Skilled judgment was provided in selection of appropriate interventions. Provided written instruction for home exercise program to facilitate proper performance and compliance. Correct performance of therapeutic exercises was facilitated with verbal, visual, and tactile cuing. Manual Therapy: 1: Superficial effleurage with legs elevated on 2 bolsters x10 min 2: STM with foam roller to L rectus femoris Skilled Intervention: Manual skills to improve joint mobility, ROM, and decrease pain. Utilized anatomy knowledge of the therapist, and assessment of patient's response to intervention. Billing Therapeutic Exercise Treatment Minutes: 23 Manual TherapyTreatment Minutes: 20 Total Treatment Time Minutes (timed/untimed): 43 Juan Zamora PT documented in this encounter [facility] 09-25-2022 Note HNO ID: [id number] Author: Juan Zamora PT Service: ? Author Type: Physical Therapist Type: Progress Notes Filed: 09/25/2022 12:30 PM Note Text: Episode Visit Count: 6 Therapist That Will Accept/Oversee The Plan Of Care: Juan Zamora PT Start of Care Date: 09/03/22 Onset Date: 08/13/22 Plan of Care Certification Date: 06/12/22 Next Certification Due Date: 07/17/22 REHABILITATION AND SPORTS THERAPY PHYSICAL THERAPY TREATMENT NOTE ASSESSMENT: Tucker Zambrano tolerated the session with fatigue and no issues. He demonstrated improvements in L quad strength and tolerance for BFR. The patient will continue to benefit from ongoing skilled physical therapy to progress toward set goals. PLAN FOR NEXT VISIT: BFR isotonics SUBJECTIVE: Patient Reason for Visit: Pt doing well, out of brace now and he is to slowly begin progressive Wb over the next few weeks as quad strength comes back Pain: Pain Pain Level: 0 OBJECTIVE MEASURES WITH LEVEL OF FUNCTION: LE AROM L Knee Extension: 2 Degrees L Knee Flexion: 71 Degrees TREATMENT: Therapeutic Exercise: 1: BFR cellular swell with isometric quad sets 10 sec on, 10 sec off (144 mmHg, 5 rounds of 5 min on, 3 min rest between sets. Large cuff) 2: Heel slides x10 3: Heel slides with strap assist x10 4: Quad sets x20 5: SLR x10 Skilled Intervention: Patient was educated in proper exercise technique and purpose for exercises. Skilled judgment was provided in selection of appropriate interventions. Correct performance of therapeutic exercises was facilitated with verbal, visual, and tactile cuing. Billing Therapeutic Exercise Treatment Minutes: 54 Total Treatment Time Minutes (timed/untimed): 54 Juan Zamora, PT [facility] 09-25-2022 History of Presen t illness Narrative Episode Visit Count: 6 Therapist That Will Accept/Oversee The Plan Of Care: Juan Zamora PT Start of Care Date: 09/03/22 Onset Date: 08/13/22 Plan of Care Certification Date: 06/12/22 Next Certification Due Date: 07/17/22 REHABILITATION AND SPORTS THERAPY PHYSICAL THERAPY TREATMENT NOTE ASSESSMENT: Tucker Zambrano tolerated the session with fatigue and no issues. He demonstrated improvements in L quad strength and tolerance for BFR. The patient will continue to benefit from ongoing skilled physical therapy to progress toward set goals. PLAN FOR NEXT VISIT: BFR isotonics SUBJECTIVE: Patient Reason for Visit: Pt doing well, out of brace now and he is to slowly begin progressive Wb over the next few weeks as quad strength comes back Pain: Pain Pain Level: 0 OBJECTIVE MEASURES WITH LEVEL OF FUNCTION: LE AROM L Knee Extension: 2 Degrees L Knee Flexion: 71 Degrees TREATMENT: Therapeutic Exercise: 1: BFR cellular swell with isometric quad sets 10 sec on, 10 sec off (144 mmHg, 5 rounds of 5 min on, 3 min rest between sets. Large cuff) 2: Heel slides x10 3: Heel slides with strap assist x10 4: Quad sets x20 5: SLR x10 Skilled Intervention: Patient was educated in proper exercise technique and purpose for exercises. Skilled judgment was provided in selection of appropriate interventions. Correct performance of therapeutic exercises was facilitated with verbal, visual, and tactile cuing. Billing Therapeutic Exercise Treatment Minutes: 54 Total Treatment Time Minutes (timed/untimed): 54 Juan Zamora PT documented in this encounter [facility] 09-23-2022 Note HNO ID: [id number] Author: Reji Vergara PA-C Service: ? Author Type: Physician Card Punching Machine Operator Type: Progress Notes Filed: 09/23/2022 2:13 PM Note Text: September 23, 2022 10:52 AM HPI: Tucker Zambrano is a 22 year old male who presents for Left knee arthroscopy, and open BIOUNI 25mm osteochondral allograft reconstruction medial femoral condyle, and allograft transplant 2x 6mm plugs to the lateral femoral condyle. Patient states overall he is doing well. He admits compliance with nonweightbearing on bilateral crutches. He admits compliance in his hinged T ROM brace 0-90. Has been undergoing formal physical therapy services and denies any difficulty with this. He admits significant improvements in his ability perform a straight leg raise of the last week. Able to bend his knee 0-70 and improving with time. Otherwise well. Denies acute falls or traumas. Denies mechanical symptoms. Diagnosis: S/p orthopedic surgery, follow-up exam (primary encounter diagnosis) Assessment/Plan: At this time we will have patient progress his weightbearing over the next 2 weeks with physical therapy pending continued improvements in his quad strengthening. Follow-up in 8 weeks with radiographs at that time approximately 3 months postop. Continue focusing on strengthening, and straight midline walking only. No running, jogging, cutting or pivoting until cleared. All questions answered. Patient verbalizes clear standing of all instructions and would like to proceed in this fashion. Discontinue hinged TROM brace in 2 weeks once full weightbearing. PAIN EVALUATION No data found in the last 1 encounters. Past Medical History: PAST MEDICAL HISTORY Diagnosis Date Allergic rhinitis, cause unspecified Allergic rhinitis Pain in limb 2009 Family History: FAMILY HISTORY Problem Relation Age of Onset Hypertension Father Social History: Social History Tobacco Use Smoking status: Never Smokeless tobacco: Never Vaping Use Vaping Use: Never used Substance Use Topics Alcohol use: Never Drug use: Never Medications: ibuprofen (MOTRIN ORAL) Take by mouth. finasteride (PROPECIA,PROSCAR) 1 mg tablet Take 1 mg by mouth once daily. Allergies: ALLERGIES Allergen Reactions Penicillins Rash Environmental [Othe* Physical Exam: Examination of the left knee: ROM: 0-70 Midline incision well-healed and well approximated. C/D/I. Steri-Strips removed today. No clinical signs of infection. No signs of trauma, erythema, or ecchymoses. Non TTP throughout the knee Medial Joint Line: no tenderness to palpation Lateral Joint Line: no tenderness to palpation Barry/Anterior Drawer: no ligamentous laxity noted Posterior Drawer: no ligamentous laxity noted Valgus Stress Test: no ligamentous laxity noted Varus Stress Test: no ligamentous laxity noted Thessaly's test/Radha's: no pain elicited medially or laterally Squat Test: Negative. Patellofemoral Examination: normal bilateral patellar examination with no tenderness to palpation. No patellar tethering. HIP Exam: normal Grossly NVI along L4, L5, and S1 Review of Systems: Constitutional: Any recent fevers? No Cardiovascular: Any chest pain? No Respiratory: Any shortness or breath? No Gastrointestinal: Any abdominal discomfort? No Integumentary: Any recent skin changes or rashes? No Neurologic: Any numbness or tingling? See Above Endocrine: Any diagnosis of diabetes? No Hematologic: Any recent bleeding episodes? No I spent a total of 25 minutes on the date of the service which included preparing to see the patient, [id number] patient care, completing clinical documentation, obtaining and/or reviewing separately obtained history, performing a medically appropriate examination, counseling and educating the patient/family/caregiver, ordering medications, tests, or procedures, independently interpreting results (not separately reported), communicating results to the patient/family/caregiver and care coordination (not separately reported). Reji Vergara PA-C Date: September 23, 2022 Time: 10:[address] [facility] 09-20-2022 Note HNO ID: [id number] Author: Juan Zamora PT Service: ? Author Type: Physical Therapist Type: Progress Notes Filed: 09/20/2022 12:36 PM Note Text: Episode Visit Count: 5 Therapist That Will Accept/Oversee The Plan Of Care: Juan Zamora PT Start of Care Date: 09/03/22 Onset Date: 08/13/22 Plan of Care Certification Date: 06/12/22 Next Certification Due Date: 07/17/22 REHABILITATION AND SPORTS THERAPY PHYSICAL THERAPY TREATMENT NOTE ASSESSMENT: Tucker Zambrano tolerated the session with fatigue, expected muscle soreness, and no issues. He demonstrated improvements in quad firing and knee range of motion today. Patient was able to perform an eccentric SAQ at end of session today. The patient will continue to benefit from ongoing skilled physical therapy to progress toward set goals and to continue with post-operative protocol . PLAN FOR NEXT VISIT: UE band exercises for pt to do in bed SUBJECTIVE: Patient Reason for Visit: Pt has been elevating his leg, and finds less resistance with bending. Pain: Pain Pain Level: 0 OBJECTIVE MEASURES WITH LEVEL OF FUNCTION: LE AROM L Knee Extension: 2.5 Degrees L Knee Flexion: 73 Degrees TREATMENT: Therapeutic Exercise: 1: BFR cellular swell protocol x5 min on, 3 min off (5 rounds, 144 mmHg, large cuff distal thigh on L) 2: Heel slides x10 3: Heel slides with strap assist x10 4: Quad sets x20 5: *Eccentric SAQ x5 6: Attempted SLR post session, unable Skilled Intervention: Patient was educated in proper exercise technique and purpose for exercises. Skilled judgment was provided in selection of appropriate interventions. Provided written instruction for home exercise program to facilitate proper performance and compliance. Correct performance of therapeutic exercises was facilitated with verbal, visual, and tactile cuing. Patient education as noted. Billing Therapeutic Exercise Treatment Minutes: 56 Total Treatment Time Minutes (timed/untimed): 56 Juan Zamora PT [facility] 09-19-2022 Note HNO ID: [id number] Author: Juan Zamora PT Service: ? Author Type: Physical Therapist Type: Progress Notes Filed: 09/19/2022 2:24 PM Note Text: Episode Visit Count: 4 Therapist That Will Accept/Oversee The Plan Of Care: Juan Zamora PT Start of Care Date: 09/03/22 Onset Date: 08/13/22 Plan of Care Certification Date: 06/12/22 Next Certification Due Date: 07/17/22 REHABILITATION AND SPORTS THERAPY PHYSICAL THERAPY TREATMENT NOTE ASSESSMENT: Tucker Zambrano tolerated the session with fatigue and no issues. He demonstrated improvements in knee flexion and quad firing. The patient will continue to benefit from ongoing skilled physical therapy to progress toward set goals. PLAN FOR NEXT VISIT: BFR cellular swell protocol plus estim SUBJECTIVE: Patient Reason for Visit: Pt doing well today, feels he is starting to get some firing back in the quad. Admits he has not done as much bending of the knee as he should have, mostly bc it hurts and it takes so much effort Pain: Pain Pain Level: 0 Pain Location: Knee - Left Description: Aching Frequency: Intermittent OBJECTIVE MEASURES WITH LEVEL OF FUNCTION: LE AROM L Knee Extension: 2 Degrees L Knee Flexion: 70 Degrees (with strap assist) TREATMENT: Therapeutic Exercise: 1: BFR cellular swell protocol (x5 min on, 3 min off, 1 round today. 144 mmHg = 80% LOP. LOP = 180 mmHg) 2: Quad sets 2x20 3: *LLLD knee extension stretch x3 min 4: Heel slides x10 5: Heel slides with strap assist x10 6: Discussed various ways at home to achieve a LLLD knee flexion stretch that may be more tolerable to pt 7: Adjusted brace to 90 degrees flexion Skilled Intervention: Patient was educated in proper exercise technique and purpose for exercises. Skilled judgment was provided in selection of appropriate interventions. Provided written instruction for home exercise program to facilitate proper performance and compliance. Billing Therapeutic Exercise Treatment Minutes: 40 Total Treatment Time Minutes (timed/untimed): 40 Juan Zamora, PT [facility] 09-19-2022 History of Presen t illness Narrative Episode Visit Count: 4 Therapist That Will Accept/Oversee The Plan Of Care: Juan Zamora PT Start of Care Date: 09/03/22 Onset Date: 08/13/22 Plan of Care Certification Date: 06/12/22 Next Certification Due Date: 07/17/22 REHABILITATION AND SPORTS THERAPY PHYSICAL THERAPY TREATMENT NOTE ASSESSMENT: Tucker Zambrano tolerated the session with fatigue and no issues. He demonstrated improvements in knee flexion and quad firing. The patient will continue to benefit from ongoing skilled physical therapy to progress toward set goals. PLAN FOR NEXT VISIT: BFR cellular swell protocol plus estim SUBJECTIVE: Patient Reason for Visit: Pt doing well today, feels he is starting to get some firing back in the quad. Admits he has not done as much bending of the knee as he should have, mostly bc it hurts and it takes so much effort Pain: Pain Pain Level: 0 Pain Location: Knee - Left Description: Aching Frequency: Intermittent OBJECTIVE MEASURES WITH LEVEL OF FUNCTION: LE AROM L Knee Extension: 2 Degrees L Knee Flexion: 70 Degrees (with strap assist) TREATMENT: Therapeutic Exercise: 1: BFR cellular swell protocol (x5 min on, 3 min off, 1 round today. 144 mmHg = 80% LOP. LOP = 180 mmHg) 2: Quad sets 2x20 3: *LLLD knee extension stretch x3 min 4: Heel slides x10 5: Heel slides with strap assist x10 6: Discussed various ways at home to achieve a LLLD knee flexion stretch that may be more tolerable to pt 7: Adjusted brace to 90 degrees flexion Skilled Intervention: Patient was educated in proper exercise technique and purpose for exercises. Skilled judgment was provided in selection of appropriate interventions. Provided written instruction for home exercise program to facilitate proper performance and compliance. Billing Therapeutic Exercise Treatment Minutes: 40 Total Treatment Time Minutes (timed/untimed): 40 Juan Zamora PT documented in this encounter [facility] 09-13-2022 Note HNO ID: [id number] Author: Lisa Rangel PT Service: ? Author Type: Physical Therapist Type: Progress Notes Filed: 09/13/2022 10:43 AM Note Text: Episode Visit Count: 3 Therapist That Will Accept/Oversee The Plan Of Care: Juan Zamora PT Start of Care Date: 09/03/22 Onset Date: 08/13/22 Plan of Care Certification Date: 06/12/22 Next Certification Due Date: 07/17/22 Patient Identified by Name and Date of : Yes REHABILITATION AND SPORTS THERAPY PHYSICAL THERAPY TREATMENT NOTE ASSESSMENT: Tucker Zambrano tolerated the session with no issues. He demonstrated improvements in performance of exs and ROM. Still trouble with SLR and quad activation . The patient will continue to benefit from ongoing skilled physical therapy to progress toward set goals. PLAN FOR NEXT VISIT: will add stim and BFR to treatment to facilitate quad activation Transfer of Care Due To: Specialty Service Patient transferring care to: Juan Zamora for BFR SUBJECTIVE: Patient Reason for Visit: Pt reports that he has been doing exs about 4 times per day. Feels that he has progressed with leg lifts but ROM is about the same. Notes a sharper pain with fleixon in the medial aspect of the knee Pain: Pain Pain Level: 0 Pain Location: Knee - Left Description: Aching Frequency: Intermittent OBJECTIVE MEASURES WITH LEVEL OF FUNCTION: LE AROM L Knee Extension: 0 Degrees L Knee Flexion: 65 Degrees TREATMENT: Therapeutic Exercise: 1: quad sets 2x20 cues for form used right leg as well for feedback and visual cues 2: heel slides without strap 1x6, with strap assist 1x10, 3: Assisted supine SLR 2x10 1x5 still much effort and assist required 4: ankle pumps and ankle circles 1x10 each 5: stanidng leg lifts left front, side and back 2x20 at parallel bars 6: patellar mobilization 2x20 medial lateral and proximal distal 2x20 7: heel prop for extension with rolled towel x2 min. 8: adjusted brace to 0-80 per physician office instruction Skilled Intervention: Patient was educated in proper exercise technique and purpose for exercises. Skilled judgment was provided in selection of appropriate interventions. Correct performance of therapeutic exercises was facilitated with verbal and visual cuing. Patient education as noted. Billing Therapeutic Exercise Treatment Minutes: 45 Total Treatment Time Minutes (timed/untimed): 45 Lisa Rangel PT [facility] 09-04-2022 Note HNO ID: [id number] Author: Lisa Rangel PT Service: ? Author Type: Physical Therapist Type: Progress Notes Filed: 09/04/2022 3:11 PM Note Text: Episode Visit Count: 2 Therapist That Will Accept/Oversee The Plan Of Care: Lisa Rangel PT Start of Care Date: 09/03/22 Onset Date: 08/13/22 Plan of Care Certification Date: 06/12/22 Next Certification Due Date: 07/17/22 Patient Identified by Name and Date of : Yes REHABILITATION AND SPORTS THERAPY PHYSICAL THERAPY TREATMENT NOTE ASSESSMENT: Tucker Zambrano tolerated the session with expected muscle soreness. He demonstrated improvements in quad sets, extension ROM and assisted SLR. . The patient will continue to benefit from ongoing skilled physical therapy to progress toward set goals. PLAN FOR NEXT VISIT: Continue to faciliate ROM and quad strengthening. Advance brace 10 degrees as tolerated SUBJECTIVE: Patient Reason for Visit: Pt reports that his knee felt more stiffness with ROM today then he did yesterday. Did ok with standing leg lifts Pain: Pain Pain Level: 2 Pain Location: Knee - Left Description: Aching Frequency: Intermittent Post Treatment Pain Post Treatment Pain Level: Worse Post Treatment Pain Location: Knee - Left Post Treatment Pain Description: Sore Post Treatment Symptoms: tired OBJECTIVE MEASURES WITH LEVEL OF FUNCTION: Knee Observations L Incision: dry steri strips intact , minimal ecchymosis LE AROM L Knee Extension: -1 Degrees L Knee Flexion: 51 Degrees Gait Weight Bearing Status: NWB TREATMENT: Therapeutic Exercise: 1: quad sets 2x10 cues for form used right leg as well for feedback and visual cues 2: heel slides with strap assist 1x10, trial of seated heel slides, pt did not like there, felt heavy uncomfortable so discontinued 3: Assisted supine SLR 1x10 1x5 with signficant assist and effort 4: ankle pumps and ankle circles 1x10 each 5: stanidng leg lifts left front, side and back 2x10 at parallel bars 6: patellar mobilization 2x10 medial lateral and proximal distal 2x10 7: heel prop for extension with rolled towel x2 min. Skilled Intervention: Patient was educated in proper exercise technique and purpose for exercises. Skilled judgment was provided in selection of appropriate interventions. Correct performance of therapeutic exercises was facilitated with verbal and visual cuing. Patient education as noted. Home Exercise Program Assigned: 1: add assisted SLR , family member to help 2: add patellar mobilization 3: perform heel slides without ice pack and hans wrap on knee to increase freedom of movement. Billing Therapeutic Exercise Treatment Minutes: 45 Total Treatment Time Minutes (timed/untimed): 45 Lisa Rangel, PT [facility] 09-04-2022 History of Presen t illness Narrative Episode Visit Count: 2 Therapist That Will Accept/Oversee The Plan Of Care: Lisa Rangel PT Start of Care Date: 09/03/22 Onset Date: 08/13/22 Plan of Care Certification Date: 06/12/22 Next Certification Due Date: 07/17/22 Patient Identified by Name and Date of : Yes REHABILITATION AND SPORTS THERAPY PHYSICAL THERAPY TREATMENT NOTE ASSESSMENT: Tucker Zambrano tolerated the session with expected muscle soreness. He demonstrated improvements in quad sets, extension ROM and assisted SLR. . The patient will continue to benefit from ongoing skilled physical therapy to progress toward set goals. PLAN FOR NEXT VISIT: Continue to faciliate ROM and quad strengthening. Advance brace 10 degrees as tolerated SUBJECTIVE: Patient Reason for Visit: Pt reports that his knee felt more stiffness with ROM today then he did yesterday. Did ok with standing leg lifts Pain: Pain Pain Level: 2 Pain Location: Knee - Left Description: Aching Frequency: Intermittent Post Treatment Pain Post Treatment Pain Level: Worse Post Treatment Pain Location: Knee - Left Post Treatment Pain Description: Sore Post Treatment Symptoms: tired OBJECTIVE MEASURES WITH LEVEL OF FUNCTION: Knee Observations L Incision: dry steri strips intact , minimal ecchymosis LE AROM L Knee Extension: -1 Degrees L Knee Flexion: 51 Degrees Gait Weight Bearing Status: NWB TREATMENT: Therapeutic Exercise: 1: quad sets 2x10 cues for form used right leg as well for feedback and visual cues 2: heel slides with strap assist 1x10, trial of seated heel slides, pt did not like there, felt heavy uncomfortable so discontinued 3: Assisted supine SLR 1x10 1x5 with signficant assist and effort 4: ankle pumps and ankle circles 1x10 each 5: stanidng leg lifts left front, side and back 2x10 at parallel bars 6: patellar mobilization 2x10 medial lateral and proximal distal 2x10 7: heel prop for extension with rolled towel x2 min. Skilled Intervention: Patient was educated in proper exercise technique and purpose for exercises. Skilled judgment was provided in selection of appropriate interventions. Correct performance of therapeutic exercises was facilitated with verbal and visual cuing. Patient education as noted. Home Exercise Program Assigned: 1: add assisted SLR , family member to help 2: add patellar mobilization 3: perform heel slides without ice pack and hans wrap on knee to increase freedom of movement. Billing Therapeutic Exercise Treatment Minutes: 45 Total Treatment Time Minutes (timed/untimed): 45 Lisa Rangel PT documented in this encounter [facility] 09-03-2022 Note HNO ID: [id number] Author: Lisa Rangel PT Service: ? Author Type: Physical Therapist Type: Progress Notes Filed: 09/03/2022 3:47 PM Note Text: Episode Visit Count: 1 Therapist That Will Accept/Oversee The Plan Of Care: Lisa Rangel PT Start of Care Date: 09/03/22 Onset Date: 08/13/22 Plan of Care Certification Date: 06/12/22 Next Certification Due Date: 07/17/22 REHABILITATION AND SPORTS THERAPY PHYSICAL THERAPY EVALUATION PLAN OF CARE: Assessment: Tucker Zambrano presents with diagnosis of s/p left knee surgery of arthroscopy and open BIOuni allograft reconstruction of medial femoral condyle and allograft transplant with 6 mm plugs to lateral femoral condyle of that interferes with walking;standing;stair negotiation;recreational activities;physical activities . He presents with impairments in ADL's, gait, independence in exercise, joint mobility, overall function, range of motion, soft tissue healing, strength , and tissue tenderness. PROMIS? (Patient-Reported Outcomes Measurement Information System) scores were reviewed and all domains identified as a rehabilitation concern. Prognosis for therapy is Good due to: current objective clinical presentation . He will benefit from skilled therapy services to meet the goals established for this plan of care as noted below. Goals for Episode of Care: created on 09/03/22 through 11/26/22 [place] in home exercise program. Patient will increase active ROM of left knee to 0-135-140 degrees to allow pt to to improve performance of ADLs. as allowed by physician protocol Patient will demonstrate increase in quad strength to 5/5 during manual muscle testing in order to improve function for prior functional tasks. Perform exercise program without pain. Normal gait. Reciprocal stair negotiation. Patient Goals: Return to full function Planned Interventions, Frequency, and Duration: Current Frequency: 1x/week Duration: 12 weeks Total Number of Visits Planned: 12 Planned Treatment Interventions: Therapeutic exercise (01536);Neuromuscular re-education (63668);Manual therapy (69968);Self-residential management (03137);Gait Training (75798);Patient/Family/Caregiver Education PLAN FOR NEXT VISIT: Will remove dressing to assess incision, patellar mobilization , increased reps of exs. Continue with ROM Patient demonstrates good understanding of plan of care and treatment. The above goals and plan of care were discussed and agreed upon by patient/family. SUBJECTIVE: Tucker Zambrano is a 22 year old male seen today for Pt notes surgery and has been NWB since that time with crutches. . Pt notes pain is getting better and has had less pain gradually. 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 Exs 3-4 times per day.) Pain: Pain Pain Level: 1 Pain Location: Knee - Left Description: Aching Frequency: Intermittent Post Treatment Pain Post Treatment Pain Level: Worse (more sore, not quantifed) Post Treatment Pain Location: Knee - Left Post Treatment Pain Description: Aching PROMIS Scales Higher is Better 05/28/2022 06/03/2022 08/05/2022 Phys Func - Score - 40 (mild dysfunction) - Phys Func - Percentile - 16 % - GH Physical - Score 37.4 (Fair) - 39.8 (Fair) GH Physical - Percentile 10 % - 15 % GH Mental - Score 25.1 (Poor) - 33.8 (Fair) GH Mental - Percentile 1 % - 5 % Self-Eff Symptom - Score - 38 (Low) - Self-Eff Symptom - Percentile - 12 % - T-scores: mean of general population = 50. 5 points is clinically meaningfully difference Percentiles provide an indication of how the patient's score ranks in relation to the general population. Higher percentile rankings indicate better function/quality of life. 50th percentile is the average of the general population and indicates half of respondents had a worse score. T-scores: mean of general population = 50. 5 points is clinically meaningfully difference Percentiles provide an indication of how the patient's score ranks in relation to the general population. Higher percentile rankings indicate better function/quality of life. 50th percentile is the average of the general population and indicates half of respondents had a worse score. OBJECTIVE MEASURES WITH LEVEL OF FUNCT (more content not included)... [facility] 09-03-2022 History of Presen t illness Narrative Episode Visit Count: 1 Therapist That Will Accept/Oversee The Plan Of Care: Lisa Rangel PT Start of Care Date: 09/03/22 Onset Date: 08/13/22 Plan of Care Certification Date: 06/12/22 Next Certification Due Date: 07/17/22 REHABILITATION AND SPORTS THERAPY PHYSICAL THERAPY EVALUATION PLAN OF CARE: Assessment: Tucker Zambrano presents with diagnosis of s/p left knee surgery of arthroscopy and open BIOuni allograft reconstruction of medial femoral condyle and allograft transplant with 6 mm plugs to lateral femoral condyle of that interferes with walking;standing;stair negotiation;recreational activities;physical activities . He presents with impairments in ADL's, gait, independence in exercise, joint mobility, overall function, range of motion, soft tissue healing, strength , and tissue tenderness. PROMIS (Patient-Reported Outcomes Measurement Information System) scores were reviewed and all domains identified as a rehabilitation concern. Prognosis for therapy is Good due to: current objective clinical presentation . He will benefit from skilled therapy services to meet the goals established for this plan of care as noted below. Goals for Episode of Care: created on 09/03/22 through 11/26/22 [place] in home exercise program. Patient will increase active ROM of left knee to 0-135-140 degrees to allow pt to to improve performance of ADLs. as allowed by physician protocol Patient will demonstrate increase in quad strength to 5/5 during manual muscle testing in order to improve function for prior functional tasks. Perform exercise program without pain. Normal gait. Reciprocal stair negotiation. Patient Goals: Return to full function Planned Interventions, Frequency, and Duration: Current Frequency: 1x/week Duration: 12 weeks Total Number of Visits Planned: 12 Planned Treatment Interventions: Therapeutic exercise (43176);Neuromuscular re-education ([id number]);Manual therapy (16145);Self-residential management ([id number]);Gait Training ([id number]);Patient/Family/Caregiver Education PLAN FOR NEXT VISIT: Will remove dressing to assess incision, patellar mobilization , increased reps of exs. Continue with ROM Patient demonstrates good understanding of plan of care and treatment. The above goals and plan of care were discussed and agreed upon by patient/family. SUBJECTIVE: Tucker Zambrano is a 22 year old male seen today for Pt notes surgery and has been NWB since that time with crutches. . Pt notes pain is getting better and has had less pain gradually. 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 Exs 3-4 times per day.) Pain: Pain Pain Level: 1 Pain Location: Knee - Left Description: Aching Frequency: Intermittent Post Treatment Pain Post Treatment Pain Level: Worse (more sore, not quantifed) Post Treatment Pain Location: Knee - Left Post Treatment Pain Description: Aching PROMIS Scales Higher is Better 05/28/2022 06/03/2022 08/05/2022 Phys Func - Score - 40 (mild dysfunction) - Phys Func - Percentile - 16 % - GH Physical - Score 37.4 (Fair) - 39.8 (Fair) GH Physical - Percentile 10 % - 15 % GH Mental - Score 25.1 (Poor) - 33.8 (Fair) GH Mental - Percentile 1 % - 5 % Self-Eff Symptom - Score - 38 (Low) - Self-Eff Symptom - Percentile - 12 % - T-scores: mean of general population = 50. 5 points is clinically meaningfully difference Percentiles provide an indication of how the patient's score ranks in relation to the general population. Higher percentile rankings indicate better function/quality of life. 50th percentile is the average of the general population and indicates half of respondents had a worse score. T-scores: mean of general population = 50. 5 points is clinically meaningfully difference Percentiles provide an indication of how the patient's score ranks in relation to the general population. Higher percentile rankings indicate better function/quality of life. 50th percentile is the average of the general population and indicates half of respondents had a worse score. OBJECTIVE MEASURES WITH LEVEL OF FUNCTION: Posture / Alignment Posture: (Pt props leg to elevated position.) Knee Observations L Knee Presents with: Incision Knee Brace: Post-op brace (Locked) (locked for ambulation , unlocked for sitting) LE AROM R Knee Extension: 0 Degrees R Knee Flexion: 138 Degrees L Knee Extension: -5 Degrees L Knee Flexion: 48 Degrees LE Joint Mobility L Patellar Mobility: (not checked today) LE Strength L LE Strength: no tested d/t post surgical status R Knee Extension (L3): (fair quad contraction noted , unable to do leg lift moderate plus assist needed) Gait Weight Bearing Status: NWB Gait: Independent Gait Device: Crutches Gait Observation: too wide stance with crutches which decreases effective height of crutches Education: Education Learning Preferences: Demonstration;Explanation;Perfor lida Barriers: None Learning/educational needs: Home exercise program;Plan of Care Education Provided: Yes, see treatment interventions for education provided Education Provided To: Patient Education Mode/Type: Demonstration;Explanation/Discus john;Performance Response to Education/Teach Back: States/Identifies;Return Demonstration TREATMENT: PT Treatment Interventions: Therapeutic Exercise;Gait Training Evaluation Therapeutic Exercise: 1: quad sets with brace unlocked 1x10 cues for form 2: heel slides with strap assist 1x8 3: Assisted supine SLR 1x3 with signficant assist and effort 4: ankle pumps and ankle circles 1x10 each 5: stanidng leg lifts left front, side and back 1x10 at parallel bars 6: adjusted brace to 70 degrees per PA note, 10degrees increase per week as able 7: heel prop for extension with rolled towel x2 min. Skilled Intervention: Patient was educated in proper exercise technique and purpose for exercises. Reviewed and educated patient on additions/changes for home exercise program . Skilled judgment was provided in selection of appropriate interventions. Correct performance of therapeutic exercises was facilitated with verbal and visual cuing. Patient education as noted. Gait Trainin: adjustment to crutches for proper height and instruction for positioning of crutches for better support( not as wide of stance with crutches ) NWB with brace locked in extension Skilled Intervention: Patient was provided supervision during pre-gait/gait training to prevent falls and insure safety. Skilled judgment used to assess proper sizing and proper use of assistive device. Home Exercise Program Assigned: 1: add heel prop 2: add leg lifts front, side and back standing Billing * Evaluation Low Complexity: 1 Unit Therapeutic Exercise Treatment Minutes: 25 Gait Training Treatment Minutes: 10 Total Treatment Time Minutes (timed/untimed): 55 Lisa Rangel PT documented in this encounter [facility] 08-26-2022 Note HNO ID: [id number] Author: Reji Vergara PA-C Service: ? Author Type: Physician Card Punching Machine Operator Type: Progress Notes Filed: 08/26/2022 11:30 AM Note Text: Tucker Zambrano is a 22 year old male who presents to the office today ~10 days s/p Left knee arthroscopy, and open BIOUNI osteochondral allograft reconstruction medial femoral condyle, and allograft transplant 6mm plugs to the lateral femoral condyle. Pain currently mild ache, and patient denies taking anything regularly for pain. Pain is overall well controlled and no longer takes narcotics. Recommended Motrin or tylenol PRN for pain. Continues to do HEP at home. Physical Therapy has been scheduled to start 3 weeks post op. Patient admits WB status as NWB., Admits mild continued swelling of the left knee. Admits compliance in hinged TROM brace and with HEP. Denies fevers chills rashes or lesions at this time. Denies calf pain or tenderness. Denies acute falls or traumas. Denies numbness or tingling distally of the operative LE. Otherwise doing well. Musculoskeletal Exam: Patient is alert comfortable, cooperative, no acute distress, oriented x 3. Sitting comfortably. On exam today the left knee dressings have been removed. Incisions are clean, dry, closed and no clinical signs of infection. No drainage, surrounding erythema, or rashes. There is minimal ecchymosis surrounding incisions. Steri strips remain in place. Monocryl tails clipped at the skin as needed. New steris applied and covered with a 6 HANS. Mild post operative effusion. Calf is soft, non-tender. Ankle with mild edema. Grossly NVI in L4, L5, and S1. Patient ambulates out of office well with crutches or other assistive device Extensor mechanisms are weak but intact. The patient can perform a weak assisted straight leg raise. ROM Flexion: 45 degrees Extension: near full extension Distal Motor and sensory and all intact. All elements of the patient's history gathered for this current visit have been reviewed. Impression: Doing well ~ 10 days s/p Left knee arthroscopy, and open BIOUNI osteochondral allograft reconstruction medial femoral condyle, and allograft transplant 6mm plugs to the lateral femoral condyle Plan: TROM brace set at 0-60 degrees - may advance 10 degrees per week as able starting next Friday. Continue with Hep and continue to work with ROM and quad strengthening at the direction of physical therapy. HEP reviewed with patient and all questions answered. Remain non weight bearing with crutches and brace until cleared. Tylenol and Motrin as needed for pain with plenty of food and water. Continue to Ice and elevate pre and post therapy. As needed otherwise. Operative report and post operative expectations have been reviewed. Follow up in [address] Sky. No new XR at that visit. 2V XR on the way out today Patient will contact the office at [phone] if any problems arise. Reji Vergara PA-C [facility] 08-26-2022 History of Presen t illness Narrative Tucker Zambrano is a 22 year old male who presents to the office today ~10 days s/p Left knee arthroscopy, and open BIOUNI osteochondral allograft reconstruction medial femoral condyle, and allograft transplant 6mm plugs to the lateral femoral condyle. Pain currently mild ache, and patient denies taking anything regularly for pain. Pain is overall well controlled and no longer takes narcotics. Recommended Motrin or tylenol PRN for pain. Continues to do HEP at home. Physical Therapy has been scheduled to start 3 weeks post op. Patient admits WB status as NWB., Admits mild continued swelling of the left knee. Admits compliance in hinged TROM brace and with HEP. Denies fevers chills rashes or lesions at this time. Denies calf pain or tenderness. Denies acute falls or traumas. Denies numbness or tingling distally of the operative LE. Otherwise doing well. Musculoskeletal Exam: Patient is alert comfortable, cooperative, no acute distress, oriented x 3. Sitting comfortably. On exam today the left knee dressings have been removed. Incisions are clean, dry, closed and no clinical signs of infection. No drainage, surrounding erythema, or rashes. There is minimal ecchymosis surrounding incisions. Steri strips remain in place. Monocryl tails clipped at the skin as needed. New steris applied and covered with a 6 HANS. Mild post operative effusion. Calf is soft, non-tender. Ankle with mild edema. Grossly NVI in L4, L5, and S1. Patient ambulates out of office well with crutches or other assistive device Extensor mechanisms are weak but intact. The patient can perform a weak assisted straight leg raise. ROM Flexion: 45 degrees Extension: near full extension Distal Motor and sensory and all intact. All elements of the patient's history gathered for this current visit have been reviewed. Impression: Doing well ~ 10 days s/p Left knee arthroscopy, and open BIOUNI osteochondral allograft reconstruction medial femoral condyle, and allograft transplant 6mm plugs to the lateral femoral condyle Plan: TROM brace set at 0-60 degrees - may advance 10 degrees per week as able starting next Friday. Continue with Hep and continue to work with ROM and quad strengthening at the direction of physical therapy. HEP reviewed with patient and all questions answered. Remain non weight bearing with crutches and brace until cleared. Tylenol and Motrin as needed for pain with plenty of food and water. Continue to Ice and elevate pre and post therapy. As needed otherwise. Operative report and post operative expectations have been reviewed. Follow up in [address] Sky. No new XR at that visit. 2V XR on the way out today Patient will contact the office at [phone] if any problems arise. Reji Vergara PA-C documented in this encounter [facility] 08-13-2022 Note HNO ID: [id number] Author: Breanne Ceja APRN.CRNA Service: Anesthesiology Author Type: Nurse Sound Engineer Type: Anesthesia Procedure Notes Filed: 08/13/2022 11:56 AM Note Text: ANESTHESIOLOGY PROCEDURE NOTE Airway General Information Procedure Start Time/Medication Administration: 08/13/2022 11:29 AM Patient location during procedure: OR Staffing Performed by: FREIGHT RECEIVER Indications and Patient Condition Indications for airway management: anesthesia Preoxygenated: yes anesthesia circuit Method: sleep Difficult Mask: No Final Airway Details Final airway type: supraglottic airway Number of attempts at approach: 1 Final Supraglottic Airway: i-gel Size 5 Seal Adequate: yes Airway not difficult SIGNATURE: Breanne Ceja APRN.CRNA PATIENT NAME: Tucker Zambrano DATE: August 13, 2022 TIME: 11:55 AM CSN: [id number] [facility] 08-13-2022 Note HNO ID: [id number] Author: Erick Sargent MD Service: Anesthesiology Author Type: Anesthesiologist Type: Anesthesia Procedure Notes Filed: 08/13/2022 11:01 AM Note Text: ANESTHESIOLOGY PROCEDURE NOTE Peripheral Nerve Block General Information Procedure Start Time/Medication Administration: 08/13/2022 10:47 AM Procedure End time: 08/13/2022 10:56 AM Patient location during procedure: pre-op Timeout Performed Pre-procedure: timeout performed Consent Obtained: Yes (via Surgical Consent) Patient identity confirmed: patient, arm band and family Reason for block: post-op pain management/at surgeon's request Staffing Anesthesiologist: Erick Sargent MD Performed by: anesthesiologist Preparation Sterility Preparation: hand hygiene performed prior to procedure, sterile gloves, drapes, and procedure tray, surgical cap used, mask used, sterile drape used during line insertion, skin prep agent completely dried prior to procedure Site Prep: Chloraprep Pre-Procedure Neuro Exam Location: LLE Sensory: intact Motor: intact Procedure Details Patient Position: supine Monitoring: Pulse OX, EKG and NIBP Block Type Lower Extremity: femoral Laterality: left Injection Technique: single-shot Ultrasound Guided: Yes Image in Chart: yes Local Infiltration: Yes Needle Needle Type: echogenic and stimulating (Pajunk) Needle Gauge: 21 G Needle Length: 100 mm Needle Localization: anatomical landmarks, nerve stimulator and ultrasound Assessment Injection assessment: negative aspiration, no paresthesia on injection, incremental injection and local visualized surrounding nerve on ultrasound Paresthesia: none Post-Procedure Neuro Exam Expected Regional Anesthesia: Yes Medications Administered dexamethasone sodium phosphate injection (DECADRON) - peripheral nerve block 10 mg - 08/13/2022 10:47:00 AM ropivacaine (PF) 10 mg/mL (1 %) injection (NAROPIN) - INTRADERMAL 20 mL - 08/13/2022 10:47:00 AM SIGNATURE: Erick Sargent MD PATIENT NAME: Tucker Zambrano DATE: August 13, 2022 TIME: 11:00 AM CSN: [id number] [facility] 08-13-2022 Nurse Note PRE OP LEARNING ASSESSMENT PROCEDURE/SURGERY: SURGERY: Left knee READINESS TO LEARN COGNITIVE ABILITY: Alert and oriented MOTIVATION TO LEARN: Interested FAMILY SUPPORT: High - Very involved in pt care PATIENT LEARNS BEST BY: Individual Instruction Verbal Instruction FACTORS AFFECTING LEARNING: None PHYSICAL LIMITATIONS AFFECTING LEARNING: None Electronically Signed By: Destini Ashton RN In Department: [facility] AMBUL[facility]ORY SURGERY - [facility] documented in this encounter [facility] 08-08-2022 Hospital Discharg e instructions Reji Vergara PA-C - 08/08/2022 5:36 PM EST [facility] [place] [phone] or ([phone]) [facility] C [facility] N F I D E N T I A L I N F O R M A T I O N Tucker Zambrano [id number] The following is a brief overview of your hospitalization. Some of the information contained on this summary may be confidential. This information should be kept in your records and should be shared with your regular doctor. 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 Other Diagnosis: Patient Active Hospital Problem List: ACTIVE PROBLEM LIST Congenital Pes Planus Acne Depression Anxiety Vaccine Refused By Patient Influenza Vaccine Refused Ocd (Osteochondritis Dissecans) of Knee Physicians: Attending: Stephen Sky Operations Performed while hospitalized: Left knee arthroscopy, and open osteochondral allograft reconstruction medial femoral condyle, and allograft transplant 6mm plugs to the lateral femoral condyle Additional findings: none You are non weight bearing for six weeks and must use your crutches at all times. You have a TROM brace for protection. This should be unlocked with ROM from 0-90 degrees. You may wish to lock the brace for transfers in full extension. Treatment and wound Care: Keep area clean and dry. Change dressing if becomes wet or soiled in the first 72 hours. You may remove your dressing in 72 hours to include the HANS wrap, cotton roll, pad and guaze. You may replace the HANS or cut the HANS in half and wear over immediate knee area only (mid-calf to mid-thigh). Girls may wear leggings. Your incision(s) is covered with white steri strips that are adhered with medical super glue. Do not remove these. You may take a shower once the dressings are removed in 72 hours. Please cover you knee with saran wrap or [id number] for the first week only. There is no need to cover the steri strips after week one and you may let gentle soap and water run over the steris at one week post op. There are no Sutures to be removed at follow-up visit. You may see clear tails on either end of the incision. We will trim these close to the skin at your post op appointment. Please call our office if you have increase swelling, increased pain, warmth, increased redness, drainage especially if it is thick, yellow and or green. Fevers after surgery are common and recommend Tylenol as prescribed on the bottle. Should your fever get to be greater than 102.0, please let our office know. Pain Control: You have been given a prescription for a narcotic pain medication Oxycodone 5mg IR every 6-8 hours as needed for pain. You may find after 2-3 days, you can stop the narcotic pain medication and use Tylenol only. You may take 1,000 mg of Tylenol/acetiminophen three times daily. We will not renew your Narcotic pain medication. For example, I would start taking one Oxycodone pill every 6-8 hours as well as one 325mg Tylenol with each pill. The maximum dose of Tylenol I would like you to take is 3,000mg if needed. 325mg is the standard over the counter dose of Tylenol. This should help control your pain and increase the effectiveness of the Oxycodone as well as reduce your need for opiate pain medication. Please take an NSAID; ie: Aleve, Advil, Ibuprofen/motrin as prescribed on the bottle as long as you are not allergic for two weeks. This will help with inflammation and help decrease your narcotic intake for pain management. Additional Instructions: Pain medications are helpful around the time of surgery, but they can cause problems if taken for too long. Narcotics can cause constipation and affect your cognitive ability. Should you become constipated, you may use over the counter medication such as colace, miralax, or milk of magnesia as prescribed on the bottle. Please increase your fluid intake during this time. The goal is to try to get you off of the medications by 1-2 weeks or earlier, if possible. Some people may need medications for longer than 1-2 weeks, and that s ok, but try to wean yourself off of them if you can. Activity after Discharge: Please start the following ROM later today or tomorrow. You may not be able to perform all of these exercises the first week but you should attempt them 2-3 times per day. Exercises: The following Light Range Of Motion (ROM) exercises are helpful in the early postoperative phase and should be performed several (3-4) times/day: 1. Frequent ankle pumps. Point your toes as far as you can and then bring your toes up toward your nose as far as you can, bending at the ankle (not just bending the toes!) to stimulate the calf muscle and help with circulation/blood flow of the lower leg and foot/ankle. This should be done very often, at least a few times every hour while awake. 2. Heel slides (0-90 maximum flexion). While lying on your back or sitting with your leg extended out in front of you, bend your knee as you slowly slide the foot of your operative leg up toward your buttock. Slide as far back as you can and hold for 5 seconds. Slide back down to the starting position (leg straight or as advised in your brace restrictions) and repeat again. 3. Quad sets. While lying on your back or sitting with your leg extended out in front of you, try to clench or tighten the quadriceps or thigh muscle and hold for a few seconds, rest for a few seconds, and repeat. You can do this 10-15 times 3-4 times/day with your other exercises. Often you will be tightening or clenching your buttocks muscles too and this tends to help get the back of the knee pressed into the floor or bed to encourage full extension (fully straight knee). 4. Straight leg raises when able. This is an excellent set of exercises that can strengthen all of the muscles of the upper leg. There are 4 different straight-leg exercises to strengthen the 4 sides of the upper leg. - Quads strengthening, while lying on your back, lift your leg straight up about 6-12 inches. Hold for 5-10 seconds and slowly lower. Repeat. - Hamstring strengthening, while lying on your stomach, lift your leg backward up about 6-12 inches. Hold for 5-10 seconds and slowly lower. Repeat. - Abductor strengthening (outer muscles), while lying on your NON-operative side, raise the operative leg up away from your body 12-18 inches. Hold for 5-10 seconds and slowly lower. Repeat. - Adductor strengthening (inner muscles), while lying on your OPERATIVE side, rest the NON-operative/good leg on a support about 2 feet off of the ground. Raise the operative leg up toward the elevated leg. Hold for 5-10 seconds and slowly lower. Repeat. Special Instructions: If you are of age to drive: No Driving until cleared. No Driving while on narcotics. No heavy lifting, pushing or pulling. No driving until you are full weight bearing, no longer taking narcotic pain medications, and no longer requiring the use of crutches to ambulate/walk. Diet: Regular Follow-Up: Follow-up as scheduled below. If you do not have a postop appointment please call the office at [phone] to schedule your two week post op appointment. Future Appointments Date Time Provider Department Center 08/26/2022 10:20 AM Reji Vergara PA-C [facility] 09/03/2022 10:30 AM Lisa Rangel PT [facility] ADDITIONALLY, YOU WILL BE GIVEN A PRESCRIPTION IN THE RECOVERY/PACU AREA BEFORE YOU LEAVE FOR PHYSICAL THERAPY. YOU NEED TO CALL TODAY OR TOMORROW (DO NOT WAIT OR PT WILL BE DELAYED) TO MAKE YOUR FIRST PT APPOINTMENT TO START [address] Sky's Office [phone] After hours or on weekends: Call [facility] at: [phone] and ask to speak with the orthopaedic resident on-call. Electronically SIGNED: Reji Vergara PA-C documented in this encounter [facility] 08-06-2022 Miscellaneous Notes Summary: Pre-operative Instructions PATIENT PREOPERATIVE INSTRUCTIONS Stephen Sky MD has scheduled you for your procedure at this surgery center: [facility]: [phone] --[id number] [id number]. Please read below carefully for your personalized instructions. Dietary Restrictions: - No solid food after midnight. - You may have 12 ounces of clear liquids (water, clear juices such as apple juice or gatorade, carbonated beverages, clear tea, black coffee, jello) until 2 hours before scheduled arrival at facility. Medications: Unless instructed differently below, stay on all of your prescription medications until your surgery. Approved medications to take the morning of surgery with a sip of water: NONE If you start any new medications after today's visit, please contact the surgeon's office. Blood Thinning Medications: - Stop NSAIDS (Ibuprofen, Advil, Aleve, Motrin, Celebrex, Mobic, etc.) 7 days before surgery, as directed by your surgeon. - Stop Aspirin 7 days before surgery, as directed by your surgeon. - Stop Vitamin E, ALL multi-vitamins, herbals and dietary supplements 7 days before surgery. - You may take Tylenol (Acetaminophen) or any of your pain medications that do not contain aspirin or NSAIDS as needed. Important Reminders: - Candy, mints, and tobacco products are NOT permitted the morning of surgery. - Hearing aids, dentures and glasses may be worn the morning of surgery. - NO jewelry, body piercings, makeup, hairpins or contacts are to be worn the day of surgery. If you develop symptoms such as a fever, cold, or flu, or have other changes to your health within TWO DAYS of scheduled surgery or the morning of surgery, please contact the surgery center above. Personal Belongings: -Please have photo ID and insurance cards. -If you do not have a copy of advance directives on file with us, please bring a copy with you on the day of surgery. - Leave ALL valuables and money at home or with family members. For Outpatient Procedures: - YOU MUST HAVE A RESPONSIBLE BACK DIGGER OPERATOR TAKE YOU HOME. A PROJECT CONTROLS SPECIALIST OR WOOD MACHINE CARVER CANNOT BE MADE A RESPONSIBLE BACK DIGGER OPERATOR. - We recommend that a responsible person stays with you overnight to take care of you. - You cannot stay in a hotel alone after outpatient surgery. You will not be permitted to have your surgery, if you do not have someone to take care of you. Arrival Time for Surgery: - The Surgery Center or hospital where you are having surgery will call the afternoon before surgery (or Friday for Friday surgery) with a scheduled arrival time. - If you have not heard by 4 pm, please contact the surgery center above. Please be aware that emergency situations arise, which may delay or change your surgical time. If this happens, we will notify you as soon as possible and regret any inconvenience. If you already have an Advance Directive, please fax a copy to [phone] or email to for it to be added to your chart. If you do not have an Advance Directive, you can find the appropriate form and more information at [email or web address]. We recommend that you complete the Advance Directive form found on the website and bring it with you the day of your surgery. It can be witnessed and scanned into your chart that day. documented in this encounter [facility] 08-06-2022 History and physical note PREANESTHESIA CONSULT CLINIC This is a virtual visit. It required patient-provider interaction for the medical decision making as documented below. 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 Pt. reports the pain as intermittent ache that becomes sharp with activity and relieved with rest. Pt. has attempted physical therapy.Pt. is recommended for surgery. PAST MEDICAL HISTORY Diagnosis Date Allergic rhinitis, cause unspecified Allergic rhinitis Pain in limb 2009 PAST SURGICAL HISTORY Procedure Laterality Date NONE PAST SURGICAL HISTORY OF wisdom teeth FAMILY HISTORY Problem Relation Age of Onset Hypertension Father Social History: Social History Tobacco Use Smoking status: Never Smokeless tobacco: Never Vaping Use Vaping Use: Never used Substance Use Topics Alcohol use: Never Drug use: Never MEDICATIONS: Current Inpatient Medications Current Outpatient Medications Medication Sig ibuprofen (MOTRIN ORAL) Take by mouth. finasteride (PROPECIA,PROSCAR) 1 mg tablet Take 1 mg by mouth once daily. No current facility-administered medications for this visit. ALLERGIES: ALLERGIES Allergen Reactions Penicillins Rash Environmental [Othe* REVIEW OF SYSTEMS: PAIN ASSESSMENT: Pain Pain Level: 5 Pain Location: (left knee) Description: Aching;Sharp Frequency: Intermittent Intervention/Comfort measure: Other: See comment;Medication Comments: surgery General: No weight loss, malaise or fevers. Neuro: No history of TIA's, stroke, ARMED SECURITY OFFICER tumor, impaired sensorium, hemiplegia, paraplegia or quadraplegia. No neurological symptoms or problems. Respiratory: No history of current cough or dyspnea, or pneumonia in the past 6 weeks. No history of respiratory/pulmonary symptoms or problems. Cardiovascular: No history of HTN requiring medication, no history of angina, CHF, [place], cardiac surgery or stents. Denies rest pain, gangrene or revascularization/amputation for PVD. No history of cardiovascular symptoms or problems. GI: No history of GI symptoms or problems. No history of esophageal varices, recent ascites, or ETOH greater than 2 drinks per day. : No history of dysuria, frequency or incontinence,, stones or chronic kidney disease Endocrine: No history of diabetes. Has not taken steroids within the past 30 days. No history of endocrinological symptoms or problems. Hematology: No history of bleeding or clotting disorder. Pt is not taking anti-coagulation or platelet medications. No history of hematological symptoms or problems. Oncology: No history of CA metastasis, chemo within 30 days, or radiotherapy within 90 days. Has not lost 10% of body wt in 6 months. No history of oncological symptoms or problems. Psych: Anxiety, Depression Musculoskeletal: See HPI Skin: Negative for lesions, rash and itching.finasteride for hair loss prevention PHYSICAL EXAM: VITAL SIGNS: Ht 5' 10[pt. reported[ (1.78m) Wt 180 lb (81.6kg) BMI 25.83 kg/(m^2). GENERAL: alert and appropriate, in no distress, well-hydrated, well nourished, and happy, smiling, interactive SKIN: no rash noted HEAD: normocephalic, no abnormality or lesion noted EYES: no injection and visual acuity is grossly normal OROPHARYNX: moist mucus membranes NECK: full ROM, no cervical LNs noted per Pt. palpation RESPIRATORY: breathing non-labored CHEST: equal chest rise with normal respiratory effort HEART: Pt. unable to palpate pulse ABDOMEN: soft and non-tender per Pt. palpation EXTREMITIES: TURNER, left knee detailed deferred to surgeon NEUROLOGIC: no obvious deficit Diagnostic tests reviewed for today's visit: Hemoglobin (g/dL) Date Value 10/01/2019 15.0 Hematocrit (%) Date Value 10/01/2019 45.8 WBC (k/uL) Date Value 10/01/2019 9.88 Lab Value Units Date High Low HB No results within date range. HCT No results within date range. WBC No results within date range. PLT No results within date range. NA No results within date range. K No results within date range. GLUC No results within date range. BUN No results within date range. CREAT No results within date range. PTSEC No results within date range. INR No results within date range. APTT No results within date range. ALT No results within date range. AST No results within date range. TBILI No results within date range. TSH No results within date range. Lab Value Units Date High Low HCGQT No results within date range. UHCG No results within date range. HCG, BODY* No results within date range. Lab Value Units Date High Low ABORHD No results within date range. ABSCREEN No results within date range. No results found for: HBA1C No new labs or tests Assessment/Plan Assessment: There is no known pertinent medical condition which may affect stiven-operative course METS: Do heavy work around the house, such as scrubbing floors, lifting or moving heavy furniture (8.00 METs) Run a short distance (8.00 METs) Patient denies any chest pain or undue shortness of breath with the above physical activity. ASA Class: 2 ANESTHESIA FINDINGS: Intubation History: No history of difficult intubation Significant Anesthesia Considerations: None Airway Exam: General: Normal appearance Mallampati Score is CLASS I ULBT: Class II - Lower incisors can bite the upper lip below the deirdre line Neck: Normal appearance and function, Distance from hyoid to mentum during neck extension is at least 3 finger breaths Mouth: Normal tongue size and Mouth opening greater than 2 finger breaths Dentition: Intact Airway History: No abnormal airway history STOP BANG Score: Criteria: Snoring Male gender Score = 2 PLAN This patient is optimally prepared for surgery. CONSULTS: Patient does not require consults for optimization at this time. The Following Tests/Procedures Have Been Initiated: Labs not indicated per [facility] protocol, EKG not indicated per [facility] protocol Planned Anesthetic: General Instructions Given to Patient: Patient given verbal instructions and voices comprehension and compliance. Copy sent electronically via My Chart, email, or mobile device. SIGNATURE: Tina Oshea APRN.CNP PATIENT NAME: Tucker Zambrano DATE: 08/06/2022 TIME: 11:30 AM PAGER/CONTACT #: documented in this encounter [facility] 08-02-2022 Instructions Tina Oshea APRN.CNP - 08/02/2022 3:28 PM EST PATIENT PREOPERATIVE INSTRUCTIONS Stephen Sky MD has scheduled you for your procedure at this surgery center: [facility]: [phone] --[phone] [id number]. Please read below carefully for your personalized instructions. Dietary Restrictions: - No solid food after midnight. - You may have 12 ounces of clear liquids (water, clear juices such as apple juice or gatorade, carbonated beverages, clear tea, black coffee, jello) until 2 hours before scheduled arrival at facility. Medications: Unless instructed differently below, stay on all of your prescription medications until your surgery. Approved medications to take the morning of surgery with a sip of water: NONE If you start any new medications after today's visit, please contact the surgeon's office. Blood Thinning Medications: - Stop NSAIDS (Ibuprofen, Advil, Aleve, Motrin, Celebrex, Mobic, etc.) 7 days before surgery, as directed by your surgeon. - Stop Aspirin 7 days before surgery, as directed by your surgeon. - Stop Vitamin E, ALL multi-vitamins, herbals and dietary supplements 7 days before surgery. - You may take Tylenol (Acetaminophen) or any of your pain medications that do not contain aspirin or NSAIDS as needed. Important Reminders: - Candy, mints, and tobacco products are NOT permitted the morning of surgery. - Hearing aids, dentures and glasses may be worn the morning of surgery. - NO jewelry, body piercings, makeup, hairpins or contacts are to be worn the day of surgery. If you develop symptoms such as a fever, cold, or flu, or have other changes to your health within TWO DAYS of scheduled surgery or the morning of surgery, please contact the surgery center above. Personal Belongings: -Please have photo ID and insurance cards. -If you do not have a copy of advance directives on file with us, please bring a copy with you on the day of surgery. - Leave ALL valuables and money at home or with family members. For Outpatient Procedures: - YOU MUST HAVE A RESPONSIBLE BACK DIGGER OPERATOR TAKE YOU HOME. A PROJECT CONTROLS SPECIALIST OR WOOD MACHINE CARVER CANNOT BE MADE A RESPONSIBLE BACK DIGGER OPERATOR. - We recommend that a responsible person stays with you overnight to take care of you. - You cannot stay in a hotel alone after outpatient surgery. You will not be permitted to have your surgery, if you do not have someone to take care of you. Arrival Time for Surgery: - The Surgery Center or hospital where you are having surgery will call the afternoon before surgery (or Friday for Friday surgery) with a scheduled arrival time. - If you have not heard by 4 pm, please contact the surgery center above. Please be aware that emergency situations arise, which may delay or change your surgical time. If this happens, we will notify you as soon as possible and regret any inconvenience. If you already have an Advance Directive, please fax a copy to [phone] or email to for it to be added to your chart. If you do not have an Advance Directive, you can find the appropriate form and more information at [email or web address]. We recommend that you complete the Advance Directive form found on the website and bring it with you the day of your surgery. It can be witnessed and scanned into your chart that day. documented in this encounter [facility] 07-15-2022 Note HNO ID: [id number] Author: Jayson Vega, DO Service: ? Author Type: Resident Type: Progress Notes Filed: 08/14/2022 12:51 PM Note Text: July 15, 2022 HPI: Tucker Zambrano is a 22 year old male with the presenting complaint of Established Patient and Knee Pain of the Left Knee and Established Patient and Knee Pain of the Right Knee. Tucker reports a current pain level of 2 . He describes the pain as Stabbing. The pain is Intermittent . Interventions tried include Medication, Exercise. He was last seen in orthopaedic clinic for his knee on 05/06/2022 with Stephen Sky. Most recent knee imaging was completed on 03/01/2022 (MRI KNEE WO IVCON RT) . Attached is imaging for the order.The last knee-related PT visit was completed on 06/12/2022 (Knee - Right). 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 Remote Medical Coder: IAM Transcribe Date/Time: Feb 15 2022 12:26P... Last MRI Knee - Impression Only MRI KNEE WO IVCON RT Exam End: 03/01/2022 2:09 PM (Final result) Impression: IMPRESSION: RIGHT KNEE: LARGE MEDIAL AND LATERAL FEMORAL CONDYLE OSTEOCHONDRAL LESIONS. MULTIPLE IN SITU FRAGMENTS. NO FLUID UNDERMINING OR DISPLACED FRAGMENT. ... PT Visits (up to last 5) Some values may be hidden. Unless noted otherwise, only the newest values recorded on each date are displayed. PT Visits 05/16/22 05/22/22 05/28/22 06/05/22 06/12/22 Pain location Knee - Left;Knee - Right Knee - Left;Knee - Right Knee - Left;Knee - Right Knee - Right denies L knee pain today Knee - Right denies L knee pain today Pain level 2 1 2 1 2 Description Aching Aching Aching Unstable, could become more than an ache Aching Patient states that he participated in physical therapy and did see some substantial improvement in his symptoms and he was able to do a full squat and he was able to do some running. He states that unfortunately got COVID and was unable to continue his physical therapy and notes that some of his pain has returned. He works as a yard truck driver and he states that when he does work he has some severe knee pain. He is unsure whether or not he wants to continue nonoperative treatments or if he wants to go entertain surgical interventions. PAIN EVALUATION 07/15/2022 1159 Pain Level: 2 Pain Location: -- bilateral knee Description: Stabbing Duration Units: Months Frequency: Intermittent Intervention/Comfort measure: Medication;Exercise Past Medical History: PAST MEDICAL HISTORY Diagnosis Date Allergic rhinitis, cause unspecified Allergic rhinitis Pain in limb 2009 Family History: FAMILY HISTORY Problem Relation Age of Onset Hypertension Father Social History: Social History Tobacco Use Smoking status: Never Smokeless tobacco: Never Vaping Use Vaping Use: Never used Substance Use Topics Alcohol use: Never Drug use: Never Medications: ibuprofen (MOTRIN ORAL) Take by mouth. finasteride (PROPECIA,PROSCAR) 1 mg tablet Take 1 mg by mouth once daily. Allergies: ALLERGIES Allergen Reactions Penicillins Rash Environmental [Othe* Physical Exam: Right knee with trace joint effusion. Tender to palpation along the medial tibial plateau, medial joint line, medial femoral condyle. No tenderness laterally. Range of motion 0 to 135. Negative Barry, posterior drawer. No pain or laxity with varus/valgus stress. Negative Radha. Diffuse knee pain with single leg squat. Neurovascularly intact in the right foot. Left knee with trace joint effusion. Tender to palpation along the medial tibial plateau, medial joint line, medial femoral condyle. No tenderness laterally. Range of motion 0 to 135. Negative Barry, posterior drawer. No pain or laxity with varus/valgus stress. Negative Radha. Diffuse knee pain with single leg squat. Neurovascularly intact in the left foot. Imaging: Images were reviewed in the office today. Interpretation of the performed imaging is bilateral medial femoral condyle OCD lesions on radiographs. His MRI demonstrates the same as his last visit involving the medial and lateral femoral condyles bilaterally with no loose bodies and no fluid signal. 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 Patient states that he is really only 20% better from the last time we saw him. We discussed operative intervention with him. He states that the left one is little bit more symptomatic and this is a good place to start. We discussed operative intervention which would be a left knee arthroscopy diagnostic with a left medial and lateral femoral allograft for his OCD lesions. All risk benefits and alternatives were discussed with him. Consent was signed. Diagnosis: Ocd (osteo (more content not included)... [facility] 07-15-2022 History of Presen t illness Narrative Images from the original note were not included. July 15, 2022 HPI: Tucker Zambrano is a 22 year old male with the presenting complaint of Established Patient and Knee Pain of the Left Knee and Established Patient and Knee Pain of the Right Knee. Tucker reports a current pain level of 2 . He describes the pain as Stabbing. The pain is Intermittent . Interventions tried include Medication, Exercise. He was last seen in orthopaedic clinic for his knee on 05/06/2022 with Stephen Sky. Most recent knee imaging was completed on 03/01/2022 (MRI KNEE WO IVCON RT) . Attached is imaging for the order.The last knee-related PT visit was completed on 06/12/2022 (Knee - Right). 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 Remote Medical Coder: IAM Transcribe Date/Time: Feb 15 2022 12:26P... Last MRI Knee - Impression Only MRI KNEE WO IVCON RT Exam End: 03/01/2022 2:09 PM (Final result) Impression: IMPRESSION: RIGHT KNEE: LARGE MEDIAL AND LATERAL FEMORAL CONDYLE OSTEOCHONDRAL LESIONS. MULTIPLE IN SITU FRAGMENTS. NO FLUID UNDERMINING OR DISPLACED FRAGMENT. ... PT Visits (up to last 5) Some values may be hidden. Unless noted otherwise, only the newest values recorded on each date are displayed. PT Visits 05/16/22 05/22/22 05/28/22 06/05/22 06/12/22 Pain location Knee - Left;Knee - Right Knee - Left;Knee - Right Knee - Left;Knee - Right Knee - Right denies L knee pain today Knee - Right denies L knee pain today Pain level 2 1 2 1 2 Description Aching Aching Aching Unstable, could become more than an ache Aching Patient states that he participated in physical therapy and did see some substantial improvement in his symptoms and he was able to do a full squat and he was able to do some running. He states that unfortunately got COVID and was unable to continue his physical therapy and notes that some of his pain has returned. He works as a yard truck driver and he states that when he does work he has some severe knee pain. He is unsure whether or not he wants to continue nonoperative treatments or if he wants to go entertain surgical interventions. PAIN EVALUATION 07/15/2022 1159 Pain Level: 2 Pain Location: -- bilateral knee Description: Stabbing Duration Units: Months Frequency: Intermittent Intervention/Comfort measure: Medication;Exercise Past Medical History: PAST MEDICAL HISTORY Diagnosis Date Allergic rhinitis, cause unspecified Allergic rhinitis Pain in limb 2009 Family History: FAMILY HISTORY Problem Relation Age of Onset Hypertension Father Social History: Social History Tobacco Use Smoking status: Never Smokeless tobacco: Never Vaping Use Vaping Use: Never used Substance Use Topics Alcohol use: Never Drug use: Never Medications: ibuprofen (MOTRIN ORAL) Take by mouth. finasteride (PROPECIA,PROSCAR) 1 mg tablet Take 1 mg by mouth once daily. Allergies: ALLERGIES Allergen Reactions Penicillins Rash Environmental [Othe* Physical Exam: Right knee with trace joint effusion. Tender to palpation along the medial tibial plateau, medial joint line, medial femoral condyle. No tenderness laterally. Range of motion 0 to 135. Negative Barry, posterior drawer. No pain or laxity with varus/valgus stress. Negative Radha. Diffuse knee pain with single leg squat. Neurovascularly intact in the right foot. Left knee with trace joint effusion. Tender to palpation along the medial tibial plateau, medial joint line, medial femoral condyle. No tenderness laterally. Range of motion 0 to 135. Negative Barry, posterior drawer. No pain or laxity with varus/valgus stress. Negative Radha. Diffuse knee pain with single leg squat. Neurovascularly intact in the left foot. Imaging: Images were reviewed in the office today. Interpretation of the performed imaging is bilateral medial femoral condyle OCD lesions on radiographs. His MRI demonstrates the same as his last visit involving the medial and lateral femoral condyles bilaterally with no loose bodies and no fluid signal. 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 Patient states that he is really only 20% better from the last time we saw him. We discussed operative intervention with him. He states that the left one is little bit more symptomatic and this is a good place to start. We discussed operative intervention which would be a left knee arthroscopy diagnostic with a left medial and lateral femoral allograft for his OCD lesions. All risk benefits and alternatives were discussed with him. Consent was signed. Diagnosis: Ocd (osteochondritis dissecans) of knee (primary encounter diagnosis) Chronic pain of both knees Jayson Vega DO TEACHING PHYSICIAN STATEMENT: I saw and evaluated the patient. I personally obtained the hewitt and critical portions of the history and physical exam. I reviewed the resident's documentation and discussed the patient with the resident physician. I agree with the resident's medical decision-making as documented. I have also personally reviewed the patient's PMHx, PSHx, FHx, SHx, Meds, and Allergies. Dr. Stephen Sky MD documented in this encounter [facility] 06-12-2022 Note HNO ID: [id number] Author: Alison Powell PT Service: ? Author Type: Physical Therapist Type: Progress Notes Filed: 07/23/2022 2:51 PM Note Text: 07/23/2022 [facility] PHYSICAL THERAPY DISCONTINUANCE OF CARE Plan of Care Period: Start of Care Date: 05/07/22 Last Visit Date: 06/12/2022 Therapy Program: The following is a summary of the interventions provided for this episode of care; Therapeutic exercise and Self-residential management Assessment: The following is the goal status: Goals for Episode of Care: created on 05/07/22 through 06/18/22 Goals updated on 06/12/2022 - 07/17/22 [place] in home exercise program. -- MET Patient will decrease pain to 1-2/10 with functional activities to allow patient to improve transfers, standing tolerance for ADLs, and functional Squatting/lifting. -- MET, reports no worse than a 2/10 Perform lifting and carrying at work with decreased report of symptoms/pain in 6 weeks. -- MET Perform driving and prolonged sitting for 1-2 hours without pain. -- PROGRESSING Increased strength of B hip extension, ER, abd, and B quadriceps 4/5 or greater to reduce knee pain and improve stability -- NT, demonstrates functional squatting and maintaining a wall sit for 30 sec without limitation due to weakness or pain. Patient will demonstrate improved neuromuscular coordination as evidenced by improve function for prior functional tasks and work tasks. -- PROGRESSING Patient Goals: reduce knee pain with ADLs and work activities -- PROGRESSING Based on the most recent progress report, patient was progressing as expected toward functional goals based on home exercise program compliance, pain levels, documented subjective information on progress, documented objective information regarding ADL's, flexibility, gait, independence in exercise, joint mobility, overall function, patient reported outcome measures, strength , symptom management, and tissue tenderness, and appointment compliance. Reason for Discontinuation of Care: Patient has not returned to therapy or scheduled additional follow-up appointments. Alison Powell, PT Episode Visit Count: 6 Therapist That Will Accept/Oversee The Plan Of Care: Alison Powell Start of Care Date: 05/07/22 Onset Date: 05/07/11 Plan of Care Certification Date: 06/12/22 Next Certification Due Date: 07/17/22 Patient Identified by Name and Date of : Yes [facility] PHYSICAL THERAPY PROGRESS REPORT PLAN OF CARE UPDATE: Assessment: Tucker Zambrano demonstrates significant improvement in rising from a chair, walking, walking in the house, walking in the community, stair negotiation, bending, lifting, recreational activities, squatting, sleeping, driving, and weight bearing . He hasprogressed toward goals. 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 Current prognosis is Good due to: positive past response to therapy;good overall health status;current objective clinical presentation;good support system/ coping skills;within-session changes . He will benefit from continued skilled therapy services to meet the updated goals for this plan of care as noted below. Goals for Episode of Care: created on 05/07/22 through 06/18/22 Goals updated on 06/12/2022 - 07/17/22 [place] in home exercise program. -- MET Patient will decrease pain to 1-2/10 with functional activities to allow patient to improve transfers, standing tolerance for ADLs, and functional Squatting/lifting. -- MET, reports no worse than a 2/10 Perform lifting and carrying at work with decreased report of symptoms/pain in 6 weeks. -- MET Perform driving and prolonged sitting for 1-2 hours without pain. -- PROGRESSING Increased strength of B hip extension, ER, abd, and B quadriceps 4/5 or greater to reduce knee pain and improve stability -- NT, demonstrates functional squatting and maintaining a wall sit for 30 sec without limitation due to weakness or pain. Patient will demonstrate improved neuromuscular coordination as evidenced by improve function for prior functional tasks and work tasks. -- PROGRESSING Patient Goals: reduce knee pain with ADLs and work activities -- PROGRESSING Patient Goals: reduce knee pain with ADLs and work activities Planned Interventions, Frequency, and Duration: 1x every other week, 3 weeks Total Number of Visits Planned: 1 Patient to be seen for Therapeutic exercise (34851);Neuromuscular re-education (77341);Manual therapy (21018);Therapeutic activities (08806);Self-residential management (53145);Gait Training (14059) PLAN FOR NEXT VISIT: Pt. possibly return for one additional visit prior to meeting with physician. Review goals and HEP. SUBJECTIVE: Patient Reason for Visit: Pt. r (more content not included)... [facility] [facility] 06-12-2022 History of Presen t illness Narrative Episode Visit Count: 6 Therapist That Will Accept/Oversee The Plan Of Care: Alison Powell Start of Care Date: 05/07/22 Onset Date: 05/07/11 Plan of Care Certification Date: 06/12/22 Next Certification Due Date: 07/17/22 Patient Identified by Name and Date of : Yes REHABILITATION AND SPORTS THERAPY PHYSICAL THERAPY PROGRESS REPORT PLAN OF CARE UPDATE: Assessment: Tucker Zambrano demonstrates significant improvement in rising from a chair, walking, walking in the house, walking in the community, stair negotiation, bending, lifting, recreational activities, squatting, sleeping, driving, and weight bearing . He hasprogressed toward goals. 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 Current prognosis is Good due to: positive past response to therapy;good overall health status;current objective clinical presentation;good support system/ coping skills;within-session changes . He will benefit from continued skilled therapy services to meet the updated goals for this plan of care as noted below. Goals for Episode of Care: created on 05/07/22 through 06/18/22 Goals updated on 06/12/2022 - 07/17/22 [place] in home exercise program. -- MET Patient will decrease pain to 1-2/10 with functional activities to allow patient to improve transfers, standing tolerance for ADLs, and functional Squatting/lifting. -- MET, reports no worse than a 2/10 Perform lifting and carrying at work with decreased report of symptoms/pain in 6 weeks. -- MET Perform driving and prolonged sitting for 1-2 hours without pain. -- PROGRESSING Increased strength of B hip extension, ER, abd, and B quadriceps 4/5 or greater to reduce knee pain and improve stability -- NT, demonstrates functional squatting and maintaining a wall sit for 30 sec without limitation due to weakness or pain. Patient will demonstrate improved neuromuscular coordination as evidenced by improve function for prior functional tasks and work tasks. -- PROGRESSING Patient Goals: reduce knee pain with ADLs and work activities -- PROGRESSING Patient Goals: reduce knee pain with ADLs and work activities Planned Interventions, Frequency, and Duration: 1x every other week, 3 weeks Total Number of Visits Planned: 1 Patient to be seen for Therapeutic exercise ([id number]);Neuromuscular re-education (72782);Manual therapy (83896);Therapeutic activities (89858);Self-residential management ([id number]);Gait Training ([id number]) PLAN FOR NEXT VISIT: Pt. possibly return for one additional visit prior to meeting with physician. Review goals and HEP. SUBJECTIVE: Patient Reason for Visit: Pt. reports worse pain this week due to increased time at work, specifcally standing on the fork lift. The left knee is worse than the right. Pt. has been trying to lift boxes with correct technique but reports this is challenging due to increased fatigue. Pt. is considering getting another job. He returns to the surgeon 07/01/22. Pt. reports the symptoms do reduce with rest. He feels that he is doing much better than prior to PT. Pt. knows how to self manage his symptoms and prevent increaed symptoms with correct body mechanics.. Patient Goals: reduce knee pain with ADLs and work activities Functional Limitations: standing;working;sitting Pain: Pain Pain Level: 2 Pain Location: Knee - Right (denies L knee pain today) Description: Aching Post Treatment Pain Post Treatment Pain Level: Better Post Treatment Pain Location: Knee - Right PROMIS Scales Higher is Better 05/07/2022 05/28/2022 06/03/2022 Phys Func - Score 40 (mild dysfunction) - 40 (mild dysfunction) Phys Func - Percentile 16 % - 16 % GH Physical - Score 37.4 (Fair) 37.4 (Fair) - GH Physical - Percentile 10 % 10 % - GH Mental - Score 28.4 (Poor) 25.1 (Poor) - GH Mental - Percentile 2 % 1 % - Self-Eff Symptom - Score 41 (Average) - 38 (Low) Self-Eff Symptom - Percentile 18 % - 12 % T-scores: mean of general population = 50. 5 points is clinically meaningfully difference Percentiles provide an indication of how the patient's score ranks in relation to the general population. Higher percentile rankings indicate better function/quality of life. 50th percentile is the average of the general population and indicates half of respondents had a worse score. T-scores: mean of general population = 50. 5 points is clinically meaningfully difference Percentiles provide an indication of how the patient's score ranks in relation to the general population. Higher percentile rankings indicate better function/quality of life. 50th percentile is the average of the general population and indicates half of respondents had a worse score. OBJECTIVE MEASURES WITH LEVEL OF FUNCTION: LE AROM L Knee Extension: 0 Degrees TREATMENT: Therapeutic Exercise: 1: figure four seated piriformis stretch 3x30 sec each side 2: banded air squats BTB facing wall 4x7 3: banded stepping forward forward and back 4x 7 steps with with BTB 4: banded stepping lateral R and L 4x 7 steps with with BTB 5: wall sit 3x30 sec at 90 degrees hip and knee flexion Skilled Intervention: Patient was educated in proper exercise technique and purpose for exercises. Skilled judgment was provided in selection of appropriate interventions. Correct performance of therapeutic exercises was facilitated with verbal and visual cuing. Additional time necessary for assessing progress toward goals due to progress report today. Patient education as noted. Billing Therapeutic Exercise Treatment Minutes: 30 Total Treatment Time Minutes (timed/untimed): 30 Alison Powell PT documented in this encounter [facility] 06-05-2022 Note HNO ID: [id number] Author: Alison Powell PT Service: ? Author Type: Physical Therapist Type: Progress Notes Filed: 06/05/2022 1:12 PM Note Text: Episode Visit Count: 5 Therapist That Will Accept/Oversee The Plan Of Care: Alison Powell Start of Care Date: 05/07/22 Onset Date: 05/07/11 Plan of Care Certification Date: 05/07/22 Next Certification Due Date: 06/18/22 Patient Identified by Name and Date of : Yes REHABILITATION AND SPORTS THERAPY PHYSICAL THERAPY TREATMENT NOTE ASSESSMENT: Tucker Zambrano tolerated the session with decreased symptoms. He demonstrated difficulty with eccentric step down 4 step, requiring additional practice with visual and verbal cues. Pt. Was able to complete the LLE without UE assistance but requires BUE assistance when completing eccentric step odwn on the RLE. The patient will continue to benefit from ongoing skilled physical therapy to progress toward set goals. PLAN FOR NEXT VISIT: RDL without resistance, continue eccentric heel lowering quad strengthening. SUBJECTIVE: Patient Reason for Visit: Visit began 10 min early due to pt. early arrival. Pt. reports that he feels stronger but continues to feel unstable. Pain: Pain Pain Level: 1 Pain Location: Knee - Right (denies L knee pain today) Post Treatment Pain Post Treatment Pain Level: 0 Post Treatment Pain Location: Knee - Right Post Treatment Symptoms: just tire,d but I actually feed better than when I came in. OBJECTIVE MEASURES WITH LEVEL OF FUNCTION: TREATMENT: Therapeutic Exercise: 1: *BTB 1/4 squat stance lateral stepping 3x10 steps each direction 2: modified plank each side 3x20 sec 3: *BTB 1/4 squat stance lateral stepping 3x10 steps each direction 4: modified side plank each side 3x20 sec 5: *BTB full squat 3x8 facing the wall 6: physioball squats at wall 65 cm 2x10, BTB at dital femur 7: towel slide squats at wall 65 cm 2x10, BTB at dital femur 8: Eccentric quads green step 3x8 each side (max visual and verbal cues for correct technique, bend at hips prior to bending at the knee) 9: hook lying glute bridges with BTB at distal femur B 2x15 10: RDL 2x10 each BLE (very fatigued RLE) Skilled Intervention: Patient was educated in proper exercise technique and purpose for exercises. Skilled judgment was provided in selection of appropriate interventions. Provided written instruction for home exercise program to facilitate proper performance and compliance. Correct performance of therapeutic exercises was facilitated with verbal, visual, and tactile cuing. Additional time necessary for providing visual and verbal cues due to difficulty with eccentric heel lowering. Educated patient on rationale for performing exercises in regards to decreasing fatigue , including balance, increase ease of ADL, and ROM and function . Patient education as noted. Billing Therapeutic Exercise Treatment Minutes: 60 Total Treatment Time Minutes (timed/untimed): 60 Alison Powell, PT [facility] 06-05-2022 History of Presen t illness Narrative Episode Visit Count: 5 Therapist That Will Accept/Oversee The Plan Of Care: Alison Powell Start of Care Date: 05/07/22 Onset Date: 05/07/11 Plan of Care Certification Date: 05/07/22 Next Certification Due Date: 06/18/22 Patient Identified by Name and Date of : Yes REHABILITATION AND SPORTS THERAPY PHYSICAL THERAPY TREATMENT NOTE ASSESSMENT: Tucker Zambrano tolerated the session with decreased symptoms. He demonstrated difficulty with eccentric step down 4 step, requiring additional practice with visual and verbal cues. Pt. Was able to complete the LLE without UE assistance but requires BUE assistance when completing eccentric step odwn on the RLE. The patient will continue to benefit from ongoing skilled physical therapy to progress toward set goals. PLAN FOR NEXT VISIT: RDL without resistance, continue eccentric heel lowering quad strengthening. SUBJECTIVE: Patient Reason for Visit: Visit began 10 min early due to pt. early arrival. Pt. reports that he feels stronger but continues to feel unstable. Pain: Pain Pain Level: 1 Pain Location: Knee - Right (denies L knee pain today) Post Treatment Pain Post Treatment Pain Level: 0 Post Treatment Pain Location: Knee - Right Post Treatment Symptoms: just tire,d but I actually feed better than when I came in. OBJECTIVE MEASURES WITH LEVEL OF FUNCTION: TREATMENT: Therapeutic Exercise: 1: *BTB 1/4 squat stance lateral stepping 3x10 steps each direction 2: modified plank each side 3x20 sec 3: *BTB 1/4 squat stance lateral stepping 3x10 steps each direction 4: modified side plank each side 3x20 sec 5: *BTB full squat 3x8 facing the wall 6: physioball squats at wall 65 cm 2x10, BTB at dital femur 7: towel slide squats at wall 65 cm 2x10, BTB at dital femur 8: Eccentric quads green step 3x8 each side (max visual and verbal cues for correct technique, bend at hips prior to bending at the knee) 9: hook lying glute bridges with BTB at distal femur B 2x15 10: RDL 2x10 each BLE (very fatigued RLE) Skilled Intervention: Patient was educated in proper exercise technique and purpose for exercises. Skilled judgment was provided in selection of appropriate interventions. Provided written instruction for home exercise program to facilitate proper performance and compliance. Correct performance of therapeutic exercises was facilitated with verbal, visual, and tactile cuing. Additional time necessary for providing visual and verbal cues due to difficulty with eccentric heel lowering. Educated patient on rationale for performing exercises in regards to decreasing fatigue , including balance, increase ease of ADL, and ROM and function . Patient education as noted. Billing Therapeutic Exercise Treatment Minutes: 60 Total Treatment Time Minutes (timed/untimed): 60 Alison Powell PT documented in this encounter [facility] 05-28-2022 Note HNO ID: [id number] Author: Juan Zamora PT Service: ? Author Type: Physical Therapist Type: Progress Notes Filed: 05/28/2022 11:46 AM Note Text: Episode Visit Count: 4 Therapist That Will Accept/Oversee The Plan Of Care: Alison Powell Start of Care Date: 05/07/22 Onset Date: 05/07/11 Plan of Care Certification Date: 05/07/22 Next Certification Due Date: 06/18/22 Patient Identified by Name and Date of : Yes REHABILITATION AND SPORTS THERAPY PHYSICAL THERAPY TREATMENT NOTE ASSESSMENT: Tucker Zmabrano tolerated the session with decreased symptoms. He demonstrated difficulty with RLE single leg activities. The patient will continue to benefit from ongoing skilled physical therapy to progress toward set goals. PLAN FOR NEXT VISIT: Continue with hip and core strengthening. SUBJECTIVE: Patient Reason for Visit: Pt reports not doing any exercises this past week due to being distracted from getting a puppy. Pt states he will try to better this coming week to do his exercsies at home. Pain: Pain Pain Level: 2 Pain Location: Knee - Left;Knee - Right Description: Aching (Unstable, could become more than an ache) Post Treatment Pain Post Treatment Pain Level: Better Post Treatment Pain Location: Knee - Left;Knee - Right OBJECTIVE MEASURES WITH LEVEL OF FUNCTION: Increased difficulty noted with R single leg activities. TREATMENT: Therapeutic Exercise: 1: RDL 8# 2x10 each BLE 2: Eccentric lower hip step down blue step x10 BLE (increased difficulty with R stpe down) 3: physioball squats at wall 65 cm 2x5 (cues to avoid hip adduction) 4: modified side plank each side 3x20 sec 5: prone press ups 2x10 (no change symptoms from 09/17 this visit) 6: hook lying glute bridges with BTB at distal femur B 2x15 7: hook lying glute bridge hold BTB at distal femur 3x20 sec 8: Ecccentric quads gren step 1x10 9: Step downs blue step 2x10 BLE Skilled Intervention: Patient was educated in proper exercise technique and purpose for exercises. Skilled judgment was provided in selection of appropriate interventions. Correct performance of therapeutic exercises was facilitated with verbal cuing. Billing Therapeutic Exercise Treatment Minutes: 38 Total Treatment Time Minutes (timed/untimed): 38 Manju Marysol, JHONNY Zamora, PT [facility] 05-22-2022 Note HNO ID: [id number] Author: Alison Powell PT Service: ? Author Type: Physical Therapist Type: Progress Notes Filed: 05/22/2022 1:39 PM Note Text: Episode Visit Count: 3 Therapist That Will Accept/Oversee The Plan Of Care: Alison Powell Start of Care Date: 05/07/22 Onset Date: 05/07/11 Plan of Care Certification Date: 05/07/22 Next Certification Due Date: 06/18/22 REHABILITATION AND SPORTS THERAPY PHYSICAL THERAPY TREATMENT NOTE ASSESSMENT: Tucker Zambrano tolerated the session with fatigue and expected muscle soreness. He demonstrated improvements in activity tolerance . Required fewer cues for technique to complete bridging and squatting exercises. The patient will continue to benefit from ongoing skilled physical therapy to progress toward set goals. PLAN FOR NEXT VISIT: physioball squats continued, add eccentric hip lower step down SUBJECTIVE: Patient Reason for Visit: Pt. reports feeling more energy and strength, however continues to have pain due to work hours increasing to 9 hour days. The beginning of the shift is better than it was. 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 He is not sure if he is doing this correctly. Pain: Pain Pain Level: 1 Pain Location: Knee - Left;Knee - Right Description: Aching Post Treatment Pain Post Treatment Pain Location: Knee - Left;Knee - Right OBJECTIVE MEASURES WITH LEVEL OF FUNCTION: TREATMENT: Therapeutic Exercise: 1: slide squats at wall 2x5 (difficulty with avoiding trunk flexion) 2: hook lying glute bridges 1x12 (cues to correct weight shifting from the B heels to the fore foot, this felt better to patient) 3: physioball squats at wall 65 cm 2x5 (cues to avoid hip adduction) 4: *modified side plank each side 3x15 sec 5: prone press ups 2x10 (no change symptoms from 09/17 this visit) 6: *hook lying glute bridges with BTB at distal femur B 2x12 7: *hook lying glute bridge hold BTB at distal femur 3x15 sec 8: functional air squat 1x5 (cues given to avoid trunk flexion and knee adduction) Skilled Intervention: Patient was educated in proper exercise technique and purpose for exercises. Skilled judgment was provided in selection of appropriate interventions. Provided written instruction for home exercise program to facilitate proper performance and compliance. Correct performance of therapeutic exercises was facilitated with verbal and visual cuing. Additional time necessary for providing updated HEP due to adding core stabilization strengthening. Educated patient on rationale for performing exercises in regards to decreasing fatigue , increase ease of ADL, and ROM and function . Patient education as noted. Self-Chcf Management: 1: *discussed that questions regarding surgery can be discussed with physician 2: *discussed the importance of core and hip stabilization strenth as it will reduce strain of BLE knees and improved strength reduces strain on passive structures Skilled Intervention: Skilled judgment in the selection of proper modification for activity of daily living/home management based on clinical presentation, deficits, and needs. Educated the patient regarding recommendations and provided written instruction to facilitate compliance. Reviewed patient specific diagnosis in relation to activities of daily living/home management. Activity progression based on professional judgement. Correct performance of home program was facilitated with verbal and visual cueing. Billing Therapeutic Exercise Treatment Minutes: 35 Self-Care/Home Management Treatment Minutes: 5 Total Treatment Time Minutes (timed/untimed): 40 Alison Powell, PT [facility] 05-22-2022 History of Presen t illness Narrative Episode Visit Count: 3 Therapist That Will Accept/Oversee The Plan Of Care: Alison Powell Start of Care Date: 05/07/22 Onset Date: 05/07/11 Plan of Care Certification Date: 05/07/22 Next Certification Due Date: 06/18/22 REHABILITATION AND SPORTS THERAPY PHYSICAL THERAPY TREATMENT NOTE ASSESSMENT: Tucker Zambrano tolerated the session with fatigue and expected muscle soreness. He demonstrated improvements in activity tolerance . Required fewer cues for technique to complete bridging and squatting exercises. The patient will continue to benefit from ongoing skilled physical therapy to progress toward set goals. PLAN FOR NEXT VISIT: physioball squats continued, add eccentric hip lower step down SUBJECTIVE: Patient Reason for Visit: Pt. reports feeling more energy and strength, however continues to have pain due to work hours increasing to 9 hour days. The beginning of the shift is better than it was. 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 He is not sure if he is doing this correctly. Pain: Pain Pain Level: 1 Pain Location: Knee - Left;Knee - Right Description: Aching Post Treatment Pain Post Treatment Pain Location: Knee - Left;Knee - Right OBJECTIVE MEASURES WITH LEVEL OF FUNCTION: TREATMENT: Therapeutic Exercise: 1: slide squats at wall 2x5 (difficulty with avoiding trunk flexion) 2: hook lying glute bridges 1x12 (cues to correct weight shifting from the B heels to the fore foot, this felt better to patient) 3: physioball squats at wall 65 cm 2x5 (cues to avoid hip adduction) 4: *modified side plank each side 3x15 sec 5: prone press ups 2x10 (no change symptoms from 09/17 this visit) 6: *hook lying glute bridges with BTB at distal femur B 2x12 7: *hook lying glute bridge hold BTB at distal femur 3x15 sec 8: functional air squat 1x5 (cues given to avoid trunk flexion and knee adduction) Skilled Intervention: Patient was educated in proper exercise technique and purpose for exercises. Skilled judgment was provided in selection of appropriate interventions. Provided written instruction for home exercise program to facilitate proper performance and compliance. Correct performance of therapeutic exercises was facilitated with verbal and visual cuing. Additional time necessary for providing updated HEP due to adding core stabilization strengthening. Educated patient on rationale for performing exercises in regards to decreasing fatigue , increase ease of ADL, and ROM and function . Patient education as noted. Self-Chcf Management: 1: *discussed that questions regarding surgery can be discussed with physician 2: *discussed the importance of core and hip stabilization strenth as it will reduce strain of BLE knees and improved strength reduces strain on passive structures Skilled Intervention: Skilled judgment in the selection of proper modification for activity of daily living/home management based on clinical presentation, deficits, and needs. Educated the patient regarding recommendations and provided written instruction to facilitate compliance. Reviewed patient specific diagnosis in relation to activities of daily living/home management. Activity progression based on professional judgement. Correct performance of home program was facilitated with verbal and visual cueing. Billing Therapeutic Exercise Treatment Minutes: 35 Self-Care/Home Management Treatment Minutes: 5 Total Treatment Time Minutes (timed/untimed): 40 Alison Powell PT documented in this encounter [facility] 05-16-2022 Note HNO ID: [id number] Author: Alison Powell PT Service: ? Author Type: Physical Therapist Type: Progress Notes Filed: 05/16/2022 1:47 PM Note Text: Episode Visit Count: 2 Therapist That Will Oversee The Plan Of Care: Alison Powell Start of Care Date: 05/07/22 Onset Date: 05/07/11 Plan of Care Certification Date: 05/07/22 Next Certification Due Date: 06/18/22 REHABILITATION AND SPORTS THERAPY PHYSICAL THERAPY TREATMENT NOTE ASSESSMENT: Tucker Zambrano tolerated the session with decreased symptoms. He demonstrated difficulty with completing HEP exercises with correct technique, but was able to complete with only minimal cues. Pt. Had the most relief with prone press ups today. Reported no B knee symptoms when in the prone prop position. Requires cues for lifting light weight with correct technique. Corrections reduce medial knee pain. The patient will continue to benefit from ongoing skilled physical therapy to progress toward set goals. PLAN FOR NEXT VISIT: Implement core stabilization strengthening, assess symptom response with standing/closed chain quadricep and hip strengthening. physioball squats and lateral eccentric step downs. SUBJECTIVE: Patient Reason for Visit: Pt. reports that he sleeps better since doing the stretching, but they do not decrease his symptoms from work. The volume of work has increased this week, specifically lifting activities, and he admits he has restorted to lifting with his back to avoid B knee flexion Pain: Pain Pain Level: 2 Pain Location: Knee - Left;Knee - Right Description: Aching Post Treatment Pain Post Treatment Pain Level: 1 Post Treatment Pain Location: Knee - Left;Knee - Right Post Treatment Symptoms: reduced symptoms following stretches, brief increase R knee pain described as a twinge with #10 DB DL OBJECTIVE MEASURES WITH LEVEL OF FUNCTION: TREATMENT: Therapeutic Exercise: 1: supine sciatic nerve glides 2x10 each side, 2x PF/DF ankle pumps each rep (improved HS mobility with repeated reps, no change in medial knee pain B) 2: *hook lying glute bridges 2x12 (cues to correct weight shifting from the B heels to the fore foot, this felt better to patient) 3: *supine adductor stretch with strap 3x30 sec each side with strap, more tightness with RLE 4: *prone hip extension 2x15 each side 5: *prone press ups 2x10 (symptoms B knees reduced to 1/10) 6: prone prop 2 min (denies pain B medial knees while in this position.) 7: DL ball 1x5 8: DL #10 DB 1x5 (corrections given to avoid proximal tibia anterior translation and B hip abd) Skilled Intervention: Patient was educated in proper exercise technique and purpose for exercises. Skilled judgment was provided in selection of appropriate interventions. Provided written instruction for home exercise program to facilitate proper performance and compliance. Correct performance of therapeutic exercises was facilitated with verbal, visual, and tactile cuing. Educated patient on rationale for performing exercises in regards to decreasing fatigue and ROM and function . Patient education as noted. Self-Chcf Management: 1: *reviewed lifting mechanics 2: *discussed PT focus of reducing symptoms by improving hip and spine mobility without causing increased B knee, exercises supine and prone seem to achieve this, especially lumbar extension 3: *disucssed how hip and core stability influence knee mechanics and symptoms with lifting activities Skilled Intervention: Skilled judgment in the selection of proper modification for activity of daily living/home management based on clinical presentation, deficits, and needs. Provided written instruction for activities of daily living techniques to facilitate proper performance and compliance. Reviewed patient specific diagnosis in relation to activities of daily living/home management. Activity progression based on professional judgement. Moderate verbal cues for maintaining neutral spine alignment. Instructed on proper lifting and carrying techniques with importance of core activation. Correct performance of home program was facilitated with verbal, visual, and tactile cueing. Billing Therapeutic Exercise Treatment Minutes: 35 Self-Care/Home Management Treatment Minutes: 5 Total Treatment Time Minutes (timed/untimed): 40 Alison Powell, PT [facility] 05-16-2022 History of Presen t illness Narrative Episode Visit Count: 2 Therapist That Will Oversee The Plan Of Care: Alison Powell Start of Care Date: 05/07/22 Onset Date: 05/07/11 Plan of Care Certification Date: 05/07/22 Next Certification Due Date: 06/18/22 REHABILITATION AND SPORTS THERAPY PHYSICAL THERAPY TREATMENT NOTE ASSESSMENT: Tucker Zambrano tolerated the session with decreased symptoms. He demonstrated difficulty with completing HEP exercises with correct technique, but was able to complete with only minimal cues. Pt. Had the most relief with prone press ups today. Reported no B knee symptoms when in the prone prop position. Requires cues for lifting light weight with correct technique. Corrections reduce medial knee pain. The patient will continue to benefit from ongoing skilled physical therapy to progress toward set goals. PLAN FOR NEXT VISIT: Implement core stabilization strengthening, assess symptom response with standing/closed chain quadricep and hip strengthening. physioball squats and lateral eccentric step downs. SUBJECTIVE: Patient Reason for Visit: Pt. reports that he sleeps better since doing the stretching, but they do not decrease his symptoms from work. The volume of work has increased this week, specifically lifting activities, and he admits he has restorted to lifting with his back to avoid B knee flexion Pain: Pain Pain Level: 2 Pain Location: Knee - Left;Knee - Right Description: Aching Post Treatment Pain Post Treatment Pain Level: 1 Post Treatment Pain Location: Knee - Left;Knee - Right Post Treatment Symptoms: reduced symptoms following stretches, brief increase R knee pain described as a twinge with #10 DB DL OBJECTIVE MEASURES WITH LEVEL OF FUNCTION: TREATMENT: Therapeutic Exercise: 1: supine sciatic nerve glides 2x10 each side, 2x PF/DF ankle pumps each rep (improved HS mobility with repeated reps, no change in medial knee pain B) 2: *hook lying glute bridges 2x12 (cues to correct weight shifting from the B heels to the fore foot, this felt better to patient) 3: *supine adductor stretch with strap 3x30 sec each side with strap, more tightness with RLE 4: *prone hip extension 2x15 each side 5: *prone press ups 2x10 (symptoms B knees reduced to 1/10) 6: prone prop 2 min (denies pain B medial knees while in this position.) 7: DL ball 1x5 8: DL #10 DB 1x5 (corrections given to avoid proximal tibia anterior translation and B hip abd) Skilled Intervention: Patient was educated in proper exercise technique and purpose for exercises. Skilled judgment was provided in selection of appropriate interventions. Provided written instruction for home exercise program to facilitate proper performance and compliance. Correct performance of therapeutic exercises was facilitated with verbal, visual, and tactile cuing. Educated patient on rationale for performing exercises in regards to decreasing fatigue and ROM and function . Patient education as noted. Self-Chcf Management: 1: *reviewed lifting mechanics 2: *discussed PT focus of reducing symptoms by improving hip and spine mobility without causing increased B knee, exercises supine and prone seem to achieve this, especially lumbar extension 3: *disucssed how hip and core stability influence knee mechanics and symptoms with lifting activities Skilled Intervention: Skilled judgment in the selection of proper modification for activity of daily living/home management based on clinical presentation, deficits, and needs. Provided written instruction for activities of daily living techniques to facilitate proper performance and compliance. Reviewed patient specific diagnosis in relation to activities of daily living/home management. Activity progression based on professional judgement. Moderate verbal cues for maintaining neutral spine alignment. Instructed on proper lifting and carrying techniques with importance of core activation. Correct performance of home program was facilitated with verbal, visual, and tactile cueing. Billing Therapeutic Exercise Treatment Minutes: 35 Self-Care/Home Management Treatment Minutes: 5 Total Treatment Time Minutes (timed/untimed): 40 Alison Powell PT documented in this encounter [facility] 05-07-2022 Note HNO ID: [id number] Author: Alison Powell, PT Service: ? 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 He presents with impairments in ADL's, independence in exercise, joint mobility, overall function, range of motion, strength , symptom management, and tissue tenderness. . Prognosis for therapy is Good due to: current objective clinical presentation;good overall health status;within-session changes;good support system/ coping skills . He will benefit from skilled therapy services to meet the goals established for this plan of care as noted below. Goals for Episode of Care: created on 05/07/22 through 06/18/22 [place] in home exercise program. Patient will decrease pain to 1-2/10 with functional activities to allow patient to improve transfers, standing tolerance for ADLs, and functional squatting/lifting. Perform lifting and carrying at work with decreased report of symptoms/pain in 6 weeks. Perform driving and prolonged sitting for 1-2 hours without pain. Increased strength of B hip extension, ER, abd, and B quadriceps 4/5 or greater to reduce knee pain and improve stability Patient will demonstrate improved neuromuscular coordination as evidenced by improve function for prior functional tasks and work tasks. Patient Goals: reduce knee pain with ADLs and work activities Planned Interventions, Frequency, and Duration: Current Frequency: 2x/week Duration: 6 weeks Total Number of Visits Planned: 12 Planned Treatment Interventions: Therapeutic exercise (66812);Neuromuscular re-education (87764);Manual therapy (70161);Therapeutic activities (01233);Self-residential management (05868);Gait Training (24586) PLAN FOR NEXT VISIT: Assess symptom response to open chain sciatic nerve glides, hamstring Patient demonstrates good understanding of plan of care and treatment. The above goals and plan of care were discussed and agreed upon by patient/family. SUBJECTIVE: Tucker Zambrano is a 21 year old male seen today for for chronic B knee pain that onset 10-11 years ago without specific injury. Pt. has been seen by specialist with who he discussed surgical options for OCD B knees. Pt. 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 Pt. can benefit from PT to improve functional strength and review correct mechanics with functional movements for work and ADLs. 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) [employer] Occupation: standing fork lift Hobbies / Interests: pain with jogging, squats, SLS squats, and video games Intake Information: Prescription present Previous Treatment: Exercises per physician Falls Interview: No positive findings with falls interview Pain: Pain Pain Level: 0 Pain Location: Knee - Left;Knee - Right Post Treatment Pain Post Treatment Pain Level: 1 Post Treatment Pain Location: Knee - Left;Knee - Right PROMIS Scales Higher is Better 05/07/2022 Phys Func - Score 40 (mild dysfunction) Phys Func - Percentile 16 % GH Physical - Score 37.4 (Fair) GH Physical - Percentile 10 % GH Mental - Score 28.4 (Poor) GH Mental - Percentile 2 % Self-Eff Symptom - Score 41 (Average) Self-Eff Symptom - Percentile 18 % T-scores: mean of general population = 50. 5 points is clinically meaningfully difference Percentiles provide an indication of how the patient's score ranks in relation to the general population. Higher percentile rankings indicate better function/quality of life. 50th percentile is the average of the general population and indicates half of respondents had a worse score. T-scores: mean of general population = 50. 5 points is clinically meaningfully difference Percentiles provide an indication of how the patient's score ranks in relation to the general population. Higher percentile rankings indicate better function/quality of life. 50th percentile is the average of the general population and indicates half of respondents had a worse score. OBJECTIVE MEASURES WITH LEVEL OF FUNCTION: Cognition Cognition: Follows Commands Vi (more content not included)... 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 He presents with impairments in ADL's, independence in exercise, joint mobility, overall function, range of motion, strength , symptom management, and tissue tenderness. . Prognosis for therapy is Good due to: current objective clinical presentation;good overall health status;within-session changes;good support system/ coping skills . He will benefit from skilled therapy services to meet the goals established for this plan of care as noted below. Goals for Episode of Care: created on 05/07/22 through 06/18/22 [place] in home exercise program. Patient will decrease pain to 1-2/10 with functional activities to allow patient to improve transfers, standing tolerance for ADLs, and functional squatting/lifting. Perform lifting and carrying at work with decreased report of symptoms/pain in 6 weeks. Perform driving and prolonged sitting for 1-2 hours without pain. Increased strength of B hip extension, ER, abd, and B quadriceps 4/5 or greater to reduce knee pain and improve stability Patient will demonstrate improved neuromuscular coordination as evidenced by improve function for prior functional tasks and work tasks. Patient Goals: reduce knee pain with ADLs and work activities Planned Interventions, Frequency, and Duration: Current Frequency: 2x/week Duration: 6 weeks Total Number of Visits Planned: 12 Planned Treatment Interventions: Therapeutic exercise (15831);Neuromuscular re-education (96018);Manual therapy (31587);Therapeutic activities (56702);Self-residential management (77027);Gait Training (94899) PLAN FOR NEXT VISIT: Assess symptom response to open chain sciatic nerve glides, hamstring Patient demonstrates good understanding of plan of care and treatment. The above goals and plan of care were discussed and agreed upon by patient/family. SUBJECTIVE: Tucker Zambrano is a 21 year old male seen today for for chronic B knee pain that onset 10-11 years ago without specific injury. Pt. has been seen by specialist with who he discussed surgical options for OCD B knees. Pt. 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 Pt. can benefit from PT to improve functional strength and review correct mechanics with functional movements for work and ADLs. 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) [employer] Occupation: standing fork lift Hobbies / Interests: pain with jogging, squats, SLS squats, and video games Intake Information: Prescription present Previous Treatment: Exercises per physician Falls Interview: No positive findings with falls interview Pain: Pain Pain Level: 0 Pain Location: Knee - Left;Knee - Right Post Treatment Pain Post Treatment Pain Level: 1 Post Treatment Pain Location: Knee - Left;Knee - Right PROMIS Scales Higher is Better 05/07/2022 Phys Func - Score 40 (mild dysfunction) Phys Func - Percentile 16 % GH Physical - Score 37.4 (Fair) GH Physical - Percentile 10 % GH Mental - Score 28.4 (Poor) GH Mental - Percentile 2 % Self-Eff Symptom - Score 41 (Average) Self-Eff Symptom - Percentile 18 % T-scores: mean of general population = 50. 5 points is clinically meaningfully difference Percentiles provide an indication of how the patient's score ranks in relation to the general population. Higher percentile rankings indicate better function/quality of life. 50th percentile is the average of the general population and indicates half of respondents had a worse score. T-scores: mean of general population = 50. 5 points is clinically meaningfully difference Percentiles provide an indication of how the patient's score ranks in relation to the general population. Higher percentile rankings indicate better function/quality of life. 50th percentile is the average of the general population and indicates half of respondents had a worse score. OBJECTIVE MEASURES WITH LEVEL OF FUNCTION: Cognition Cognition: Follows Commands Vision Vision Deficits: Wears corrective lenses Knee Observations R Knee Palpation Tenderness: Medial joint line L Knee Palpation Tenderness: Medial joint line Sensation - Lower Extremity LE Light Touch Sensation: Grossly Intact LE AROM R Knee Extension: 0 Degrees R Knee Flexion: 138 Degrees L Knee Extension: -8 Degrees L Knee Flexion: 150 Degrees LE Flexibility Flexibility: Hamstring Flexibility R Hamstring Flexibility: limited L Hamstring Flexibility: limited LE Strength R LE Strength: no myotomal weakness observed L LE Strength: no myotomal weakness observed Functional Strength Functional Strength: Minisquat;Lifting Minisquat: pain, but reduces with cues for technique Lifting: reviewed correct mechanics Gait Gait: Independent Gait Observation: unremarkable Education: Education Learning Preferences: Demonstration;Explanation;Perfor lida;Printed Materials Barriers: None Learning/educational needs: Home exercise program;Plan of Care Education Provided: Yes, see treatment interventions for education provided Education Provided To: Patient Education Mode/Type: Demonstration;Performance;Explan ation/Discussion;Literature/Prin jovanni Materials Response to Education/Teach Back: States/Identifies;Return Demonstration TREATMENT: PT Treatment Interventions: Therapeutic Exercise;Self-Chcf Management Evaluation Evaluation Therapeutic Exercise: 1: supine sciatic nerve glides 2x10 each side, 2x PF/DF ankle pumps each rep 2: hook lying glute bridges 2x12 3: prone hip extension 3x12 each side 4: functional squat 2x5 times, cues to avoid proximal tibia anterior translation and to abd the hips -- pt. reported no symptoms with this correction Skilled Intervention: Patient was educated in proper exercise technique and purpose for exercises. Skilled judgment was provided in selection of appropriate interventions. Provided written instruction for home exercise program to facilitate proper performance and compliance. Correct performance of therapeutic exercises was facilitated with verbal, visual, and tactile cuing. Additional time necessary for providing pt. Education and HEP due to initial evaluation. Educated patient on rationale for performing exercises in regards to increase ease of ADL and ROM and function . Patient education as noted. Self-Chcf Management: 1: *pt. education for ergonimcs using a computer 2: *pt. education to stretch at least 3x day 3: *education lifting and carrying mechanics Skilled Intervention: Skilled judgment in the selection of proper modification for activity of daily living/home management based on clinical presentation, deficits, and needs. Provided written instruction for activities of daily living techniques to facilitate proper performance and compliance. Reviewed patient specific diagnosis in relation to activities of daily living/home management. Activity progression based on professional judgement. Instructed on proper lifting and carrying techniques with importance of core activation. Provided written instruction for home program to facilitate proper performance and compliance. Correct performance of home program was facilitated with verbal, visual, and tactile cueing. Billing * Evaluation Low Complexity: 1 Unit Therapeutic Exercise Treatment Minutes: 15 Self-Care/Home Management Treatment Minutes: 10 Total Treatment Time Minutes (timed/untimed): 45 Alison Powell PT documented in this encounter [facility] 05-06-2022 Note HNO ID: [id number] Author: RT Jared(R) Service: ? Author Type: Technologist Type: Progress Notes Filed: 05/06/2022 12:58 PM Note Text: Radiology Service Progress Note PATIENT NAME: Tucker Zambrano DATE OF SERVICE: May 06, 2022 TIME: 12:57 PM PATIENT IDENTITY VERIFICATION COMPLETED USING TWO (2) IDENTIFIERS: Name and Date of confirmed by patient verbally. FALL SCREENING: Has the patient had 2 falls in the last year or 1 fall with injury or currently using an Ambulatory Assistive Device (Walker, Cane, Wheelchair, Crutches, etc.)? No PATIENT GENDER DATA: Male PATIENT RELEVANT IMPLANT DATA REVIEWED: Not Applicable RADIOLOGY DEPARTMENT: General X-ray: Exam(s) Completed: Lower Extremity X-Ray(s): FLEA (Full Length Lower Extremity) PERIPHERAL IV DATA: Not applicable SIGNED BY: RT Jared(R) May 06, 2022 12:[address] [facility] 05-06-2022 Note HNO ID: [id number] Author: Cedrick Naylor MD Service: ? Author Type: Resident Type: Progress Notes Filed: 06/06/2022 11:41 AM Note Text: May 06, 2022 HPI: Tucker Zambrano is a 21 year old male with no significant past medical history who presents today for evaluation of chronic left knee pain. Pain started roughly 10+ years ago. No inciting trauma. Has had pain intermittently ever since. Has progressed over the past few years to the point of becoming rather severe. Knees ache constantly. Worse with activity, improve with rest and NSAIDs. Has had virtually no treatment at this point - no injections, no therapy, no surgery. He works in a warehouse operating a fork lift. Outside of work he is rather sedentary due to his knee problems. No history of blood clots in him or immediate family members. Past Medical History: PAST MEDICAL HISTORY Diagnosis Date Allergic rhinitis, cause unspecified Allergic rhinitis Pain in limb 2009 Family History: FAMILY HISTORY Problem Relation Age of Onset Hypertension Father Social History: Social History Tobacco Use Smoking status: Never Smokeless tobacco: Never Vaping Use Vaping Use: Never used Substance Use Topics Alcohol use: Never Drug use: Never Medications: ibuprofen (MOTRIN ORAL) Take by mouth. finasteride (PROPECIA,PROSCAR) 1 mg tablet Take 1 mg by mouth once daily. Allergies: ALLERGIES Allergen Reactions Penicillins Rash Environmental [Othe* Physical Exam: On exam, Ralph stands in neutral alignment. His knees were normal in appearance without swelling or obvious deformity. Right knee with trace joint effusion. Tender to palpation along the medial tibial plateau, medial joint line, medial femoral condyle. No tenderness laterally. Range of motion 0 to 135. Negative Barry, posterior drawer. No pain or laxity with varus/valgus stress. Negative Radha. Diffuse knee pain with single leg squat. Neurovascularly intact in the right foot. Left knee with trace joint effusion. Tender to palpation along the medial tibial plateau, medial joint line, medial femoral condyle. No tenderness laterally. Range of motion 0 to 135. Negative Barry, posterior drawer. No pain or laxity with varus/valgus stress. Negative Radha. Diffuse knee pain with single leg squat. Neurovascularly intact in the left foot. Imaging: Images were reviewed in the office today. Interpretation of the performed imaging is bilateral medial femoral condyle OCD lesions on plain films. MRI of bilateral knees reveals OCD lesions involving medial and lateral femoral condyles bilaterally. No loose bodies. No fluid signal to suggest unstable OCD lesions. Assessment/Plan: Bilateral medial and lateral femoral condyle OCD lesions Long discussion had today with Ralph and his mother regarding the possible etiology for his chronic bilateral knee pain. He has had pain for many years but no formal treatment to this point. He has a complex problem that lacks simple solutions. The size of his OCD lesions makes chondroplasty and microfracture nonviable options. Similarly, his chondral surfaces don't appear healthy which makes retroarticular drilling less attractive. The size alone likely merits bulk osteochondral allograft transplant but having both condyles involved, in both knees, creates a very challenging conundrum. Nonetheless, since he has had no treatment of any kind yet, we will start with physical therapy to improve his strength and range of motion. We will follow him closely with another visit after about 2-3 months of therapy. If he is not improved, we will discuss surgical intervention. Diagnosis: Ocd (osteochondritis dissecans) of knee (primary encounter diagnosis) Cedrick Naylor MD TEACHING PHYSICIAN STATEMENT: I saw and evaluated the patient. I personally obtained the hewitt and critical portions of the history and physical exam. I reviewed the resident's documentation and discussed the patient with the resident physician. I agree with the resident's medical decision-making as documented. I have also personally reviewed the patient's PMHx, PSHx, FHx, SHx, Meds, and Allergies. Dr. Stephen Sky MD [facility] 05-06-2022 History of Presen t illness Narrative Radiology Service Progress Note PATIENT NAME: Tucker Zambrano DATE OF SERVICE: May 06, 2022 TIME: 12:57 PM PATIENT IDENTITY VERIFICATION COMPLETED USING TWO (2) IDENTIFIERS: Name and Date of confirmed by patient verbally. FALL SCREENING: Has the patient had 2 falls in the last year or 1 fall with injury or currently using an Ambulatory Assistive Device (Walker, Cane, Wheelchair, Crutches, etc.)? No PATIENT GENDER DATA: Male PATIENT RELEVANT IMPLANT DATA REVIEWED: Not Applicable RADIOLOGY DEPARTMENT: General X-ray: Exam(s) Completed: Lower Extremity X-Ray(s): FLEA (Full Length Lower Extremity) PERIPHERAL IV DATA: Not applicable SIGNED BY: RT Jared(R) May 06, 2022 12:57 PM documented in this encounter [facility] 05-06-2022 History of Presen t illness Narrative May 06, 2022 HPI: Tucker Zambrano is a 21 year old male with no significant past medical history who presents today for evaluation of chronic left knee pain. Pain started roughly 10+ years ago. No inciting trauma. Has had pain intermittently ever since. Has progressed over the past few years to the point of becoming rather severe. Knees ache constantly. Worse with activity, improve with rest and NSAIDs. Has had virtually no treatment at this point - no injections, no therapy, no surgery. He works in a warehouse operating a fork lift. Outside of work he is rather sedentary due to his knee problems. No history of blood clots in him or immediate family members. Past Medical History: PAST MEDICAL HISTORY Diagnosis Date Allergic rhinitis, cause unspecified Allergic rhinitis Pain in limb 2009 Family History: FAMILY HISTORY Problem Relation Age of Onset Hypertension Father Social History: Social History Tobacco Use Smoking status: Never Smokeless tobacco: Never Vaping Use Vaping Use: Never used Substance Use Topics Alcohol use: Never Drug use: Never Medications: ibuprofen (MOTRIN ORAL) Take by mouth. finasteride (PROPECIA,PROSCAR) 1 mg tablet Take 1 mg by mouth once daily. Allergies: ALLERGIES Allergen Reactions Penicillins Rash Environmental [Othe* Physical Exam: On exam, Ralph stands in neutral alignment. His knees were normal in appearance without swelling or obvious deformity. Right knee with trace joint effusion. Tender to palpation along the medial tibial plateau, medial joint line, medial femoral condyle. No tenderness laterally. Range of motion 0 to 135. Negative Barry, posterior drawer. No pain or laxity with varus/valgus stress. Negative Radha. Diffuse knee pain with single leg squat. Neurovascularly intact in the right foot. Left knee with trace joint effusion. Tender to palpation along the medial tibial plateau, medial joint line, medial femoral condyle. No tenderness laterally. Range of motion 0 to 135. Negative Barry, posterior drawer. No pain or laxity with varus/valgus stress. Negative Radha. Diffuse knee pain with single leg squat. Neurovascularly intact in the left foot. Imaging: Images were reviewed in the office today. Interpretation of the performed imaging is bilateral medial femoral condyle OCD lesions on plain films. MRI of bilateral knees reveals OCD lesions involving medial and lateral femoral condyles bilaterally. No loose bodies. No fluid signal to suggest unstable OCD lesions. Assessment/Plan: Bilateral medial and lateral femoral condyle OCD lesions Long discussion had today with Ralph and his mother regarding the possible etiology for his chronic bilateral knee pain. He has had pain for many years but no formal treatment to this point. He has a complex problem that lacks simple solutions. The size of his OCD lesions makes chondroplasty and microfracture nonviable options. Similarly, his chondral surfaces don't appear healthy which makes retroarticular drilling less attractive. The size alone likely merits bulk osteochondral allograft transplant but having both condyles involved, in both knees, creates a very challenging conundrum. Nonetheless, since he has had no treatment of any kind yet, we will start with physical therapy to improve his strength and range of motion. We will follow him closely with another visit after about 2-3 months of therapy. If he is not improved, we will discuss surgical intervention. Diagnosis: Ocd (osteochondritis dissecans) of knee (primary encounter diagnosis) Cedrick Naylor MD TEACHING PHYSICIAN STATEMENT: I saw and evaluated the patient. I personally obtained the hewitt and critical portions of the history and physical exam. I reviewed the resident's documentation and discussed the patient with the resident physician. I agree with the resident's medical decision-making as documented. I have also personally reviewed the patient's PMHx, PSHx, FHx, SHx, Meds, and Allergies. Dr. Stephen Sky MD documented in this encounter [facility] 04-04-2022 Note HNO ID: [id number] Author: Bonnie Villatoro Ma Service: ? Author Type: ? Type: Progress Notes Filed: 04/04/2022 5:42 PM Note Text: PT ASSESSMENT - CASTING ROOM [place] presents for Application of brace. Applied DonJoy Reaction knee brace size Medium/Large to Right knee. Patient tolerated well. Patient has been instructed in Care and proper application of brace.Patient signed DonJoy PPA electronically for billing and verbalized understanding. Bonnie Villatoro Ma [facility] 04-04-2022 Note HNO ID: [id number] Author: Dwain Mendez MD Service: ? Author Type: Physician Type: Progress Notes Filed: 04/04/2022 5:42 PM Note Text: Patient presents with: Left Knee - New, Pain Right Knee - New, Pain Dwain Mendez MD Department of Orthopaedics Orthopaedics [facility] [address] [facility] [address] Dept: [phone] Dept April 04, [address] Quan for an opinion regarding bilateral knee OCD. My final recommendations will be communicated back to the requesting physician by way of shared Medical record or letter to requesting physician via [place] mail. CHIEF COMPLAINT: New and Pain of the Left Knee and New and Pain of the Right Knee HPI This is something has been bothering both knees for many years now. He has constant trouble with both of the knees he also feels locking up of the knees at times and swelling at different stages. Pain can sometimes be only 2 out of 10 but other times 8 out of 10, bilaterally. He denies any specific injury nor trauma. AMB ROOMING INTAKE FLOWSHEET DATA Risk Screening Do you have concerns about personal safety or safety in the home?: No Pt with bilateral knee pain. Pt currently doesn't have any pain but complains of them feeling weak. ASSESSMENT: M93.269 OCD (osteochondritis dissecans) of knee (primary encounter diagnosis) M25.561, M25.562, G89.29 Chronic pain of both knees PLAN: We will get him in with one of our sports surgeons to further evaluate and determine treatment options. FOLLOW UP INSTRUCTIONS: I will reach out to some of my colleagues and we will see if we can facilitate an appointment. Mr. Tucker Zambrano was advised as to contrast therapies and/or to take analgesics/anti-inflammatories as needed and all contraindications were reviewed. OBJECTIVE: Mr. Tucker Zambrano is a pleasant 21 year old in no apparent distress. Gen:There were no vitals taken for this visit. nl development, non obese, no deformities ENT: Normocephalic, normal hearing, moist mucosa CV: Pulses:DP/PT= 2+ and symmetric, capillary refill < 2 secs, no peripheral edema/varicosities Skin: no rash, bruising or lesions. Good turgor. Psych: cooperative and appropriate, alert and oriented x 3, good mood and affect. Musculoskeletal: Scant effusions of both knees. Good range of motion from full extension to 130 degrees or so. He has distal femoral condyle tenderness both medial laterally but greater on the medial sided each knee. IMAGING: IMPRESSION: RIGHT KNEE: LARGE MEDIAL AND LATERAL FEMORAL CONDYLE OSTEOCHONDRAL LESIONS. ?MULTIPLE IN SITU FRAGMENTS. ?NO FLUID UNDERMINING OR DISPLACED FRAGMENT. Remote Medical Coder: IAM ? Transcribe Date/Time: Mar 01 2022 ?3:15P Dictated by : WAN MAURO MD This examination was interpreted and the report reviewed and electronically signed by: CAROLYNN WORKMAN MD on Mar 01 2022 ?4:42PM ?EST Results-Findings * * *Final Report* * * DATE OF EXAM: Mar 01 2022 ?2:09PM ? [facility] ? 0213 ?- ?MRI KNEE WO IVCON RT ?/ PROCEDURE REASON: Osteochondral defect of condyle of femur ?? ? * * * * Physician Interpretation * * * * ?EXAMINATION: ?MRI RIGHT KNEE WITHOUT CONTRAST CLINICAL HISTORY: ?Bone lesion Loose body, knee TECHNIQUE: Routine non-contrast MRI of the knee MQ: ?MRK_2B COMPARISON: ?Radiographs dated 02/15/2022. RESULT: MENISCI: Medial Meniscus: ?Intact. Lateral Meniscus: ?Intact. LIGAMENTS: ACL: ?Intact PCL: ?Intact MCL: ?Intact LCL Complex: ?Intact CARTILAGE: Medial Femoral Condyle: ?Large osteochondral lesion measuring 21 x 19 mm with multiple in situ fragments and cystlike changes at the margins, but no discrete fluid undermining or displaced fragment. ?Mild edema throughout the condyle. Medial Tibial Plateau: ?Normal Lateral Femoral Condyle: ?Large osteochondral lesion measuring 20 x 20 mm with multiple in situ fragments and cystlike changes along the margins but no fluid undermining or displaced fragment. Lateral Tibial Plateau: Normal Patella: Normal Trochlea: Single full-thickness fissure laterally TENDONS: ?The distal quadriceps and patellar tendons are intact. ?The popliteus tendon is intact. BONES AND MARROW: ?No evidence of fracture or bone marrow replacing process. Cystlike changes along the posteromedial tibial plateau adjacent to the PCL and medial meniscal root insertion likely reactive. ?Adjacent small 9 x 3 mm fluid lesion along the posterior joint likely small ganglion. MUSCLES: ?Muscle bulk and signal intensity are normal. JOINT FLUID AND SYNOVIUM: ?No joint effusion. ?No synovitis. No Greco's cyst. OTHER: ?No other significant abnormality identified. Localizer images: No additional findings. IMPRESSION:. LEFT: LARGE MEDIAL AND LATERAL FEMORAL CONDYLE OSTEOCHONDRAL LESIONS WITH MULTIPLE IN SITU FRAGMENTS. ?NO FLUID UNDERMINING OR DISPLACED FRAGMENT. Remote Medical Coder: (more content not included)... [facility] 04-04-2022 History of Presen t illness Narrative PT ASSESSMENT - CASTING ROOM Tucker presents for Application of brace. Applied DonJoy Reaction knee brace size Medium/Large to Right knee. Patient tolerated well. Patient has been instructed in Care and proper application of brace.Patient signed DonSydnie PPA electronically for billing and verbalized understanding. Bonnie Villatoro Ma Patient presents with: Left Knee - New, Pain Right Knee - New, Pain Dwain Mendez MD Department of Orthopaedics Orthopaedics [address] [facility] [address] Dept: [phone] Dept April 04, [address] Quan for an opinion regarding bilateral knee OCD. My final recommendations will be communicated back to the requesting physician by way of shared Medical record or letter to requesting physician via [place] mail. CHIEF COMPLAINT: New and Pain of the Left Knee and New and Pain of the Right Knee HPI This is something has been bothering both knees for many years now. He has constant trouble with both of the knees he also feels locking up of the knees at times and swelling at different stages. Pain can sometimes be only 2 out of 10 but other times 8 out of 10, bilaterally. He denies any specific injury nor trauma. AMB ROOMING INTAKE FLOWSHEET DATA Risk Screening Do you have concerns about personal safety or safety in the home?: No Pt with bilateral knee pain. Pt currently doesn't have any pain but complains of them feeling weak. ASSESSMENT: M93.269 OCD (osteochondritis dissecans) of knee (primary encounter diagnosis) M25.561, M25.562, G89.29 Chronic pain of both knees PLAN: We will get him in with one of our sports surgeons to further evaluate and determine treatment options. FOLLOW UP INSTRUCTIONS: I will reach out to some of my colleagues and we will see if we can facilitate an appointment. Mr. Tucker Zambrano was advised as to contrast therapies and/or to take analgesics/anti-inflammatories as needed and all contraindications were reviewed. OBJECTIVE: Mr. Tucker Zambrano is a pleasant 21 year old in no apparent distress. Gen:There were no vitals taken for this visit. nl development, non obese, no deformities ENT: Normocephalic, normal hearing, moist mucosa CV: Pulses:DP/PT= 2+ and symmetric, capillary refill < 2 secs, no peripheral edema/varicosities Skin: no rash, bruising or lesions. Good turgor. Psych: cooperative and appropriate, alert and oriented x 3, good mood and affect. Musculoskeletal: Scant effusions of both knees. Good range of motion from full extension to 130 degrees or so. He has distal femoral condyle tenderness both medial laterally but greater on the medial sided each knee. IMAGING: IMPRESSION: RIGHT KNEE: LARGE MEDIAL AND LATERAL FEMORAL CONDYLE OSTEOCHONDRAL LESIONS. MULTIPLE IN SITU FRAGMENTS. NO FLUID UNDERMINING OR DISPLACED FRAGMENT. Remote Medical Coder: PSCB Transcribe Date/Time: Mar 01 2022 3:15P Dictated by : WAN MAURO MD This examination was interpreted and the report reviewed and electronically signed by: CAROLYNN WORKMAN MD on Mar 01 2022 4:42PM EST Results-Findings * * *Final Report* * * DATE OF EXAM: Mar 01 2022 2:09PM [facility] 0213 - MRI KNEE WO IVCON RT / PROCEDURE REASON: Osteochondral defect of condyle of femur * * * * Physician Interpretation * * * * EXAMINATION: MRI RIGHT KNEE WITHOUT CONTRAST CLINICAL HISTORY: Bone lesion Loose body, knee TECHNIQUE: Routine non-contrast MRI of the knee MQ: MRK_2B COMPARISON: Radiographs dated 02/15/2022. RESULT: MENISCI: Medial Meniscus: Intact. Lateral Meniscus: Intact. LIGAMENTS: ACL: Intact PCL: Intact MCL: Intact LCL Complex: Intact CARTILAGE: Medial Femoral Condyle: Large osteochondral lesion measuring 21 x 19 mm with multiple in situ fragments and cystlike changes at the margins, but no discrete fluid undermining or displaced fragment. Mild edema throughout the condyle. Medial Tibial Plateau: Normal Lateral Femoral Condyle: Large osteochondral lesion measuring 20 x 20 mm with multiple in situ fragments and cystlike changes along the margins but no fluid undermining or displaced fragment. Lateral Tibial Plateau: Normal Patella: Normal Trochlea: Single full-thickness fissure laterally TENDONS: The distal quadriceps and patellar tendons are intact. The popliteus tendon is intact. BONES AND MARROW: No evidence of fracture or bone marrow replacing process. Cystlike changes along the posteromedial tibial plateau adjacent to the PCL and medial meniscal root insertion likely reactive. Adjacent small 9 x 3 mm fluid lesion along the posterior joint likely small ganglion. MUSCLES: Muscle bulk and signal intensity are normal. JOINT FLUID AND SYNOVIUM: No joint effusion. No synovitis. No Greco's cyst. OTHER: No other significant abnormality identified. Localizer images: No additional findings. IMPRESSION:. LEFT: LARGE MEDIAL AND LATERAL FEMORAL CONDYLE OSTEOCHONDRAL LESIONS WITH MULTIPLE IN SITU FRAGMENTS. NO FLUID UNDERMINING OR DISPLACED FRAGMENT. Remote Medical Coder: PSCB Transcribe Date/Time: Mar 01 2022 3:07P Dictated by : WAN MAURO MD This examination was interpreted and the report reviewed and electronically signed by: CAROLYNN WORKMAN MD on Mar 01 2022 4:47PM EST Results-Findings * * *Final Report* * * DATE OF EXAM: Mar 01 2022 1:35PM [facility] 0212 - MRI KNEE WO IVCON LT / PROCEDURE REASON: Osteochondral defect of condyle of femur * * * * Physician Interpretation * * * * EXAMINATION: MRI LEFT KNEE WITHOUT CONTRAST CLINICAL HISTORY: Bone lesion Loose body, knee TECHNIQUE: Routine non-contrast MRI of the knee MQ: MRK_2B COMPARISON: Radiographs dated 02/15/2022. RESULT: MENISCI: Medial Meniscus: Intact. Lateral Meniscus: Intact. LIGAMENTS: ACL: Intact PCL: Intact MCL: Intact LCL Complex: Intact CARTILAGE: Medial Femoral Condyle: Large osteochondral lesion measuring 24 x 19 mm. There are multiple in situ fragments with minimal cystlike changes along the margins, but no fluid undermining or displaced fragment. Medial Tibial Plateau: Normal Lateral Femoral Condyle: Large osteochondral lesion measuring 21 x 14 mm. There are multiple in situ fragments with cystlike changes along the margin but no fluid undermining or displaced fragment. Lateral Tibial Plateau: Normal Patella: Normal Trochlea: Normal TENDONS: The distal quadriceps and patellar tendons are intact. The popliteus tendon is intact. BONES AND MARROW: No evidence of fracture or bone marrow replacing process. Bilateral femoral condylar osteochondral lesions as described above. Mild edema in each femoral condyle, medial worse. MUSCLES: Muscle bulk and signal intensity are normal. JOINT FLUID AND SYNOVIUM: Trace joint fluid. No synovitis. No Greco's cyst. OTHER: No other significant abnormality identified. Localizer images: No additional findings. Supporting Subjective Information Below: Past Medical History: PAST MEDICAL HISTORY Diagnosis Date Allergic rhinitis, cause unspecified Allergic rhinitis Pain in limb 2009 Past Surgical History: PAST SURGICAL HISTORY Procedure Laterality Date NONE Family History: FAMILY HISTORY Problem Relation Age of Onset Hypertension Father Social History: Social History Tobacco Use Smoking status: Never Smoker Smokeless tobacco: Never Used Vaping Use Vaping Use: Never used Substance Use Topics Alcohol use: Never Drug use: Never Medications: Current Outpatient Medications Medication Sig ibuprofen (MOTRIN ORAL) Take by mouth. finasteride (PROPECIA,PROSCAR) 1 mg tablet Take 1 mg by mouth once daily. No current facility-administered medications for this visit. Allergies: Penicillins and Environmental [Other] ROS: General (negative for fatigue, malaise, weight loss/gain) HEENT (negative for headache, earache, recent vision changes, sinus pain, sore throat) Respiratory (no recent shortness of breath, hemoptysis) CV (negative for chest tightness, palpitations) Musculoskeletal (see HPI) Psych (no depression, anxiety) REFERRING PHYSICIAN: Mr. Tucker Zambrano was referred to dc for consultation by the following physician. This consultation note will be sent to the following physician by either mail or electronic medical record. Cindy Tillman [address] [facility] [address] Marcy Lugo MD [address] [facility] [address] Dwain Mendez MD documented in this encounter [facility] 03-01-2022 History of Presen t illness Narrative Radiology Service Progress Note PATIENT NAME: Tucker Zambrano DATE OF SERVICE: March 01, 2022 TIME: 1:28 PM PATIENT IDENTITY VERIFICATION COMPLETED USING TWO (2) IDENTIFIERS: Name and Date of confirmed by patient verbally. FALL SCREENING: Has the patient had 2 falls in the last year or 1 fall with injury or currently using an Ambulatory Assistive Device (Walker, Cane, Wheelchair, Crutches, etc.)? No PATIENT GENDER DATA: Male PATIENT RELEVANT IMPLANT DATA REVIEWED: Yes RADIOLOGY DEPARTMENT: MR; Exam(s) Completed: Lower MSK: Knee, bilateral PERIPHERAL IV DATA: Not applicable SIGNED BY: RT Daniel(R) March 01, 2022 1:28 PM documented in this encounter [facility] 02-15-2022 Instructions Dony Quan V, DO - 02/15/2022 12:13 PM EDT Thank you for choosing the [facility] for your acute care needs. [facility] treats minor infections, rashes and injuries. It is our mission for our patients to be healthy. A primary care relationship with the physician allows for continuity of care, counseling, and maintenance of preventive health care needs. [facility] does not replace the relationship or need for a primary care physician. For information about establishing with a primary care physician or booking an appointment, please call [phone] or speak with any Patient Tray Packer. Hours: Friday through Friday 7:30 am to 7:00 pm. Friday and Friday: 8:00 am to 2:30 pm. documented in this encounter [facility] 02-15-2022 History of Presen t illness Narrative Cindy Tillman [address] [facility] [address] Mr. Zambrano is a 21 year old male that presents today complaining of knee problems bilaterally for the last 10 years. He claims that there is no specific incident that brought on this pain. The pain is described as chronic and constant located along the inside aspect and in the front of the knee. He frequently has difficulty with knees locking, and has range of motion restrictions of both knees, left greater than right. Patient states that his pain level is a number 8 on a scale of 1-10 Patient reports that the symptoms increase when standing on hard surface and there is a decrease in symptoms with rest and ice.. Patient ALLERGIES: Penicillins and Environmental [Other] MEDICATIONS: Current Outpatient Medications Medication Sig ibuprofen (MOTRIN ORAL) Take by mouth. finasteride (PROPECIA,PROSCAR) 1 mg tablet Take 1 mg by mouth once daily. No current facility-administered medications for this visit. MEDICAL HISTORY: PAST MEDICAL HISTORY Diagnosis Date Allergic rhinitis, cause unspecified Allergic rhinitis Pain in limb 2009 SURGICAL HISTORY: PAST SURGICAL HISTORY Procedure Laterality Date NONE FAMILY HISTORY: FAMILY HISTORY Problem Relation Age of Onset Hypertension Father SOCIAL HISTORY: Social History Tobacco Use Smoking status: Never Smoker Smokeless tobacco: Never Used Vaping Use Vaping Use: Never used Substance Use Topics Alcohol use: Never Drug use: Never PHYSICAL ASSESSMENT: The Pt walks with a normal gait B/l LE have varus Alignment Right Knee Reveals trace Effusion. 0-135 degrees of motion. No Abnormal Anterior, Posterior, Varus or Valgus Laxity. No Medial or Lateral Joint Line Tenderness. There is pain with Direct Palpation over the Distal Medial Femoral Condyles. Pain with Blaine's Test. No pain with Patellar compression. The Left Knee Reveals trace Effusion. 0-135 degrees of motion. No Abnormal Anterior, Posterior, Varus or Valgus Laxity. No Medial or Lateral Joint Line Tenderness. There is pain with Direct Palpation over the Distal Medial Femoral Condyles. pain with Blaine's Test. There is no pain with patellar compression. RADIOGRAPH: Osteochondritis dessicans medial femoral condyles bilateral knees with potential loose bodies ASSESSMENT: Osteochondritis dessicans bilateral knees PLAN: I recommend further evaluation with MRI of bilateral knees to evaluate the extent of osteochondral lesions along both medial femoral condyles. Discussed surgical referral Dony Quan DO AMB ROOMING INTAKE FLOWSHEET DATA Risk Screening Do you have concerns about personal safety or safety in the home?: No Pain Pain Level: 8 Pain Location: (bilateral knee) Description: Sharp Duration Amount of Time: 10 Duration Units: Years Frequency: Intermittent Intervention/Comfort measure: Exercise documented in this encounter [facility] 02-15-2022 History of Presen t illness Narrative Radiology Service Progress Note PATIENT NAME: Tucker Zambrano DATE OF SERVICE: February 15, 2022 TIME: 11:41 AM PATIENT IDENTITY VERIFICATION COMPLETED USING TWO (2) IDENTIFIERS: Name and Date of confirmed by patient verbally. FALL SCREENING: Has the patient had 2 falls in the last year or 1 fall with injury or currently using an Ambulatory Assistive Device (Walker, Cane, Wheelchair, Crutches, etc.)? No PATIENT GENDER DATA: Male PATIENT RELEVANT IMPLANT DATA REVIEWED: Not Applicable RADIOLOGY DEPARTMENT: General X-ray: Exam(s) Completed: Lower Extremity X-Ray(s): Knee, AP / Lat / Tunne / Merchant Bilateral and Wt. Bearing PERIPHERAL IV DATA: Not applicable SIGNED BY: RT Brenda(R) February 15, 2022 11:41 AM documented in this encounter [facility] 02-02-2022 History of Presen t illness Narrative Subjective HPI HPI Tucker Zambrano is a 21 year old male who presents today for CC of bilat knee pain chronic/intermittent for 11 years. Has tried otc medication and PT for relief. Symptoms are worsened by nothig. Denies injury, numbness/tingling of bilat lower extremity. .Patient presents with: Pain: Pt reported bilateral knee pain x11 yrs intermittient pain rated 8 PAST MEDICAL HISTORY Diagnosis Date Allergic rhinitis, cause unspecified Allergic rhinitis Pain in limb 2008 PAST SURGICAL HISTORY Procedure Laterality Date NONE ALLERGIES Penicillins and Environmental [Other] MEDICATIONS ibuprofen (MOTRIN ORAL) Take by mouth. finasteride (PROPECIA,PROSCAR) 1 mg tablet Take 1 mg by mouth once daily. FAMILY HISTORY Problem Relation Age of Onset Hypertension Father Social History Tobacco Use Smoking status: Never Smoker Smokeless tobacco: Never Used Substance Use Topics Alcohol use: Never Drug use: Never ROS Objective Blood pressure 114/70, pulse 71, temperature 36.3 C (97.4 F), resp. rate 18, weight 83.7 kg (184 lb 9.6 oz), SpO2 100 %. Physical Exam Constitutional: General: He is not in acute distress. Appearance: He is not toxic-appearing or diaphoretic. HENT: Head: Normocephalic and atraumatic. Cardiovascular: Pulses: Dorsalis pedis pulses are 2+ on the right side and 2+ on the left side. Posterior tibial pulses are 2+ on the right side and 2+ on the left side. Pulmonary: Effort: Pulmonary effort is normal. No accessory muscle usage or respiratory distress. Musculoskeletal: Right knee: No swelling. Tenderness present over the medial joint line. No lateral joint line tenderness. No LCL laxity or MCL laxity. Left knee: No swelling, deformity, effusion, erythema, ecchymosis or lacerations. Normal range of motion. Tenderness present over the medial joint line and lateral joint line. No LCL laxity or MCL laxity. Neurological: Mental Status: He is alert and oriented to person, place, and time. ASSESSMENT/PLAN: 1. Chronic pain of both knees - ICD9: 719.46, 338.29, ICD10: M25.561, M25.562, G89.29 No pain at time of exam, I will refer to ortho Walked to psr to schedule - CONSULT TO ORTHOPAEDICS Agrees to plan Cindy Tillman APRN.LATASHA documented in this encounter [facility] 04-27-2009 History of Past i llness Narrative Problem Noted Date Resolved Date Pain in limb 04/27/2009 03/13/2018 documented as of this encounter (statuses as of 02/02/2022) [facility]08[facility]2009 History of Past illness Narrative* Problem Noted Date Resolved Date Pain in limb 04/27/2009 03/13/2018 documented as of this encounter (statuses as of 02/07/2022) [facility] History of Past illness Narrative* Problem Noted Date Resolved Date Pain in limb 04/27/2009 03/13/2018 documented as of this encounter (statuses as of 02/15/2022) [facility] History of Past illness Narrative* Problem Noted Date Resolved Date Pain in limb 04/27/2009 03/13/2018 documented as of this encounter (statuses as of 02/16/2022) [address]20-2009 History of Past illness Narrative* Problem Noted Date Resolved Date Pain in limb 04/27/2009 03/13/2018 documented as of this encounter (statuses as of 03/02/2022) [facility] History of Past illness Narrative* Problem Noted Date Resolved Date Pain in limb 04/27/2009 03/13/2018 documented as of this encounter (statuses as of 03/12/2022) [address]20-2009 History of Past illness Narrative* Problem Noted Date Resolved Date Pain in limb 04/27/2009 03/13/2018 documented as of this encounter (statuses as of 04/04/2022) [address]20-2009 History of Past illness Narrative* Problem Noted Date Resolved Date Pain in limb 04/27/2009 03/13/2018 documented as of this encounter (statuses as of 04/23/2022) [address]20-2009 History of Past illness Narrative* Problem Noted Date Resolved Date Pain in limb 04/27/2009 03/13/2018 documented as of this encounter (statuses as of 05/07/2022) [address]20-2009 History of Past illness Narrative* Problem Noted Date Resolved Date Pain in limb 04/27/2009 03/13/2018 documented as of this encounter (statuses as of 05/16/2022) [address]20-2009 History of Past illness Narrative* Problem Noted Date Resolved Date Pain in limb 04/27/2009 03/13/2018 documented as of this encounter (statuses as of 05/22/2022) [address]20-2009 History of Past illness Narrative* Problem Noted Date Resolved Date Pain in limb 04/27/2009 03/13/2018 documented as of this encounter (statuses as of 06/05/2022) [address]20-2009 History of Past illness Narrative* Problem Noted Date Resolved Date Pain in limb 04/27/2009 03/13/2018 documented as of this encounter (statuses as of 06/06/2022) [address]20-2009 History of Past illness Narrative* Problem Noted Date Resolved Date Pain in limb 04/27/2009 03/13/2018 documented as of this encounter (statuses as of 06/12/2022) [address]20-2009 History of Past illness Narrative* Problem Noted Date Resolved Date Pain in limb 04/27/2009 03/13/2018 documented as of this encounter (statuses as of 07/22/2022) [address]20-2009 History of Past illness Narrative* Problem Noted Date Resolved Date Pain in limb 04/27/2009 03/13/2018 documented as of this encounter (statuses as of 08/05/2022) [address]20-2009 History of Past illness Narrative* Problem Noted Date Resolved Date Pain in limb 04/27/2009 03/13/2018 documented as of this encounter (statuses as of 08/06/2022) [address]20-2009 History of Past illness Narrative* Problem Noted Date Resolved Date Pain in limb 04/27/2009 03/13/2018 documented as of this encounter (statuses as of 08/06/2022) [address]20-2009 History of Past illness Narrative* Problem Noted Date Resolved Date Pain in limb 04/27/2009 03/13/2018 documented as of this encounter (statuses as of 08/14/2022) [address]20-2009 History of Past illness Narrative* Problem Noted Date Resolved Date Pain in limb 04/27/2009 03/13/2018 documented as of this encounter (statuses as of 08/14/2022) [address]20-2009 History of Past illness Narrative* Problem Noted Date Resolved Date Pain in limb 04/27/2009 03/13/2018 documented as of this encounter (statuses as of 08/26/2022) [address]20-2009 History of Past illness Narrative* Problem Noted Date Resolved Date Pain in limb 04/27/2009 03/13/2018 documented as of this encounter (statuses as of 09/09/2022) [address]20-2009 History of Past illness Narrative* Problem Noted Date Resolved Date Pain in limb 04/27/2009 03/13/2018 documented as of this encounter (statuses as of 09/11/2022) [address]20-2009 History of Past illness Narrative* Problem Noted Date Resolved Date Pain in limb 04/27/2009 03/13/2018 documented as of this encounter (statuses as of 09/19/2022) [address]20-2009 History of Past illness Narrative* Problem Noted Date Resolved Date Pain in limb 04/27/2009 03/13/2018 documented as of this encounter (statuses as of 09/25/2022) [address]20-2009 History of Past illness Narrative* Problem Noted Date Resolved Date Pain in limb 04/27/2009 03/13/2018 documented as of this encounter (statuses as of 09/27/2022) [address]20-2009 History of Past illness Narrative* Problem Noted Date Resolved Date Pain in limb 04/27/2009 03/13/2018 documented as of this encounter (statuses as of 10/02/2022) [address]20-2009 History of Past illness Narrative* Problem Noted Date Resolved Date Pain in limb 04/27/2009 03/13/2018 documented as of this encounter (statuses as of 10/05/2022) [address]20-2009 History of Past illness Narrative* Problem Noted Date Resolved Date Pain in limb 04/27/2009 03/13/2018 documented as of this encounter (statuses as of 10/07/2022) [address]20-2009 History of Past illness Narrative* Problem Noted Date Resolved Date Pain in limb 04/27/2009 03/13/2018 documented as of this encounter (statuses as of 10/11/2022) [address]20-2009 History of Past illness Narrative* Problem Noted Date Resolved Date Pain in limb 04/27/2009 03/13/2018 documented as of this encounter (statuses as of 10/17/2022) [address]20-2009 History of Past illness Narrative* Problem Noted Date Resolved Date Pain in limb 04/27/2009 03/13/2018 documented as of this encounter (statuses as of 10/24/2022) [address]20-2009 History of Past illness Narrative* Problem Noted Date Resolved Date Pain in limb 04/27/2009 03/13/2018 documented as of this encounter (statuses as of 10/29/2022) [address]20-2009 History of Past illness Narrative* Problem Noted Date Resolved Date Pain in limb 04/27/2009 03/13/2018 documented as of this encounter (statuses as of 10/31/2022) [address]20-2009 History of Past illness Narrative* Problem Noted Date Resolved Date Pain in limb 04/27/2009 03/13/2018 documented as of this encounter (statuses as of 11/05/2022) [address]20-2009 History of Past illness Narrative* Problem Noted Date Resolved Date Pain in limb 04/27/2009 03/13/2018 documented as of this encounter (statuses as of 11/07/2022) [address]20-2009 History of Past illness Narrative* Problem Noted Date Resolved Date Pain in limb 04/27/2009 03/13/2018 documented as of this encounter (statuses as of 11/11/2022) [address]20-2009 History of Past illness Narrative* Problem Noted Date Resolved Date Pain in limb 04/27/2009 03/13/2018 documented as of this encounter (statuses as of 11/15/2022) [address]20-2009 History of Past illness Narrative* Problem Noted Date Resolved Date Pain in limb 04/27/2009 03/13/2018 documented as of this encounter (statuses as of 11/20/2022) [address]20-2009 History of Past illness Narrative* Problem Noted Date Resolved Date Pain in limb 04/27/2009 03/13/2018 documented as of this encounter (statuses as of 11/25/2022) [address]20-2009 History of Past illness Narrative* Problem Noted Date Resolved Date Pain in limb 04/27/2009 03/13/2018 documented as of this encounter (statuses as of 12/06/2022) [address]20-2009 History of Past illness Narrative* Problem Noted Date Resolved Date Pain in limb 04/27/2009 03/13/2018 documented as of this encounter (statuses as of 12/10/2022) [address]20-2009 History of Past illness Narrative* Problem Noted Date Resolved Date Pain in limb 04/27/2009 03/13/2018 documented as of this encounter (statuses as of 12/12/2022) [address]20-2009 History of Past illness Narrative* Problem Noted Date Resolved Date Pain in limb 04/27/2009 03/13/2018 documented as of this encounter (statuses as of 12/18/2022) [address]20-2009 History of Past illness Narrative* Problem Noted Date Resolved Date Pain in limb 04/27/2009 03/13/2018 documented as of this encounter (statuses as of 12/19/2022) [address]20-2009 History of Past illness Narrative* Problem Noted Date Resolved Date Pain in limb 04/27/2009 03/13/2018 documented as of this encounter (statuses as of 12/23/2022) [address]20-2009 History of Past illness Narrative* Problem Noted Date Resolved Date Pain in limb 04/27/2009 03/13/2018 documented as of this encounter (statuses as of 12/30/2022) [address]20-2009 History of Past illness Narrative* Problem Noted Date Resolved Date Pain in limb 04/27/2009 03/13/2018 documented as of this encounter (statuses as of 01/01/2023) [address]20-2009 History of Past illness Narrative* Problem Noted Date Resolved Date Pain in limb 04/27/2009 03/13/2018 documented as of this encounter (statuses as of 01/02/2023) [address]20-2009 History of Past illness Narrative* Problem Noted Date Resolved Date Pain in limb 04/27/2009 03/13/2018 documented as of this encounter (statuses as of 01/06/2023) [address]20-2009 History of Past illness Narrative* Problem Noted Date Resolved Date Pain in limb 04/27/2009 03/13/2018 documented as of this encounter (statuses as of 01/08/2023) [address]20-2009 History of Past illness Narrative* Problem Noted Date Resolved Date Pain in limb 04/27/2009 03/13/2018 documented as of this encounter (statuses as of 01/15/2023) [address]20-2009 History of Past illness Narrative* Problem Noted Date Resolved Date Pain in limb 04/27/2009 03/13/2018 documented as of this encounter (statuses as of 01/16/2023) [address]20-2009 History of Past illness Narrative* Problem Noted Date Resolved Date Pain in limb 04/27/2009 03/13/2018 documented as of this encounter (statuses as of 01/20/2023) [address]20-2009 History of Past illness Narrative* Problem Noted Date Resolved Date Pain in limb 04/27/2009 03/13/2018 documented as of this encounter (statuses as of 02/10/2023) [address]20-2009 History of Past illness Narrative* Problem Noted Date Resolved Date Pain in limb 04/27/2009 03/13/2018 documented as of this encounter (statuses as of 03/10/2023) [address]20-2009 History of Past illness Narrative* Problem Noted Date Diagnosed Date Resolved Date Pain in limb 04/27/2009 03/13/2018 documented as of this encounter (statuses as of 03/25/2023) [facility] note* Diagnosis Chronic pain of both knees- [facility] Pain in both knees, unspecified chronicity- Primary [facility] Diagnosis Osteochondral defect of condyle of femur- Primary Acquired musculoskeletal deformity of other specified site Osteochondritis dissecans of right knee Osteochondritis dissecans Osteochondritis dissecans of left knee Osteochondritis dissecans [facility] Diagnosis Pain in both knees, unspecified chronicity [facility] Diagnosis Osteochondral defect of condyle of femur Acquired musculoskeletal deformity of other specified site [facility] Diagnosis OCD (osteochondritis dissecans) of knee- Primary Osteochondritis dissecans Chronic pain of both knees [facility] Diagnosis OCD (osteochondritis dissecans) of knee- Primary Osteochondritis dissecans [facility] Diagnosis OCD (osteochondritis dissecans) of knee- Primary Osteochondritis dissecans [facility] Diagnosis OCD (osteochondritis dissecans) of knee- Primary Osteochondritis dissecans [facility] Diagnosis OCD (osteochondritis dissecans) of knee- Primary Osteochondritis dissecans [facility] Diagnosis OCD (osteochondritis dissecans) of knee- Primary Osteochondritis dissecans [facility] Diagnosis Osteochondral defect of condyle of femur- Primary Acquired musculoskeletal deformity of other specified site [facility] Diagnosis Preop examination- Primary Preoperative examination, unspecified Osteochondral defect of condyle of femur Acquired musculoskeletal deformity of other specified site [facility] Diagnosis Acute post-operative pain- Primary [facility] Diagnosis OCD (osteochondritis dissecans) of knee- Primary Osteochondritis dissecans Chronic pain of both knees [facility] Diagnosis S/P orthopedic surgery, follow-up exam- Primary Follow-up examination, following other surgery [facility] Diagnosis Osteochondral defect of condyle of femur Acquired musculoskeletal deformity of other specified site S/P orthopedic surgery, follow-up exam Follow-up examination, following other surgery [facility] Diagnosis S/P orthopedic surgery, follow-up exam- Primary Follow-up examination, following other surgery Osteochondral defect of condyle of femur Acquired musculoskeletal deformity of other specified site [facility] Diagnosis S/P orthopedic surgery, follow-up exam- Primary Follow-up examination, following other surgery Osteochondral defect of condyle of femur Acquired musculoskeletal deformity of other specified site [facility] Diagnosis S/P orthopedic surgery, follow-up exam- Primary Follow-up examination, following other surgery Osteochondral defect of condyle of femur Acquired musculoskeletal deformity of other specified site [facility] Diagnosis S/P orthopedic surgery, follow-up exam- Primary Follow-up examination, following other surgery Osteochondral defect of condyle of femur Acquired musculoskeletal deformity of other specified site [facility] Diagnosis S/P orthopedic surgery, follow-up exam- Primary Follow-up examination, following other surgery Osteochondral defect of condyle of femur Acquired musculoskeletal deformity of other specified site [facility] Diagnosis S/P orthopedic surgery, follow-up exam- Primary Follow-up examination, following other surgery Osteochondral defect of condyle of femur Acquired musculoskeletal deformity of other specified site [facility] Diagnosis S/P orthopedic surgery, follow-up exam- Primary Follow-up examination, following other surgery Osteochondral defect of condyle of femur Acquired musculoskeletal deformity of other specified site [facility]* Diagnosis S/P orthopedic surgery, follow-up exam- Primary Follow-up examination, following other surgery Osteochondral defect of condyle of femur Acquired musculoskeletal deformity of other specified site [facility] Diagnosis S/P orthopedic surgery, follow-up exam- Primary Follow-up examination, following other surgery [facility] Diagnosis S/P orthopedic surgery, follow-up exam- Primary Follow-up examination, following other surgery Osteochondral defect of condyle of femur Acquired musculoskeletal deformity of other specified site documented in this encounter [facility] note* Diagnosis S/P orthopedic surgery, follow-up exam- Primary Follow-up examination, following other surgery Osteochondral defect of condyle of femur Acquired musculoskeletal deformity of other specified site documented in this encounter [facility] note* Diagnosis S/P orthopedic surgery, follow-up exam- Primary Follow-up examination, following other surgery Osteochondral defect of condyle of femur Acquired musculoskeletal deformity of other specified site documented in this encounter [facility] note* Diagnosis S/P orthopedic surgery, follow-up exam- Primary Follow-up examination, following other surgery Osteochondral defect of condyle of femur Acquired musculoskeletal deformity of other specified site documented in this encounter [facility] note* Diagnosis S/P orthopedic surgery, follow-up exam- Primary Follow-up examination, following other surgery documented in this encounter [facility] note* Diagnosis S/P orthopedic surgery, follow-up exam- Primary Follow-up examination, following other surgery Osteochondral defect of condyle of femur Acquired musculoskeletal deformity of other specified site documented in this encounter [facility] note* Diagnosis S/P orthopedic surgery, follow-up exam Follow-up examination, following other surgery documented in this encounter [facility] note* Diagnosis S/P orthopedic surgery, follow-up exam Follow-up examination, following other surgery [facility]* Diagnosis S/P orthopedic surgery, follow-up exam Follow-up examination, following other surgery documented in this encounter [facility] note* Diagnosis OCD (osteochondritis dissecans) of knee Osteochondritis dissecans documented in this encounter [facility] for referral (narrative)* Diagnostic Procedure Only (Routine) - Pending Review Specialty Diagnoses / Procedures Referred By Dheeraj cantu Referred To Contact XR IMAGING Diagnoses Pain in both knees, unspecified chronicity Procedures XR KNEE GENERAL 4V AP BOTH/PA BOTH/LAT/MERC BILATERAL RADIOLOGIC EXAM KNEE COMPLETE 4/MORE VIEWS Dony Quan V, [address] [place] [address] Xr Imaging Referral ID Status Reason Start Date Expiration Date Visits Requested Visits Authorized [id number] Pending Review Auto-Generat ed Referral 02/07/2022 03/09/2023 1 1 [facility] for referral (narrative)* Diagnostic Procedure Only (Routine) - Closed Specialty Diagnoses / Procedures Referred By Contac t Referred To Contact XR IMAGING Diagnoses Pain in both knees, unspecified chronicity Procedures XR KNEE GENERAL 4V AP BOTH/PA BOTH/LAT/MERC BILATERAL RADIOLOGIC EXAM KNEE COMPLETE 4/MORE VIEWS Dony Quan V, DO [address] [place] [address] Xr Imaging Referral ID Status Reason Start Date Expiration Date V isits Requested Visits Authorized [id number] Closed Auto-Generate d Referral 02/07/2022 03/09/2023 1 1 [facility] for referral (narrative)* Diagnostic Procedure Only (Routine) - Closed Specialty Diagnoses / Procedures Referred By Contac t Referred To Contact XR IMAGING Diagnoses S/P orthopedic surgery, follow-up exam Procedures XR KNEE LIMITED 2V AP/LAT LEFT RADIOLOGIC EXAMINATION KNEE 1/2 VIEWS Reji Vergara PA-C [address] [place] [address] Xr Imaging Referral ID Status Reason Start Date Expiration Date V isits Requested Visits Authorized [id number] Closed Auto-Generate d Referral 08/26/2022 09/25/2023 1 1 [facility] for referral (narrative)* Diagnostic Procedure Only (Routine) - Closed Specialty Diagnoses / Procedures Referred By Contac t Referred To Contact XR IMAGING Diagnoses S/P orthopedic surgery, follow-up exam Procedures XR KNEE GENERAL 4V AP BOTH/PA BOTH/LAT/MERC LEFT RADIOLOGIC EXAM KNEE COMPLETE 4/MORE VIEWS Reji Vergara PA-C [address] [place] [address] Xr Imaging Referral ID Status Reason Start Date Expiration Date V isits Requested Visits Authorized [id number] Closed Auto-Generate d Referral 11/04/2022 12/04/[address] [facility] for referral (narrative)* Diagnostic Procedure Only (Routine) - Pending Review Specialty Diagnoses / Procedures Referred By Contac t Referred To Contact XR IMAGING Diagnoses S/P orthopedic surgery, follow-up exam Procedures XR KNEE GENERAL 4V AP BOTH/PA BOTH/LAT/MERC LEFT RADIOLOGIC EXAM KNEE COMPLETE 4/MORE VIEWS Telling, Reji, PA-C [address] [place] [address] Xr Imaging Referral ID Status Reason Start Date Expiration Date Visits Requested Visits Authorized [id number] Pending Review Auto-Generat ed Referral 12/30/2022 01/29/2024 1 1 * Diagnostic Procedure Only (Routine) - Closed Specialty Diagnoses / Procedures Referred By Contac t Referred To Contact XR IMAGING Diagnoses S/P orthopedic surgery, follow-up exam Procedures XR KNEE GENERAL 4V AP BOTH/PA BOTH/LAT/MERC LEFT RADIOLOGIC EXAM KNEE COMPLETE 4/MORE VIEWS Telling, Reji, PA-C [address] [place] [address] Xr Imaging Referral ID Status Reason Start Date Expiration Date V isits Requested Visits Authorized [id number] Closed Auto-Generate d Referral 12/30/2022 01/29/[address] [facility] for referral (narrative)* Diagnostic Procedure Only (Routine) - Closed Specialty Diagnoses / Procedures Referred By Contac t Referred To Contact XR IMAGING Diagnoses S/P orthopedic surgery, follow-up exam Procedures XR KNEE GENERAL 4V AP BOTH/PA BOTH/LAT/MERC LEFT RADIOLOGIC EXAM KNEE COMPLETE 4/MORE VIEWS Telling, Reji, PA-C [address] [place] [address] Xr Imaging [place] [facility] Referral ID Status Reason Start Date Expiration Date V isits Requested Visits Authorized [id number] Closed Auto-Generate d Referral 12/30/2022 01/29/2024 1 1 [facility] for referral (narrative)* Diagnostic Procedure Only (Routine) - Closed Specialty Diagnoses / Procedures Referred By Contac t Referred To Contact XR IMAGING Diagnoses S/P orthopedic surgery, follow-up exam Procedures XR KNEE GENERAL 4V AP BOTH/PA BOTH/LAT/MERC LEFT RADIOLOGIC EXAM KNEE COMPLETE 4/MORE VIEWS Telling, BRANDON Caldwell-C [address] [place] [address] [place] [address] Referral ID Status Reason Start Date Expiration Date V isits Requested Visits Authorized [id number] Closed Auto-Generate d Referral 12/30/2022 01/29/[address] [facility] for referral (narrative)* Diagnostic Procedure Only (Routine) - Closed Specialty Diagnoses / Procedures Referred By Contac t Referred To Contact XR IMAGING Diagnoses S/P orthopedic surgery, follow-up exam Procedures XR KNEE GENERAL 4V AP BOTH/PA BOTH/LAT/MERC LEFT RADIOLOGIC EXAM KNEE COMPLETE 4/MORE VIEWS Telling, Reji PA-C [address] [place] [address] Xr Imaging [id number] Referral ID Status Reason Start Date Expiration Date V isits Requested Visits Authorized [id number] Closed Auto-Generate d Referral 11/04/2022 12/04/2023 1 1 [facility] for referral (narrative)* Diagnostic Procedure Only (Routine) - Closed Specialty Diagnoses / Procedures Referred By Contac t Referred To Contact XR IMAGING Diagnoses S/P orthopedic surgery, follow-up exam Procedures XR KNEE LIMITED 2V AP/LAT LEFT RADIOLOGIC EXAMINATION KNEE 1/2 VIEWS TellingReji PA-C [address] [place] [address] [place] [address] Referral ID Status Reason Start Date Expiration Date V isits Requested Visits Authorized [id number] Closed Auto-Generate d Referral 08/26/2022 09/25/[address] [facility] for referral (narrative)* Diagnostic Procedure Only (Routine) - Closed Specialty Diagnoses / Procedures Referred By Contac t Referred To Contact XR IMAGING Diagnoses OCD (osteochondritis dissecans) of knee Procedures XR LEG FRONTAL HIP TO ANKLE MECHANICAL AXIS BONE LENGTH STUDIES Stephen Sky MD [address] [place] [address] [place] [address] Referral ID Status Reason Start Date Expiration Date V isits Requested Visits Authorized [id number] Closed Auto-Generate d Referral 05/06/2022 06/05/[address] [facility] for visit Narrative* Diagnostic Procedure Only (Routine) - Closed Specialty Diagnoses / Procedures Referred By Contac t Referred To Contact XR IMAGING Diagnoses Pain in both knees, unspecified chronicity Procedures XR KNEE GENERAL 4V AP BOTH/PA BOTH/LAT/MERC BILATERAL RADIOLOGIC EXAM KNEE COMPLETE 4/MORE VIEWS Dony Quan, V, DO [address] [place] [address] Xr Imaging Referral ID Status Reason Start Date Expiration Date V isits Requested Visits Authorized [id number] Closed Auto-Generate d Referral 02/07/2022 03/09/[address] [facility] for visit Narrative* Diagnostic Procedure Only (Routine) - Closed Specialty Diagnoses / Procedures Referred By Contac t Referred To Contact XR IMAGING Diagnoses S/P orthopedic surgery, follow-up exam Procedures XR KNEE GENERAL 4V AP BOTH/PA BOTH/LAT/MERC LEFT RADIOLOGIC EXAM KNEE COMPLETE 4/MORE VIEWS Reji Vergara PA-C [address] [place] [address] [place] [address] Referral ID Status Reason Start Date Expiration Date V isits Requested Visits Authorized [id number] Closed Auto-Generate d Referral 12/30/2022 01/29/2024 1 [facility] Procedure Only (Routine) - Closed Specialty Diagnoses / Procedures Referred By Contac t Referred To Contact XR IMAGING Diagnoses S/P orthopedic surgery, follow-up exam Procedures XR KNEE LIMITED 2V AP/LAT LEFT RADIOLOGIC EXAMINATION KNEE 1/2 VIEWS Reji Vergara PA-C [address] [place] [id number] [place] [address] Referral ID Status Reason Start Date Expiration Date V isits Requested Visits Authorized [id number] Closed Auto-Generate d Referral 08/26/2022 09/25/2023 1 1 [facility] Reason for Referral Specialty Diagnoses / Procedures Referred By Contac t Referred To Contact Orthopedics Diagnoses Chronic pain of both knees Procedures CONSULT TO ORTHOPAEDICS OFFICE/OUTPATIENT [facility] 60-74 MINUTES Cindy Tillman APRN.[employer] [address] [place] [address] Referral ID Status Reason Start Date Expiration Date Visits Requested Visits Authorized [id number] Authorized PCP Requested Referral 02/02/2022 02/02/2023 1 1 Specialty Diagnoses / Procedures Referred By Contac t Referred To Contact MR IMAGING Diagnoses Osteochondral defect of condyle of femur Procedures MRI KNEE WO IVCON LT MRI ANY JT LOWER EXTREM W/O CONTRAST SHANNONL Dony Quan, V, DO [address] [place] [address] Mr Imaging Referral ID Status Reason Start Date Expiration Date Visits Requested Visits Authorized [id number] Authorized Auto-Generat ed Referral 02/15/2022 03/16/2022 1 1 Specialty Diagnoses / Procedures Referred By Contac t Referred To Contact MR IMAGING Diagnoses Osteochondral defect of condyle of femur Procedures MRI KNEE WO IVCON RT MRI ANY JT LOWER EXTREM W/O CONTRAST MATRL Dony Quan, V, DO [address] [place] [address] Mr Imaging Referral ID Status Reason Start Date Expiration Date Visits Requested Visits Authorized [id number] Authorized Auto-Generat ed Referral 02/15/2022 03/16/2022 1 1 Referral ID Status Reason Start Date Expiration Date V isits Requested Visits Authorized [id number] Closed Auto-Generate d Referral 02/15/2022 03/16/2022 1 1 Specialty Diagnoses / Procedures Referred By Contac t Referred To Contact [facility] Diagnoses OCD (osteochondritis dissecans) of knee Procedures PT REHAB FOLLOW UP ORDER THERAPEUTIC EXERCISES RE, EA 15 MIN. Alison Powell, [facility] [place] [address] Referral ID Status Reason Start Date Expiration Date Visits Requested Visits Authorized [id number] Pending Review PCP Requested Referral Auto-Generate d Referral 05/07/2022 08/05/2022 1 1 Referral ID Status Reason Start Date Expiration Date Visits Requested Visits Authorized [id number] Pending Review PCP Requested Referral Auto-Generate d Referral 05/07/2022 08/05/2022 1 1 Specialty Diagnoses / Procedures Referred By Contact Referred To Contact [facility] Diagnoses OCD (osteochondritis dissecans) of knee Procedures CONSULT TO PHYSICAL THERAPY PHYSICAL THERAPY EVALUATION HIGH COMPLEX 45 MINS Stephen Sky MD [address] [place] [address] [facility] [place] [address] Referral ID Status Reason Start Date Expiration Date Visits Requested Visits Authorized [id number] Authorized Auto-Generat ed Referral 05/06/2022 09/07/2022 20 20 Specialty Diagnoses / Procedures Referred By Contac t Referred To Contact XR IMAGING Diagnoses OCD (osteochondritis dissecans) of knee Procedures XR LEG FRONTAL HIP TO ANKLE MECHANICAL AXIS BONE LENGTH STUDIES Stephen Sky MD [address] [place] [address] Xr Imaging Referral ID Status Reason Start Date Expiration Date V isits Requested Visits Authorized [id number] Closed Auto-Generate d Referral 05/06/2022 06/05/2023 1 1 Referral ID Status Reason Start Date Expiration Date Visits Requested Visits Authorized [id number] Pending Review PCP Requested Referral Auto-Generate d Referral 06/12/2022 09/10/2022 1 1 Specialty Diagnoses / Procedures Referred By Contac t Referred To Contact [facility] Diagnoses S/P orthopedic surgery, follow-up exam Osteochondral defect of condyle of femur Procedures PT REHAB FOLLOW UP ORDER THERAPEUTIC EXERCISES RE, EA 15 MIN. Juan Zamora, MARIE [facility] [place] [address] [place] [address] Referral ID Status Reason Start Date Expiration Date Visits Requested Visits Authorized [id number] Pending Review PCP Requested Referral Auto-Generate d Referral 10/11/2022 01/09/2023 1 1 Referral ID Status Reason Start Date Expiration Date Visits Requested Visits Authorized [id number] Pending Review PCP Requested Referral Auto-Generate d Referral 10/30/2022 01/28/2023 1 1 Referral ID Status Reason Start Date Expiration Date Visits Requested Visits Authorized [id number] Pending Review PCP Requested Referral Auto-Generate d Referral 11/20/2022 02/18/2023 1 1 Referral ID Status Reason Start Date Expiration Date Visits Requested Visits Authorized [id number] Pending Review PCP Requested Referral Auto-Generate d Referral 12/23/2022 03/23/2023 1 1 Referral ID Status Reason Start Date Expiration Date Visits Requested Visits Authorized [id number] Pending Review PCP Requested Referral Auto-Generate d Referral 01/16/2023 04/16/2023 1 1 Medications Administered Section Inactive Administered Medications - up to 3 most recent administrations Medication Order MAR Action Action Date Dose Rate Site HYDROmorphone (PF) 1 mg injection (DILAUDID) 1 mg, INTRAVENOUS, EVERY 5 MINUTES NEEDED, 2 doses, Starting on Fri08/13/22 at 1445, Until Fri08/14/22 at 0303, SECOND LINE THERAPY, USE FOR MODERATE PAIN IF PAIN SCORE > 4/10., Recovery or Phase I (only) keTORolac 30 mg injection (TORADOL) 30 mg, INTRAVENOUS, NEEDED, 1 dose, Starting on Fri08/13/22 at 1445, Until Fri08/14/22 at 0303, Moderate Pain (4-6) - Parenteral, Ketorolac (Toradol) is indicated for the short-term (up to 5 days) management of moderately severe acute pain. Continuation of ketorolac (Toradol) beyond 5 days increases the risk of developing serious adverse events. Please verify the duration of therapy for ketorolac (Toradol)., Recovery or Phase I (only) lactated ringers iv infusion 5-30 mL/hr, INTRAVENOUS, CONTINUOUS, Starting on Fri08/13/22 at 1000, Until Fri08/13/22 at 1651, Preprocedure Restarted 08/13/2022 1:37 PM EST Continued by Anesthesia 08/13/2022 11:23 AM EST 30 mL/hr New Bag/Syringe/Bottle 08/13/2022 10:20 AM EST 30 mL/hr 30 mL/hr lactated ringers iv infusion 5-30 mL/hr, INTRAVENOUS, CONTINUOUS, Starting on Fri08/13/22 at 1500, Until Fri08/14/22 at 0303, Recovery or Phase I (only) meperidine (PF) 12.5 mg injection (DEMEROL) 12.5 mg, INTRAVENOUS, 2 TIMES DAILY NEEDED, Starting on Fri08/13/22 at 1445, Until Fri08/14/22 at 0303, for shivering, May Repeat 12.5 mg in 10 minutes X1 for Continued Shivering, Recovery or Phase I (only) meperidine (PF) 25 mg injection (DEMEROL) 25 mg, INTRAVENOUS, EVERY 5 MINUTES NEEDED, 6 doses, Starting on Fri08/13/22 at 1445, Until Fri08/14/22 at 0303, Severe Pain (>/=7) - Parenteral, First Line Therapy, USE FOR SEVERE PAIN ONLY IF PAIN SCORE > 7/10, Recovery or Phase I (only) Given 08/13/2022 2:50 PM EST 25 mg midazolam 6 mg injection (VERSED) 6 mg, INTRAVENOUS, ONCE, 1 dose, On Fri08/13/22 at 1030, Preprocedure Given 08/13/2022 10:48 AM EST 4 mg oxyCODONE IR 5 mg tab(s) (ROXICODONE) 5 mg, ORAL, ONCE, 1 dose, On Fri08/13/22 at 1500, Recovery or Phase I (only) Given 08/13/2022 3:15 PM EST 5 mg Summary Purpose Family History No Family History Records FoundNo Family History Records FoundNo Family History Records Found Advance Directives No Advanced Directives Records FoundNo Advanced Directives Records FoundNo Advanced Directives Records Found Additional Source Comments Source Comments (unrecognize d section and content) In the event this informatio n is protected by the Federal Confidentiality of Alcohol and Drug Abuse Patient Records regulations: The Federal rules restrict any use of the information to criminally investigate or prosecute any alcohol or drug abuse patient.[facility] the event this information is protected by the Federal Confidentiality of Alcohol and Drug Abuse Patient Records regulations: The Federal rules restrict any use of the information to criminally investigate or prosecute any alcohol or drug abuse patient.[facility] HospitalIn the event this information is protected by the Federal Confidentiality of Alcohol and Drug Abuse Patient Records regulations: The Federal rules restrict any use of the information to criminally investigate or prosecute any alcohol or drug abuse patient.[facility] HospitalIn the event this information is protected by the Federal Confidentiality of Alcohol and Drug Abuse Patient Records regulations: The Federal rules restrict any use of the information to criminally investigate or prosecute any alcohol or drug abuse patient.[facility] HospitalIn the event this information is protected by the Federal Confidentiality of Alcohol and Drug Abuse Patient Records regulations: The Federal rules restrict any use of the information to criminally investigate or prosecute any alcohol or drug abuse patient.[facility] HospitalIn the event this information is protected by the Federal Confidentiality of Alcohol and Drug Abuse Patient Records regulations: The Federal rules restrict any use of the information to criminally investigate or prosecute any alcohol or drug abuse patient.[facility] HospitalIn the event this information is protected by the Federal Confidentiality of Alcohol and Drug Abuse Patient Records regulations: The Federal rules restrict any use of the information to criminally investigate or prosecute any alcohol or drug abuse patient.[facility] HospitalIn the event this information is protected by the Federal Confidentiality of Alcohol and Drug Abuse Patient Records regulations: The Federal rules restrict any use of the information to criminally investigate or prosecute any alcohol or drug abuse patient.[facility] HospitalIn the event this information is protected by the Federal Confidentiality of Alcohol and Drug Abuse Patient Records regulations: The Federal rules restrict any use of the information to criminally investigate or prosecute any alcohol or drug abuse patient.[facility] HospitalIn the event this information is protected by the Federal Confidentiality of Alcohol and Drug Abuse Patient Records regulations: The Federal rules restrict any use of the information to criminally investigate or prosecute any alcohol or drug abuse patient.[facility] HospitalIn the event this information is protected by the Federal Confidentiality of Alcohol and Drug Abuse Patient Records regulations: The Federal rules restrict any use of the information to criminally investigate or prosecute any alcohol or drug abuse patient.[facility] HospitalIn the event this information is protected by the Federal Confidentiality of Alcohol and Drug Abuse Patient Records regulations: The Federal rules restrict any use of the information to criminally investigate or prosecute any alcohol or drug abuse patient.[facility] HospitalIn the event this information is protected by the Federal Confidentiality of Alcohol and Drug Abuse Patient Records regulations: The Federal rules restrict any use of the information to criminally investigate or prosecute any alcohol or drug abuse patient.[facility] HospitalIn the event this information is protected by the Federal Confidentiality of Alcohol and Drug Abuse Patient Records regulations: The Federal rules restrict any use of the information to criminally investigate or prosecute any alcohol or drug abuse patient.[facility] HospitalIn the event this information is protected by the Federal Confidentiality of Alcohol and Drug Abuse Patient Records regulations: The Federal rules restrict any use of the information to criminally investigate or prosecute any alcohol or drug abuse patient.[facility] HospitalIn the event this information is protected by the Federal Confidentiality of Alcohol and Drug Abuse Patient Records regulations: The Federal rules restrict any use of the information to criminally investigate or prosecute any alcohol or drug abuse patient.[facility] HospitalIn the event this information is protected by the Federal Confidentiality of Alcohol and Drug Abuse Patient Records regulations: The Federal rules restrict any use of the information to criminally investigate or prosecute any alcohol or drug abuse patient.[facility] HospitalIn the event this information is protected by the Federal Confidentiality of Alcohol and Drug Abuse Patient Records regulations: The Federal rules restrict any use of the information to criminally investigate or prosecute any alcohol or drug abuse patient.[facility] HospitalIn the event this information is protected by the Federal Confidentiality of Alcohol and Drug Abuse Patient Records regulations: The Federal rules restrict any use of the information to criminally investigate or prosecute any alcohol or drug abuse patient.[facility] HospitalIn the event this information is protected by the Federal Confidentiality of Alcohol and Drug Abuse Patient Records regulations: The Federal rules restrict any use of the information to criminally investigate or prosecute any alcohol or drug abuse patient.[facility] HospitalIn the event this information is protected by the Federal Confidentiality of Alcohol and Drug Abuse Patient Records regulations: The Federal rules restrict any use of the information to criminally investigate or prosecute any alcohol or drug abuse patient.[facility] HospitalIn the event this information is protected by the Federal Confidentiality of Alcohol and Drug Abuse Patient Records regulations: The Federal rules restrict any use of the information to criminally investigate or prosecute any alcohol or drug abuse patient.[facility] HospitalIn the event this information is protected by the Federal Confidentiality of Alcohol and Drug Abuse Patient Records regulations: The Federal rules restrict any use of the information to criminally investigate or prosecute any alcohol or drug abuse patient.[facility] HospitalIn the event this information is protected by the Federal Confidentiality of Alcohol and Drug Abuse Patient Records regulations: The Federal rules restrict any use of the information to criminally investigate or prosecute any alcohol or drug abuse patient.[facility] HospitalIn the event this information is protected by the Federal Confidentiality of Alcohol and Drug Abuse Patient Records regulations: The Federal rules restrict any use of the information to criminally investigate or prosecute any alcohol or drug abuse patient.[facility] HospitalIn the event this information is protected by the Federal Confidentiality of Alcohol and Drug Abuse Patient Records regulations: The Federal rules restrict any use of the information to criminally investigate or prosecute any alcohol or drug abuse patient.[facility] HospitalIn the event this information is protected by the Federal Confidentiality of Alcohol and Drug Abuse Patient Records regulations: The Federal rules restrict any use of the information to criminally investigate or prosecute any alcohol or drug abuse patient.[facility] HospitalIn the event this information is protected by the Federal Confidentiality of Alcohol and Drug Abuse Patient Records regulations: The Federal rules restrict any use of the information to criminally investigate or prosecute any alcohol or drug abuse patient.[facility] HospitalIn the event this information is protected by the Federal Confidentiality of Alcohol and Drug Abuse Patient Records regulations: The Federal rules restrict any use of the information to criminally investigate or prosecute any alcohol or drug abuse patient.[facility] HospitalIn the event this information is protected by the Federal Confidentiality of Alcohol and Drug Abuse Patient Records regulations: The Federal rules restrict any use of the information to criminally investigate or prosecute any alcohol or drug abuse patient.[facility] HospitalIn the event this information is protected by the Federal Confidentiality of Alcohol and Drug Abuse Patient Records regulations: The Federal rules restrict any use of the information to criminally investigate or prosecute any alcohol or drug abuse patient.[facility] HospitalIn the event this information is protected by the Federal Confidentiality of Alcohol and Drug Abuse Patient Records regulations: The Federal rules restrict any use of the information to criminally investigate or prosecute any alcohol or drug abuse patient.[facility] HospitalIn the event this information is protected by the Federal Confidentiality of Alcohol and Drug Abuse Patient Records regulations: The Federal rules restrict any use of the information to criminally investigate or prosecute any alcohol or drug abuse patient.[facility] HospitalIn the event this information is protected by the Federal Confidentiality of Alcohol and Drug Abuse Patient Records regulations: The Federal rules restrict any use of the information to criminally investigate or prosecute any alcohol or drug abuse patient.[facility] HospitalIn the event this information is protected by the Federal Confidentiality of Alcohol and Drug Abuse Patient Records regulations: The Federal rules restrict any use of the information to criminally investigate or prosecute any alcohol or drug abuse patient.[facility] HospitalIn the event this information is protected by the Federal Confidentiality of Alcohol and Drug Abuse Patient Records regulations: The Federal rules restrict any use of the information to criminally investigate or prosecute any alcohol or drug abuse patient.[facility] HospitalIn the event this information is protected by the Federal Confidentiality of Alcohol and Drug Abuse Patient Records regulations: The Federal rules restrict any use of the information to criminally investigate or prosecute any alcohol or drug abuse patient.[facility] HospitalIn the event this information is protected by the Federal Confidentiality of Alcohol and Drug Abuse Patient Records regulations: The Federal rules restrict any use of the information to criminally investigate or prosecute any alcohol or drug abuse patient.[facility] HospitalIn the event this information is protected by the Federal Confidentiality of Alcohol and Drug Abuse Patient Records regulations: The Federal rules restrict any use of the information to criminally investigate or prosecute any alcohol or drug abuse patient.[facility] HospitalIn the event this information is protected by the Federal Confidentiality of Alcohol and Drug Abuse Patient Records regulations: The Federal rules restrict any use of the information to criminally investigate or prosecute any alcohol or drug abuse patient.[facility] HospitalIn the event this information is protected by the Federal Confidentiality of Alcohol and Drug Abuse Patient Records regulations: The Federal rules restrict any use of the information to criminally investigate or prosecute any alcohol or drug abuse patient.[facility] HospitalIn the event this information is protected by the Federal Confidentiality of Alcohol and Drug Abuse Patient Records regulations: The Federal rules restrict any use of the information to criminally investigate or prosecute any alcohol or drug abuse patient.[facility] HospitalIn the event this information is protected by the Federal Confidentiality of Alcohol and Drug Abuse Patient Records regulations: The Federal rules restrict any use of the information to criminally investigate or prosecute any alcohol or drug abuse patient.[facility] HospitalIn the event this information is protected by the Federal Confidentiality of Alcohol and Drug Abuse Patient Records regulations: The Federal rules restrict any use of the information to criminally investigate or prosecute any alcohol or drug abuse patient.[facility] HospitalIn the event this information is protected by the Federal Confidentiality of Alcohol and Drug Abuse Patient Records regulations: The Federal rules restrict any use of the information to criminally investigate or prosecute any alcohol or drug abuse patient.[facility] HospitalIn the event this information is protected by the Federal Confidentiality of Alcohol and Drug Abuse Patient Records regulations: The Federal rules restrict any use of the information to criminally investigate or prosecute any alcohol or drug abuse patient.[facility] HospitalIn the event this information is protected by the Federal Confidentiality of Alcohol and Drug Abuse Patient Records regulations: The Federal rules restrict any use of the information to criminally investigate or prosecute any alcohol or drug abuse patient.[facility] HospitalIn the event this information is protected by the Federal Confidentiality of Alcohol and Drug Abuse Patient Records regulations: The Federal rules restrict any use of the information to criminally investigate or prosecute any alcohol or drug abuse patient.[facility] HospitalIn the event this information is protected by the Federal Confidentiality of Alcohol and Drug Abuse Patient Records regulations: The Federal rules restrict any use of the information to criminally investigate or prosecute any alcohol or drug abuse patient.[facility] HospitalIn the event this information is protected by the Federal Confidentiality of Alcohol and Drug Abuse Patient Records regulations: The Federal rules restrict any use of the information to criminally investigate or prosecute any alcohol or drug abuse patient.[facility] HospitalIn the event this information is protected by the Federal Confidentiality of Alcohol and Drug Abuse Patient Records regulations: The Federal rules restrict any use of the information to criminally investigate or prosecute any alcohol or drug abuse patient.[facility] HospitalIn the event this information is protected by the Federal Confidentiality of Alcohol and Drug Abuse Patient Records regulations: The Federal rules restrict any use of the information to criminally investigate or prosecute any alcohol or drug abuse patient.[facility] HospitalIn the event this information is protected by the Federal Confidentiality of Alcohol and Drug Abuse Patient Records regulations: The Federal rules restrict any use of the information to criminally investigate or prosecute any alcohol or drug abuse patient.[facility] HospitalIn the event this information is protected by the Federal Confidentiality of Alcohol and Drug Abuse Patient Records regulations: The Federal rules restrict any use of the information to criminally investigate or prosecute any alcohol or drug abuse patient.[facility] HospitalIn the event this information is protected by the Federal Confidentiality of Alcohol and Drug Abuse Patient Records regulations: The Federal rules restrict any use of the information to criminally investigate or prosecute any alcohol or drug abuse patient.[facility] HospitalIn the event this information is protected by the Federal Confidentiality of Alcohol and Drug Abuse Patient Records regulations: The Federal rules restrict any use of the information to criminally investigate or prosecute any alcohol or drug abuse patient.[facility] HospitalIn the event this information is protected by the Federal Confidentiality of Alcohol and Drug Abuse Patient Records regulations: The Federal rules restrict any use of the information to criminally investigate or prosecute any alcohol or drug abuse patient.[facility] HospitalIn the event this information is protected by the Federal Confidentiality of Alcohol and Drug Abuse Patient Records regulations: The Federal rules restrict any use of the information to criminally investigate or prosecute any alcohol or drug abuse patient.[facility] HospitalIn the event this information is protected by the Federal Confidentiality of Alcohol and Drug Abuse Patient Records regulations: The Federal rules restrict any use of the information to criminally investigate or prosecute any alcohol or drug abuse patient.[facility] HospitalIn the event this information is protected by the Federal Confidentiality of Alcohol and Drug Abuse Patient Records regulations: The Federal rules restrict any use of the information to criminally investigate or prosecute any alcohol or drug abuse patient.[facility] HospitalIn the event this information is protected by the Federal Confidentiality of Alcohol and Drug Abuse Patient Records regulations: The Federal rules restrict any use of the information to criminally investigate or prosecute any alcohol or drug abuse patient.[facility] HospitalIn the event this information is protected by the Federal Confidentiality of Alcohol and Drug Abuse Patient Records regulations: The Federal rules restrict any use of the information to criminally investigate or prosecute any alcohol or drug abuse patient.[facility] HospitalIn the event this information is protected by the Federal Confidentiality of Alcohol and Drug Abuse Patient Records regulations: The Federal rules restrict any use of the information to criminally investigate or prosecute any alcohol or drug abuse patient.[facility] HospitalIn the event this information is protected by the Federal Confidentiality of Alcohol and Drug Abuse Patient Records regulations: The Federal rules restrict any use of the information to criminally investigate or prosecute any alcohol or drug abuse patient.[facility] HospitalIn the event this information is protected by the Federal Confidentiality of Alcohol and Drug Abuse Patient Records regulations: The Federal rules restrict any use of the information to criminally investigate or prosecute any alcohol or drug abuse patient.[facility] Reason for Visit (unrecogniz ed section and content) Reason Comments PT Discharge Specialty Diagnoses / Procedures Referred By Contac t Referred To Contact PHYSICAL THERAPY Diagnoses M95.8 (ICD-10-CM) - Osteochondral defect of condyle of femur Z09 (ICD-10-CM) - S/P orthopedic surgery, follow-up exam Procedures POST OP LEFT KNEE Stephen Sky MD [address] [place] [address] Pt [facility] [address] [place] [address] Referral ID Status Reason Start Date Expiration Date V isits Requested Visits Authorized [id number] Authorized 09/08/2022 09/07/2023 99 99 Reason Comments PT Progress Note Specialty Diagnoses / Procedures Referred By Dheeraj cantu Referred To Contact PHYSICAL THERAPY Diagnoses M95.8 (ICD-10-CM) - Osteochondral defect of condyle of femur Z09 (ICD-10-CM) - S/P orthopedic surgery, follow-up exam Procedures POST OP LEFT KNEE Stephen Sky MD [address] [place] [address] [facility] [address] [place] [address] Reason Comments Physical Therapy Specialty Diagnoses / Procedures Referred By Dheeraj cantu Referred To Contact PHYSICAL THERAPY Diagnoses POST OP LEFT KNEE Procedures POST OP LEFT KNEE Stephen Sky MD [address] [place] [address] Pt [place] [address] [address] [facility] [place] [address] Referral ID Status Reason Start Date Expiration Date V isits Requested Visits Authorized [id number] Pending Review 09/13/2022 12/12/2022 1 1 Specialty Diagnoses / Procedures Referred By Contact Referred To Contact [facility] Diagnoses OCD (osteochondritis dissecans) of knee Procedures CONSULT TO PHYSICAL THERAPY PHYSICAL THERAPY EVALUATION HIGH COMPLEX 45 MINS Stephen Sky MD [address] [place] [address] [facility] [address] [address] Referral ID Status Reason Start Date Expiration Date V isits Requested Visits Authorized [id number] Closed Auto-Generate d Referral 05/06/2022 09/07/2022 20 20 Reason Comments PT Eval Patient Education Specialty Diagnoses / Procedures Referred By Contact Referred To Contact [facility] Diagnoses OCD (osteochondritis dissecans) of knee Procedures CONSULT TO PHYSICAL THERAPY PHYSICAL THERAPY EVALUATION HIGH COMPLEX 45 MINS Stephen Sky MD [address] [place] [address] [facility] [address] [address] Referral ID Status Reason Start Date Expiration Date Visits Requested Visits Authorized [id number] Authorized Auto-Generat ed Referral 05/06/2022 09/07/2022 20 20 Reason Comments Pain Pt reported bilatera l knee pain x11 yrs intermittient pain rated 8 Reason Comments New Patient bilateral knee pain Specialty Diagnoses / Procedures Referred By Contac t Referred To Contact MR IMAGING Diagnoses Osteochondral defect of condyle of femur Procedures MRI KNEE WO IVCON LT MRI ANY JT LOWER EXTREM W/O CONTRAST MATRL Dony Quan, V, DO [address] [place] [address] Mr Imaging Referral ID Status Reason Start Date Expiration Date V isits Requested Visits Authorized [id number] Closed Auto-Generate d Referral 02/15/2022 03/16/2022 1 1 Reason Comments New Pain Specialty Diagnoses / Procedures Referred By Contac t Referred To Contact Orthopedics Diagnoses Chronic pain of both knees Procedures CONSULT TO ORTHOPAEDICS OFFICE/OUTPATIENT [facility] MDM 60-74 MINUTES Cindy Tillman APRN.[employer] [address] [place] [address] Referral ID Status Reason Start Date Expiration Date V isits Requested Visits Authorized [id number] Closed PCP Requested Referral 02/02/2022 02/02/2023 1 1 Reason Comments PT Eval Reason Comments Bilateral Knee Pain Reason Comments Pre-Op Visit Specialty Diagnoses / Procedures Referred By Contac t Referred To Contact Diagnoses Osteochondral defect of condyle of femur Procedures OSTEOCHONDRAL KNEE ALLOGRAFT ALLOGRAFT OSTEOCHONDRAL KNEE OPEN Mm Asce [address] [place] [address] Referral ID Status Reason Start Date Expiration Date Visits Re quested Visits Authorized [id number] 1 1 Reason Comments Established Patient Knee Pain Reason Comments Established Patient Post Op Reason Comments Physical Therapy Reason Comments PT Progress Note Reason Comments Post Op Reason Comments Radio Gen RMP Specialty Diagnoses / Procedures Referred By Contac t Referred To Contact XR IMAGING Diagnoses S/P orthopedic surgery, follow-up exam Procedures XR KNEE GENERAL 4V AP BOTH/PA BOTH/LAT/MERC LEFT RADIOLOGIC EXAM KNEE COMPLETE 4/MORE VIEWS Reji Vergara PA-C [address] [place] [id number] [place] [address] Referral ID Status Reason Start Date Expiration Date V isits Requested Visits Authorized [id number] Closed Auto-Generate d Referral 12/30/2022 01/29/2024 1 1 Referral ID Status Reason Start Date Expiration Date V isits Requested Visits Authorized [id number] Closed Auto-Generate d Referral 11/04/2022 12/04/2023 1 1 Specialty Diagnoses / Procedures Referred By Contac t Referred To Contact XR IMAGING Diagnoses OCD (osteochondritis dissecans) of knee Procedures XR LEG FRONTAL HIP TO ANKLE MECHANICAL AXIS BONE LENGTH STUDIES Stephen Sky MD [address] [place] [address] [place] [address] Referral ID Status Reason Start Date Expiration Date V isits Requested Visits Authorized [id number] Closed Auto-Generate d Referral 05/06/2022 06/05/2023 1 1 Reason Comments Anxiety Care Teams (unrecognized sec tion and content) Slot Operations Director Relationship Specialty Start Date End Date Marcy Lugo MD [address] [place], [place] [id number] PCP - General Pediatrics 03/05/18 Slot Operations Director Relationship Specialty Start Date End Date Marcy Lugo MD [address] [place], [place] [id number] PCP - General Pediatrics 03/05/18 Slot Operations Director Relationship Specialty Start Date End Date Marcy Lugo MD [address] [place] [address], [place] [address] PCP - General Pediatrics 03/05/18 Slot Operations Director Relationship Specialty Start Date End Date Marcy Lugo MD [address] [place] [address], [place] [address] PCP - General Pediatrics 03/05/18 Slot Operations Director Relationship Specialty Start Date End Date Marcy Lugo MD [address] [place] [address], [place] [address] PCP - General Pediatrics 03/05/18 Slot Operations Director Relationship Specialty Start Date End Date Marcy Lugo MD [address] [place] [address], [place] [address] PCP - General Pediatrics 03/05/18 Slot Operations Director Relationship Specialty Start Date End Date Marcy Lugo MD [address] [place] [address], [place] [address] PCP - General Pediatrics 03/05/18 Slot Operations Director Relationship Specialty Start Date End Date Marcy Lugo MD [address] [place] [address], [place] [address] PCP - General Pediatrics 03/05/18 Slot Operations Director Relationship Specialty Start Date End Date Marcy Lugo MD [address] [place] [address], [place] [address] PCP - General Pediatrics 03/05/18 Slot Operations Director Relationship Specialty Start Date End Date Marcy Lugo MD [address] [place] [address], [place] [address] PCP - General Pediatrics 03/05/18 Slot Operations Director Relationship Specialty Start Date End Date Marcy Lugo MD [address] [place] [address], [place] [address] PCP - General Pediatrics 03/05/18 Slot Operations Director Relationship Specialty Start Date End Date Marcy Lugo MD [address] [place] [address], [place] [address] PCP - General Pediatrics 03/05/18 Slot Operations Director Relationship Specialty Start Date End Date Marcy Lugo MD [address] [place] [address], [place] [address] PCP - General Pediatrics 03/05/18 Slot Operations Director Relationship Specialty Start Date End Date Marcy Lugo MD [address] [place] [address], [place] [address] PCP - General Pediatrics 03/05/18 Slot Operations Director Relationship Specialty Start Date End Date Marcy Lugo MD [address] [place] [address], [place] [address] PCP - General Pediatrics 03/05/18 Slot Operations Director Relationship Specialty Start Date End Date Marcy Lugo MD [address] [place] [address], [place] [address] PCP - General Pediatrics 03/05/18 Slot Operations Director Relationship Specialty Start Date End Date Marcy Lugo MD [address] [place] [address], [place] [address] PCP - General Pediatrics 03/05/18 Slot Operations Director Relationship Specialty Start Date End Date Marcy Lugo MD [address] [place] [address], [place] [address] PCP - General Pediatrics 03/05/18 Slot Operations Director Relationship Specialty Start Date End Date Marcy Lugo MD [address] [place] [address], [place] [address] PCP - General Pediatrics 03/05/18 Slot Operations Director Relationship Specialty Start Date End Date Marcy Lugo MD [address] [place] [address], [place] [address] PCP - General Pediatrics 03/05/18 Slot Operations Director Relationship Specialty Start Date End Date Marcy Lugo MD [address] [facility] [address] PCP - General Pediatrics 03/05/18 Slot Operations Director Relationship Specialty Start Date End Date Marcy Lugo MD [address] [facility] [place] [address] PCP - General Pediatrics 03/05/18 Slot Operations Director Relationship Specialty Start Date End Date Marcy Lugo MD [address] [place] [address] PCP - General Pediatrics 03/05/18 Slot Operations Director Relationship Specialty [place] [address] [place] [address], [place] [address] PCP - General Pediatrics 03/05/18 Slot Operations Director Relationship Specialty Start Date End Date Marcy Lugo MD [address] [place] [address], [place] [address] PCP - General Pediatrics 03/05/18 Slot Operations Director Relationship Specialty [place] [address] [place] [address], [place] [address] PCP - General Pediatrics 03/05/18 Slot Operations Director Relationship Specialty Start Date End Date Marcy Lugo MD [address] [place] [address], [place] [address] PCP - General Pediatrics 03/05/18 Slot Operations Director Relationship Specialty [place] [address] [place] [address], [place] [address] PCP - General Pediatrics 03/05/18 Slot Operations Director Relationship Specialty Start Date End Date Marcy Lugo MD [address] [place] [address], [place] [address] PCP - General Pediatrics 03/05/18 Slot Operations Director Relationship Specialty Start Date End Date Marcy Lugo MD [address] [place], [place] [id number] PCP - General Pediatrics 03/05/18 Slot Operations Director Relationship Specialty Start Date End Date Marcy Lugo MD [address] [place], [place] [id number] PCP - General Pediatrics 03/05/18 Slot Operations Director Relationship Specialty Start Date End Date Marcy Lugo MD [address] [place] [address] PCP - General Pediatrics 03/05/18 Slot Operations Director Relationship Specialty Start Date End Date Marcy Lugo MD [address] [place], [place] [id number] PCP - General Pediatrics 03/05/18 Scheduled Active and Recently Administ ered Medications (unrecognized section and content) Medication Order 08/11/2022 08/12/2022 08/13/2022 acetaminophen 650 mg tab(s) (TYLENOL) 650 mg, ORAL, ONCE, 1 dose, On Fri08/13/22 at 1500, If not given any other Acetaminophen containing product 4 hours prior, Recovery or Phase I (only) 1500 (Due) clindamycin iv piggyback 900 mg in D5W 50 mL (CLEOCIN) (CANCELED) 900 mg, INTRAVENOUS, at 100 mL/hr, Administer over 30 Minutes, EVERY 8 HOURS, First dose on Fri08/13/22 at 1000, Until Discontinued, Please document the antimicrobial indication: Prophylaxis, Preprocedure 1002 (Sent with Geri ent - Provider: Destini Ashton RN)1132 (Given - Provider: Breanne Ceja APRN.CRNA) midazolam 6 mg injection (VERSED) (COMPLETED) 6 mg, INTRAVENOUS, ONCE, 1 dose, On Fri08/13/22 at 1030, Preprocedure 1048 (Given - Provid er: Destini Ashton RN - Comment: Per anesthesia bedside order) oxyCODONE IR 5 mg tab(s) (ROXICODONE) (COMPLETED) 5 mg, ORAL, ONCE, 1 dose, On Fri08/13/22 at 1500, Recovery or Phase I (only) 1515 (Given - Provid er: Pooja Acosta RN) Continuous Medication Order 08/11/2022 08/12/2022 08/13/2022 lactated ringers iv infusion (CANCELED) 5-30 mL/hr, INTRAVENOUS, CONTINUOUS, Starting on Fri08/13/22 at 1000, Until Fri08/13/22 at 1651, Preprocedure 1020 (New Bag/Syring e/Bottle - Provider: Destini Ashton RN)1123 (Continued by Anesthesia - Provider: Breanne Ceja APRN.CRNA)1336 (Stopped - Provider: Breanne Ceja APRN.CRNA - Comment: Switch to gravity)1337 (Restarted - Provider: Breanne Ceja APRN.CRNA)1651 (Due: Infusion Complete) lactated ringers iv infusion 5-30 mL/hr, INTRAVENOUS, CONTINUOUS, Starting on Fri08/13/22 at 1500, Until Fri08/14/22 at 0303, Recovery or Phase I (only) 1500 (Due) PRN Medication Order 08/11/2022 08/12/2022 08/13/2022 HYDROmorphone (PF) 1 mg injection (DILAUDID) 1 mg, INTRAVENOUS, EVERY 5 MINUTES NEEDED, 2 doses, Starting on Fri08/13/22 at 1445, Until Fri08/14/22 at 0303, SECOND LINE THERAPY, USE FOR MODERATE PAIN IF PAIN SCORE > 4/10., Recovery or Phase I (only) keTORolac 30 mg injection (TORADOL) 30 mg, INTRAVENOUS, NEEDED, 1 dose, Starting on Fri08/13/22 at 1445, Until Fri08/14/22 at 0303, Moderate Pain (4-6) - Parenteral, Ketorolac (Toradol) is indicated for the short-term (up to 5 days) management of moderately severe acute pain. Continuation of ketorolac (Toradol) beyond 5 days increases the risk of developing serious adverse events. Please verify the duration of therapy for ketorolac (Toradol)., Recovery or Phase I (only) meperidine (PF) 12.5 mg injection (DEMEROL) 12.5 mg, INTRAVENOUS, 2 TIMES DAILY NEEDED, Starting on Fri08/13/22 at 1445, Until Fri08/14/22 at 0303, for shivering, May Repeat 12.5 mg in 10 minutes X1 for Continued Shivering, Recovery or Phase I (only) meperidine (PF) 25 mg injection (DEMEROL) 25 mg, INTRAVENOUS, EVERY 5 MINUTES NEEDED, 6 doses, Starting on Fri08/13/22 at 1445, Until Fri08/14/22 at 0303, Severe Pain (>/=7) - Parenteral, First Line Therapy, USE FOR SEVERE PAIN ONLY IF PAIN SCORE > 7/10, Recovery or Phase I (only) 1450 (Given - Provid er: Pooja Aocsta RN) (unrecognized sect ion and content) No Status Records FoundNo Status Records FoundNo Status Records Found INFORMATION SOURCE (unrecogn ized section and content) DATE CREATED AUTHOR 08/21/2022 [facility] DATE CREATED AUTHOR AUTHOR'S ORGANIZ ATION 03/31/[address] [facility] DATE CREATED AUTHOR AUTHOR'S ORGANIZ ATION 09/01/2024 [facility] FOR RECORDS PERTAINING TO PATIENTS WHO ARE OR HAVE BEEN ENROLLED IN A CHEMICAL DEPENDENCY/SUBSTANCEABUSE PROGRAM, SOME INFORMATION MAY BE OMITTED. This clinical summary was aggregated from multiple sources. Caution should be exercised in using it in the provision of clinical care. This summary normalizes information from multiple sources, and as a consequence, information in this document may materially change the coding, format and clinical context of patient data. In addition, data may be omitted in some cases. CLINICAL DECISIONS SHOULD BE BASED ON THE PRIMARY CLINICAL RECORDS. [employer] provides no warranty or guarantee of the accuracy or completeness of information in this document.
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
[2025-04-23 17:49] VITALS: BP 100/64; PULSE 85; RESP 16; TEMP 36.7; O2SAT 95
--- NOTE | 2025-04-24 12:50 | CM.ED ---
Social Work Unsuccessful phone contact with patient per 24 hour safety plan protocol. No answer. Large Animal Veterinarian left a message with her name and number and requested a return call. (12:42) Patient returned call to social media marketer and stated with the new medication, he was able to sleep however remains very anxious. Patient denied any current suicidal ideation and reported feeling safe. Patient confirmed he will be keeping all scheduled appointments for this week and social media marketer reviewed crisis number with patient if needed. Patient denied any other needs/concerns at this time and will return to the ED if needed. (12:50) Breanne Knowles, GRINDER SETUP OPERATOR, SILVICULTURE PROFESSOR
== END 2025-04-23 17:49 | disposition home or self-care (01) ==
PROVIDERS: Emergency Provider Emergency Medicine; Visit Provider Emergency Medicine
DX: F41.0 Panic disorder [episodic paroxysmal anxiety] (principal); G47.00 Insomnia, unspecified; Z79.899 Other long term (current) drug therapy
CPT/HCPCS: 93005; 99282

== ENCOUNTER 2025-04-26 08:00 | Outpatient (RCR) | payer OTHER, MEDICAID, SELFPAY ==
--- NOTE | 2025-04-26 09:05 | BH.SGPN.GN ---
Behaviors/Verbalizations/Mental Status: [] Eye contact is good. Motor activity is appropriate. Appearance is casual. Speech is Appropriate. Mood is depressed. Affect is congruent. Thoughts are linear and logical. No evidence of psychosis. Reviewed daily check in sheet and pt reports 1/5 for suicidal thoughts/not wanting to exisit and 0/5 for intent. Completed risk assessment prior to group. Client Response/Progress/Benefit: [] Pt participated at times during the group discussions. Attentive during video on mindfulness and was able to make connections to his mental health. Daily symptom tracker notes 3/5 for anxiety and 2/5 for depression. Today was pt?s first day in IOP. Briefly shared reasons for entering IOP and goals. Reports ? anxiety has overcome me?. ?I?ve been struggling a lot lately?. Lack of self-worth and believes that his anxiety is controlling his life. Isolative behaviors. Benefited from group support, encouragement, and feedback. Will continue in IOP to maintain safety, improve functioning, and increase healthy coping. Narrative Note: []
--- NOTE | 2025-04-26 10:10 | BH.SGPN.GN ---
Behaviors/Verbalizations/Mental Status: []Pt alert and oriented, casual appearance. Eye contact good. Motor activity appropriate. Speech within normal limits. Affect congruent, mood anxious. Thoughts linear, logical, no signs of hallucinations or delusions. Client Response/Progress/Benefit: [] Pt an active participant in group discussions on defining conflict (internal/external) and possible benefits to conflict. Attentive during psychoeducation on conflict styles (avoidant, accommodating, competing, cooperative) and engaged during group discussion in which peers identified the benefits and consequences to each conflict style. Pt connected with the different conflict styles. Stated they connect most with using passive and passive aggressive communication. Able to make connections how current style impacts mental health. Benefited from increased awareness of the impact of conflict styles in mental health. Will continue in IOP tx to improve confidence, increase consistent use of healthy coping skills, and prevent decompensation.
--- NOTE | 2025-04-26 11:10 | BH.SGPN.GN ---
Behaviors/Verbalizations/Mental Status: []Client alert and oriented, casually dressed and groomed. Eye contact fair. Motor activity appropriate. Speech within normal limits. Affect congruent, mood anxious. Thoughts linear, logical, no signs of hallucinations or delusions. Client Response/Progress/Benefit: [] Pt engaged in session AEB contributing to discussion and engaging in small group. Attentive during discussion on strategies for more effectively managing conflict in personal life. Pt noted current conflict resolution style uses the most is ?accommodating and avoiding 90% of the time.? Pt participated in small group for activity and did well practicing how to manage conflict scenarios. Pt given handout on conflict resolution skills and shared he wants to work on ?knowing when to take a break.? Appeared to benefit from gaining strategies to help Pt better manage conflict. Will continue IOP tx improve distress tolerance, challenge distortions, and prevent decompensation. Narrative Note: []
--- NOTE | 2025-04-27 09:05 | BH.SGPN.GN ---
Behaviors/Verbalizations/Mental Status: [] Eye contact is good. Motor activity is appropriate. Appearance is casual. Speech is Appropriate. Mood is depressed and anxious. Affect is congruent. Thoughts are linear and logical. No evidence of psychosis. Reviewed daily check in sheet and pt reports 1/5 for suicidal thoughts/not wanting to be alive and 0/5 for intent. Baseline. Client Response/Progress/Benefit: [] Pt was an active participant in group discussions. Attentive. Daily symptom tracker notes 35 for depression/anxiety. Pt shared mental health struggles over the weekend which included presenting to the ER for panic attacks. He was given PRN medications which have slightly helped however reports ?spiraling yesterday?. No specific trigger rather appears to be a mixture of psychosocial stressors regarding recently quitting his job and relationship conflicts. ?I feel like I don?t have control over my head?. Reports ?overwhelming stress? today. Limited progress noted, however did benefit from group support, encouragement, and feedback. Will continue in IOP to maintain safety, prevent decompensation, and increase healthy coping. Narrative Note: []
--- NOTE | 2025-04-27 10:15 | BH.SGPN.GN ---
Behaviors/Verbalizations/Mental Status: []Eye contact is good. Motor activity is appropriate. Appearance is casual. Speech is Appropriate. Mood is anxious. Affect is congruent. Thoughts are linear and logical. No evidence of psychosis. Client Response/Progress/Benefit: [] Pt receptive to session AEB listening attentively to others and taking notes. Pt attentive and contributed throughout psychoeducation on the cognitive triangle and maintenance cycles. Pt engaged during group discussion reviewing the impact of daily activities and behaviors in either reinforcing unhealthy maintenance cycles and depression or assisting in reducing symptoms (?down? vs ?up? activities). Pt participated during interactive discussion in which pt identified their own common up activities (drawing and talking with healthy support) and down activities (isolating, staying in dark rooms, and not engaging in hobbies). Appeared to benefit from increased awareness of current behaviors and impact these have on mental health. Will continue IOP to prevent decompensation, gain healthy coping skills, and improve mood stability. ?? Narrative Note: []
--- NOTE | 2025-04-27 11:15 | BH.SGPN.GN ---
Behaviors/Verbalizations/Mental Status: []Pt alert and oriented, casually dressed and groomed. Eye contact fair. Motor activity appropriate. Speech within normal limits. Affect congruent, mood anxious. Thoughts linear, logical, no signs of hallucinations or delusions. Client Response/Progress/Benefit: [] Pt responded well to session, attentive and engaged in group discussions and activity. Actively engaged in continued discussion about up activities and down activities. Active participant as group discussed values and the benefits that knowing one's values can have on one's mental health. Client shared they would like to focus on strengthening their value of friendships/social relationships by reaching out to two of his friends within the next week. Benefited from increased awareness of their up activities and how incorporating their values into behavioral activation goals can positively impact mental health. Will continue in IOP to improve view of self, challenge negative thoughts, and prevent decompensation.
--- NOTE | 2025-04-28 10:10 | BH.SGPN.GN ---
Behaviors/Verbalizations/Mental Status: [] Eye contact is fair. Motor activity is appropriate. Appearance is casual. Speech is Appropriate. Mood is anxious. Affect is congruent. Thoughts are linear and logical. No evidence of psychosis. Client Response/Progress/Benefit: [] Pt engaged in session AEB listening attentively to others and providing input throughout. Pt engaged in activity, able to connect how it can be uncomfortable and difficult to practice acceptance when situations are out of one?s own control. Identified what they are struggling to accept in personal life. Worked with peer group to define acceptance and identify the benefits that acceptance can bring. Benefits included; reduce stuckness, reduced stress, helps one to focus on situations we can change, and decreased negative self-talk. Seemed to benefit from increased awareness of the meaning as well as the importance of acceptance. Will continue in IOP to increase confidence, challenge distorted thoughts and prevent decompensation.
--- NOTE | 2025-04-28 10:29 | BH.MDN_ITS ---
Multi-Disciplinary Note Note 45-min Individual: Time Started:: 09:20 Date: 04/28/25 Purpose of session/treatment goals addressed:: Purpose of session was to gather background information, build rapport, and identify treatment goals. Eye Contact:: Good Motor Activity:: Restless Appearance:: Casual Speech:: Appropriate Mood:: Anxious Affect:: Congruent Thoughts:: Linear and Logical Staff Interventions:: psychoeducation on: (cognitive distortions), CBT techniques, rapport building, strengths perspective and treatment planning Client Response:: Client reported they are seeking treatment because of worsening anxiety and depression. Client stated this past weekend they had a very rough time. client reported on Friday they had 2 horrible panic attacks that were challenging to manage. Client stated on Friday they had 2 more panic attacks and they were taken to the emergency department because was feeling suicidal. Client reported they are thinking a medication switch is potential reason for the worsening mental health. client stated over this past weekend has been the worst they've ever felt and the thoughts of were extremely concerning. Client reported since switching medication again they are no longer feeling suicidal. Client reported they are currently feeling isolated and alone because their friend group is not as available as previously. Client stated their best friend has found a new community which has made it more challenging to find time to spend together. Client reported they often attribute other's not being available to hang out or talk as a negative about themself. Client stated they feel like their friends don't want to hang out with them because other friends are cooler then me. Client receptive to learning about cognitive distortions and agreed they often have negative evaluations about themself. Client stated while in IOP they would like to work on building confidence and self-esteem. Client agreeable for homework to look at the distortion handout and identify which distortions they connect with the most. Risks/Concerns:: Client denies active suicidal ideation, plan, or intention. Future oriented. Client recently had suicidal thoughts, but a ttributes this to a medication they were on. Client states since being taken off that medication he has not had suicidal thoughts. Progress Toward Goals/Plan:: Progress limited given first week in program. Client seeking treatment to help improve ability to manage stressors, improve view of self, and improve mood stability. Client has limited social support which is negatively impacting his mental health. Client to continue IOP to improve mood stability, increase healthy coping, improve view of self, and prevent decompensation. Time Stopped:: 10:09
--- NOTE | 2025-04-28 11:15 | BH.SGPN.GN ---
Behaviors/Verbalizations/Mental Status: []Pt alert and oriented, casually dressed and groomed. Eye contact good. Motor activity appropriate. Speech within normal limits. Affect congruent, mood dysthymic. Thoughts linear, logical, no signs of hallucinations or delusions. Client Response/Progress/Benefit: [] Pt responded well to session AEB taking notes and contributing to discussion throughout. Pt engaged as group continued discussion on acceptance and the mental health benefits of practicing acceptance. Pt and peers identified what makes acceptance challenging and pt completed a self-reflection exercise on what is hard to accept in pt's life. Pt identified something that is currently hard to accept as friendships ending. Client stated by not accepting this it leads to anxiety and stress. Group identified strategies to increase acceptance. Pt noted wanting to work on trying to find new connections as a strategy for improving acceptance in this area. Pt appeared to benefit from gaining insight and learning strategies to increase acceptance. Pt will continue IOP tx to improve view of self, increase mood stability, and prevent decompensation. Narrative Note: []
--- NOTE | 2025-04-28 14:07 | BH.MTP_ITS ---
Master Treatment Plan Patient Information Program Physician:: Dr. Chacon and Dr. Beckett Primary Therapist:: Dayan Rowan [facility] Psychiatric Diagnoses Psychiatric Diagnoses:: MDD (major depressive disorder), recurrent episode, severe Panic disorder Diagnosis Code(s):: F33.2 Estimated LOS Estimated LOS (in weeks):: 6 Problem/Goal #1 Problem/Goal #1 Stated Goal:: Client will decrease depressive symptoms and isolation due to Major Depressive Disorder through Intensive Outpatient Program.? Description of Barriers: Potential barriers include negative thought patterns, low self-esteem, apathy, anhedonia, and distorted thought patterns. Functional Impact: referred by an outpatient therapist due to worsening depression for the past 6 weeks with limited benefit from traditional outpatient follow-up. They feel constant depression and has been spiraling with poor sleep, poor appetite, low energy, low motivation, hopelessness, anhedonia. Does have passive thoughts of with no active intent. Of note patient was seen in the ED 04/23/2025 due to his worsening depression, reportedly there are guns in the home but the ED physician confirmed with father the patient has no access and does not know the combination/where the hewitt is to get access to the gun. Objectives Objective #1: Stated Objective: Client will learn and utilize 2-3 healthy coping strategies to manage depressive symptoms. Interventions: Therapist and group therapy will utilize CBT techniques to assist client with understanding the connection between thoughts, feelings and behaviors. Education will be provided on behavioral activation. Therapist will assist client in learning internal coping strategies to manage depressive symptoms, along with helping client identify triggers. Discharge Criteria: Client will have achieved this goal when can verbalize and has practiced at least 2 healthy coping strategies that successfully manage depressive symptoms. Target Date: 06/07/25 Review Date: 05/24/25 Objective #2: Stated Objective: Client will identify and replace 2-3 negative thinking patterns that reinforce depressive symptoms. Interventions: Therapist will assist client in developing an awareness of the cognitive messages that reinforce depressive thinking.? Therapist will also assist client in challenging negative thinking patterns.? Discharge Criteria: Client will have achieved this goal when can identify at least 2 negative thinking patterns, replace negative thinking with more positive, affirmative messages and state no longer having thoughts of hurting self.? Target Date: 06/07/25 Review Date: 05/24/25 Problem/Goal #2 Problem/Goal #2 Stated Goal:: Client will reduce overall frequency, intensity, and duration of the anxiety so that daily functioning is not impaired. Description of Barriers: Potential barriers include negative thought patterns, low self-esteem, apathy, anhedonia, and distorted thought patterns. Functional Impact: referred by an outpatient therapist due to worsening depression for the past 6 weeks with limited benefit from traditional outpatient follow-up. They feel constant depression and has been spiraling with poor sleep, poor appetite, low energy, low motivation, hopelessness, anhedonia. Does have passive thoughts of with no active intent. Of note patient was seen in the ED 04/23/2025 due to his worsening depression, reportedly there are guns in the home but the ED physician confirmed with father the patient has no access and does not know the combination/where the hewitt is to get access to the gun. Objectives Objective #1: Stated Objective: Client will learn and implement 2-3 calming skills to reduce overall anxiety and manage anxiety symptoms. Interventions: Therapist and group sessions will help client identify physiological warning signs of anxiety, increase awareness of thoughts that increase anxiety, and identify behaviors that reinforce anxious symptoms. Group and individual counseling will teach client calming skills to help manage anxious symptoms. Discharge Criteria: Client will have achieved this goal when can verbalize at least 2 calming skills and reports skills successfully help reduce anxious symptoms. Target Date: 06/07/25 Review Date: 05/24/25 Objective #2: Stated Objective: Client will identify 2-3 anxiety triggers and 2 coping skills to use when feeling anxious. Interventions: Therapist will assist client in exploring what triggers anxiety and teach client coping strategies to effectively manage anxiety symptoms.? Discharge Criteria: Client will have met this goal when can identify at least 2 triggers to anxiety and verbalize two healthy ways to cope with feelings of anxiety.? Target Date: 06/07/25 Review Date: 05/24/25
--- NOTE | 2025-04-29 09:22 | BH.PSY.EVA_ITS ---
Intake Vital Signs 04/23/25 15:22 04/29/25 09:23 04/29/25 10:57 Height 1.78 m 1.78 m 1.75 m Weight: 77.111 kg BP 98/75 126/68 H Respiration 18 Pulse 112 H 89 Temp 96.8 F L Pulse Oximetry (%) 98 Intake Visit Reasons: MDD Allergies Penicillins (PCN) Allergy (Intermediate, Verified 04/29/25 10:41) Hives bacitracin Allergy (Mild, Verified 04/29/25 10:41) Rash neomycin (From Neosporin ([id number])) Allergy (Mild, Verified 04/29/25 10:41) Rash polymyxin B (From Neosporin ([id number])) Allergy (Mild, Verified 04/29/25 10:41) Rash Medications ?Medication ?Instructions ?Recorded ?Confirmed ?Type buspirone 15 mg tablet 15 mg PO TID 30 days #90 tab s 04/29/25 Rx hydroxyzine pamoate 25 mg capsule 25 mg PO TID PRN anx iety #60 caps 04/29/25 Rx (Vistaril) quetiapine 100 mg tablet 100 mg PO QHS #30 tabs 04/29 Rx PFSH () Medical History Burn Anxiety Surgical History History of knee surgery Social History Smoking Status: Never smoker HPI () History of Present Illness History provided by: patient Chief complaint: Worsening depression and anxiety HPI: Rudy Nolasco is a 24y/o male who uses they/them pronouns who presented to [facility] IOP program for further evaluation and treatment of depression and anxiety. They were referred by an outpatient therapist due to worsening depression for the past 6 weeks with limited benefit from traditional outpatient follow-up. They feel constant depression and has been spiraling with poor sleep, poor appetite, low energy, low motivation, hopelessness, anhedonia. Does have passive thoughts of with no active intent. Of note patient was seen in the ED 04/23/2025 due to his worsening depression, reportedly there are guns in the home but the ED physician confirmed with father the patient has no access and does not know the combination/where the hewitt is to get access to the gun. At that time patient was not finding Latuda helpful so his BuSpar was continued and he was restarted on Seroquel. He is also given dose of hydroxyzine and a prescription for as needed hydroxyzine and discharged home with return precautions. Patient evaluated IOP, reports mood has been quite bad and is feeling very tired right now. Does not feel like the BuSpar has been helping their anxiety as much anymore and notes they have been having almost constant panic attacks. Having string of panic attacks is what made them go to the ER over the weekend. Notes that their panic attacks will lead to heart pounding, crying, hyperventilating and he feels like they cannot move. Sometimes they are triggered by specific things but often they happen at random. Notes they have been having stress as just quit job to do the program, pt did not like the job and had a lot of downtime and felt they were just sitting with their negative thoughts, and pt also said some changes in friend [id number] no longer feels like they can reach out to someone who was a main support system to them before, which has increased distress. Notes the BuSpar 10 mg 3 times a day that they were on was initially helpful for about 4 to 5 weeks but over the past couple of months pt has steadily declined. He was on Seroquel and ultimately went off of it because they felt like it was too sedating, pt then switched to Latuda and it was noted to help with mood swings but not with depressed mood. After the ER pt was switched back to Seroquel and also given hydroxyzine as needed, notes that Seroquel has definitely been helping with sleep and has been a good thing even though pt does still have some daytime tiredness. Also notes that hydroxyzine has been helpful for anxiety. Patient does note his first psychiatrist at [facility] thought maybe patient had bipolar disorder but there therapist does not agree. When asked why they received this diagnosis they reported they were put on duloxetine and became very hyper, social, increased goal-oriented activity with elevated mood, symptom lasted 5 days and then patient was taken off of the medication and abruptly symptoms resolved and patient slept 13 hours the next day. Occasionally will have a day at a time with high energy but not to the same extent and without days being strung together. Anhedonia/Decreased interest: Yes Appetite: So all over the place, has overall been having a poor appetite but some improvement with Seroquel Sleep: Sleep was very poor, improving with Seroquel as well Energy: Feels more tired, low energy Concentration: Poor concentration Memory: Reports memory is very bad Guilt: Will be hard on self and feel guilty about things Crying spells: Notes even outside of panic attacks does frequently have crying spells SI: Still having a lot of thoughts of I do not want to be here anymore. Went to the ED because of suicidal thoughts, reports they went completely gone away but since they were switched back to Seroquel they are more manageable. Notes safety plan is still active, dad is in charge of medications, gun is locked up and patient does not know where it is hidden, knives in the kitchen are covered up. Has no active thoughts of harming himself during this evaluation HI: No AH: no VH: no Psychosis: no Bettye: See above Anxiety: Patient reports anxiety about most things and that it is very severe and there is just a baseline of anxiety overall Panic attacks: As above OCD: No Eating d/o hx: Endorses an unhealthy relationship with food and will sometimes restrict or binge, not presently doing this PTSD: No Current psychiatric medications: buspar 10 TID, seroquel 100mg qhs, hydroxyzine 25mg TID prn, finasteride 10mg for hair loss prevention Side effect concerns: Feels tired with the seroquel, denies other side effects. When he took latuda had some muscle twitching in face but that resolved after he stopped the medication Past psychiatric treatment Hx: -First age experiencing symptoms: Reports he has been chronically anxious all the way back to at least elementary school -Previous diagnoses: anxiety, MDD, possible bipolar disorder -Psychiatrist: Psychiatrist at [place] [id number], would like to transfer to a different provider, also paying out of pocket and would like to stop doing that if possible -Therapist: Has a therapist since last July, good relationship and would like to continue on this therapist -Psychiatric hospitalizations: No -Suicide attempts: No -NSSI: Cut self back in high school, nothing recently -Medication trials: Abilify, Latuda, Cymbalta, BuSpar, Seroquel, hydroxyzine Medical Hx: -Medical problems: No -Surgeries: Knee surgery 3 years ago -Allergies: PNC, bacitracin -Medications: See home med list Substance use Hx: -Alcohol: No -Drugs: No -Rehab: No -Tobacco use: No Family Hx: -Mental illness: Long family history of undiagnosed mental issues, probably anxiety and depression per patient -Suicide attempts or completions: Denies -Substance Use: Hx alcoholism both sides, drug use on mom's side -General medical conditions: Hair loss, HTN, DM Psychosocial: -Born/raised: [place] -Childhood: Reported difficulty due to social struggles in school and suboptimal relationship with parents -Parents: Reports suboptimal relationship with parents and that they were emotionally unavailable until he went to the ED last weekend and have been more supportive since that time -Siblings: Two younger sisters, one lives with them, [place], the other, Estella, moved out with her boyfriend so he does not talk to her often -Current living situation and location: Lives w/ sister, mom and dad in [place] in a house -Marital status: Single -Children: Single -Support system: Parents are more supportive now since he was in the ED -Highest level of education: Graduated high school -Employment hx/Income: Now unemployed, worked at a [employer] company for a [employer] in [place]. Initially liked it because he got to see new technology but ultimately disliked it as it was boring and often idle and patient had too much time to think, reportedly quit for IOP. Worked there for 9 weeks and before that worked at [employer] but the environment was hostile and horrible and does not want to go back -Protestant affiliation: Agnostic - hx: None -Access to guns: Gun is locked away and hidden, patient does not know his whereabouts -Legal problems: None Medical ROS: General: Denies fever HENT: Denies headache EYES: Denies acute changes in vision Resp: SOB with anxiety Cardiac: Chest pain with anxiety GI: denies changes in bowel, denies nausea/vomiting : Denies changes in urination MSK: Denies weakness Neuro: Denies any numbness/tingling Heme: Denies any bleeding or bruising Skin: Denies rashes Psychiatric: As above Exam () Mental Status Exam- Psych () Appearance casually dressed and no apparent distress Attitude cooperative and calm Activity/Motor Behavior MSE activity/motor behavior finding no adventitious movements Speech regular rate and regular volume Mood euythmic Affect full range Thought Process linear and logical Thought Content no delusions and no hallucinations Suicidal Ideation passive Homicidal Ideation none Attention intact Concentration intact Sensorium/Orientation awake and alert Memory/Cognition intact Insight fair Judgement fair Assessment & Plan () Assessment & Plan (1) MDD (major depressive disorder), recurrent episode, severe: Plan: r/o bipolar II Presented with recent depressed mood, poor appetite, poor sleep with low energy, troubles with concentration, crying spells and SI. Patient reports the Seroquel helps him sleep and at this time he does not want to discontinue or adjust that, did discuss possibility of titrating for higher dose but presently patient does not want to do that, does report the BuSpar was helpful for him, discussed risks and benefits of increasing BuSpar to 15 mg 3 times daily and patient agreeable. Also of note patient did have episode that seemed consistent with a hypomanic ep isode that started after he began Cymbalta however symptoms stopped after Cymbalta was discontinued so difficult to say given symptoms did not persist after medication was discontinued. Do suspect patient at higher risk of this moving forward, will attempt to adjust current medications and avoid SSRIs at this time if possible, if 1 is tried in the future would proceed very cautiously and likely in combination with a mood stabilizer or antipsychotic like Seroquel but can further decide this moving forward pending patient progress (2) Panic disorder: Plan: Patient notes recurrent panic attacks, often with no noted inciting incident that started abruptly and include pounding heart, shaking, shortness of breath and chest pain. Hesitant to introduce an SSRI due to the above but patient did note BuSpar was helpful in the past, will increase BuSpar, patient to remain on Seroquel at this time so low suspicion for this to put patient in a manic episode but cannot rule this out, discussed this with patient he verbalized his understanding. At this time we will continue hydroxyzine as needed as well Medications: New buspirone 15 mg PO TID 90 tabs 0RF 30 days quetiapine 100 mg PO QHS 30 tabs 0RF Refilled hydroxyzine pamoate (Vistaril) 25 mg PO TID PRN 60 caps 0RF anxiety Discontinued quetiapine Discontinued Reason: MD Ordered 100 mg PO QHS 7 tabs 0RF Plan Detail Assessment: The patient will begin IOP in Behavioral Health at [facility]. The program's structure, support, education, and therapy aim to prevent deterioration of symptoms and avoid the need for PHP or inpatient hospitalization. I have a reasonable expectation that the patient will make practical improvements in their presenting symptoms and will be discharged to a lower level of care. Charges/Coding Multi Select Codes Behavior Health Behavior Health Psychiatric Evaluation: 16277 Psych Diag Exam w/ Medical Services
--- NOTE | 2025-04-29 09:23 | BH.DR.ITP ---
Initial Treatment Plan Patient Information Visit Information: ADMISSION DATE: EXPECTED LOS: 6-8 weeks Diagnoses:: MDD, panic disorder Problems/Symptoms Problem #1:: MDD Symptom:: depressed mood, poor appetite, poor sleep with low energy, troubles with concentration, crying spells and SI Symptom:: panic disorder Problem #2:: recurrent panic attacks, often with no noted inciting incident that started abruptly and include pounding heart, shaking, shortness of breath and chest pain
--- NOTE | 2025-04-29 10:10 | BH.SGPN.GN ---
Behaviors/Verbalizations/Mental Status: []Pt alert and oriented, casually dressed and groomed. Eye contact good. Motor activity appropriate. Speech within normal limits. Affect constricted, mood euthymic. Thoughts linear, logical, no signs of hallucinations or delusions. Client Response/Progress/Benefit: [] Pt responded well to session AEB sharing and listening attentively to others. Group provided examples of types of support (professional, pets, hobbies, community, spouse, alix, etc) as well as benefits of having social support, including: validation, get perspective, and accountability. Pt also participated in group discussion regarding the barriers to accessing support and pt?s barriers included; running away, ruminating, and insecurities. Pt participated in experiential activity illustrating the impact communication, boundaries, and patience play in creating healthy support systems. Pt appeared to benefit from increased knowledge of the benefits of social support and greater self-awareness. Pt to continue IOP to prevent decompensation, improve daily functioning, and combat negative thinking. ?? Narrative Note: []
--- NOTE | 2025-04-29 10:25 | BH.NA_ITS ---
Physical Data Vital Signs Pulse Rate: 89 Blood Pressure: 126/68 Height/Weight Height: 1.75 m Weight:: 77.111 kg Weight in Pounds: 170.0 lbs Current Medication Compliance Medication Compliance Do you take your medication as prescribed?: Yes Sensory/Communication Assess Vision Problems Do you have any vision problems?: Glasses Communication Problems Do you have difficulty understanding what people are saying?: No Surgical History Surgical History Have you had any surgeries? If so, list type and date:: Yes (left knee 08/2022) Substance Abuse Substance Abuse Please describe substance abuse in the last 30 days:: Client states he occasionally socially drinks alcohol, but reports no use recently. Client denies tobacco or substance use. Client states he occasionally drinks energy drinks and does drink coffee on a daily basis, but states the amount varies. Mental Status Summary Mental Status Significant Findings/Observations on Appearance and Mood:: Client is alert and oriented x 4. Client is casually groomed. Client is cooperative with assessment. Client makes good eye contact. Client's voice has normal rate and volume. Client appears mildly anxious with appropriate affect. Client makes logical associations and has normal processing. Client denies delusions/hallucinations. Client does report SI when he went to the ER 04/23, but denies SI this day. Suicide Assessment Suicidal Ideation Are you currently or have you been suicidal in the past?: Yes Suicidal Intentional Rating Scale (SIRS): Suicidal thoughts (past) Physician Notification Past Psychiatric History MH Treatment Hx Past Psychiatric Medications:: Kristensulema Sarancaroilna, does not remember the name of others Age of first mental health symptoms: Client states he has felt anxious my whole life and states he first took medication for mental health around age 20. Describe (age, circumstance, etc) any past hospitalizations: None. Current providers for mental health treatment (counselor, psychiatrist, patient case coordinator, etc.): Chau espino, Antonio at [place] [id number] for psychiatry Fall Risk Assessment Age Age: Less than 60 Mental Status Mental Status: Willing & able to ask for assistance when needed Physical Status Physical Status: No problems Impairments Impairments: None Elimination Elimination: Continent AND independent Gait or Balance Gait or Balance: Walks independently Hx of Falls History of falls in the past 6 months: No known history Medications/Substances Psychotropics:: Antipsychotics and Antihistamines (e.g. Benadryl) Medications/substances used within the past 24 hours or ordered to administer: 1-2 of the medications/substances listed above Total Score Total Points:: 1 RN Summary of Impressions Impressions Recommendations Impressions: Psychiatric Issues: panic attacks, major depressive disorder Level of Care How do the client's current symptoms and functional deficits support need for this level of care?: Client was referred to IOP by his therapist for depression and anxiety. Client states he has felt more depressed for the last 7 weeks, and states he has started having panic attacks in the last week. He went to the ER 04/23 for anxiety. He states he has had at least 10 panic attacks in the last week. He states he does not know what has triggered his panic attacks. Client does also report he has lost 10 lbs in the last 6 weeks unintentionally due to a decrease in appetite due to anxiety. IOP will promote gains and prevent further decompensation while providing social support and skills training. Nutritional Screen Height/Weight Height: 1.75 m Weight:: 77.111 kg Weight in Pounds: 170.0 lbs Nutrition Screening Normal Weight: 81.647 kg Normal/Usual Weight in Pounds: 180.0 lbs Have you lost weight without trying: Yes Have you been eating poorly because of a decreased appetite: Yes Recently been on tube feeds, TPN, or have any nutritional access device in place: No Have any large open wounds or wounds that are not healing: No Calculated Weight Change: [id number] Change in weight Score: 1 MST Screening Tool Score: 4 *Automatic Nutrition referral for a score of 2 or greater.*: Client does not feel like he needs a nutrition referral. States his appetite has been decreased and has unintentionally lost weight in the last 6 weeks due to anxiety and states he feels confident his appetite will increase when his anxiety is treated.
[2025-04-29 10:57] VITALS: BP 126/68; PULSE 89
--- NOTE | 2025-04-29 11:15 | BH.SGPN.GN ---
Behaviors/Verbalizations/Mental Status: []Client alert and oriented, casually dressed and groomed. Eye contact good. Motor activity appropriate. Speech within normal limits. Affect congruent, mood dysthymic, anxious. Thoughts linear, logical, no signs of hallucinations or delusions. Client Response/Progress/Benefit: [] Pt participated throughout AEB contributing to discussion, providing examples, and taking notes. Pt provided input during discussion on the types of support our supports can provide. Pt able to identify current support system and barriers that get in the way of using supports. Pt reported after identifying what type of supports pt receives, pt gained awareness that pt could benefit from more social support by putting more effort into consistently reaching out to more than one of their supports. Pt seemed to benefit from identifying the type of support pt needs to work on improving. Pt recommended to continue IOP tx to promote increase positive self-talk, improve healthy communication, and prevent decompensation. Narrative Note: []
--- NOTE | 2025-05-03 09:05 | BH.SGPN.GN ---
Behaviors/Verbalizations/Mental Status: [] Eye contact is good. Motor activity is appropriate. Appearance is casual. Speech is Appropriate. Mood is euthymic. Affect is full. Thoughts are linear and logical. No evidence of psychosis. Reviewed daily check in sheet and no reports of suicidal ideations or intent. Client Response/Progress/Benefit: [] Pt was an active participant in group discussions. Attentive. Daily symptom tracker notes 2/5 for anxiety and /5 for depression. She boosted my medication last week and I'm doing a lot better. States its been easier to manage my anxiety. Not spiraling as much. Decreased restlessness and improved energy. Was able to attend a event with a large gathering over the weekend. He continues to struggle when alone stating struggling to sit by myself with my own thoughts. Progress noted. Benefited from group support, encouragement, and feedback. Will continue in IOP to prevent decompensation, maintain safety, improve functioning, and increase healthy coping. Narrative Note: []
--- NOTE | 2025-05-03 10:10 | BH.SGPN.GN ---
Behaviors/Verbalizations/Mental Status: []Pt alert and oriented, casually dressed and groomed. Eye contact good. Motor activity appropriate. Speech within normal limits. Affect constricted, mood anxious. Thoughts linear, logical, no signs of hallucinations or delusions. Client Response/Progress/Benefit: [] Pt was an active participant AEB taking notes and engaging in group activity. Connected with the topic of pitfalls and listened to group discussion on barriers that prevent from choosing a healthier path to mental wellness. Group worked together to identify examples of personal pitfalls. These examples included; shutting down, not asking for help, negative thinking patterns, avoidance, and isolation. Pt benefited from group as Pt learned to better identify potential barriers to improving mental health symptoms. Identified personal barrier of lack of motivation and negative thinking patterns. Pt will continue IOP tx to increase use of healthy coping skills and reduce negative thinking patterns. ? Narrative Note: []
--- NOTE | 2025-05-03 11:10 | BH.SGPN.GN ---
Behaviors/Verbalizations/Mental Status: []Client alert and oriented, casually dressed and groomed. Eye contact good. Motor activity appropriate. Speech within normal limits. Affect congruent, mood content, anxious. Thoughts linear, logical, no signs of hallucinations or delusions. Client Response/Progress/Benefit: [] Pt receptive of session, engaged throughout AEB Pt actively listening and contributing to discussion as well as taking notes.? Pt participated in the experiential activity and did well to communicate ideas with peers and manage emotions. Pt attentive as group processed how the emotions and perspective of the group impacted the activity. Pt admitted that they were afraid of letting others down at times, but was able to thought challenge to complete the activity with peers. Group worked together to identify different coping skills to help manage pitfalls. Pt identified a pitfall they struggle with as ?personalization?. Pt plans to work on their pitfall by challenging themselves to reach out and get clarification, as well as thought challenging. Benefited from identifying personal pitfalls and strategies to overcome these pitfalls. Pt will continue IOP tx to prevent decompensation, improve daily functioning, and increase healthy communication. ? Narrative Note: []
--- NOTE | 2025-05-04 09:05 | BH.SGPN.GN ---
Behaviors/Verbalizations/Mental Status: [] Eye contact is good. Motor activity is appropriate. Appearance is disheveled. Speech is Appropriate. Mood is depressed. Affect is congruent. Thoughts are linear and logical. No evidence of psychosis. Reviewed daily check in sheet and no reports of suicidal ideations or intent. Client Response/Progress/Benefit: [] Pt participated at times during the group discussions. Attentive. Daily symptom tracker notes /5 for depression and /5 for anxiety/irritability. Able to identify healthy skills such as opposite action and engaging in creative project which increased purpose. Struggles with sleep which are impacting mood and energy today. Did not fall asleep until 3 am last night. Benefited from group support, encouragement, and feedback. Will continue in IOP to prevent decompensation, increase healthy coping, and improve functioning. Narrative Note: []
--- NOTE | 2025-05-04 10:10 | BH.SGPN.GN ---
Behaviors/Verbalizations/Mental Status: [] Pt alert and oriented, casually dressed and groomed. Eye contact good. Motor activity appropriate. Speech within normal limits. Affect congruent, mood anxious and dysthymic. Thoughts linear, logical, no signs of hallucinations or delusions. Client Response/Progress/Benefit: [] Pt participated in group discussions. Attentive during psychoeducation on the CBT [place] (Thoughts, Behaviors, Emotions). Engaged in group discussion on how thoughts and behaviors can contribute to maintaining adverse feelings, such as depression, anxiety, and irritability. Completed worksheet in which pt identified obstacles and/or thoughts that are keeping them stuck. Shared obstacles that included; negative self-talk, shutting down, fear of rejection. Pt benefited from increased awareness of the basis of CBT therapy as well as specific thoughts that are impacting pt's progress. Will continue in IOP to prevent decompensation, increase healthy coping, and improve functioning. Narrative Note: []
--- NOTE | 2025-05-04 10:10 | BH.SGPN.GN ---
Behaviors/Verbalizations/Mental Status: [] Pt alert and oriented, casually dressed and groomed. Eye contact good. Motor activity appropriate. Speech within normal limits. Affect congruent. mood depressed. Thoughts linear, logical, no signs of hallucinations or delusions. Client Response/Progress/Benefit: [] Pt was an engaged participant AEB listening attentively to others, taking notes, and providing feedback in group discussions. Attentive during psychoeducation AEB by note taking. Pt worked along with peers in groups to define inappropriate guilt and appropriate guilt. Group worked together to provide examples of both inappropriate and appropriate guilt. Group identified a lashing out and breaking something as appropriate guilt examples. Group identified setting a boundary and needing help as having inappropriate guilt about. Pt able to connect impact inappropriate guilt can have on MH and overall functioning. Noted that it has negatively impacted his view of self and led to unhealthy coping. Benefited from increased awareness of guilt and the differences between appropriate and inappropriate guilt. Pt to continue IOP tx to prevent decompensation, gain healthy coping skills, and increase communication skills. Narrative Note: []
--- NOTE | 2025-05-04 13:21 | BH.MDN_ITS ---
Multi-Disciplinary Note Note 60-min Individual: Time Started:: 11:30 Date: 05/04/25 Purpose of session/treatment goals addressed:: Purpose of session was to address goals 1 and 2 from [facility]. Eye Contact:: Good Motor Activity:: Restless Appearance:: Casual Speech:: Appropriate Mood:: Anxious and Dysthymic Affect:: Congruent Thoughts:: Linear, Logical and No evidence of hallucinations/delusions noted Staff Interventions:: thought challenging, CBT techniques, rapport building, strengths perspective and goal setting Client Response:: Client reported they were feeling less anxious and improved functioning from Friday until late afternoon on Friday. Client stated they attribute this to change in medication from last week. Client reported anxiety started to return with racing thoughts and constant worry late afternoon and woke up feeling anxious this morning. Client stated they have constant worry that others do not like them and that they are being pushed out from their friend group. Client reported this starts to trigger thoughts of loneliness and that nobody likes them which can impact depression. Client stated they are starting to realize they need to build a larger social network because have relied on 3 friends for a long time but those friends are starting to have other life responsibilities and are not as available. Client stated in their perspective it seems like their friends are okay with the changes in their relationship and in their perspective this friend group was there whole world. Client reported they have a hard time building new friendships due to anxious thinking and difficulty not overthinking what they are saying. Client stated they did homework from last session of reviewing cognitive distortions. Client connected with personalization distortion. Client stated they will often feel like it is their fault for something even if they didn't do anything wrong. Client reported they will then feel the need to punish themselves which in the past has led to them lashing out or trying to ruin the friendship. Client stated they still experience personalization thoughts, but have done better with stopping self from engaging in self-sabotage. Client receptive to completing thought log for homework to help gain awareness of distorted thoughts and will work together in next session with challenging/reframing thoughts. Client also open to starting to look more into joining [employer] and [employer] via [employer] to help increase social connections. Risks/Concerns:: Denies suicidal thoughts, plan, or intention to date. future oriented. Progress Toward Goals/Plan:: Progress noted with client reporting improved mood and decreased anxiety for multiple days in a row. Client also pushed self to engage socially by going to an event with a friend over the weekend. Client reported they often struggle with anxious thoughts that are about others not liking them. Client stated they struggle with believing that other people's needs are more important than their own. Client reported significant issues with low self-esteem and worth. Client open to starting thought log to increase awareness and start to learn how to challenge thoughts. Client to continue IOP to improve view of self, increase healthy coping, and prevent decompensation. Time Stopped:: 12:30
--- NOTE | 2025-05-05 09:00 | BH.SGPN.GN ---
Behaviors/Verbalizations/Mental Status: [] Eye contact is good. Motor activity is appropriate. Appearance is casual. Speech is Appropriate. Mood is depressed and anxious. Affect is congruent. Thoughts are linear and logical. No evidence of psychosis. Reviewed daily check in sheet and no reports of suicidal ideations or intent. Client Response/Progress/Benefit: [] Pt was an active participant in group discussions. Attentive. Did well to identify 2 mental health wins including using opposite action to challenge themselves to come back to IOP tx. Expressed reminding themself of the importance of working on their mental health. Stated feeling tired this morning. Additional win noted as having a difficult but necessary conversation with a friend. Noted this is also a stressor as pt fears it will damage the relationship long-term. Responded well to group support. Benefited from group support, encouragement, and feedback. Will continue in IOP to prevent decompensation, promote mood stability, and increase confidence. Narrative Note: []
--- NOTE | 2025-05-05 10:00 | BH.SGPN.GN ---
Behaviors/Verbalizations/Mental Status: []Pt alert and oriented, disheveled appearance. Eye contact good. Motor activity appropriate. Speech within normal limits. Affect congruent, mood dysthymic. Thoughts linear, logical, no signs of hallucinations or delusions. Client Response/Progress/Benefit: [] Pt was an active participant in group discussion and experiential activity. Attentive during psychoeducation on resilience and provided input throughout. Participated in interactive discussion with peers on the definition of resilience and where it comes from. Group identified that resiliency can be impacted by; past experiences, upbringing, and personality traits. Able to relate experiential activity of group juggle to topics of resilience. Worked with peers in small group in which they identified factors that contribute to resilience and did well providing ideas. Benefited from increased awareness of resilience and the factors that contribute to building resilience. Will continue in IOP tx to improve daily functioning, increase social support, and gain healthy coping skills. ? Narrative Note: []
--- NOTE | 2025-05-05 11:00 | BH.SGPN.GN ---
Behaviors/Verbalizations/Mental Status: [] Eye contact is good. Motor activity is appropriate. Appearance is casual. Speech is Appropriate. Mood is dysthymic. Affect is congruent. Thoughts are linear and logical. No evidence of psychosis. Client Response/Progress/Benefit: [] Pt responded well to session AEB completing the resilience worksheet provided. Limited participation in the discussion unless prompted however did work cooperatively with group to identify strategies to enhance each of the components discussed. Pt was able to identify resiliency traits they already possess as well as areas related to resilience to focus on in the future which included make connections and have a more positive view of myself. Pt seemed to benefit from discussing strategies for improving personal resilience and identifying resilience traits Pt already possesses. Will continue IOP tx to prevent decompensation, stabilize mood, and increase healthy coping. Narrative Note: []
--- NOTE | 2025-05-06 09:00 | BH.SGPN.GN ---
Behaviors/Verbalizations/Mental Status: [] Pt alert and oriented, casually dressed and groomed. Eye contact good. Motor activity appropriate. Speech within normal limits. Affect congruent, mood euthymic. Thoughts linear, logical, no signs of hallucinations or delusions. Reviewed pt?s symptom tracker, no risk for suicidal ideation, plan, or intent 05/06/25. Client Response/Progress/Benefit: []Pt was an active participant in group discussions. Attentive. Able to identify mental health wins including ?I?ve been drawing a lot more and it?s been fun instead of me being so critical of myself.? ?Pt's stressor today is ?my sleep is still not good, I can?t stay asleep or fall asleep.? The group offered pt suggests to manage this stressor and emotional support which pt reported was helpful. Pt is feeling ?calm.? this morning. Pt receptive to feedback from peers. Benefited from group support, encouragement, and feedback. Progress noted. Will continue IOP tx to increase use of healthy coping skills, improve daily functioning, and combat cognitive distortions. ? Narrative Note: []
--- NOTE | 2025-05-06 10:10 | BH.SGPN.GN ---
Behaviors/Verbalizations/Mental Status: []Eye contact is good. Motor activity is appropriate. Appearance is casual. Speech is Appropriate. Mood is content. Affect is congruent. Thoughts are linear and logical. No evidence of psychosis. Client Response/Progress/Benefit: []Pt was an active participant in group discussion. Engaged and attentive during psychoeducation and interactive discussion on coping skills, why people use unhealthy coping skills, how to replace unhealthy coping skills, and internal vs external coping skills. Attentive as peers came up with list of unhealthy coping skills. Pt reported personally, they tend to either isolate or self-harm. Group discussed the effects of maladaptive coping skills on mental health. Benefited from increased understanding of unhealthy coping skills and the need for developing healthy internal and external coping skills. Actively participated during experiential group activity and was able to related this activity to group topic. Will continue in IOP to promote healthy thinking patterns, apply healthy coping skills, and promote mood stability. Narrative Note: []
--- NOTE | 2025-05-06 11:10 | BH.SGPN.GN ---
Behaviors/Verbalizations/Mental Status: [] Pt alert and oriented, casual in appearance. Eye contact fair. Motor activity appropriate. Speech within normal limits. Affect congruent, mood anxious. Thoughts linear, logical, no signs of hallucinations or delusions. Client Response/Progress/Benefit: [] Pt did not engage in group discussions however was attentive AEB taking notes, and listening attentively to others. Group discussed the different categories of coping skills which included distraction, emotional release, grounding, self-love, and thought challenging. Pt participated in creating a coping skills ?menu? from the different categories of coping skills. Pt's coping skill menu included: Exercise, art, imagery, dressing more comfortably, and distract delay decide.. Appeared to benefit from increasing repertoire of healthy coping skills. Will continue IOP to promote healthy coping, improve view of self, and prevent decompensation.
== END 2025-05-08 23:59 ==
LOC: BHIOP 08:00
PROVIDERS: Referring Provider Internal Medicine; Visit Provider Internal Medicine
DX: F33.2 Major depressive disorder, recurrent severe without psychotic features (principal); F41.0 Panic disorder [episodic paroxysmal anxiety]
CPT/HCPCS: H2012; H2020; S9480; 90834; 90837

== ENCOUNTER 2025-05-10 07:16 | Outpatient (RCR) | payer OTHER, MEDICAID, SELFPAY ==
--- NOTE | 2025-05-10 09:05 | BH.SGPN.GN ---
Behaviors/Verbalizations/Mental Status: [] Eye contact is good. Motor activity is appropriate. Appearance is casual. Speech is Appropriate. Mood is depressed. Affect is congruent. Thoughts are linear and logical. No evidence of psychosis. Reviewed daily check in sheet and no reports of suicidal ideations or intent. Client Response/Progress/Benefit: [] Pt participated at times during the group discussions. Attentive. ? I?m pushing myself to interact with others?. Reached out to a friend and sister. Ruminating on past relationship and his co-dependent traits. ? I feel like a real shitty person?. States ? I need to become my own person? ?? be more comfortable being alone?. Feeling ?helpless? today. Limited progress noted however some insight. Benefited from group support, encouragement, and feedback. Will continue in IOP to maintain safety, stabilize mood, and improve functioning. Narrative Note: []
--- NOTE | 2025-05-10 10:10 | BH.SGPN.GN ---
Behaviors/Verbalizations/Mental Status: [] Eye contact is good. Motor activity is appropriate. Appearance is casual. Speech is Appropriate. Mood is anxious. Affect is congruent. Thoughts are linear and logical. No evidence of psychosis. Client Response/Progress/Benefit: [] Pt was an active participant during interactive group discussions. Attentive during psychoeducation on the six types of boundaries (physical, emotional, intellectual, sexual, time, and material) AEB note-taking and providing input. Along with peers contributed to interactive discussion on defining what a boundary is in mental health. Pt along with peers identified challenges to setting boundaries such as guilt, feeling selfish, negative past experiences, fear of conflict, and limited knowledge on setting boundaries. Pt along with peers identified the benefits to setting boundaries such as better relationships, increased time for self-care, and increased confidence, and feeling more heard. Group discussed the mental health benefits to establishing boundaries at work, school, and home. Pt benefited from increased awareness and insight on the importance/benefit to setting health boundaries. Will continue in IOP to improve distress tolerance, increase consistent use of healthy coping skills, and prevent decompensation.
--- NOTE | 2025-05-10 11:10 | BH.SGPN.GN ---
Behaviors/Verbalizations/Mental Status: []Pt alert and oriented, casually dressed and groomed. Eye contact good. Motor activity appropriate. Speech within normal limits. Affect congruent, mood depressed and anxious. Thoughts linear, logical, no signs of hallucinations or delusions. Client Response/Progress/Benefit: [] Client responded well to session AEB listening attentively to peers, providing input, as well as taking notes throughout. Group discussed different styles of boundary setting. Participated in small group discussion brainstorming various strategies for improving healthy boundary setting. Pt took time to complete reflection on which skills would like to implement to improve boundaries. Plans to challenge self by starting with small boundaries and reflecting on what he wants these to be. Seemed to benefit from increased awareness of how different boundary styles can impact mental health. Will continue IOP tx prevent decompensation, increase use of healthy coping skills, and reduce negative thinking patterns. Narrative Note: []
--- NOTE | 2025-05-10 14:24 | BH.PSA_ITS ---
Source of Information Presenting Problems/Circumstances Problems, Referral Source, Mental Status, Client: referred by an outpatient therapist due to worsening depression for the past 6 weeks with limited benefit from traditional outpatient follow-up. They feel constant depression and has been spiraling with poor sleep, poor appetite, low energy, low motivation, hopelessness, anhedonia. Does have passive thoughts of with no active intent. Of note patient was seen in the ED 04/23/2025 due to his worsening depression, reportedly there are guns in the home but the ED physician confirmed with father the patient has no access and does not know the combination/where the hewitt is to get access to the gun. Psychiatric Presentation Psych Issues & Need for Admission Psychiatric Issues:: MDD (major depressive disorder), recurrent episode, severe Panic disorder Past Psychiatric History MH Treatment Hx Treatment History: -First age experiencing symptoms: Reports he has been chronically anxious all the way back to at least elementary school -Previous diagnoses: anxiety, MDD, possible bipolar disorder -Psychiatrist: Psychiatrist at [place] [id number], would like to transfer to a different provider, also paying out of pocket and would like to stop doing that if possible -Therapist: Has a therapist since last July, good relationship and would like to continue on this therapist. Goes to [place]. -Psychiatric hospitalizations: No -Suicide attempts: No -Non suicidal self-harm: Cut self back in high school, nothing recently -Medication trials: Abilify, Latuda, Cymbalta, BuSpar, Seroquel, hydroxyzine First hospitalization:: Denies Development & Family of Origin Childhood Significant Childhood Events: Reported difficulty due to social struggles in school and distant relationship with parents. Family Who currently lives in your home?: Lives w/ sister, mom and dad in [place] in a house Describe family composition:: Parents: Reports suboptimal relationship with parents and that they were emotionally unavailable until he went to the emergency department for suicidal thoughts last weekend and they have been more supportive since that time. -Siblings: Two younger sisters, one lives with them, brant, the other, Estella, moved out with her boyfriend so he does not talk to her often Family History Family History (Updated 07/13/25 @ 14:18 by Janina Wall) Other Alcoholism Anxiety Arthritis Depression Diabetes Hypertension Family Hx of Psychiatric or AOD Problems: -Mental illness: Long family history of undiagnosed mental issues, probably anxiety and depression per patient -Suicide attempts or completions: Denies -Substance Use: Hx alcoholism both sides, drug use on mom's side Ethnicity Sexuality Sexual Orientation: Homosexual Spirituality Islam Do you currently identify with any organized yazdanism?: Agnostic Mental Status Memory Recent Memory: Poor Remote Memory: Poor Concentration Concentration: Poor Eye Contact Eye Contact: Fair Speech Speech: Articulate and Congruent Thought Process Thought Process: Logical and Ruminations Insight: Fair Judgment: Fair Behavior: Anxious Orientation Orientation: Time, Person, Place and Situation Appearance Appearance: Appropriate Mood Mood: Anxious and Depressed Affect Affect: Alert Suicide Assessment Suicidal Ideation Have you ever felt like hurting yourself?: Yes Please explain:: Still having a lot of passive thoughts of I do not want to be here anymore. Went to the ED because of suicidal thoughts this past weekend, reports they went completely gone away but since they were switched back to Seroquel they are more manageable. Notes safety plan is still active, dad is in charge of medications, gun is locked up and patient does not know where it is hidden, knives in the kitchen are covered up. Has no active thoughts of harming self during this evaluation. Suicidal Intentional Rating Scale (SIRS): Suicidal thoughts (past) Physician Notification Violent Behavior/Abuse History Homicidal Ideation Do you have any homicidal thoughts? If so, explain:: No Abuse Have you ever been abused?: No Life Events Are there any other significant life events?: Hardships (interpersonal issues) Safety Do you ever feel threatened in your home? If yes, describe:: No Adult Social History Age 18 to Present Describe your current support system:: Limited. Parents recently have become more supportive. Has a best friend, but recently there has been some distant in this friendship. 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 Initially liked it because he got to see new technology but ultimately disliked it as it was boring and often idle and patient had too much time to think, reportedly quit for IOP. Worked there for 9 weeks and before that worked at [employer] but the environment was hostile and horrible and does not want to go back. Service Service Have you ever been in the ?: No Legal History Records Have you had any past legal charges?: No Do you have any current legal charges?: No Have you ever been incarcerated? If yes, describe:: No Court Orders Have you had any past court orders for psychiatric treatment?: No Do you have a present court order for psychiatric treatment?: No Problem Checklist Current Problem Areas Problem List: Nutritional/Eating pattern changes, Depressed mood/sad, Anxiety, Inattention, Sleep problems and Additional psychosocial stressors (Interpersonal conflict) Gift Shop Manager's Assessment Client's Needs What are the client's feelings about the program?: Feeling excited to connect with others and learn healthier ways to deal with stress. What are the client's goals?: Client noted would like to build healthy coping skills, increase confidence, and improve thought patterns. Diagnoses Diagnoses Diagnosis #1:: MDD (major depressive disorder), recurrent episode, severe: R/O Bipolar do Diagnosis #2:: Panic disorder Interpretive Summary Interpretive Summary Interpretive Summary: Pt is a 24y/o biological male who uses they/them pronouns and identifies as non-binary, who presented to [facility] IOP program for further evaluation and treatment of depression and anxiety. They were referred by an outpatient therapist due to worsening depression for the past 6 weeks with limited benefit from traditional outpatient follow-up. They feel constant depression and has been spiraling with poor sleep, poor appetite, low energy, low motivation, hopelessness, anhedonia. Does have passive thoughts of with no active intent. Of note patient was seen in the ED 04/23/2025 due to his worsening depression, reportedly there are guns in the home but the ED physician confirmed with father the patient has no access and does not know the combination/where the hewitt is to get access to the gun. At that time patient was not finding Latuda helpful so his BuSpar was continued and he was restarted on Seroquel. They were also given dose of hydroxyzine and a prescription for as needed hydroxyzine and discharged home with return precautions. Patient evaluated IOP, reports mood has been quite bad and is feeling very tired right now. Does not feel like the BuSpar has been helping their anxiety as much anymore and notes they have been having almost constant panic attacks. Having string of panic attacks is what made them go to the ER over the weekend. Notes that their panic attacks will lead to heart pounding, crying, hyperventilating and he feels like they cannot move. Sometimes they are triggered by specific things but often they happen at random. Notes they have been having stress as just quit job to do the program, pt did not like the job and had a lot of downtime and felt they were just sitting with their negative thoughts, and pt also said some changes in friend [place] no longer feels like they can reach out to someone who was a main support system to them before, which has increased distress. They were on Seroquel and ultimately went off of it because they felt like it was too sedating, pt then switched to Latuda and it was noted to help with mood swings but not with depressed mood. After the ER pt was switched back to Seroquel and also given hydroxyzine as needed, notes that Seroquel has definitely been helping with sleep and has been a good thing even though pt does still have some daytime tiredness. Also notes that hydroxyzine has been helpful for anxiety. Patient does note his first psychiatrist at [place] [address] thought maybe patient had bipolar disorder but there therapist does not agree. When asked why they received this diagnosis they reported they were put on duloxetine and became very hyper, social, increased goal-oriented activity with elevated mood, symptom lasted 5 days and then patient was taken off of the medication and abruptly symptoms resolved and patient slept 13 hours the next day. Occasionally will have a day at a time with high energy but not to the same extent and without days being strung together. Pt currently endorses depressed and anxious mood with low motivation, low energy, poor sleep, poor concentration, poor memory, crying spells, panic attacks, apathy, and anhedonia. Treatment Plan Recommendations Recommendations Guidelines Recommendations:: The patient will begin IOP in Behavioral Health at [facility]. The program's structure, support, education, and therapy aim to prevent deterioration of symptoms and avoid the need for PHP or inpatient hospitalization.
--- NOTE | 2025-05-12 09:05 | BH.SGPN.GN ---
Behaviors/Verbalizations/Mental Status: [] Eye contact is good. Motor activity is appropriate. Appearance is casual. Speech is Appropriate. Mood is euthymic. Affect is full. Thoughts are linear and logical. No evidence of psychosis. Reviewed daily check in sheet and no reports of suicidal ideations or intent. Client Response/Progress/Benefit: [] Pt was an active participant in group discussion. Attentive. Pt was able to identify mental health wins and healthy habits. Shared that he has increased his creative drawing since starting IOP and is now completing it daily. This has been a beneficial addition to his mental health and feels happy when he draws rather than self-critical. Also is begining to develop a new friendships via social media which has improve his mood. Progress noted. Benefited from group support, encouragement, and feedback. Will continue in IOP to maintain safety, increase healthy coping, prevent decompensation, and improve functioning. Narrative Note: []
--- NOTE | 2025-05-12 10:10 | BH.SGPN.GN ---
Behaviors/Verbalizations/Mental Status: []Eye contact is good. Motor activity is appropriate. Appearance is casual. Speech is Appropriate. Mood is anxious. Affect is congruent. Thoughts are linear and logical. No evidence of psychosis. Client Response/Progress/Benefit: [] Pt participated in the group discussions AEB providing input and taking notes at times. Attentive during psychoeducation on SMART Goal Setting. Pt worked with group to identify common barriers to goal setting which included; mental health struggles, energy/motivation, limited support, change to routine, lack or resources, having unrealistic goals, and our internal expectations. Group also identified benefits of goals, which included: promotes a sense of accomplishment, it challenges oneself, can boast confidence, and can cause positive change/growth. Pt able to identify personal benefits to goal setting. Benefited from increased awareness of mental health benefits of goals as well as psychoeducation on SMART goal criteria. Will continue in IOP to increase healthy coping, improve distress tolerance, and prevent decompensation.
--- NOTE | 2025-05-12 11:10 | BH.SGPN.GN ---
Behaviors/Verbalizations/Mental Status: []Pt alert and oriented. Appearance is casual, hygiene is appropriate. Eye contact good. Motor activity appropriate. Speech within normal limits. Affect is anxious. Mood is congruent. Thoughts linear, logical, no signs of hallucinations or delusions. Client Response/Progress/Benefit: [] Pt was engaged during discussion and experiential activity. Completed the worksheet challenging them to develop a personal SMART goal. Pt chose a SMART goal to reach out to one friend every day and by next week reach out to a new person. Believes this goal will benefit them by increasing their socialization. Identified obstacle as worrying what others will think. Pt able to identify several solutions to help overcome barrier. Benefited from this group by developing a short-term SMART goal related to mental health. Will continue IOP to increase consistent healthy coping skills, challenge negative thoughts, and prevent decompensation.
--- NOTE | 2025-05-13 07:46 | PCM.BH.PN_ITS ---
Intake Vital Signs 04/29/25 10:57 05/13/25 10:49 Height 5 ft 9 in 5 ft 9 in Weight: 170 lb BP 126/68 H Pulse 89 Intake Visit Reasons: follow up Allergies Penicillins (PCN) Allergy (Intermediate, Verified 04/29/25 10:41) Hives bacitracin Allergy (Mild, Verified 04/29/25 10:41) Rash neomycin (From Neosporin ([id number])) Allergy (Mild, Verified 04/29/25 10:41) Rash polymyxin B (From Neosporin ([id number])) Allergy (Mild, Verified 04/29/25 10:41) Rash Medications ?Medication ?Instructions ?Recorded ?Confirmed ?Type buspirone 15 mg tablet 15 mg PO TID 30 days #90 tab s 04/29/25 Rx hydroxyzine pamoate 25 mg capsule 25 mg PO TID PRN anx iety #60 caps 04/29/25 Rx (Vistaril) quetiapine 50 mg tablet,extended 100 mg (2 x 50 mg) PO QHS #60 tabs 05/13/25 Rx release 24 hr HPI () History of Present Illness History provided by: patient Chief complaint: Worsening depression and anxiety HPI: Rudy Zambrano is a 24 y/o male who presents today for follow up evaluation. Patient reports that they have been doing pretty good. Patient had buspirone increased by 5 mg and feels like it helped their anxiety fairly significantly, but does still have regular anxiety. Seroquel does help with sleep, but does make patient very drowsy. Has low physical energy with taking the medication. Currently taking 100 mg of quetiapine at bedtime. Does feel like it helps a little with depression and significantly with sleep. Describes only about a 10% improvement in depressive symptoms. Went from 2 hours at bedtime to 8 hours of sleep with medication. 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 Was previously following at [facility]. Review of systems () Constitutional Denies: fever(s), chills, change in weight or fatigue Eyes Denies: change in vision or blurry vision Ears, Nose, Mouth, Throat Denies: throat pain, neck pain or change in hearing Cardiovascular Denies: chest pain, palpitations or dyspnea Respiratory Denies: dyspnea, cough or wheezing Gastrointestinal Denies: abdominal pain, nausea, vomiting, diarrhea or constipation Genitourinary Denies: dysuria or urinary frequency Musculoskeletal Denies: back pain, neck pain, joint pain or muscle weakness Integumentary/Breast Denies: rash or new lesions Neurological Denies: headache(s), dizziness or confusion Endocrine Denies: fatigue or excessive sweating Hematologic/Lymphatic Denies: easy bruising or easy bleeding Allergic/Immunologic Denies: wheezing Exam Mental Status Exam- Psych () Appearance casually dressed and no apparent distress Attitude cooperative Activity/Motor Behavior MSE activity/motor behavior finding no adventitious movements Speech regular rate and regular volume Mood OK Affect full range Thought Process linear and logical Thought Content no delusions and no hallucinations Suicidal Ideation passive Homicidal Ideation none Attention intact Concentration intact Sensorium/Orientation awake and alert Memory/Cognition intact Insight fair Judgement fair Assessment & Plan () Assessment & Plan (1) MDD (major depressive disorder), recurrent episode, severe: Plan: - feeling somewhat sedated on seroquel however does find that it has significantly improved sleep. Will switch to quetiapine extended release to ideally provide a marginal reduction in sedation but still provide benefit - Patient was informed of the risk, benefits, and possible side effects of antipsychotics medications. Side effects of these medications can include but are not limited to orthostatic hypotension (low blood pressure), weight gain, metabolic side effects, extrapyramidal side effects, and tardive dyskinesia. If you notice any abnormal movements including involuntary movement of muscles of face, lips, torso or legs please contact the office immediately. - continue other meds as before (2) Panic disorder: Plan: - seroquel as above, could consider alternatives in the future Medications: Discontinued quetiapine Discontinued Reason: Order Changed 100 mg PO QHS 30 tabs 0RF Charges/Coding Behavior Health Behavior Health EST Pt E/M: 42598 Est Pt Level IV
--- NOTE | 2025-05-13 09:05 | BH.SGPN.GN ---
Behaviors/Verbalizations/Mental Status: [] Eye contact is good. Motor activity is appropriate. Appearance is casual. Speech is Appropriate. Mood is depressed and anxious. Affect is congruent. Thoughts are linear and logical. No evidence of psychosis. Reviewed daily check in sheet and no reports of suicidal ideations or intent. Client Response/Progress/Benefit: [] Pt participated at times during the group discussions. Attentive. Daily symptom tracker notes 2/5 for depression and anxiety. Able to identify mental health wins and healthy habits. Feels tired and ?physically exhausted? today. His sleep schedule continues to be erratic. Despite this he reports continuing to utilize healthy skills such as reframing and opposite-action. ?I?m not beating myself up for no reason?. Progress noted. Benefited from group support, encouragement, and feedback. Will continue in IOP to prevent decompensation, increase healthy coping, and improve functioning Narrative Note: []
--- NOTE | 2025-05-13 10:10 | BH.SGPN.GN ---
Behaviors/Verbalizations/Mental Status: [] Eye contact is good. Motor activity is appropriate. Appearance is casual. Speech is Appropriate. Mood is content. Affect is congruent. Thoughts are linear and logical. No evidence of psychosis Client Response/Progress/Benefit: [] Pt receptive of session, actively engaged throughout AEB taking notes, providing input, and contributing in small group discussion. Appeared to connect with group topic of automatic thoughts and cognitive distortions, as well as the impact of thought patterns on mental health, coping behaviors, and relationships. This particular group is very heavy on psychoeducation and pt appeared to connect with distortions and how they can impact functioning. Identified struggling with labeling and magnification/minimization distortions. Pt appeared to benefit from gaining insight on distorted thinking patterns and how this impacts overall mental health. Will continue IOP to stabilize mood, improve ability to function, and prevent decompensation. Narrative Note: []
--- NOTE | 2025-05-13 15:12 | BH.MDN_ITS ---
Multi-Disciplinary Note Note 45-min Individual: Time Started:: 12:10 Date: 05/13/25 Purpose of session/treatment goals addressed:: Purpose of session was to address goals 1 and 2 from MTP. Eye Contact:: Good Motor Activity:: Appropriate Appearance:: Casual Speech:: Appropriate Mood:: Euthymic and Anxious Affect:: Congruent Thoughts:: Linear, Logical and No evidence of hallucinations/delusions noted Staff Interventions:: thought challenging, CBT techniques, strengths perspective, goal setting and taught coping skills Client Response:: Client reported this weekend he had a major setback. Client stated they were hanging out with their best friend [place]use[place] on Friday. Client reported they thought their friend was not having fun hanging out together. Client stated they took this as a personal negative that their friend no longer thinks they are fine. Client stated this triggered feelings of worthlessness and loneliness as a reflecting on the hang out in the evening. Client stated that a self-harm that night. Client reported feeling disappointed to the himself because they have not self harmed in a long time. Client stated they are worried they damaged the friendship because they showed their friend the self-harm which then created a argument between client and [place]. Client reported they feel guilty for putting that intense emotional experience on their friend which they recognize now was not fair. Client reported this experiences made them self reflect on the importance of needing to build other connections. Client stated they realize there is an overreliance on the friendship with [place]. Client reported they have decided when they interact with people they are going to focus on being more positive versus focusing on the negative or what is not going well. Client stated they also have made a decision to start reaching out to other people through various online forms they are part of. Client stated they reached out to new potential connection and so far that is going well. Client and therapist processed how to process and address guilt over what is happening with L[place]. Client stated they do feel it is necessary to feel this appropriate guilt and are taking steps to make amends for their actions. Risks/Concerns:: Denies current suicidal ideation, plan, intention. Recent relapse with nonsuicidal self-harm. Client states no urge or desire to self-harm again. Future oriented. Progress Toward Goals/Plan:: Slight decompensation noted with client reporting relapse with nonsuicidal self-harm. However client seems to have gained insight and awareness about codependency with an a friendship that was negatively impacting their mental health. Client has come to realization that it is important for them to start to widen their social support network versus relying on 1 individual to help with support. Client also recognizing it is important to start looking at and talking more about positives versus cons istently talking about what is not going well or the negative. Plan is for client to continue IOP to increase consistent utilization of healthy coping skills, challenge distortions, and prevent decompensation. Time Stopped:: 12:50
--- NOTE | 2025-05-16 09:05 | BH.SGPN.GN ---
Behaviors/Verbalizations/Mental Status: [] Eye contact is good. Motor activity is appropriate. Appearance is casual. Speech is Appropriate. Mood is depressed and anxious. Affect is congruent. Thoughts are linear and logical. No evidence of psychosis. Reviewed daily check in sheet and no reports of suicidal ideations or intent. Client Response/Progress/Benefit: [] Pt was an active participant in group discussions. Attentive. Daily symptom tracker notes 2/5 for anxiety and /5 for depresession. Set goal last week to interact with one person daily. Believed that this will positively impact his mental health by increasing socialization and engagement with others. Also reports increase self-care and healthy choices. He is struggling with sleep. Recent medication change has not been helpful. According to pt the medications either help him sleeep however make him drowsy the next morning or don't help him sleep. Peers discussed the importance of developing a sleep routine and provided examples. Progress noted. Benefited from group support, encouragement, and feedback. Will continue in IOP to prevent decompensation, increase healthy coping, and improve functioning. Narrative Note: []
--- NOTE | 2025-05-16 10:10 | BH.SGPN.GN ---
Behaviors/Verbalizations/Mental Status: []Pt alert and oriented, casually dressed and groomed. Eye contact good. Motor activity appropriate. Speech within normal limits. Affect congruent, mood euthymic. Thoughts linear, logical, no signs of hallucinations or delusions. Client Response/Progress/Benefit: [] Pt was an attentive and active participant, AEB taking notes and providing input in group discussion. Attentive during psychoeducation. Pt engaged during interactive discussion in which the group defined self-care and discussed its benefits. Group discussed barriers and benefits to self-care. Identified benefits as being more productive, feeling more grounded, feeling happier, less irritability, and being more capable. Pt participated in small groups where they worked to identify and challenged common self-care ?myths?. Benefited from increased awareness of self-care, its benefits, and the consequences of not utilizing self-care strategies. Pt connected with myths of self-care being ?it?s going to take too much energy and not be worth it.? Will continue IOP tx to improve sleep hygiene, reduce negative thinking, and improve daily functioning. ?? Narrative Note: []
--- NOTE | 2025-05-16 11:10 | BH.SGPN.GN ---
Behaviors/Verbalizations/Mental Status: []Client alert and oriented, casual appearance. Eye contact good. Motor activity appropriate. Speech within normal limits. Affect congruent, mood euthymic. Thoughts linear, logical, no signs of hallucinations or delusions. Client Response/Progress/Benefit: [] Pt engaged participant AEB completing self-assessment worksheet and providing input throughout discussion. Pt completed worksheet identifying current self-care practices and what self-care activities Pt wants to start using. Pt stated to improve self-care they will make clothes that make them feel better and get back into stretching every day. Appeared to benefit from completing the self-care evaluation and gaining insights into current self-care practices, as well as identifying areas in which Pt would like to improve upon. Pt will continue IOP tx to improve distress tolerance, improve healthy coping skills, and prevent decompensation.
--- NOTE | 2025-05-16 11:10 | BH.SGPN.GN ---
Behaviors/Verbalizations/Mental Status: []Pt alert and oriented, casually dressed and groomed. Eye contact good. Motor activity appropriate. Speech within normal limits. Affect congruent, mood euthymic. Thoughts linear, logical, no signs of hallucinations or delusions. Client Response/Progress/Benefit: []Pt engaged participant AEB completing self-assessment worksheet and providing input throughout discussion. Participated in group discussion on the various areas of self-care. Pt completed worksheet identifying current self-care practices and what self-care activities pt wants to start using. Pt engaged in self-reflection activity in which pt's were asked to identify one area of self-care they would like to improve upon. Appeared to benefit from completing the self-care evaluation and gaining insights into current self-care practices, as well as identifying areas in which pt ?would like to improve upon.?Will continue IOP to inmprove distress tolerance, improve confidence, and prevent decompensation.
--- NOTE | 2025-05-17 09:00 | BH.SGPN.GN ---
Behaviors/Verbalizations/Mental Status: [] Pt alert and oriented, casually dressed and groomed. Eye contact good. Motor activity appropriate. Speech within normal limits. Affect congruent, mood calm. Thoughts linear, logical, no signs of hallucinations or delusions. Reviewed pt?s symptom tracker, no risk for suicidal ideation, plan, or intent 05/18/25. Client Response/Progress/Benefit: []Pt was an active participant in group discussions. Attentive. Able to identify mental health wins including ?I got better sleep last night, I was able to challenge negative thoughts, and I did more drawing last night.?? Pt's stressor today is ?I?m struggling to start conversation with people, but I?m trying to push myself anyway.? The group offered pt suggests managing this stressor and emotional support which pt reported was helpful. Pt is feeling ?calm? this morning. Pt receptive to feedback from peers. Benefited from group support, encouragement, and feedback. Progress noted. Will continue IOP tx to promote mood stability, combat distorted thinking, and improve self-confidence. Narrative Note: []
--- NOTE | 2025-05-17 10:15 | BH.SGPN.GN ---
Behaviors/Verbalizations/Mental Status: [] Eye contact is good. Motor activity is appropriate. Appearance is disheveled. Speech is Appropriate. Mood is anxious. Affect is congruent. Thoughts are linear and logical. No evidence of psychosis. Client Response/Progress/Benefit: [] Pt engaged in session AEB client listening attentively to peers and providing input. Attentive and contributed to discussion as group worked on defining?self-confidence?and identifying benefits of?self-confidence which included; increase michael/engagement, improved quality of relationships, improved problem solving, confidence to take risks, and increased sense of self-worth. Also participated during interactive discussion on factors that impact one's self confidence such as trauma, upbringing, economic status, and current/past relationships. Benefited from increased education on?self-confidence?and what effects it. Pt will continue IOP tx to improve view of self, challenge distorted thoughts, and prevent decompensation. Narrative Note: []
--- NOTE | 2025-05-17 11:10 | BH.SGPN.GN ---
Behaviors/Verbalizations/Mental Status: [] Client alert and oriented, casually dressed and groomed. Eye contact good. Motor activity appropriate. Speech within normal limits. Affect congruent, mood anxious. Thoughts linear, logical, no signs of hallucinations or delusions. Client Response/Progress/Benefit: [] Pt engaged in session AEB client listening attentively to peers and providing input. Attentive and contributed to discussion as group worked on identifying thought patterns and behaviors that negatively affect self-confidence. Pt identified behaviors that affect their confidence as: comparisons and negative self-talk. Engaged in confidence building activity and worked with the group to identify strategies for improving self-confidence. Pt identified plans to begin setting small daily self-care goals as a means of improving own self-confidence. Benefited from increased education on self-confidence building skills. Pt will continue IOP tx to increase self-confidence, improve emotional regulation skills, and prevent decompensation. Narrative Note: []
--- NOTE | 2025-05-19 09:05 | BH.SGPN.GN ---
Behaviors/Verbalizations/Mental Status: [] Pt alert and oriented, casually dressed and groomed. Eye contact good. Motor activity appropriate. Speech within normal limits. Affect congruent, mood calm. Thoughts linear, logical, no signs of hallucinations or delusions. Reviewed pt?s symptom tracker, no reported Si, plan, or intention. Client Response/Progress/Benefit: []Pt was an active participant in group discussions. Attentive. Pt stated that their mental health positive as using opposite action to push self to get dishes washed and put away. Pt stated additional mental health positive as having the desire to draw when feeling depressed. Pt reported her stressor as needing to get back to increase physical activity because he hasn't worked out in over 6 weeks. Pt seemed to benefit from support from peers. Will continue IOP services to increase healthy coping skills, challenge distorted thoughts, and prevent decompensation.
--- NOTE | 2025-05-19 10:05 | BH.SGPN.GN ---
Behaviors/Verbalizations/Mental Status: [] Eye contact is good. Motor activity is appropriate. Appearance is casual. Speech is Appropriate. Mood is content. Affect is congruent. Thoughts are linear and logical. No evidence of psychosis. Client Response/Progress/Benefit: [] Pt engaged participant AEB listening to others, engaging in activity, and providing feedback throughout. Attentive during psychoeducation and provided insight into obstacles that impede mental wellness. Pt shared with group current mental health reality and desired mental health reality. Identified barriers to desired reality which included difficulties with communication and anxiety. Benefited from taking look at current mental health state and obstacles for progress. Pt to continue in IOP tx to prevent decompensation, stabilize mood, and improve functioning. Narrative Note: []
--- NOTE | 2025-05-19 15:28 | BH.MDN_ITS ---
Multi-Disciplinary Note Note 45-min Individual: Time Started:: 11:10 Date: 05/19/25 Purpose of session/treatment goals addressed:: Purpose session was to address goals 1 and 2 from [facility]. Eye Contact:: Fair Motor Activity:: Appropriate Appearance:: Casual Mood:: Euthymic Affect:: Congruent Thoughts:: Linear, Logical and No evidence of hallucinations/delusions noted Staff Interventions:: thought challenging, CBT techniques, strengths perspective, goal setting and taught coping skills (Habit stacking) Client Response:: Client reported that her mood has been improved recently. Client stated they have been utilizing drawing as coping skill and starting to find more enjoyment out of. Client noted is becoming more automatic for them to start drawing when noticed that her mood is depressed or down. Client noted they are little concerned with her over relying on drawing as they are coping skill because not utilizing other ways to cope. Client admitted they really have not tried to engage in other coping skills that have been discussed throughout the time in IOP. Client noted a do of interest in getting back into reading and playing video games but has not really put the effort into doing so. Client and therapist problem solved what might make engaging in those other activities more enjoyable and easier to try. Client stated they think trying to read comics versus novels would be a better start because their concentration is still not where they would like it to be. Client noted additional thing they would like to get back into is exercising specifically for strengthening their knees. Client noted they have had issues with her knees since they were younger and have found in the past strength training to be very useful in decreasing pain and feeling stronger. Therapist reviewed skill of habit stacking and discussed it could be helpful if client decides that before they sit down to draw they will do at least 1 knee strengthening activity. Client agreed this could be helpful in application of the goal. Risks/Concerns:: Denies suicidal ideation, plan, intention. Future oriented. Progress Toward Goals/Plan:: Progress noted with client reporting improved mood and more consistent utilization of drawing as a form of healthy coping. Client noted it is becoming more of an automatic response to draw when feeling low or depressed. Client also noted improvement in progress with continuing to connect with new friends versus just relying on 1 friendship. Plan is for client to continue IOP to increase utilization of different coping skills, challenge distortions, and prevent decompensation. Time Stopped:: 12:00
--- NOTE | 2025-05-20 15:32 | BH.MTP_ITS ---
Treatment Plan Review Demographics Date of Admission:: 04/26/25 Date of Treatment Plan Review:: 05/20/25 Admitting Diagnoses:: F33.2 MDD (major depressive disorder), recurrent episode, severe Panic disorder Current Diagnoses:: F33.2 MDD (major depressive disorder), recurrent episode, severe Panic disorder Patient Status Patient's Response to Treatment:: Client has responded well to treatment AEB co nsistent attendance, engaged in group sessions, and open during individual sessions. Status of Current Problems and Symptoms: Ongoing problems. Client had a relapse with non-suicidal self-harm on 05/13 triggered by negative thoughts after hanging out with a friend. Client reports doing better since relapse with self-harm, recognizing they need to widen their support network. client has been putting himself out to meet new friends and has been connected with a new person. Client has recently been getting back into drawing as a coping skill and has found enjoyment in this again. Pt has reported improved mood in recent individual session and in group sessions. However, pt's DSM 5 scores at review show increase in anxiety symptoms and no decrease in depression. Pt's scores do show a 66% decrease in thoughts of hurting self. Progress Problem #1: Problem Name:: Depression Status of Goals:: Obj 1 - not met. Pt able to identify healthy coping skills like drawing, reading and opposite action. Pt has been reporting he mostly has been using art as their coping skill and wants to work on expanding coping skills. Obj 2 - not met. Pt able to recognize negative thoughts but struggles with challenging thoughts consistently. Team Recommendations:: Team recommends pt continue current goals and objectives to allow for sufficient time for client to see decrease in depression and anxious symptoms. Problem #2: Problem Name:: Anxiety Status of Goals:: Obj 1 - not met. Pt can identify healthy calming skills like belly breathing and grounding. Pt admits they struggle with applying anxiety reduction skills in the moment. obj 2 - not met. Client has improved awareness of their anxiety triggers and does have awareness of healthy coping skills. Client struggles with consistent use of healthy coping skills. Team Recommendations:: Team recommends pt continue current goals and objectives to allow for sufficient time for client to see decrease in depression and anxious symptoms.
--- NOTE | 2025-05-24 09:05 | BH.SGPN.GN ---
Behaviors/Verbalizations/Mental Status: [] Pt alert and oriented, casually dressed and groomed. Eye contact good. Motor activity appropriate. Speech within normal limits. Affect constricted, mood euthymic. Thoughts linear, logical, no signs of hallucinations or delusions. Reviewed pt?s symptom tracker, no risk for suicidal ideation, plan, or intent 05/24/25. Client Response/Progress/Benefit: []Pt was an active participant in group discussions. Attentive. 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 Also, pt noted they continue to reach out to people even when feeling ?cringey and anxious.? Pt's stressor today is ?I?m starting to exercise, but I want to do it more.? The group offered pt suggests managing this stressor and emotional support which pt reported was helpful. Pt is feeling ?cozy? this morning. Pt receptive to feedback from peers. Benefited from group support, encouragement, and feedback. Progress noted. Will continue IOP tx to promote mood stability, reduce negative thinking patterns, and gain self-confidence. Narrative Note: []
--- NOTE | 2025-05-27 09:00 | BH.SGPN.GN ---
Behaviors/Verbalizations/Mental Status: [] Eye contact is good. Motor activity is appropriate. Appearance is casual. Speech is Appropriate. Mood is euthymic. Affect is full. Thoughts are linear and logical. No evidence of psychosis. Reviewed daily check in sheet and pt denies SI, plan, or intent as of this date 05/27/25. Client Response/Progress/Benefit: [] Pt was an active participant in group discussions. Attentive. Did well to identify 2 mental health wins, which included doing well to complete their therapy homework and finding it enjoyable as well as insightful. Additional win noted as making progress with making their own meals. Stressor noted as not exercising like they would like to ideally do. Appeared to benefit from provided support, encouragement, and feedback. Will continue IOP tx to improve mood stability, develop healthy coping repertoire, and prevent decompensation. Narrative Note: []
--- NOTE | 2025-05-27 11:10 | BH.SGPN.GN ---
Behaviors/Verbalizations/Mental Status: []Pt alert and oriented, casually dressed and groomed. Eye contact good. Motor activity appropriate. Speech within normal limits. Affect congruent, mood content. Thoughts linear, logical, no signs of hallucinations or delusions. Client Response/Progress/Benefit: []Pt responded well to session, engaged and contributing. Pt discussed with group things that contribute to mental wellness life. With peers, pt discussed things that would sabotage one's mental health wellness. Pt identified things pt personally does to sabotage as pushing people away, making others feel ?my pain,? and breaking off relationships. Pt attentive during psychoeducation on ways to reduce self-sabotage and pt selected taking a step back and learning to ?no longer be comfortable in my darkest spots.??as the skill that could help pt reduce self-sabotaging behaviors. Pt appeared to benefit from learning skills and gaining awareness of self-sabotaging behaviors. Pt will continue IOP tx to promote mood stability, improve daily functioning, and increase self-confidence. Narrative Note: []
--- NOTE | 2025-05-31 09:00 | BH.SGPN.GN ---
Behaviors/Verbalizations/Mental Status: []Eye contact is good. Motor activity is appropriate. Appearance is casual. Speech is Appropriate. Mood is dysthymic. Affect is congruent. Thoughts are linear and logical. No evidence of psychosis. Reviewed daily check in sheet and pt denies SI, plan, or intent as of this date 05/31/25. Client Response/Progress/Benefit: [] Pt was an active participant in group discussions. Attentive. Did well to identify 2 mental health wins, which included having a successful conversation with his friend about wanting to spend more time together. Reports they were supportive. Additional win noted as making plans to be social this week. Stressor noted as his ongoing ulloa with sleep. Appeared to benefit from provided support, encouragement, and feedback. Will continue IOP tx to improve mood stability, develop healthy coping repertoire, and prevent decompensation. Narrative Note: []
--- NOTE | 2025-05-31 10:10 | BH.SGPN.GN ---
Behaviors/Verbalizations/Mental Status: []Pt alert and oriented, casually dressed and groomed. Eye contact good. Motor activity appropriate. Speech within normal limits. Affect congruent, mood euthymic. Thoughts linear, logical, no signs of hallucinations or delusions. Client Response/Progress/Benefit: [] Pt participated during the group discussion, providing input and remaining attentive during psychoeducation. Participated in experiential activity. Pt contributed during interactive discussion on the consequences of unhealthy expression of emotions. Worked with group to identify several consequences which included hurting relationships and isolating oneself. Contributing during interactive discussion on common potholes to effectively communicating. Pt was able to relate and make connections between the experiential activity and the overall topic, managing emotions through activity by ?pushing myself out of my comfort zone.? Benefited from increased awareness of how stress and emotions can impact one's ability to communicate. Will continue in IOP to promote use of healthy coping skills, improve daily functioning, and further improve self-care. Narrative Note: []
--- NOTE | 2025-05-31 11:10 | BH.SGPN.GN ---
Behaviors/Verbalizations/Mental Status: []Eye contact is good. Motor activity is appropriate. Appearance is disheveled. Speech is Appropriate. Mood is euthymic. Affect is congruent. Thoughts are linear and logical. No evidence of psychosis. Client Response/Progress/Benefit: [] Client engaged in session AEB client listening attentively to peers and providing input. Attentive during psychoeducation on 4 zones of regulation. Pt able to identify feelings and behaviors for each zone. Pt identified coping skills one can use to support self in each zone. Pt stated belief that pt is in the green/yellow zone today. Pt reports wanting to work on ?continuing to practice self-care? so pt can get closer to the green zone today. Benefited from increased education on zones of regulation or stages of alertness for emotions and healthy coping skills to use for each zone. Pt will continue IOP tx to promote use of healthy coping skills, improve daily functioning, and reduce negative thinking patterns. Narrative Note: []
--- NOTE | 2025-06-02 09:05 | BH.SGPN.GN ---
Behaviors/Verbalizations/Mental Status: [] Eye contact is good. Motor activity is appropriate. Appearance is casual. Speech is Appropriate. Mood is euthymic. Affect is full. Thoughts are linear and logical. No evidence of psychosis. Reviewed daily check in sheet and no reports of suicidal ideations or intent. Client Response/Progress/Benefit: [] Pt was an active particpant in group discussions. Attentive. Daily symptom tracker notes 09/12 for depression. Pt reports being calm today. Feels rested. Overall feels that his mind and body are giving him a break today from baseline struggles. Attributes some of this to improved sleep. Benefited from group support, encouragement, and feedback. Progress noted however unable to identify skills that have been helpful. Will continue in IOP to maintain safety, increase healthy coping, and improve functioning. Narrative Note: []
--- NOTE | 2025-06-02 11:15 | BH.SGPN.GN ---
Behaviors/Verbalizations/Mental Status: []Pt alert and oriented, casually dressed and groomed. Eye contact good. Motor activity appropriate. Speech within normal limits. Affect constricted, mood euthymic. Thoughts linear, logical, no signs of hallucinations or delusions. Client Response/Progress/Benefit: [] Pt was an active participant, engaged in activities and discussion. Pt able to identify ways they negatively contribute to crucial conversations and pt was engaged during psychoeducation of the different ways to build interpersonal effectiveness skills. Pt and peers practiced mirroring and active listening in partners. Group reviewed [employer] and used the handout to help map out how they would like a crucial conversation in their life to go. Pt shared they have learned today that they can connect with someone in a conversation without making it about themselves. Pt shared they will continue to practice these skills as pt tries to make online friends. Pt appeared to benefit from learning and practicing interpersonal effectiveness skills. Pt will continue IOP tx to promote mood stability, improve self-confidence, and maintain gains. Narrative Note: []
--- NOTE | 2025-06-02 15:29 | BH.MDN_ITS ---
Multi-Disciplinary Note Note 30-min Individual: Time Started:: 10:30 Date: 06/02/25 Purpose of session/treatment goals addressed:: Purpose of session was to address goals 1 and 2 from [facility]. Eye Contact:: Good Motor Activity:: Appropriate Appearance:: Casual Speech:: Appropriate Mood:: Euthymic Affect:: Full Thoughts:: Linear, Logical and No evidence of hallucinations/delusions noted Staff Interventions:: thought challenging, CBT techniques, discharge planning, strengths perspective and goal setting Client Response:: Client reported I am doing really well. Client stated they are continuing to find art to be significant source of help with mood and enjoyment. Client noted they often want to draw and finds this to be a positive consumption of their time. Client stated they are continuing to do well with creating new interpersonal connections. Client noted they have been communicating daily with a new friend they met via online and client stated that this seems to be a really healthy connections for them. Client stated they are starting to come to terms with the changing friendship with [facility]. Client reported they think it is healthy for them to start to focus on continuing to build outside healthy connections. Client stated 1 area that they are struggling with is that her sleep. Client stated either they will sleep 14 hours in a day or 4 hours. Client reported it is incredibly challenging when their sleep is erratic. Client stated they have been trying to do things and stay active even on days they do not get a lot of sleep. Client stated they now they recently had some medication changes and will bring this up next time they meet with [facility] psychiatrist. Client noted they have been following through with habit stacking goal of doing at least 1 knee exercise before they sit down to draw. Client stated they find this to be very helpful in strengthening their knees and having body movement. Risks/Concerns:: Denies suicidal ideation, plan, intention. Future orie nted. Progress Toward Goals/Plan:: Progress note with client reporting continued improve mood, utilization of healthy coping to manage emotions, and continuing to build their social support network. Client does report recently struggling with erratic sleep. Client noted it does become harder to get things accomplished and have motivation on days in which they only sleep 4 hours. Plan is for client to discuss this recent lapse in sleep with [facility] psychiatrist. Client and therapist started to discuss discharge from [facility]. Client noted they are established with individual counseling through [facility]. Client provided information for [facility] to established with medication management. Plan is for client to continue IOP to promote healthy coping, maintain gains, and prevent decompensation. Time Stopped:: 11:00
--- NOTE | 2025-06-03 07:46 | PCM.BH.PN_ITS ---
Intake Vital Signs 04/29/25 10:57 05/13/25 10:49 06/03/25 07:46 Height 5 ft 9 in 5 ft 9 in 5 ft 9 in Weight: 170 lb BP 126/68 H Pulse 89 Intake Visit Reasons: Follow-up Allergies Penicillins (PCN) Allergy (Intermediate, Verified 04/29/25 10:41) Hives bacitracin Allergy (Mild, Verified 04/29/25 10:41) Rash neomycin (From Neosporin ([id number])) Allergy (Mild, Verified 04/29/25 10:41) Rash polymyxin B (From Neosporin ([id number])) Allergy (Mild, Verified 04/29/25 10:41) Rash Medications ?Medication ?Instructions ?Recorded ?Confirmed ?Type buspirone 15 mg tablet 15 mg PO TID 30 days #90 tab s 04/29/25 Rx hydroxyzine pamoate 25 mg capsule 25 mg PO TID PRN anx iety #60 caps 04/29/25 Rx (Vistaril) quetiapine 50 mg tablet,extended 100 mg (2 x 50 mg) PO QHS #60 tabs 05/13/25 Rx release 24 hr HPI () History of Present Illness History provided by: patient Chief complaint: Worsening depression and anxiety HPI: Rudy Zambrano is a 24 y/o male who presents today for follow up evaluation. Patient reports that initially after starting quetapine xr it was not putting to him to sleep but has started adding melatonin which is working very well in combination with medication to get him to sleep. He has to set an alarm otherwise he will sleep too late in to the day but at this time this is not problematic. Does feel less groggy overall since switching to XR. Mood has been generally better. Feels like other medications are working largely well. Denies significant side effects. Denies SI/HI or AVH. Will be doing 2 more weeks of IOP and then plans to participate in aftercare. Review of systems () Constitutional Reports: change in sleep pattern (Initially worse but improved with melatonin); Denies: fever(s), chills, change in weight or fatigue Eyes Denies: change in vision or blurry vision Ears, Nose, Mouth, Throat Denies: throat pain, neck pain or change in hearing Cardiovascular Denies: chest pain, palpitations or dyspnea Respiratory Denies: dyspnea, cough or wheezing Gastrointestinal Denies: abdominal pain, nausea, vomiting, diarrhea or constipation Genitourinary Denies: dysuria or urinary frequency Musculoskeletal Denies: back pain, neck pain, joint pain or muscle weakness Integumentary/Breast Denies: rash or new lesions Neurological Denies: headache(s), dizziness or confusion Endocrine Denies: fatigue or excessive sweating Hematologic/Lymphatic Denies: easy bruising or easy bleeding Allergic/Immunologic Denies: wheezing Exam Mental Status Exam- Psych () Appearance casually dressed and no apparent distress Attitude cooperative Activity/Motor Behavior MSE activity/motor behavior finding no adventitious movements Speech regular rate and regular volume Mood OK Affect full range Thought Process linear and logical Thought Content no delusions and no hallucinations Suicidal Ideation passive Homicidal Ideation none Attention intact Concentration intact Sensorium/Orientation awake and alert Memory/Cognition intact Insight fair Judgement fair Assessment & Plan () Assessment & Plan (1) MDD (major depressive disorder), recurrent episode, severe: Plan: - Largely doing well with current medication combination (2) Panic disorder: Plan: - Largely controlled at this time (3) Insomnia: Plan: - Initially had some more difficulty with sleep initiation when switching to Seroquel XR however since adding melatonin has been sleeping much better - enocuraged to take melantonin earlier in the night to prevent morning hangover effect Medications: Discontinued quetiapine Discontinued Reason: Order Changed 100 mg PO QHS 30 tabs 0RF Charges/Coding Multi Select Codes Behavior Health Behavior Health EST Pt E/M: 99153 Est Pt Level IV
--- NOTE | 2025-06-03 09:05 | BH.SGPN.GN ---
Behaviors/Verbalizations/Mental Status: [] Eye contact is good. Motor activity is appropriate. Appearance is casual. Speech is Appropriate. Mood is depressed and anxious. Affect is full. Thoughts are linear and logical. No evidence of psychosis. Reviewed daily check in sheet and no reports of suicidal ideations or intent. Client Response/Progress/Benefit: [] Pt was an active participant in group discussions. Attentive. Daily symptom tracker notes 3/5 for depression and 2/5 for anxiety. Able to identify mental health wins and healthy habits. Reports improve sleep for the past 2 nights which has helped with functioning and motivation during the day. Feels emotionally exhausted. Shared having a difficulty conversation with a friend who is leaving the area. Significant impact on his social support and is concerned due to limited social outlets. Limited progress noted. Benefited from group support, encouragment, and feedback. Will continue in IOP to maintain safety, increase healthy coping skills, and improve functioning. Narrative Note: []
--- NOTE | 2025-06-03 10:10 | BH.SGPN.GN ---
Behaviors/Verbalizations/Mental Status: [] Client alert and oriented, casual appearance. Eye contact good. Motor activity appropriate. Speech within normal limits. Affect congruent, mood euthymic. Thoughts linear, logical, no signs of hallucinations or delusions. Client Response/Progress/Benefit: [] Pt receptive to session AEB contributing to small group discussion, as well as listening attentively to others, and taking notes. Worked with group to brainstorm the positive and negative aspects of stress on physical and mental health. Group did well to identify the benefits of stress as well as the impact of distress on performance, relationships, and mental health. Pt identified their personal top stressors as: maintaining schedule, creating new relationships, and managing current relationships. Patient stated when stress is overwhelming they tend to shut down. Pt seemed to benefit from increased awareness of current stressors and impact stress has on mental health. Pt will continue IOP tx to increase consistent use of healthy coping skills, challenge distorted thoughts, and prevent decompensation.
--- NOTE | 2025-06-03 11:05 | BH.SGPN.GN ---
Behaviors/Verbalizations/Mental Status: [] Eye contact is good. Motor activity is appropriate. Appearance is casual. Speech is Appropriate. Mood is depressed. Affect is congruent. Thoughts are linear and logical. No evidence of psychosis. Client Response/Progress/Benefit: [] Pt was an attentive participant in group discussions and actively engaged during experiential activity. Attentive during psychoeducation on the 4 A's (Avoid, adapt, alter, accept) of coping with stress. Identified one of the 4 A's to address one their top stressors.. Participated with peers on identifying the connection between the experiential activity and utilization of stress management skills. According to group both the activity and stress management require; adjusting strategies, reliance on larger support group, and oftentimes can't be done alone. Benefited from increased awareness of stress management strategies. Pt will continue IOP to improve mood stability, challenge distorted thoughts, and prevent decompensation.
--- NOTE | 2025-06-07 09:05 | BH.SGPN.GN ---
Behaviors/Verbalizations/Mental Status: [] Pt alert and oriented, casually dressed and groomed. Eye contact good. Motor activity appropriate. Speech within normal limits. Affect congruent, mood euthymic. Thoughts linear, logical, no signs of hallucinations or delusions. Reviewed pt?s symptom tracker, no risk for suicidal ideation, plan, or intent 06/07/25. Client Response/Progress/Benefit: []Pt was an active participant in group discussions. Attentive. Able to identify mental health wins including ?I saw a friend from [place] that I haven?t seen in a while? and pt shared he is still ?riding the high? from being social. Pt's stressor today is ?honestly none.? The group offered pt suggests managing this stressor and emotional support which pt reported was helpful. Pt is feeling ?excited? this morning. Pt receptive to feedback from peers. Benefited from group support, encouragement, and feedback. Progress noted. Will continue IOP tx to promote mood stability, reinforce healthy coping skills, and increase self-confidence. Narrative Note: []
--- NOTE | 2025-06-07 10:10 | BH.SGPN.GN ---
Behaviors/Verbalizations/Mental Status: [] Client alert and oriented, casually dressed and groomed. Eye contact good. Motor activity appropriate. Speech within normal limits. Affect congruent, mood euthymic. Thoughts linear, logical, no signs of hallucinations or delusions. Client Response/Progress/Benefit: [] Client responded well to session, contributing to discussion and engaged during the activity. Group identified the benefits of change which included: increased confidence, progressing towards goals, and improving mental and physical health. Worked with the group to identify barriers to change, which included: uncomfortable emotions such as anxiety, lack of energy, lack of supports, and negative influences. Client participated along with group in activity where they identified and discussed the emotions related to change. Benefited from increased awareness and understanding of emotions, benefits, and barriers related to change. Will continue IOP tx to increase consistent use of healthy coping skills, challenge distortions, and prevent decompensation.
--- NOTE | 2025-06-07 11:10 | BH.SGPN.GN ---
Behaviors/Verbalizations/Mental Status: []Client alert and oriented, casually dressed and groomed. Eye contact good. Motor activity appropriate. Speech within normal limits. Affect congruent, mood anxious. Thoughts linear, logical, no signs of hallucinations or delusions Client Response/Progress/Benefit: [] Pt responded well to session, attentive. Did well to process activity and work with group to relate the strategies used to overcome barriers in the activity to managing change in own life. Pt identified a change they would like to make is reduce isolation. Pt identified currently being in action stage for this change. Pt stated goal is to continue to practice opposite action. Appeared to benefit from identifying a small goal to work towards. Pt will continue IOP tx to prevent decompensation, improve daily functioning, and gain healthy coping skills. Narrative Note: []
== END 2025-06-07 23:59 ==
LOC: BHIOP 07:16
PROVIDERS: Referring Provider Internal Medicine; Visit Provider Internal Medicine
DX: F33.2 Major depressive disorder, recurrent severe without psychotic features (principal); F41.0 Panic disorder [episodic paroxysmal anxiety]
CPT/HCPCS: H2012; H2020; S9480; 90832; 90834; 90853

== ENCOUNTER 2025-06-08 08:03 | Outpatient (RCR) | payer OTHER, MEDICAID, SELFPAY ==
--- NOTE | 2025-06-08 09:05 | BH.SGPN.GN ---
Behaviors/Verbalizations/Mental Status: [] Eye contact is good. Motor activity is appropriate. Appearance is casual. Speech is Appropriate. Mood is euthymic. Affect is full. Thoughts are linear and logical. No evidence of psychosis. Reviewed daily check in sheet and no reports of suicidal ideations or intent. Client Response/Progress/Benefit: [] Pt was an active participant in group discussions. Attentive. Daily symptom tracker notes 09/12 for depressed mood. Shared recent struggles with self-image and harsh criticisms of himself which have caused increase anxiety in social situations. Overall feeling content and was able to identify healthy habits and mental health wins. : I'm not carrying my anxiety with me all the time. Benefited from group support, encouragment, and feedback. Will continue in IOP to prevent decompensation, maintain gains, and improve functioning. Narrative Note: []
--- NOTE | 2025-06-08 10:10 | BH.SGPN.GN ---
Behaviors/Verbalizations/Mental Status: []Eye contact is good. Motor activity is appropriate. Appearance is casual. Speech is Appropriate. Mood is tired. Affect is congruent. Thoughts are linear and logical. No evidence of psychosis. Client Response/Progress/Benefit: [] Pt receptive to session AEB listening attentively to others and taking notes. Pt attentive and contributed throughout psychoeducation on the cognitive triangle and maintenance cycles. Pt engaged during group discussion reviewing the impact of daily activities and behaviors in either reinforcing unhealthy maintenance cycles and depression or assisting in reducing symptoms (?down? vs ?up? activities). Pt participated during interactive discussion in which pt identified their own common up activities (drawing and playing games with friends) and down activities (isolating and not practicing self-care). Appeared to benefit from increased awareness of current behaviors and impact these have on mental health. Will continue IOP to reinforce use of healthy coping skills, improve daily functioning, and further increase self-confidence. ??? Narrative Note: []
--- NOTE | 2025-06-08 11:10 | BH.SGPN.GN ---
Behaviors/Verbalizations/Mental Status: []Pt alert and oriented, casually dressed and groomed. Eye contact fair. Motor activity appropriate. Speech within normal limits. Affect congruent, mood anxious. Thoughts linear, logical, no signs of hallucinations or delusions. Client Response/Progress/Benefit: [] Pt responded well to session, attentive and engaged in group discussions and activity. Actively engaged in continued discussion about up activities and down activities. Active participant as group discussed values and the benefits that knowing one's values can have on one's mental health. Client shared they would like to focus on strengthening their value of social connection by reaching out to new people to continue building support network Benefited from increased awareness of their up activities and how incorporating their values into behavioral activation goals can positively impact mental health. Will continue in IOP to promote use of healthy coping skills, improve confidence, and prevent decompensation.
--- NOTE | 2025-06-09 09:05 | BH.SGPN.GN ---
Behaviors/Verbalizations/Mental Status: [] Eye contact is good. Motor activity is appropriate. Appearance is casual. Speech is Appropriate. Mood is anxious. Affect is congruent. Thoughts are linear and logical. No evidence of psychosis. Reviewed daily check in sheet and no reports of suicidal ideations or intent. Client Response/Progress/Benefit: [] Pt participated at times during the group discussions. Attentive. Daily symptom tracker notes 2/5 for anxiety and 1/5 for depression. Able to identify mental health wins and healthy habits. Reports recent ruminations on insecurities and his struggles with social interactions. Its stressful to talk. He shared the myriad of self-conscious thoughts he experiences when in a conversations as well as depression-masking in which he minimizes her current emotional states. Used the session to vent and process this with peers. Overall reports improvement which in IOP stating that despite being stressed he is not overwhelmed. Benefited from group support, encouragement, and feedback. Will continue in IOP to prevent decompensation, increase healthy coping, and improve functioning. Narrative Note: []
--- NOTE | 2025-06-09 10:15 | BH.SGPN.GN ---
Behaviors/Verbalizations/Mental Status: []Pt alert and oriented, casually dressed and groomed. Eye contact good. Motor activity appropriate. Speech within normal limits. Affect constricted, mood calm. Thoughts linear, logical, no signs of hallucinations or delusions. Client Response/Progress/Benefit: [] Pt was an active participant AEB taking notes and engaging in group activity. Connected with the topic of pitfalls and listened to group discussion on barriers that prevent from choosing a healthier path to mental wellness. Group worked together to identify examples of personal pitfalls. These examples included; having unrealistic expectations, not trusting, not asking for help, and shutting down. Pt benefited from group as Pt learned to better identify potential barriers to improving mental health symptoms. Pt also gained insight to how much confidence pt has gained as pt was a leader in the activity. Pt will continue IOP tx to promote gains and further reduce symptoms. ?? Narrative Note: []
--- NOTE | 2025-06-09 19:21 | BH.MDN ---
Multi-Disciplinary Note Note 30-min Individual: Time Started:: 11:30 Date: 06/09/25 Purpose of session/treatment goals addressed:: Purpose of session was to address goals 1 and 2 from [facility]. Eye Contact:: Good Motor Activity:: Appropriate Appearance:: Casual Speech:: Appropriate Mood:: Euthymic Affect:: Full Thoughts:: Linear, Logical and No evidence of hallucinations/delusions noted Staff Interventions:: CBT techniques, discharge planning, strengths perspective and goal setting Client Response:: Client reported they are feeling really positive currently because received positive affirmation from the group today that they were instrumental in helping the group get through the challenge activity. Client stated the group said client was a source of calm today during the activity. Client stated this group really helped them see their growth throughout the program because when first start they stayed very quiet during activities but can see how much their confidence has grown throughout the past 7 weeks. Client reported overall things have been going well for them with continued mood improvement, drawing a lot, and starting to take care of more responsibilities at home. Client stated they are feeling a little nervous about upcoming discharge from IOP next week, however realize their mental health is significantly improved compared to when first started IOP. Client reflected back on how they had gone to the ER the weekend prior to IOP due to panic attacks and significant suicidal ideation. Client stated their anxiety is much improved and hasn't felt actively suicidal for weeks. Client agreeable for homework to start reflecting on what skills and strategies will be beneficial for maintenance of progress. Risks/Concerns:: Denies suicidal ideation, plan, or intention to date. Progress Toward Goals/Plan:: Progress noted with client reporting decreased depression, decreased anxiety, and improved daily functioning. Client noted today's group helped solidify how much growth they've had with their confidence and decreasing anxiety compared to when first started IOP. Client stated they have also grown their support network in the last few weeks and has fallen back in love with art. Plan is for client to discharge from IOP next week and will start aftecare the following week. Time Stopped:: 12:00
--- NOTE | 2025-06-13 09:05 | BH.SGPN.GN ---
Behaviors/Verbalizations/Mental Status: [] Eye contact is good. Motor activity is appropriate. Appearance is casual. Speech is Appropriate. Mood is euthymic. Affect is full. Thoughts are linear and logical. No evidence of psychosis. Reviewed daily check in sheet and no reports of suicidal ideations or intent. Client Response/Progress/Benefit: [] Pt participated at times during the group discussions. Attentive. Daily symptom tracker notes 2/5 for anxiety. Able to identify mental health wins and healthy habits. Shared with the group recent habit stacking strategy which he has found to be very helpful. Briefly discussed the concept with some examples to group members. Also shared conscious effort to improve his sleep routine. Progress noted. Benefited from group support, encouragement, and feedback. Will continue in IOP to maintain gains, prevent decompensation, and provide support. Narrative Note: []
--- NOTE | 2025-06-13 10:15 | BH.SGPN.GN ---
Behaviors/Verbalizations/Mental Status: [] Pt alert and oriented, casually dressed and groomed. Eye contact good. Motor activity appropriate. Speech within normal limits. Affect congruent, mood content. Thoughts linear, logical, no signs of hallucinations or delusions. Client Response/Progress/Benefit: [] Pt participated in group discussions. Attentive during psychoeducation on the CBT [place] (Thoughts, Behaviors, Emotions). Engaged in group discussion on how thoughts and behaviors can contribute to maintaining adverse feelings, such as depression, anxiety, and irritability. Completed worksheet in which pt identified obstacles and/or thoughts that are keeping them stuck. Shared obstacles that included; fear of being alone, self-doubt, pushing people away when feeling overwhelmed, and reassurance seeking. Pt benefited from increased awareness of the basis of CBT therapy as well as specific thoughts that are impacting pt's progress. Will continue in IOP to prevent decompensation, increase healthy coping, and improve functioning. Narrative Note: []
--- NOTE | 2025-06-13 11:15 | BH.SGPN.GN ---
Behaviors/Verbalizations/Mental Status: []Pt alert and oriented, disheveled appearance. Eye contact good. Motor activity appropriate. Speech within normal limits. Affect congruent, mood calm. Thoughts linear, logical, no signs of hallucinations or delusions. Client Response/Progress/Benefit: [] Pt responded well to session, contributing to discussion and attentive throughout. Pt identified a negative thought that has kept them stuck. Pt's thought was I should suppress this feeling.? Pt reported when they think this way, pt pushes off emotions and isolates. ?Pt worked to reframe the thought by finding more rational, realistic ways to look at the thoughts and then processed them within group setting. Pt reframed the thought to ?I can approach my emotions with curiosity.? Pt appeared to benefit from practicing challenging negative thinking with peers and gaining coping skills. Pt will continue IOP tx to promote use of healthy coping skills and reinforce thought challenging techniques. ? Narrative Note: []
--- NOTE | 2025-06-14 10:00 | BH.SGPN.GN ---
Behaviors/Verbalizations/Mental Status: []Eye contact is good. Motor activity is appropriate. Appearance is dishelved. Speech is Appropriate. Mood is anxious. Affect is congruent. Thoughts are linear and logical. No evidence of psychosis. Client Response/Progress/Benefit: [] Pt was an active participant in group discussions. Attentive during psychoeducation. Contributed during interactive discussions in which peers attempted to define crisis. Group identified crisis examples. Group also worked together to identify warning signs and unhealthy responses to crisis which included shutting down, isolation, avoidance, over-thinking, disordered eating, and self-harm. Pt identified top 3 warning signs as: repetitive thoughts, tunnel vision, and not enjoying tasks. Benefited from increased understanding of crisis and awareness of personal responses to crisis. Pt will continue IOP tx to promote mood stability, combat distorted thoughts, and reinforce use of healthy coping skills. Narrative Note: []
--- NOTE | 2025-06-14 11:00 | BH.SGPN.GN ---
Behaviors/Verbalizations/Mental Status: []Pt alert and oriented, appropriate grooming/appearance. Eye contact good. Motor activity appropriate. Speech within normal limits. Affect congruent, mood anxious. Thoughts linear, logical, no signs of hallucinations or delusions. Client Response/Progress/Benefit: []Pt was an active participant in group discussions. Attentive during psychoeducation. In small group pt along with peers developed an active plan for their crisis warning signs. Pt identified three crisis warning signs as well as an action plan for each. One crisis warning sign was not enjoying tasks or conversations.. Pt identified strategies to help with this such as: opposite action, drawing, getting outside, and being open with friends about they are feeling. Benefited from increased awareness of crisis warning signs and by developing crisis intervention strategies. Will continue in IOP to promote use of healthy coping skills, challenge negative thought patterns, and prevent decompensation.
--- NOTE | 2025-06-15 09:00 | BH.SGPN.GN ---
Behaviors/Verbalizations/Mental Status: [] Pt alert and oriented, Casually dressed and groomed. Eye contact good. Motor activity appropriate. Speech within normal limits. Affect congruent, mood anxious. Thoughts linear, logical, no signs of hallucinations or delusions. Reviewed pt?s symptom tracker, 0/5 with 5 being severe for risk for suicidal ideation, indicates a 0/5 for plan, and intent to kill self. Pt does not appear to be imminent risk to harm self.06/15/25. Client Response/Progress/Benefit: []Pt was an active participant in group discussions. Attentive. Per patients daily symptom tracker, pt indicates a 2/5 for depression and a 2/5 for anxiety, with 5 being severe. Pt's mental health positives were managing a rough patch with a friend well. Pt stated that he would not have handled this situation well in the past, but feels that he has the coping skills to manage this time., reporting this rough patch as his stressor as well as a positive. Pt's other positive was completing the IOP program today. He stated that he felt proud of himself and the progress that he has made. Pt was supportive and attentive to others in the group. Pt seemed to benefit from support from peers. Pt has completed the IOP program and was discharged on 06/15/2025.
--- NOTE | 2025-06-15 10:15 | BH.SGPN.GN ---
Behaviors/Verbalizations/Mental Status: [] Client alert and oriented, casually dressed and groomed. Eye contact good. Motor activity appropriate. Speech within normal limits. Affect congruent, mood euthymic. Thoughts linear, logical, no signs of hallucinations or delusions. Client Response/Progress/Benefit: [] Pt engaged in session AEB client listening attentively to peers and providing input. Attentive and contributed to discussion as group worked on defining self-forgiveness and identifying mental health benefit. Identified benefits as: reduce guilt/shame, increase self-confidence, decrease negative self-talk, healthier relationships, ect. ?Worked in small groups to identify factors that can make self-forgiveness difficult. Pt identified a personal barrier to self-forgiveness. Benefited from increased education on self-forgiveness, benefits, and what effects it. Pt will continue IOP tx to continue use of healthy coping skills, improve confidence, and prevent decompensation.
--- NOTE | 2025-06-15 19:22 | BH.MDN_ITS ---
Multi-Disciplinary Note Note 45-min Individual: Time Started:: 11:15 Date: 06/15/25 Purpose of session/treatment goals addressed:: Purpose of session was to identify treatment progress, complete maintenance plan, and prevent decompensation. Eye Contact:: Good Motor Activity:: Appropriate Appearance:: Casual Speech:: Appropriate Mood:: Euthymic Affect:: Full Thoughts:: Linear, Logical and No evidence of hallucinations/delusions noted Staff Interventions:: CBT techniques, discharge planning, strengths perspective and other (maintenance plan) Client Response:: Client reported they have been slightly more stressed this week due to interpersonal conflict with their friend Leila. Client stated they have some worries about losing this friendship, but after processing the situation does feel like they have a plan to address their concerns with Leila. Client stated despite the interpersonal conflict that has been off and on for the last few weeks they are feeling excited and ready for discharge from IOP today. Client reported they are feeling less depressed and less anxious. Client stated they have followed through with goal of being more active by using the habit stacking technique to add exercises in before they sit down to draw. Cl ient worked with therapist to complete maintenance plan in which they identified potential triggers that could bring back mental health symptoms, warning signs mental health could be at risk, self-care activities, and healthy coping skills. Risks/Concerns:: Denies suicidal ideation, plan, or intention to date. future oriented. Progress Toward Goals/Plan:: Progress noted with client reporting decreased depression, decreased anxiety, increased social connections, and improved daily functioning. Prior to starting IOP client had been to the ER due to panic attacks and significant suicidal thoughts. Client has had significant decline in panic attacks and decrease in suicidal ideation. Client reported he is functioning much better compared to when he first started IOP. Client is established with individual counseling at [place] and sees his counselor weekly. Client is in process of establishing with Dr. Beckett for medication management. Client will start [facility] aftercare program next week. Time Stopped:: 12:00
--- NOTE | 2025-06-15 21:33 | BH.DS_ITS ---
Discharge Summary Demographics Date of Admission:: 04/26/25 Discharge Date: 06/15/25 Presenting Problems at Admission:: referred by an outpatient therapist due to worsening depression for the past 6 weeks with limited benefit from traditional outpatient follow-up. They feel constant depression and has been spiraling with poor sleep, poor appetite, low energy, low motivation, hopelessness, anhedonia. Does have passive thoughts of with no active intent. Of note patient was seen in the ED 04/23/2025 due to his worsening depression, reportedly there are guns in the home but the ED physician confirmed with father the patient has no access and does not know the combination/where the hewitt is to get access to the gun. Discharge Diagnoses:: MDD (major depressive disorder), recurrent episode, severe Panic disorder Diagnosis Code(s):: F33.2 Reason for Discharge:: Pt has shown significant treatment progress since starting IOP and no longer meets criteria for [facility] level of care. Pt will discharge from [facility] today. Treatment Progress During Treatment & Response: Progress noted with client reporting decreased depression, decreased anxiety, increased social connections, and improved daily functioning. Prior to starting IOP client had been to the ER due to panic attacks and significant suicidal thoughts. Client has had significant decline in panic attacks and decrease in suicidal ideation. Client reported he is functioning much better compared to when he first started IOP. Per DSM 5 cross-cutting symptom measure client's depression decreased 63% and overall symptoms decreased by 30%. Pt's scores indicated a 1 point increase in anxiety when compared to his admission scores. Pt responded well to treatment program AEB client engaging in group sessions and consistently attending program. Issues Still to be Addressed:: Client could benefit from continued reinforcement of healthy coping skills, building support network, and helping them transition back into the work force. Discharge Recommendations/Instructions:: Client is established with individual counseling at [facility] and sees his counselor weekly. Client is in process of establishing with Dr. Beckett for medication management. Client will start [facility] aftercare program next week. Discharge Handout
== END 2025-06-15 12:11 | disposition home or self-care (01) ==
LOC: BHIOP 08:03
PROVIDERS: Referring Provider Internal Medicine; Visit Provider Internal Medicine
DX: F33.2 Major depressive disorder, recurrent severe without psychotic features (principal); F41.0 Panic disorder [episodic paroxysmal anxiety]
CPT/HCPCS: S9480; 90832; 90834; 90853

== ENCOUNTER 2025-06-23 08:00 | Outpatient (RCR) | payer OTHER, MEDICAID, SELFPAY ==
--- NOTE | 2025-06-23 14:00 | BH.COMM ---
Communication Note Communication with Client Communication Note: Patient completed IOP and presents today to start relapse prevention group which meets once weekly (1.5 hours) for 8 weeks. Case discussed with Dr. Beckett with plan to admit with dx of F33.2
--- NOTE | 2025-06-23 15:52 | BH.MTP ---
Master Treatment Plan Patient Information Program Physician:: Dr. Alejandra Chacon Primary Therapist:: Jihan HU Psychiatric Diagnoses Psychiatric Diagnoses:: F33.2 MDD (major depressive disorder), recurrent episode, severe Panic disorder Diagnosis Code(s):: F 33.2 Estimated LOS Estimated LOS (in weeks):: 8 Problem/Goal #1 Problem/Goal #1 Stated Goal:: client will maintain or see a reduction in symptoms AEB client score on the DSM 5 cross-cutting measure and improve client's daily functioning. Objectives Objective #1: Stated Objective: Client will continue to consistently apply healthy coping skills to maintain progress made in IOP tx. Interventions: Through group therapy, client will review warning signs and triggers as well as healthy coping skills learned in IOP tx to successfully maintain gains while transitioning into outpatient therapy. Discharge Criteria: Client will have accomplished this goal when client's score on the DSM-5 cross-cutting measure has maintained or reduced over a 8 week period. Target Date: 08/18/25 Review Date: 07/21/25 Status: open Objective #2: Stated Objective: Client will learn and utilize 2-3 maintenance strategies to prevent decompensation from original IOP DSM-5 scores. Interventions: Through group therapy, client will be provided with education on healthy maintenance behaviors, relapse prevention techniques, and healthy coping strategies. Discharge Criteria: Client will have accomplished this goal when can report using at least 2 maintenance skills to prevent decompensation compared to original IOP DSM-5 scores Target Date: 08/18/25 Review Date: 07/21/25 Status: open
== END 2025-07-08 23:59 ==
LOC: BHOG 08:00
PROVIDERS: Referring Provider Student in an Organized Health Care Education/Training Program; Visit Provider Student in an Organized Health Care Education/Training Program
DX: F33.2 Major depressive disorder, recurrent severe without psychotic features (principal)
CPT/HCPCS: 90853

== ENCOUNTER 2025-07-11 08:37 | Outpatient (RCR) | payer OTHER, MEDICAID, SELFPAY ==
--- NOTE | 2025-07-14 14:00 | BH.SGPN.GN ---
Behaviors/Verbalizations/Mental Status: []Pt alert and oriented, disheveled appearance. Eye contact good. Motor activity appropriate. Speech within normal limits. Affect congruent, mood euthymic. Thoughts linear, logical, no signs of hallucinations or delusions. Client Response/Progress/Benefit: [] Pt took notes and contributed to group discussions. Pt reports following up with their outpatient providers and taking medication. Pt identified coping skills pt has been using which included: radical acceptance, finding the vazquez, communication, and setting boundaries. Pt engaged in discussion self-love, what it is, and how it is formed. Pt worked with peers during the experiential activity and connected it back to acceptance and self-love. Pt shared they can work on using curious understanding to build self-love. Pt appeared to benefit from learning about self-love strategies and how to accept all parts of themselves. Will continue IOP aftercare to promote gains and reinforce healthy coping skills. Narrative Note: []
--- NOTE | 2025-07-14 16:56 | BH.TPR ---
Treatment Plan Review Demographics Date of Admission:: 06/23/25 Date of Treatment Plan Review:: 07/14/25 Admitting Diagnoses:: MDD (major depressive disorder), recurrent episode, severe Panic disorder Diagnosis Code(s):: F 33.2 Current Diagnoses:: MDD (major depressive disorder), recurrent episode, severe Panic disorder Diagnosis Code(s):: F 33.2 Patient Status Patient's Response to Treatment:: Pt responding well to treatment AEB pt's consistent attendance, active engagement in group discussions, follow up with outpatient providers, and reporting use of skills outside treatment environment. Pt utilizes IOP aftercare to process current stressors, continue building social connections, practice giving self credit for daily accomplishments, continue to work on challenging negative core beliefs and unrealistic expectations of self, and identify more adaptive coping strategies. Status of Current Problems and Symptoms: Ongoing stressors include maintaining progress made in IOP, trying to build healthy support system, and maintenance of progress. Pt self-reports they have moments of negative thinking, feeling ?overwhelmed with life?, but notes overall more manageable. Client reports use of coping skills more consistently which includes: radical acceptance, finding the vazquez, communication, and setting boundaries. Progress Problem #1: Problem Name:: Pt will maintain or decrease symptoms from IOP admission data Status of Goals:: Obj 1 - complete with ongoing work encouraged- Pt has been able to maintain gains made in IOP as pt?s DSM-5 scores are 39% lower than they were at IOP admission. 50% decrease in depressive symptoms and 30% decrease in anxiety when compared to IOP admission scores. Obj 2 - complete with ongoing work encouraged. Pt has been consistently reporting self-care, thought challenging, boundary setting, gratitude, and using healthy coping skills. pt is continuing to make consistent strides in better challenging and replacing these thoughts. Team Recommendations:: Recommended client continue IOP aftercare group to show maintenance of progress. Will continue to encourage client to attend regular outpatient counseling and psychiatry appointments as well.
--- NOTE | 2025-07-28 14:00 | BH.SGPN.GN ---
Behaviors/Verbalizations/Mental Status: []Client alert and oriented, casually dressed and groomed. Eye contact good. Motor activity appropriate. Speech within normal limits. Affect congruent, mood euthymic. Thoughts linear, logical, no signs of hallucinations or delusions. Client Response/Progress/Benefit: []Pt responded well to session AEB sharing and listening attentively to others. Pt reports following up with therapy, psychiatry, and pt reports he is taking medications consistently. Pt stated using reframing, communicating needs, and affirmations as primary coping skills used this past week. Pt participated in group discussion defining vulnerability, how and why we avoid it, and the benefits. Pt was an active participant and provided personal examples of being vulnerable and the positive things that came with this. Pt stated that pt would like to work on being vulnerable this week by calling an online friend he has not spoken to before. Will continue aftercare to maintain gains and prevent decompensation. Narrative Note: []
== END 2025-08-07 23:59 ==
LOC: BHOG 08:37
PROVIDERS: Referring Provider Student in an Organized Health Care Education/Training Program; Visit Provider Student in an Organized Health Care Education/Training Program
DX: F33.2 Major depressive disorder, recurrent severe without psychotic features (principal); F41.0 Panic disorder [episodic paroxysmal anxiety]
CPT/HCPCS: 90853

== ENCOUNTER 2025-08-08 08:07 | Outpatient (RCR) | payer OTHER, MEDICAID, SELFPAY ==
--- NOTE | 2025-08-11 14:00 | BH.SGPN.GN ---
Behaviors/Verbalizations/Mental Status: []Pt alert and oriented, casually dressed and appropriately groomed. Eye contact good. Motor activity appropriate. Speech within normal limits. Affect congruent, mood euthymic. Thoughts linear, logical, no signs of hallucinations or delusions. Client Response/Progress/Benefit: []Client active participant in group session AEB providing contributions to group discussion. Client reported he has been following through with scheduling counseling and medication consistency. Client identified utilizing several different coping skills to help him continue to regulate emotions and challenge thoughts. Skills included: opposite action, creating art, and reaching out to supports. Client attentive to psychoeducation about gratitude and provided contributions throughout. Client created gratitude plan for the week, this included expressing gratitude towards his friends. Client seemed to benefit from learning about gratitude and creating a week gratitude plan. Pt to continue IOP to promote utilization of healthy coping skills, challenge distortions, and prevent decompensation. Narrative Note: []
--- NOTE | 2025-08-18 14:00 | BH.SGPN.GN ---
Behaviors/Verbalizations/Mental Status: []Pt alert and oriented, casually dressed and groomed. Eye contact good. Motor activity appropriate. Speech within normal limits. Affect congruent, mood euthymic. Thoughts linear, logical, no signs of hallucinations or delusions. Client Response/Progress/Benefit: [] Pt responded well to session, completed their self-reflection worksheet. Pt noted they have met with their therapist since last session, they have been taking medication consistently, and used coping skills like deep breathing, affirmations, advocating for self, radical acceptance, and making time for hobbies. Pt engaged well during the discussion of the components of self-compassion. Pt connected with the benefits of self-compassion and participated in the activity of reframing a recent setback using self-compassion. Pt used self-compassion to combat negative self-talk and shared plan to work on this throughout the week.?Pt appeared to benefit from practicing self-compassion and connecting with peers. Will discharge from [facility] aftercare as pt has accomplished tx goals. Narrative Note: []
--- NOTE | 2025-08-18 16:58 | BH.DS ---
Discharge Summary Demographics Date of Admission:: 06/23/25 Discharge Date: 08/18/25 Presenting Problems at Admission:: At IOP admission pt referred by an outpatient therapist due to worsening depression for the past 6 weeks with limited benefit from traditional outpatient follow-up. They feel constant depression and has been spiraling with poor sleep, poor appetite, low energy, low motivation, hopelessness, anhedonia. Does have passive thoughts of with no active intent. Of note patient was seen in the ED 04/23/2025 due to his worsening depression, reportedly there are guns in the home but the ED physician confirmed with father the patient has no access and does not know the combination/where the hewitt is to get access to the gun. At aftercare admission client showing improvement with depression and anxiety management but continuing to report mild to moderate symptoms. Pt stressed about needing to find a job because worried with impact mental health. Discharge Diagnoses:: MDD (major depressive disorder), recurrent episode, severe Panic disorder Diagnosis Code(s):: F33.2 Reason for Discharge:: Pt has accomplished tx goals AEB ability to maintain mood stability and gains made in IOP. Pt's DSM-5 scores remain 22% lower than her IOP admission scores. Pt will transition to traditional outpatient counseling. Treatment Progress During Treatment & Response: Pt responded well and made progress in IOP aftercare as evidenced by pt's participation in group discussions and self-report of consistently applying coping skills. Pt's overall DSM-5 scores decreased by 63% from IOP admission. Pt?s depression decreased by 50% since original IOP admission, pt's scores for anxiety decreased by 60% compared to original IOP scores, and pt's thoughts of wanting to hurt self has decreased by 100%. Issues Still to be Addressed:: Client could benefit from continued reinforcement of healthy coping skills, reinforcement of maintenance plan, and continued work on boundary setting. Could also benefit from support with transitioning back into the workforce. Discharge Recommendations/Instructions:: Client is established with an outpatient counselor at [place] and psychiatrist Dr. Beckett at [facility]. Discharge Handout
== END 2025-08-19 07:22 | disposition home or self-care (01) ==
LOC: BHOG 08:07
PROVIDERS: Referring Provider Student in an Organized Health Care Education/Training Program; Visit Provider Student in an Organized Health Care Education/Training Program
DX: F33.2 Major depressive disorder, recurrent severe without psychotic features (principal); F41.0 Panic disorder [episodic paroxysmal anxiety]
CPT/HCPCS: 90853